=== PATIENT | male | born 1950 | race Caucasian/White ===

== ENCOUNTER → 2016-03-14 | Outpatient (CLI) | payer BC ==
[~2016-03-14] MED LIST: ALBINS/ INH; AMLO-114 PO; ATRINSX INH; BUPRTAB PO; CARV3.12 PO; CTP3 PO; FORMCAP INH; FURO80TA63 PO; GLC/500 PO; LEVAAER2 INH; LEVO88TA PO; LISI-461 PO; MOME50SP5 NAE; OMEG10007 PO; POTA20TA16 PO; SNG10 PO; TRAZ100T29 PO
[2016-03-14 14:25] LABS: BLOOD UREA NITROGEN 34 mg/dl (7-18); BUN/CREATININE RATIO 16.9 (10-20); CALCIUM 8.7 mg/dl (8.5-10.1); CARBON DIOXIDE 26 mmol/L (21-32); CHLORIDE 100 mmol/L (98-107); GLUCOSE 214 mg/dl (70-99); PHOSPHORUS 3.7 mg/dl (2.5-4.9); POTASSIUM 4.1 mmol/L (3.5-5.1); SODIUM 137 mmol/L (136-145)
[2016-03-14 14:42] LABS: URINE APPEARANCE CLEAR (CLEAR); URINE BILIRUBIN NEG (NEG); URINE COLOR YELLOW; URINE EPITHELIAL CELL AUTO 20-30 /lpf (0-5); URINE NITRITE NEG (NEG); UROBILINOGEN NEG (NEG); ZZUR CULT IF INDIC CLEAN CATCH NO
[2016-03-14 14:47] LABS: MANUAL MICROSCOPIC REQUIRED? NO; REVIEW REQ? NO
[2016-03-14 15:16] LABS: URINE PROTIEN/CREAT RATIO 0.1 (0-0.2); URINE TOTAL PROTEIN 10.2 mg/dl (0-11.9)
== END | disposition home or self-care (01) ==
LOC: C.LABSPEC 13:52
PROVIDERS: ATTEND Internal Medicine Nephrology
DX: I10 Essential (primary) hypertension (principal); N28.9 Disorder of kidney and ureter, unspecified; R80.9 Proteinuria, unspecified

== ENCOUNTER → 2016-03-25 | Outpatient (CLI) | payer BC ==
--- NOTE | 2016-03-25 12:46 | DIAGNOSTIC IMAGING REPORT ---
Renal ultrasound RETROPERITONEAL COMPLETE CLINICAL HISTORY: N28.9 Acute on chronic renal insufficiency Patient scheduled for renal insufficiency TECHNIQUE: Renal ultrasound COMPARISON STUDY: None FINDINGS: Maximum linear dimension right kidney 13.3 cm. Maximum linear dimension left kidney 13.5 cm. No evidence renal mass or hydronephrosis. IMPRESSION: Normal study. Mild cortical thinning bilaterally. Electronically signed by: Sherif Johnson M.D. 03/25/2016 12:45 PM Dictated Date/Time: 03/25/2016 12:43 PM
== END | disposition home or self-care (01) ==
LOC: C.ULTR 11:53
PROVIDERS: ATTEND Internal Medicine Nephrology
DX: N28.9 Disorder of kidney and ureter, unspecified (principal)

== ENCOUNTER → 2016-04-10 | Outpatient (CLI) | payer BC ==
[2016-04-11 13:34] LABS: BLOOD UREA NITROGEN 37 mg/dl (7-18); BUN/CREATININE RATIO 16.7 (10-20); CALCIUM 9.3 mg/dl (8.5-10.1); CARBON DIOXIDE 27 mmol/L (21-32); CHLORIDE 99 mmol/L (98-107); GLUCOSE 114 mg/dl (70-99); PHOSPHORUS 5.1 mg/dl (2.5-4.9); SODIUM 137 mmol/L (136-145)
== END | disposition home or self-care (01) ==
LOC: C.LABSPEC 13:19
PROVIDERS: ATTEND Internal Medicine Nephrology
DX: N28.9 Disorder of kidney and ureter, unspecified (principal)

== ENCOUNTER → 2017-09-24 | Outpatient (CLI) | payer BC ==
[~2017-09-24] MED LIST changes: -AMLO-114 PO; +AMLO10TA3 PO; +POTA-639 PO; -POTA20TA16 PO
== END | disposition home or self-care (01) ==
LOC: C.LABSPEC 17:38
PROVIDERS: ATTEND Urology
DX: N40.1 Benign prostatic hyperplasia with lower urinary tract symptoms (principal); N50.811 Right testicular pain

== ENCOUNTER 2020-05-05 19:48 | Inpatient (IN) ==
[2020-05-05] MEDS ORDERED: SODIUM CHLORIDE 0.9% 1000ML 1,000 ML IV SCH (20:15)
--- NOTE | 2020-05-05 20:18 | Emergency Department Note ---
History of Present Illness General Chief complaint: Urinary Symptoms Stated complaint: UTI Time Seen by Provider: 05/05/20 20:00 Source: patient and family (Son who is at the bedside) Mode of arrival: ambulatory Limitations: no limitations History of Present Illness Maximum Pain Intensity: 5 This patient comes in after having urinary discomfort since Friday. He has had dysuria with frequency. He says he cannot make it to the bathroom. No fever or chills until today he had a low-grade temperature. He did receive the majority vaccine yesterday as well the urinary symptoms started before this. He is going about every 15 minutes. He has chronic back issues is nonacute he has no numbness weakness in the buttocks or legs he has normal bowel function. He is recently on baclofen for muscles spasms. He has had no fall or trauma. No chest pain or shortness of breath. Home Medications Medication Instructions Recorded Confirmed Type bupropion HCl 300 mg 24 hr tablet, 300 mg PO DAILY #90 tab 10/01/18 05/05/20 History extended release calcium carbonate 600 mg (1,500 1 tab PO BID tab 10/01/18 05/05/20 History mg)-vitamin D3 200 unit tablet carvedilol 25 mg tablet 25 mg PO BID #180 tab 10/01/18 05/05/20 History cyanocobalamin (vitamin B-12) 5,000 mcg SL DAILY tab 10/01/18 05/05/20 History 5,000 mcg sublingual tablet levothyroxine 150 mcg tablet 150 mcg PO DAILY #30 tab 10/01/18 05/05/20 History metformin 500 mg tablet 500 mg PO BID tab 10/01/18 05/05/20 History mometasone 50 mcg/actuation nasal 2 sprays INTRANASAL BID #3 gm 10/01/18 05/05/20 History spray cholecalciferol (vitamin D3) 100 4,000 units PO DAILY 10/21/18 05/05/20 History mcg (4,000 unit) capsule cholecalciferol (vitamin D3) 75 3,000 units PO DAILY 10/21/18 05/05/20 History mcg (3,000 unit) tablet furosemide 80 mg tablet 80 mg PO DAILY PRN #30 tab 10/21/18 05/05/20 History multivitamin 1 tab PO DAILY 10/21/18 05/05/20 History acetaminophen 500 mg tablet 500 mg PO Q6H PRN 06/17/19 05/05/20 History levalbuterol tartrate 45 2 puffs INH Q6H PRN 08/17/19 05/05/20 History mcg/actuation aerosol inhaler krill oil 500 mg capsule 500 mg PO DAILY cap 09/24/19 05/05/20 History spironolactone 50 mg tablet 50 mg PO DAILY #90 tab 09/24/19 05/05/20 Rx amlodipine 10 mg tablet 10 mg PO DAILY #90 tab 12/23/19 05/05/20 Rx atorvastatin 10 mg tablet 10 mg PO DAILY 01/19/20 05/05/20 History glipizide 10 mg tablet 10 mg PO QPM 01/19/20 05/05/20 History albuterol sulfate 2.5 mg INHALATION Q4H PRN #300 ml 01/31/20 05/05/20 Rx clonidine HCl 0.3 mg tablet 0.3 mg PO BID #180 tab 03/01/20 05/05/20 Rx trazodone 100 mg tablet 100 mg PO HS #90 tab 03/15/20 05/05/20 Rx BiPap Supplies #1 ea 03/31/20 05/05/20 Rx montelukast 10 mg tablet 10 mg PO DAILY #90 tab 04/17/20 05/05/20 Rx furosemide 40 mg tablet 40 mg PO DAILY #90 tab 05/01/20 05/05/20 Rx glipizide 20 mg PO QAM 05/05/20 05/05/20 History Allergies Allergy/AdvReac Type Severity Reaction Status Date / Time heparin Allergy Severe HIT Verified 05/05/20 22:41 Penicillins Allergy Severe HIVES/SOB Verified 05/05/20 22:41 Cephalosporins Allergy Intermediate FROM MED Verified 05/05/20 22:41 RECORDDR LISA telmisartan Allergy Intermediate FROM Verified 05/05/20 22:41 MULUGETA OFC RECORD Past Med/Surg History Medical History Asthma BPH (benign prostatic hyperplasia) Chronic kidney disease (CKD), stage III (moderate) Cor pulmonale Depression Diabetes mellitus type 2 in 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 Gout Hypothyroidism Morbid obesity Obstructive sleep apnea Paroxysmal atrial fibrillation Resistant hypertension Surgical History H/O knee surgery History of herniorrhaphy History of uvulopalatopharyngoplasty Family History Denies family history of Kidney disease Social History Smoking Status: Never smoker Preferred Language: Belgian current occupational status: employed Feels Safe at Home: Yes Review of Systems A total of 10 systems reviewed and were otherwise negative Physical Exam Vital Signs Vital Signs - 24 hr 05/05/20 19:54 05/05/20 20:13 05/05/20 20:43 Temperature 35.1 C L 38.4 C H Temperature Source Temporal Artery Scan Oral Pulse Rate 96 H Pulse Rate from SpO2 Sensor Pulse Rhythm Regular Pulse Strength Normal Respiratory Rate 16 Respiratory Effort / Characteristics Non-Labored Non-Labored Respiratory Depth Normal Respiratory Pattern Regular Blood Pressure 155/75 H Blood Pressure Mean 101 Pulse Oximetry 95 Oxygen Delivery Method Room Air Room Air Sepsis Recent Fever Within 48 Hours No Sepsis New/Unexplained Change in Mental Status N/A Sepsis Action Taken by Nursing No Action Required 05/05/20 22:00 05/05/20 22:02 05/05/20 22:30 Temperature Temperature Source Pulse Rate 91 H 93 H Pulse Rate from SpO2 Sensor 91 H 92 H Pulse Rhythm Pulse Strength Respiratory Rate 29 H 21 Respiratory Effort / Characteristics Labored Respiratory Depth Respiratory Pattern Blood Pressure 166/87 H 137/83 Blood Pressure Mean 113 101 Pulse Oximetry 94 95 Oxygen Delivery Method Sepsis Recent Fever Within 48 Hours Sepsis New/Unexplained Change in Mental Status Sepsis Action Taken by Nursing 05/05/20 23:00 05/05/20 23:24 05/05/20 23:30 Temperature 37.1 C Temperature Source Oral Pulse Rate 89 85 Pulse Rate from SpO2 Sensor 89 85 Pulse Rhythm Pulse Strength Respiratory Rate 20 16 Respiratory Effort / Characteristics Non-Labored Respiratory Depth Respiratory Pattern Blood Pressure 143/80 H 131/68 Blood Pressure Mean 101 89 Pulse Oximetry 95 95 Oxygen Delivery Method Room Air Sepsis Recent Fever Within 48 Hours Sepsis New/Unexplained Change in Mental Status Sepsis Action Taken by Nursing 05/06/20 00:00 Temperature Temperature Source Pulse Rate 80 Pulse Rate from SpO2 Sensor 80 Pulse Rhythm Pulse Strength Respiratory Rate 17 Respiratory Effort / Characteristics Respiratory Depth Respiratory Pattern Blood Pressure 139/82 Blood Pressure Mean 101 Pulse Oximetry 95 Oxygen Delivery Method Room Air Sepsis Recent Fever Within 48 Hours Sepsis New/Unexplained Change in Mental Status Sepsis Action Taken by Nursing General: Well developed well nourished in no acute distress, breathing comfortably on room air. Normal speech HEENT: Normal cephalic atraumatic. Pupils are equal round and reactive to light. Extraocular movements are intact. Oropharynx is pink with moist mucous membranes. No swelling of the mouth lips or tongue. Neck: Supple with a midline trachea. No meningeal signs or stiffness, no JVD or bruits. No Stridor. Chest: Clear to auscultation bilaterally. No wheezes or rhonchi. No increased work of breathing. Heart: Regular rate and rhythm without murmurs or gallops. Abdomen: Soft nontender, nondistended without rebound guarding or rigidity. Extremities: No cyanosis clubbing or edema. No calf tenderness or assymetry Spine/Back. Non tender to palpation. No CVA tenderness Skin: Good turgor without rashes. Neurologic exam: Cranial nerves two through 12 are intact. Motor and sensation are intact and symmetrical throughout. Course Administered Medications Discontinued Medications Acetaminophen (Acetaminophen 325 Mg Tab) 650 mg PO NOW STA Stop: 05/05/20 21:18 Last Admin: 05/05/20 21:42 Dose: 650 mg Documented by: [id number] Sodium Chloride (Nss 1000ml) 1,000 mls @ 999 mls/hr IV .Q1H1M SHANTELLE Stop: 05/05/20 21:15 Last Infusion: 05/05/20 22:08 Dose: 0 mls/hr Documented by: [id number] Admin: 05/05/20 20:57 Dose: 999 mls/hr Documented by: [id number] Levofloxacin/Dextrose (Levaquin/D5w) 750 mg in 150 mls @ 100 mls/hr IV NOW STA Stop: 05/05/20 22:43 Last Infusion: 05/05/20 23:22 Dose: 0 mls/hr Documented by: [id number] Admin: 05/05/20 21:39 Dose: 100 mls/hr Documented by: [id number] Sodium Chloride (Nss 1000ml) 1,000 mls @ 999 mls/hr IV .Q1H1M ONE Stop: 05/05/20 22:15 Last Admin: 05/05/20 22:25 Dose: Not Given Documented by: [id number] Tamsulosin HCl (Tamsulosin Hcl 0.4 Mg Cap) 0.4 mg PO NOW ONE Stop: 05/05/20 23:28 Last Admin: 05/05/20 23:48 Dose: 0.4 mg Documented by: [id number] Critical Care Time Critical Care Time: Yes Total Critical Care Time: 35 Due to the patient's fever elevated white count and concern for sepsis, he needed frequent reevaluation reassessment and IV fluids IV antibiotics c onsultation and multiple testing, I have personally spent greater than 35 minutes of critical care time in the direct management of this patient. This includes bedside care, interpretation of diagnostic studies, and testing, discussion with consultants, patient, and family members, and other required patient management activities. This 35 minutes is in excess of all separately billable procedures. Medical Decision Making Differential Diagnosis UTI, sepsis, pyelonephritis, kidney stone, prostate disease, urinary retention, side effect from Covid vaccine, electrolyte or metabolic abnormality, dehydration, kidney disease Medical Records Attestation: I reviewed the patient's medical records. Home Medications Current Medication List: was personally reviewed by me Laboratory Data Attestation: I reviewed the patient's lab results. Result diagrams: 05/05/20 20:30 05/05/20 22:34 Lab Results 05/05/20 05/05/20 05/05/20 Range/Units 20:30 20:30 20:30 WBC 19.46 H (4.8-10.8) K/uL RBC 4.36 L (4.7-6.1) M/uL Hgb 13.6 L (14.0-18.0) g/dL Hct 38.7 L (42-52) % MCV 88.8 (80-100) fL MCH 31.2 (25-34) pg MCHC 35.1 (32-36) g/dL RDW Std Deviation 43.8 (36.4-46.3) fL RDW Coeff of Christina 13.4 (11.5-14.5) % Plt Count 271 (130-400) K/uL MPV 11.1 H (7.4-10.4) fL Immature Gran % (Auto) 0.7 % Neut % (Auto) 80.8 % Lymph % (Auto) 10.6 % [place] % (Auto) 7.3 % Eos % (Auto) 0.4 % Baso % (Auto) 0.2 % Neut # (Auto) 15.71 H (1.4-6.5) K/uL Lymph # (Auto) 2.07 (1.2-3.4) K/uL [place] # (Auto) 1.43 H (0.11-0.59) K/uL Eos # (Auto) 0.08 (0-0.5) K/uL Baso # (Auto) 0.03 (0-0.2) K/uL Immature Gran # (Auto) 0.14 H (0.00-0.02) K/uL PT Cancelled INR Cancelled APTT Cancelled PTT Ratio Cancelled Sodium (136-145) mmol/L Potassium (3.5-5.1) mmol/L Chloride (98-107) mmol/L Carbon Dioxide (21-32) mmol/L Anion Gap (3-11) BUN (7-18) mg/dl Creatinine (0.6-1.4) mg/dl Est Cr Clr Drug Dosing ml/min Est GFR ( Amer) Est GFR (Non-Af Amer) BUN/Creatinine Ratio (10-20) Glucose (70-99) mg/dl Lactate (0.4-2.0) mmol/L Calcium (8.5-10.1) mg/dl Magnesium (1.8-2.4) mg/dl Total Bilirubin (0.2-1) mg/dl AST (15-37) U/L ALT (12-78) U/L Alkaline Phosphatase (45-117) U/L Total Protein (6.4-8.2) gm/dl Albumin (3.4-5.0) gm/dl Globulin (2.5-4.0) gm/dl Albumin/Globulin Ratio (0.9-2) Procalcitonin 0.24 (0-0.5) ng/ml Urine Color Urine Appearance (Clear) Urine pH (4.5-7.5) Ur Specific [place] (1.000-1.030) Urine Protein (Negative) Urine Glucose (UA) (Negative) Urine Ketones (Negative) Urine Blood (Negative) Urine Nitrite (Negative) Urine Bilirubin (Negative) Urine Urobilinogen (Negative) Ur Leukocyte Esterase (Negative) Urine WBC (Auto) (0-5) /hpf Urine RBC (Auto) (0-4) /hpf U Hyaline Cast (Auto) (0-5) /lpf U Epithel Cells (Auto) (0-5) /lpf Urine Bacteria (Auto) (Negative) Amorphous Sediment (None Prsent) COVID-19 Eval Order SARS-CoV-2 (PCR) (Negative) Influenza Type A (PCR) (Neg) Influenza Type B (PCR) (Neg) RSV (RT-PCR) (Neg) 05/05/20 05/05/20 05/05/20 Range/Units 20:30 20:51 21:39 WBC (4.8-10.8) K/uL RBC (4.7-6.1) M/uL Hgb (14.0-18.0) g/dL Hct (42-52) % MCV (80-100) fL MCH (25-34) pg MCHC (32-36) g/dL RDW Std Deviation (36.4-46.3) fL RDW Coeff of Christina (11.5-14.5) % Plt Count (130-400) K/uL MPV (7.4-10.4) fL Immature Gran % (Auto) % Neut % (Auto) % Lymph % (Auto) % [place] % (Auto) % Eos % (Auto) % Baso % (Auto) % Neut # (Auto) (1.4-6.5) K/uL Lymph # (Auto) (1.2-3.4) K/uL [place] # (Auto) (0.11-0.59) K/uL Eos # (Auto) (0-0.5) K/uL Baso # (Auto) (0-0.2) K/uL Immature Gran # (Auto) (0.00-0.02) K/uL PT INR APTT PTT Ratio Sodium 133 L (136-145) mmol/L Potassium Cancelled (3.5-5.1) mmol/L Chloride 101 (98-107) mmol/L Carbon Dioxide 24 (21-32) mmol/L Anion Gap 8.0 (3-11) BUN 31 H (7-18) mg/dl Creatinine 2.51 H (0.6-1.4) mg/dl Est Cr Clr Drug Dosing 39.9 ml/min Est GFR ( Amer) 29.1 Est GFR (Non-Af Amer) 25.1 BUN/Creatinine Ratio 12.5 (10-20) Glucose 190 H (70-99) mg/dl Lactate 0.9 (0.4-2.0) mmol/L Calcium 10.0 (8.5-10.1) mg/dl Magnesium Cancelled (1.8-2.4) mg/dl Total Bilirubin 0.7 (0.2-1) mg/dl AST Cancelled (15-37) U/L ALT 23 (12-78) U/L Alkaline Phosphatase 50 (45-117) U/L Total Protein 7.9 (6.4-8.2) gm/dl Albumin 3.5 (3.4-5.0) gm/dl Globulin 4.4 H (2.5-4.0) gm/dl Albumin/Globulin Ratio 0.8 L (0.9-2) Procalcitonin (0-0.5) ng/ml Urine Color Urine Appearance (Clear) Urine pH (4.5-7.5) Ur Specific [place] (1.000-1.030) Urine Protein (Negative) Urine Glucose (UA) (Negative) Urine Ketones (Negative) Urine Blood (Negative) Urine Nitrite (Negative) Urine Bilirubin (Negative) Urine Urobilinogen (Negative) Ur Leukocyte Esterase (Negative) Urine WBC (Auto) (0-5) /hpf Urine RBC (Auto) (0-4) /hpf U Hyaline Cast (Auto) (0-5) /lpf U Epithel Cells (Auto) (0-5) /lpf Urine Bacteria (Auto) (Negative) Amorphous Sediment (None Prsent) COVID-19 Eval Order SARS-CoV-2 (PCR) (Negative) Influenza Type A (PCR) (Neg) Influenza Type B (PCR) (Neg) RSV (RT-PCR) (Neg) 05/05/20 05/05/20 05/05/20 Range/Units 21:39 22:00 22:00 WBC (4.8-10.8) K/uL RBC (4.7-6.1) M/uL Hgb (14.0-18.0) g/dL Hct (42-52) % MCV (80-100) fL MCH (25-34) pg MCHC (32-36) g/dL RDW Std Deviation (36.4-46.3) fL RDW Coeff of Christina (11.5-14.5) % Plt Count (130-400) K/uL MPV (7.4-10.4) fL Immature Gran % (Auto) % Neut % (Auto) % Lymph % (Auto) % [place] % (Auto) % Eos % (Auto) % Baso % (Auto) % Neut # (Auto) (1.4-6.5) K/uL Lymph # (Auto) (1.2-3.4) K/uL [place] # (Auto) (0.11-0.59) K/uL Eos # (Auto) (0-0.5) K/uL Baso # (Auto) (0-0.2) K/uL Immature Gran # (Auto) (0.00-0.02) K/uL PT 10.7 INR 1.1 APTT 27.4 PTT Ratio 1.0 Sodium (136-145) mmol/L Potassium (3.5-5.1) mmol/L Chloride (98-107) mmol/L Carbon Dioxide (21-32) mmol/L Anion Gap (3-11) BUN (7-18) mg/dl Creatinine (0.6-1.4) mg/dl Est Cr Clr Drug Dosing ml/min Est GFR ( Amer) Est GFR (Non-Af Amer) BUN/Creatinine Ratio (10-20) Glucose (70-99) mg/dl Lactate (0.4-2.0) mmol/L Calcium (8.5-10.1) mg/dl Magnesium (1.8-2.4) mg/dl Total Bilirubin (0.2-1) mg/dl AST (15-37) U/L ALT (12-78) U/L Alkaline Phosphatase (45-117) U/L Total Protein (6.4-8.2) gm/dl Albumin (3.4-5.0) gm/dl Globulin (2.5-4.0) gm/dl Albumin/Globulin Ratio (0.9-2) Procalcitonin (0-0.5) ng/ml Urine Color Yellow Urine Appearance Cloudy A (Clear) Urine pH 5.0 (4.5-7.5) Ur Specific [place] 1.020 (1.000-1.030) Urine Protein 2+ H (Negative) Urine Glucose (UA) Negative (Negative) Urine Ketones Trace H (Negative) Urine Blood 2+ H (Negative) Urine Nitrite Negative (Negative) Urine Bilirubin Negative (Negative) Urine Urobilinogen Negative (Negative) Ur Leukocyte Esterase 2+ H (Negative) Urine WBC (Auto) >30 H (0-5) /hpf Urine RBC (Auto) 10-30 H (0-4) /hpf U Hyaline Cast (Auto) 0 (0-5) /lpf U Epithel Cells (Auto) 20-30 H (0-5) /lpf Urine Bacteria (Auto) 2+ H (Negative) Amorphous Sediment Present A (None Prsent) COVID-19 Eval Order CovFluRsv at [facility] SARS-CoV-2 (PCR) (Negative) Influenza Type A (PCR) (Neg) Influenza Type B (PCR) (Neg) RSV (RT-PCR) (Neg) 05/05/20 05/05/20 Range/Units 22:00 22:34 WBC (4.8-10.8) K/uL RBC (4.7-6.1) M/uL Hgb (14.0-18.0) g/dL Hct (42-52) % MCV (80-100) fL MCH (25-34) pg MCHC (32-36) g/dL RDW Std Deviation (36.4-46.3) fL RDW Coeff of Christina (11.5-14.5) % Plt Count (130-400) K/uL MPV (7.4-10.4) fL Immature Gran % (Auto) % Neut % (Auto) % Lymph % (Auto) % [place] % (Auto) % Eos % (Auto) % Baso % (Auto) % Neut # (Auto) (1.4-6.5) K/uL Lymph # (Auto) (1.2-3.4) K/uL [place] # (Auto) (0.11-0.59) K/uL Eos # (Auto) (0-0.5) K/uL Baso # (Auto) (0-0.2) K/uL Immature Gran # (Auto) (0.00-0.02) K/uL PT INR APTT PTT Ratio Sodium (136-145) mmol/L Potassium 4.0 (3.5-5.1) mmol/L Chloride (98-107) mmol/L Carbon Dioxide (21-32) mmol/L Anion Gap (3-11) BUN (7-18) mg/dl Creatinine (0.6-1.4) mg/dl Est Cr Clr Drug Dosing ml/min Est GFR ( Amer) Est GFR (Non-Af Amer) BUN/Creatinine Ratio (10-20) Glucose (70-99) mg/dl Lactate (0.4-2.0) mmol/L Calcium (8.5-10.1) mg/dl Magnesium 1.7 L (1.8-2.4) mg/dl Total Bilirubin (0.2-1) mg/dl AST 12 L (15-37) U/L ALT (12-78) U/L Alkaline Phosphatase (45-117) U/L Total Protein (6.4-8.2) gm/dl Albumin (3.4-5.0) gm/dl Globulin (2.5-4.0) gm/dl Albumin/Globulin Ratio (0.9-2) Procalcitonin (0-0.5) ng/ml Urine Color Urine Appearance (Clear) Urine pH (4.5-7.5) Ur Specific [place] (1.000-1.030) Urine Protein (Negative) Urine Glucose (UA) (Negative) Urine Ketones (Negative) Urine Blood (Negative) Urine Nitrite (Negative) Urine Bilirubin (Negative) Urine Urobilinogen (Negative) Ur Leukocyte Esterase (Negative) Urine WBC (Auto) (0-5) /hpf Urine RBC (Auto) (0-4) /hpf U Hyaline Cast (Auto) (0-5) /lpf U Epithel Cells (Auto) (0-5) /lpf Urine Bacteria (Auto) (Negative) Amorphous Sediment (None Prsent) COVID-19 Eval Order SARS-CoV-2 (PCR) NEGATIVE (Negative) Influenza Type A (PCR) Negative (Neg) Influenza Type B (PCR) Negative (Neg) RSV (RT-PCR) Negative (Neg) Imaging Data Radiologist's Impression: ABDOMEN AND PELVIS CT WITHOUT CONTRAST CT DOSE: 1865.06 mGy.cm HISTORY: Acute bilateral flank pain. History of chronic kidney disease. Evaluate for obstructive uropathy TECHNIQUE: Multiaxial CT images of the abdomen and pelvis were performed without contrast. A dose lowering technique was utilized adhering to the principles of ALARA. COMPARISON STUDY: CT abdomen and pelvis 10/15/2017 FINDINGS: Limited exam secondary to patient body habitus with portions of the anatomy outside the [id number]. Trace pericardial effusion. Coronary artery calcifications. Clear lung bases. No pneumatosis or pneumoperitoneum. Hepatic steatosis. The unenhanced spleen and adrenal glands are unremarkable. Punctate calcification of the pancreatic head may reflect sequela of chronic pancreatitis. Nonspecific bilateral perinephric stranding. No renal or ureteral calculi or obstructive uropathy. Urinary bladder wall thickening with partial distention. Mild perivesicular stranding. Mild prostamegaly. Fat filled bilateral inguinal hernias. Calcified plaque the abdominal aorta without aneurysm. No adenopathy. There is no bowel obstruction or bowel wall thickening. Colonic diverticulosis. Normal appendix. No ascites or mesenteric inflammation. Visualized soft tissues are unremarkable. Degenerative changes of the spine, pelvis and hips. Prominent anterior endplate osteophytic spurring at L5-S1. IMPRESSION: 1. No renal or ureteral calculi or obstructive uropathy. 2. No bowel obstruction or bowel wall thickening. Normal appendix. 3. Hepatic steatosis. 4. Prostamegaly with urinary bladder wall thickening suggestive of chronic bladder outlet obstruction. Correlate with urinalysis. ECG Data Indication: + weakness Rate (beats per minute): 96 Rhythm: + normal sinus ECG Intervals/blocks: + First degree AV block and + Normal QT ECG [place]: + Normal ECG ST segments: + Normal ST segments ECG Findings: no PACs and no PVCs Comparison ECG Date: from (06/06/12) Change: the following changes noted (A fib has been replaced by normal sinus rhythm) MDM Narrative This patient comes in as described above. He was placed on a monitor technician in room C1 peers here for treatment evaluation of fever and urinary symptoms. A sepsis work-up was done. He was hydrated with 1 L IV normal saline bolus. I did a bladder scan to look for retention as well as CT to evaluate for ob structive uropathy. His CAT scan does not show any obstructive uropathy or kidney stone he does have prostamegaly with bladder wall thickening consistent with chronic bladder outlet obstruction. On the bladder scan there is no significant urine. Chest x-ray is unremarkable. White count came back significant elevated at 19. his urinalysis does appear to be infected. Covid testing was negative. His kidney function is also increased compared to baseline. He went from 1.99 up to 2.5. Some of this may be hydration is as he is not been drinking well. He does have a UTI with likely sepsis from his urinary tract infection. He was given initially 1 L IV fluid. He said he felt a little short of breath but thought it could be the mask he does have a history of CHF and in light of this and the fact that his lactate was not elevated I did not give him further fluids as I felt the risk benefit was not there. Some of the symptoms could also be a side effect from the Covid vaccine. Dr. Brad garland did see him in the ER and will be admitting him for further treatment and evaluation. He was given IV Levaquin for likely UTI/urosepsis. I chose this as he is penicillin and cephalosporin allergic and tells me has had this before without difficulties. While he was here he did spike a temperature was also given p.o. Tylenol. Continuous cardiac monitoring: Order was placed in the EMR for continuous cardiac monitoring due to the patient's sepsis. He was noted to be in normal sinus rhythm a pulse of 80 upon my evaluation Impression & Plan Sepsis, Urinary tract infection, Weakness, Adverse effect of COVID-19 vaccine Discharge Plan Visit Data Chief Complaint: Urinary Symptoms Stated Complaint: UTI ED Provider: Mike Benz Discharge Problem: Sepsis, Urinary tract infection, Weakness, Adverse effect of COVID-19 vaccine Patient Disposition: Admitted As Inpatient Discharge Instructions Interventions: ED Discharge Assessment Last Done: 05/06/20 00:08 Discharge Problem: Sepsis Qualifiers: Sepsis type: sepsis due to unspecified organism Sepsis acute organ dysfunction status: unspecified Qualified Code(s): A41.9 - Sepsis, unspecified organism Urinary tract infection Qualifiers: Urinary tract infection type: acute cystitis Hematuria presence: without hematuria Qualified Code(s): N30.00 - Acute cystitis without hematuria
--- NOTE | 2020-05-05 20:44 | XRay Report ---
XR chest 1V portable HISTORY: 69 years-old Male SEPSIS acute sepsis COMPARISON: Chest radiograph 09/01/2014 TECHNIQUE: Portable upright AP view of the chest FINDINGS: Cardiac silhouette is enlarged. No pneumothorax, pleural effusion or overt pulmonary edema. Mild subs egmental atelectasis/scarring of the left lung base. Degenerative changes of the shoulders and spine. IMPRESSION: Cardiomegaly without acute process. ACT 112: Negative or not required by law. The above report was generated using voice recognition software. It may contain grammatical, syntax o r spelling errors. Electronically signed by: Xiang Mclaughlin M.D. 05/05/2020 8:43 PM
[2020-05-05 20:50] LABS: Basophils # (auto) 0.03 K/uL (0-0.2); Basophils % (auto) 0.2 %; Eosinophils # (auto) 0.08 K/uL (0-0.5); Eosinophils % (auto) 0.4 %; Hematocrit (blood only) 38.7 % (42-52); Hemoglobin 13.6 g/dL (14.0-18.0); Immature Granulocytes # (auto) 0.14 K/uL (0.00-0.02); Immature Granulocytes % (auto) 0.7 %; Lymphocytes # (auto) 2.07 K/uL (1.2-3.4); Lymphocytes % (auto) 10.6 %; Mean Corpuscular Hemoglobin 31.2 pg (25-34); Mean Corpuscular Hgb Conc 35.1 g/dL (32-36); Mean Corpuscular Volume 88.8 fL (80-100); Mean Platelet Volume 11.1 fL (7.4-10.4); Monocytes # (auto) 1.43 K/uL (0.11-0.59); Monocytes % (auto) 7.3 %; Neutrophils # (auto) 15.71 K/uL (1.4-6.5); Neutrophils % (auto) 80.8 %; Platelet Count 271 K/uL (130-400); RDW Coefficient of Variation 13.4 % (11.5-14.5); RDW Standard Deviation 43.8 fL (36.4-46.3); Red Blood Count 4.36 M/uL (4.7-6.1); White Blood Count 19.46 K/uL (4.8-10.8)
[2020-05-05] MEDS ORDERED: levoFLOXacin/D5W 750 MG/150 ML BAG IV STA (21:14)
[2020-05-05 21:15] LABS: Albumin Globulin Ratio 0.8 (0.9-2); Albumin Level 3.5 gm/dl (3.4-5.0); BUN Creatinine Ratio 12.5 (10-20); Bilirubin,Total 0.7 mg/dl (0.2-1); Creatinine Clr Calc Pharmacy 39.9 ml/min; Est GFR (African American) 29.1; Est GFR (Non-African American) 25.1; Globulin 4.4 gm/dl (2.5-4.0); Total Protein 7.9 gm/dl (6.4-8.2)
[2020-05-05] MEDS ORDERED: SODIUM CHLORIDE 0.9% 1000ML 1,000 ML IV ONE (21:15)
[2020-05-05] MEDS ORDERED: ACETAMINOPHEN 325 MG TAB PO STA (21:17)
--- NOTE | 2020-05-05 22:02 | CT Scan Report ---
ABDOMEN AND PELVIS CT WITHOUT CONTRAST CT DOSE: 1865.06 mGy.cm HISTORY: Acute bilateral flank pain. History of chronic kidney disease. Evaluate for obstructive urop athy TECHNIQUE: Multiaxial CT images of the abdomen and pelvis were performed without contrast. A dose lo wering technique was utilized adhering to the principles of ALARA. COMPARISON STUDY: CT abdomen and pelvis 10/15/2017 FINDINGS: Limited exam secondary to patient body habitus with portions of the anatomy outside the fie ld-of-view. Trace pericardial effusion. Coronary artery calcifications. Clear lung bases. No pneumato sis or pneumoperitoneum. Hepatic steatosis. The unenhanced spleen and adrenal glands are unremarkable. Punctate calcification of the pancreatic head may reflect sequela of chronic pancreatitis. Nonspecific bilateral perinephric stranding. No renal or ureteral calculi or obstructive uropathy. Urinary bladder wall thickening wit h partial distention. Mild perivesicular stranding. Mild prostamegaly. Fat filled bilateral inguinal hernias. Calcified plaque the abdominal aorta without aneurysm. No adenopathy. There is no bowel obstruction or bowel wall thickening. Colonic diverticulosis. Normal appendix. No a scites or mesenteric inflammation. Visualized soft tissues are unremarkable. Degenerative changes of the spine, pelvis and hips. Prominent anterior endplate osteophytic spurring at L5-S1. IMPRESSION: 1. No renal or ureteral calculi or obstructive uropathy. 2. No bowel obstruction or bowel wall thickening. Normal appendix. 3. Hepatic steatosis. 4. Prostamegaly with urinary bladder wall thickening suggestive of chronic bladder outlet obstruction . Correlate with urinalysis. ACT 112: Negative or not required by law. The above report was generated using voice recognition software. It may contain grammatical, syntax o r spelling errors. Electronically signed by: Xiang Mclaughlin M.D. 05/05/2020 10:01 PM
[2020-05-05 22:03] LABS: INR 1.1 (0.9-1.1); Partial Thromboplastin Time 27.4 Seconds (21.0-31.0); Prothrombin Time 10.7 Seconds (9.0-12.0)
[2020-05-05 22:33] LABS: Appearance Urine Cloudy (Clear); Bacteria Urine Automated 2+ (Negative); Bilirubin Urine Negative (Negative); Blood Urine 2+ (Negative); Color Urine Yellow; Epithelial Cell Urine Auto 20-30 /lpf (0-5); Glucose Urine UA Negative (Negative); Ketones Urine Trace (Negative); Leukocyte Esterase Urine 2+ (Negative); Nitrite Urine Negative (Negative); Protein Urine 2+ (Negative); Urobilinogen Urine Negative (Negative); WBC Urine Automated >30 /hpf (0-5)
[2020-05-05 22:54] LABS: Influenza A virus by PCR Negative (Neg); Influenza B virus by PCR Negative (Neg); RSV by PCR Negative (Neg); SARS CoV2 RNA(COVID-19) InHosp NEGATIVE (Negative)
[2020-05-05 22:59] LABS: Magnesium 1.7 mg/dl (1.8-2.4)
[2020-05-05] MEDS ORDERED: TAMSULOSIN HCL 0.4 MG CAP PO ONE (23:27)
[2020-05-05 23:32] LABS: Amorphous Sediment Urine Present (None Prsent); Cast Urine Automated 0 /lpf (0-5)
--- NOTE | 2020-05-05 23:45 | History & Physical Report ---
Date of Service May 05, 2020 Assessment & Plan (1) BPH w urinary obs/LUTS: BPH with urinary tract obstruction/LUTS/complicated urinary tract infection/sepsis- Chronic bladder outlet obstruction suggested on CT Start on tamsulosin 0.4 mg p.o. every evening, with first dose now Levofloxacin 500 mg IV daily. Patient with noted allergies to penicillins and cephalosporins. Follow urine culture and sensitivity. Present on Admission?: Yes (2) Sepsis: See above Present on Admission?: Yes (3) Urinary tract infection: See above Present on Admission?: Yes (4) Paroxysmal atrial fibrillation: Paroxysmal atrial fibrillation/resistant hypertension/chronic diastolic CHF- Continue amlodipine, carvedilol, clonidine. Hold furosemide and spironolactone for now, and resume when appropriate Present on Admission?: Yes (5) Resistant hypertension: See above Present on Admission?: Yes (6) Chronic diastolic CHF (congestive heart failure): See above Present on Admission?: Yes (7) Chronic kidney disease (CKD), stage III (moderate): Creatinine 2.51 upon admission, with range 1.99-2.37. Has had decreased oral intake over the past 24 hours due to present illness Hold furosemide and spironolactone, and resume when appropriate. Present on Admission?: Yes (8) Diabetes mellitus: Hold glipizide and Metformin. Placed on Accu-Cheks before meals and at bedtime with NovoLog coverage per scale Patient's estimated GFR has been 31-39 range over the past year, making it borderline to be on Metformin continuously Check hemoglobin A1c Present on Admission?: Yes (9) Morbid obesity: Noted and discussed Present on Admission?: Yes (10) Hypothyroidism: Continue levothyroxine 150 mcg daily Present on Admission?: Yes (11) Depression: Continue bupropion and trazodone Present on Admission?: Yes (12) Asthma: Hold albuterol HFA as needed due to shortage. Continue Xopenex HFA 2 puffs every 6 hours as needed Present on Admission?: Yes (13) Obstructive sleep apnea: CPAP at bedtime as needed Present on Admission?: Yes History of Present Illness Chief Complaint: The patient presents to the emergency department with urinary frequency and urgency, with incomplete emptying and post void dribbling Primary Care Provider: ANKIT Noonan The patient is a 69-year-old male with a past medical history including adverse effect of COVID-19 vaccine, nocturnal hypoxia, obstructive sleep apnea, asthma, vasovagal syncope, chronic diastolic CHF, paroxysmal atrial fibrillation, resistant hypertension, gout, CKD stage III. He has noted over the past several weeks increasing difficulty with urinary frequency, urgency and dysuria, with incomplete bladder emptying and postvoid dribbling. He was noted in the ED to have a temperature of 101.1. He has had decreased appetite over the past 24 hours. He denies any recent travels or sick exposures. He does recount that over the past few years he has had decreased flow of stream when he urinates. Allergies Allergy/AdvReac Type Severity Reaction Status Date / Time heparin Allergy Severe HIT Verified 05/05/20 22:41 Penicillins Allergy Severe HIVES/SOB Verified 05/05/20 22:41 Cephalosporins Allergy Intermediate FROM MED Verified 05/05/20 22:41 RECORDDR LISA telmisartan Allergy Intermediate FROM Verified 05/05/20 22:41 MULUGETA OFC RECORD Home Medications Medication Instructions Recorded Confirmed Type bupropion HCl 300 mg 24 hr tablet, 300 mg PO DAILY #90 tab 10/01/18 05/05/20 History extended release calcium carbonate 600 mg (1,500 1 tab PO BID tab 10/01/18 05/05/20 History mg)-vitamin D3 200 unit tablet carvedilol 25 mg tablet 25 mg PO BID #180 tab 10/01/18 05/05/20 History cyanocobalamin (vitamin B-12) 5,000 mcg SL DAILY tab 10/01/18 05/05/20 History 5,000 mcg sublingual tablet levothyroxine 150 mcg tablet 150 mcg PO DAILY #30 tab 10/01/18 05/05/20 History metformin 500 mg tablet 500 mg PO BID tab 10/01/18 05/05/20 History mometasone 50 mcg/actuation nasal 2 sprays INTRANASAL BID #3 gm 10/01/18 05/05/20 History spray cholecalciferol (vitamin D3) 100 4,000 units PO DAILY 10/21/18 05/05/20 History mcg (4,000 unit) capsule cholecalciferol (vitamin D3) 75 3,000 units PO DAILY 10/21/18 05/05/20 History mcg (3,000 unit) tablet furosemide 80 mg tablet 80 mg PO DAILY PRN #30 tab 10/21/18 05/05/20 History multivitamin 1 tab PO DAILY 10/21/18 05/05/20 History acetaminophen 500 mg tablet 500 mg PO Q6H PRN 06/17/19 05/05/20 History levalbuterol tartrate 45 2 puffs INH Q6H PRN 08/17/19 05/05/20 History mcg/actuation aerosol inhaler krill oil 500 mg capsule 500 mg PO DAILY cap 09/24/19 05/05/20 History spironolactone 50 mg tablet 50 mg PO DAILY #90 tab 09/24/19 05/05/20 Rx amlodipine 10 mg tablet 10 mg PO DAILY #90 tab 12/23/19 05/05/20 Rx atorvastatin 10 mg tablet 10 mg PO DAILY 01/19/20 05/05/20 History glipizide 10 mg tablet 10 mg PO QPM 01/19/20 05/05/20 History albuterol sulfate 2.5 mg INHALATION Q4H PRN #300 ml 01/31/20 05/05/20 Rx clonidine HCl 0.3 mg tablet 0.3 mg PO BID #180 tab 03/01/20 05/05/20 Rx trazodone 100 mg tablet 100 mg PO HS #90 tab 03/15/20 05/05/20 Rx BiPap Supplies #1 ea 03/31/20 05/05/20 Rx montelukast 10 mg tablet 10 mg PO DAILY #90 tab 04/17/20 05/05/20 Rx furosemide 40 mg tablet 40 mg PO DAILY #90 tab 05/01/20 05/05/20 Rx glipizide 20 mg PO QAM 05/05/20 05/05/20 History Past Med/Surg History Medical History Asthma BPH (benign prostatic hyperplasia) Chronic kidney disease (CKD), stage III (moderate) Cor pulmonale Depression Diabetes mellitus type 2 in 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 Gout Hypothyroidism Morbid obesity Obstructive sleep apnea Paroxysmal atrial fibrillation Resistant hypertension Surgical History H/O knee surgery History of herniorrhaphy History of uvulopalatopharyngoplasty Family History Denies family history of Kidney disease Social History Smoking Status: Never smoker Hx Alcohol Use: No Hx Substance Use: No Preferred Language: Barbadian Communication Ability: Effective College Intern Required: No Beliefs That Will Affect Care: None Current Living Situation: Alone current occupational status: employed Other Information That Helps Us Care for You: No Feels Safe at Home: Yes Safety Concerns: Feels Safe At This Time Assistive Devices: Glasses Review of Systems Review of Systems: The patient denies chest pain, palpitations, shortness of breath, dyspnea on exertion, cough, lower extremity swelling, sore throat, chills, sweats, nausea, vomiting, diarrhea , constipation, abdominal pain, pelvic pain, blood in urine or stool, lightheadedness, dizziness, headache, memory loss, loss of consciousness, rash, abnormal bruising or bleeding, imbalance, focal or generalized weakness, numbness or tingling in arms or legs, generalized arthralgias or myalgias, back or neck pain, or night sweats. The review of systems is otherwise negative other than for that already noted above, and at least 10 systems have been reviewed. Physical Exam Physical Exam: The patient is awake, alert and oriented 3, well developed and well nourished, normocephalic and atraumatic, lying in bed and in no acute distress. HEENT--PERRL, EOMI, mucous membranes and oropharynx mildly dry. Neck--supple. No JVD. No bruits. Thyroid normal, trachea midline, no adenopathy. Heart--normal S1 and S2. No murmurs, rubs or gallops. Lungs--clear bilaterally, no respiratory distress, no accessory muscle use. Abdomen--normal bowel sounds and soft. Nontender. Nondistended. Morbidly obese Extremities--no cyanosis or clubbing. No edema. Dermatologic--normal skin turgor, normal color, no abnormal lymph nodes, no rash. Neurologic--cranial nerves II through XII grossly intact. Rheumatologic--range of motion limited by body habitus Psychiatric--normal affect. Results & Data Results & Data ([facility]) Vital Signs (Past 12 Hours) Vital Signs Temp Pulse Resp BP Pulse Ox 05/05/20 23:30 85 16 131/68 95 05/05/20 23:24 98.8 F 05/05/20 23:00 89 20 143/80 H 95 05/05/20 22:30 93 H 21 137/83 95 05/05/20 22:00 91 H 29 H 166/87 H 94 05/05/20 20:13 101.1 F H 05/05/20 19:54 95.2 F L 96 H 16 155/75 H 95 Laboratory Results Laboratory Results WBC 19.46 K/uL (4.8-10.8) H 05/05/20 20:30 RBC 4.36 M/uL (4.7-6.1) L 05/05/20 20:30 Hgb 13.6 g/dL (14.0-18.0) L 05/05/20 20:30 Hct 38.7 % (42-52) L 05/05/20 20:30 MCV 88.8 fL (80-100) 05/05/20 20:30 MCH 31.2 pg (25-34) 05/05/20 20:30 MCHC 35.1 g/dL (32-36) 05/05/20 20:30 RDW Std Deviation 43.8 fL (36.4-46.3) 05/05/20 20:30 RDW Coeff of Christina 13.4 % (11.5-14.5) 05/05/20 20:30 Plt Count 271 K/uL (130-400) 05/05/20 20:30 MPV 11.1 fL (7.4-10.4) H 05/05/20 20:30 Immature Gran % (Auto) 0.7 % 05/05/20 20:30 Neut % (Auto) 80.8 % 05/05/20 20:30 Lymph % (Auto) 10.6 % 05/05/20 20:30 [place] % (Auto) 7.3 % 05/05/20 20:30 Eos % (Auto) 0.4 % 05/05/20 20:30 Baso % (Auto) 0.2 % 05/05/20 20:30 Neut # (Auto) 15.71 K/uL (1.4-6.5) H 05/05/20 20:30 Lymph # (Auto) 2.07 K/uL (1.2-3.4) 05/05/20 20:30 [place] # (Auto) 1.43 K/uL (0.11-0.59) H 05/05/20 20:30 Eos # (Auto) 0.08 K/uL (0-0.5) 05/05/20 20:30 Baso # (Auto) 0.03 K/uL (0-0.2) 05/05/20 20:30 Immature Gran # (Auto) 0.14 K/uL (0.00-0.02) H 05/05/20 20:30 PT 10.7 Seconds (9.0-12.0) 05/05/20 21:39 INR 1.1 (0.9-1.1) 05/05/20 21:39 APTT 27.4 Seconds (21.0-31.0) 05/05/20 21:39 PTT Ratio 1.0 05/05/20 21:39 Sodium 133 mmol/L (136-145) L 05/05/20 20:30 Potassium 4.0 mmol/L (3.5-5.1) 05/05/20 22:34 Chloride 101 mmol/L (98-107) 05/05/20 20:30 Carbon Dioxide 24 mmol/L (21-32) 05/05/20 20:30 Anion Gap 8.0 (3-11) 05/05/20 20:30 BUN 31 mg/dl (7-18) H 05/05/20 20:30 Creatinine 2.51 mg/dl (0.6-1.4) H 05/05/20 20:30 Est Cr Clr Drug Dosing 39.9 ml/min 05/05/20 20:30 Est GFR ( Amer) 29.1 05/05/20 20:30 Est GFR (Non-Af Amer) 25.1 05/05/20 20:30 BUN/Creatinine Ratio 12.5 (10-20) 05/05/20 20:30 Glucose 190 mg/dl (70-99) H 05/05/20 20:30 POC Glucose 145 mg/dl (70-99) H 05/06/20 01:55 Lactate 0.9 mmol/L (0.4-2.0) 05/05/20 20:51 Calcium 10.0 mg/dl (8.5-10.1) 05/05/20 20:30 Magnesium 1.7 mg/dl (1.8-2.4) L 05/05/20 22:34 Total Bilirubin 0.7 mg/dl (0.2-1) 05/05/20 20:30 AST 12 U/L (15-37) L 05/05/20 22:34 ALT 23 U/L (12-78) 05/05/20 20:30 Alkaline Phosphatase 50 U/L (45-117) 05/05/20 20:30 Total Protein 7.9 gm/dl (6.4-8.2) 05/05/20 20: Albumin 3.5 gm/dl (3.4-5.0) 05/05/20 20: Globulin 4.4 gm/dl (2.5-4.0) H 05/05/20 20:30 Albumin/Globulin Ratio 0.8 (0.9-2) L 05/05/20 20:30 Procalcitonin 0.24 ng/ml (0-0.5) 05/05/20 20:30 Urine Color Yellow 05/05/20 22:00 Urine Appearance Cloudy (Clear) A 05/05/20 22:00 Urine pH 5.0 (4.5-7.5) 05/05/20 22:00 Ur Specific [place] 1.020 (1.000-1.030) 05/05/20 22:00 Urine Protein 2+ (Negative) H 05/05/20 22:00 Urine Glucose (UA) Negative (Negative) 05/05/20 22:00 Urine Ketones Trace (Negative) H 05/05/20 22:00 Urine Blood 2+ (Negative) H 05/05/20 22:00 Urine Nitrite Negative (Negative) 05/05/20 22:00 Urine Bilirubin Negative (Negative) 05/05/20 22:00 Urine Urobilinogen Negative (Negative) 05/05/20 22:00 Ur Leukocyte Esterase 2+ (Negative) H 05/05/20 22:00 Urine WBC (Auto) >30 /hpf (0-5) H 05/05/20 22:00 Urine RBC (Auto) 10-30 /hpf (0-4) H 05/05/20 22:00 U Hyaline Cast (Auto) 0 /lpf (0-5) 03/26/21 22:00 U Epithel Cells (Auto) 20-30 /lpf (0-5) H 05/05/20 22:00 Urine Bacteria (Auto) 2+ (Negative) H 05/05/20 22:00 Amorphous Sediment Present (None Prsent) A 05/05/20 22:00 COVID-19 Eval Order [facility]Rsv at [facility] 05/05/20 22:00 SARS-CoV-2 (PCR) NEGATIVE (Negative) 05/05/20 22:00 Influenza Type A (PCR) Negative (Neg) 05/05/20 22:00 Influenza Type B (PCR) Negative (Neg) 05/05/20 22:00 RSV (RT-PCR) Negative (Neg) 05/05/20 22:00 Diagnostic Findings [facility], [id number] XRay Report Patient: LANA MCKNIGHTdmit Date: 05/05/20#: [id number]: [id number] ID:[id number]: Date: 1950[facility] Zip: [place] [id number]: [id number]: EDSex: MRoom/Bed:Att Phy:Diagnosis: UTIPri Phy: Charu Mauricio CRNPService Date: 05/05/20Fam Phy:Interpreting Phy: Erik MclaughlinAdmit Phy: Ordering Phy: Mike Benz M.D. cc: ~ XR chest 1V portable HISTORY: 69 years-old Male SEPSIS acute sepsis COMPARISON: Chest radiograph 09/01/2014 TECHNIQUE: Portable upright AP view of the chest FINDINGS: Cardiac silhouette is enlarged. No pneumothorax, pleural effusion or overt pulmonary edema. Mild subsegmental atelectasis/scarring of the left lung base. Degenerative changes of the shoulders and spine. IMPRESSION: Cardiomegaly without acute process. ACT 112: Negative or not required by law. The above report was generated using voice recognition software. It may contain grammatical, syntax or spelling errors. Electronically signed by: Xiang Mclaughlin M.D. 05/05/2020 8:43 PM Dictated: 05/05/202041Transcribed: 05/05/202041 [facility], [id number] CT Scan Report Patient: LNAA MCKNIGHT Date: 05/05/20#: [id number]: Ax[facility]Tr[facility] Centert ID:[id number]: Date: [address] [place] [address] Zip: [place] [id number]: [id number]: EDSex: MRoom/Bed:Att Phy:Diagnosis: UTIPri Phy: Charu Mauricio CRNPService Date: 05/05/20Fam Phy:Interpreting Phy: Erik MclaughlinAdmserjio Phy: Ordering Phy: Mike Benz M.D. cc: ~ ABDOMEN AND PELVIS CT WITHOUT CONTRAST CT DOSE: 1865.06 mGy.cm HISTORY: Acute bilateral flank pain. History of chronic kidney disease. Evaluate for obstructive uropathy TECHNIQUE: Multiaxial CT images of the abdomen and pelvis were performed without contrast. A dose lowering technique was utilized adhering to the principles of ALARA. COMPARISON STUDY: CT abdomen and pelvis 10/15/2017 FINDINGS: Limited exam secondary to patient body habitus with portions of the anatomy outside the [id number]. Trace pericardial effusion. Coronary artery calcifications. Clear lung bases. No pneumatosis or pneumoperitoneum. Hepatic steatosis. The unenhanced spleen and adrenal glands are unremarkable. Punctate calcification of the pancreatic head may reflect sequela of chronic pancreatitis. Nonspecific bilateral perinephric stranding. No renal or ureteral calculi or obstructive uropathy. Urinary bladder wall thickening with partial distention. Mild perivesicular stranding. Mild prostamegaly. Fat filled bilateral inguinal hernias. Calcified plaque the abdominal aorta without aneurysm. No adenopathy. There is no bowel obstruction or bowel wall thickening. Colonic diverticulosis. Normal appendix. No ascites or mesenteric inflammation. Visualized soft tissues are unremarkable. Degenerative changes of the spine, pelvis and hips. Prominent anterior endplate osteophytic spurring at L5-S1. IMPRESSION: 1. No renal or ureteral calculi or obstructive uropathy. 2. No bowel obstruction or bowel wall thickening. Normal appendix. 3. Hepatic steatosis. 4. Prostamegaly with urinary bladder wall thickening suggestive of chronic bladder outlet obstruction. Correlate with urinalysis. ACT 112: Negative or not required by law. The above report was generated using voice recognition software. It may contain grammatical, syntax or spelling errors. Electronically signed by: Xiang Mclaughlin M.D. 05/05/2020 10:01 PM Dictated: 05/05/202151Transcribed: 05/05/202151 Code Status & VTE Plan Code Status Full code VTE Prophylaxis Plan VTE Prophylaxis will be ordered: Yes PG Care Time/CCT Total # of Minutes Spent Total Time Spent with Patient: Total time spent is greater than 50% in coordination of care (as documented) at patient's floor/unit and/or counseling patient: Coding Level of Care Code 63089 Initial Inpt Care Lvl 3 Diagnoses BPH w urinary obs/LUTS N40.1; N13.8 Sepsis A41.9 Sepsis acute organ dysfunction status: unspecified Sepsis type: sepsis due to unspecified organism Urinary tract infection N30.00 Hematuria presence: without hematuria Urinary tract infection type: acute cystitis Paroxysmal atrial fibrillation I48.0 Resistant hypertension I10 Chronic diastolic CHF (congestive heart failure) I50.32 Chronic kidney disease (CKD), stage III (moderate) N18.3 Diabetes mellitus E11.9 Morbid obesity E66.01 Hypothyroidism E03.9 Depression F32.9 Asthma J45.909 Obstructive sleep apnea G47.33 (1) Sepsis Sepsis acute organ dysfunction status: unspecified Sepsis type: sepsis due to unspecified organism Qualified Code(s): A41.9 - Sepsis, unspecified organism (2) Urinary tract infection Hematuria presence: without hematuria Urinary tract infection type: acute cystitis Qualified Code(s): N30.00 - Acute cystitis without hematuria
[2020-05-06] MEDS ORDERED: GLUCAGON FOR INJ 1 MG VIAL SQ PRN (00:40)
[2020-05-06] MEDS ORDERED: GLUCOSE 40% GEL 15 GM TUBE PO PRN (00:40)
[2020-05-06] MEDS ORDERED: LEVALBUTEROL TARTRATE 15 GM HFA.AER.AD INH PRN (00:40)
[2020-05-06] MEDS ORDERED: GLUCOSE 10 TABS/TUBE PO PRN (00:40)
[2020-05-06] MEDS ORDERED: DEXTROSE 50% 50 ML SYRINGE IV PRN (00:40)
[2020-05-06] MEDS ORDERED: ALBUTEROL 0.083% NEBU SOLN 3 ML VIAL INH PRN (00:40)
[2020-05-06] MEDS ORDERED: CARBOHYDRATES FOR HYPOGLYCEMIA PO PRN (00:40)
[2020-05-06] MEDS ORDERED: ACETAMINOPHEN 325 MG TAB PO PRN (00:40)
[2020-05-06] MEDS ORDERED: ACETAMINOPHEN HOME PACK 500 MG TABLET PO PRN (00:40)
[2020-05-06] MEDS ORDERED: ONDANSETRON INJ 2 MG/ML 2 ML VIAL IV PRN (00:40)
[2020-05-06] MEDS: INSULIN ASPART 100 UNITS/ML 3 ML PEN SC SCH ×5 (01:58→21:16)
[2020-05-06] MEDS: cloNIDine HCL 0.3 MG TAB PO SCH ×3 (02:22→21:11)
[2020-05-06] MEDS: carvediloL 25 MG TAB PO SCH ×3 (02:22→21:10)
[2020-05-06] MEDS: LEVOTHYROXINE SODIUM 150 MCG TABLET PO SCH (07:27)
[2020-05-06] MEDS ORDERED: metFORMIN HCL 500 MG TAB PO SCH (08:00)
[2020-05-06] MEDS ORDERED: CHOLECALCIFEROL 3000 UNIT PO SCH (09:00)
[2020-05-06] MEDS ORDERED: ATORVASTATIN 10 MG TAB PO SCH ×2 (09:00→21:00)
[2020-05-06 09:19] LABS: Estimated Average Glucose 206 mg/dl; Hemoglobin A1C 8.8 % (4.5-5.6)
[2020-05-06] MEDS: buPROPion XL 300 MG TABCR PO SCH (09:26)
[2020-05-06] MEDS: CALCIUM 600MG + VIT D 400 IU TAB PO SCH ×2 (09:26→21:11)
[2020-05-06] MEDS: MONTELUKAST SODIUM 10 MG TABLET PO SCH (09:27)
[2020-05-06] MEDS: CHOLECALCIFEROL 1,000 UNITS 25 MCG TAB PO SCH (09:27)
[2020-05-06] MEDS: amLODIPine BESYLATE 5 MG TAB PO SCH (09:27)
[2020-05-06] MEDS: OMEGA-3 (PURIFIED FISH OIL) 1 GM CAP PO SCH (09:27)
[2020-05-06] MEDS: MULTIVITAMIN TAB PO SCH (09:27)
[2020-05-06] MEDS: FLUTICASONE PROPIONATE NA SPR 16 GM BTL SCH (09:28)
[2020-05-06] MEDS: CYANOCOBALAMIN (VITAMIN B-12) 2,500 MCG TAB.SUBL SL SCH (09:28)
--- NOTE | 2020-05-06 13:21 | Electrocardiogram Report ---
Test Reason : Blood Pressure : / mmHG Vent. Rate : 096 BPM Atrial Rate : 096 BPM P-R Int : 226 ms QRS Dur : 152 ms QT Int : 366 ms P-R-T Axes : 054 -56 104 degrees QTc Int : 462 ms Sinus rhythm with 1st degree A-V block with frequent Premature ventricular complexes Left axis deviation Non-specific intra-ventricular conduction delay Abnormal ECG When compared with ECG of 06-JUN-2012 07:27, Sinus rhythm has replaced Atrial fibrillation Vent. rate has decreased BY 52 BPM QRS duration has increased Confirmed by Bill Soliman ([id number]) on 05/06/2020 1:21:24 PM Referred By: REFERRED SELF Confirmed By:Bill Soliman
[2020-05-06] MEDS: FENOFIBRATE NANOCRYSTALLIZED 48 MG TABLET PO SCH (14:36)
--- NOTE | 2020-05-06 18:30 | Hospitalist Progress Note ---
Date of Service May 06, 2020 Assessment & Plan (1) BPH w urinary obs/LUTS: BPH with urinary tract obstruction/LUTS/complicated urinary tract infection/sepsis- Chronic bladder outlet obstruction suggested on CT Start on tamsulosin 0.4 mg p.o. every evening, with first dose now Levofloxacin 500 mg IV daily. Patient with noted allergies to penicillins and cephalosporins. Follow urine culture and sensitivity. Culture still pending at this time continuing levofloxacin as noted above. No changes to treatment (2) Sepsis: See above (3) Urinary tract infection: See above (4) Paroxysmal atrial fibrillation: Paroxysmal atrial fibrillation/resistant hypertension/chronic diastolic CHF- Continue amlodipine, carvedilol, clonidine. Hold furosemide and spironolactone for now, and resume when appropriate (5) Resistant hypertension: See above (6) Chronic diastolic CHF (congestive heart failure): See above (7) Chronic kidney disease (CKD), stage III (moderate): Creatinine 2.51 upon admission, with range 1.99-2.37. Has had decreased oral intake over the past 24 hours due to present illness Hold furosemide and spironolactone, and resume when appropriate. Recheck lab work in a.m. (8) Diabetes mellitus: Hold glipizide and Metformin. Placed on Accu-Cheks before meals and at bedtime with NovoLog coverage per scale Patient's estimated GFR has been 31-39 range over the past year, making it borderline to be on Metformin continuously Check hemoglobin A1c A1c of 8.8, continue insulin management (9) Morbid obesity: Noted and discussed (10) Hypothyroidism: Continue levothyroxine 150 mcg daily (11) Depression: Continue bupropion and trazodone (12) Asthma: Hold albuterol HFA as needed due to shortage. Continue Xopenex HFA 2 puffs every 6 hours as needed (13) Obstructive sleep apnea: CPAP at bedtime as needed Admission and Anticipated Discharge Date Admission Date: May 05, 2020 Subjective Patient is already feeling better this morning. Improving urination, less frequency Tired from evaluation overnight No fevers chills nausea vomiting diarrhea No abdominal pain dysuria Review of Systems Review of Systems: All systems reviewed & are unremarkable except as noted in Subjective Physical Exam Physical Exam: Constitutional: WD/WN, vitals as above Psychiatric: AA Ox3, euthymic affect Respiratory: Effort normal, CTA B/L CV: RRR, no murmur, no edema Abdomen: normal bowel sounds, soft, nontender, no hepatosplenomegaly Skin: no rashes, warm and dry Results & Data Results & Data ([facility]) Vital Signs (Past 12 Hours) Vital Signs Temp Pulse Pulse Resp BP Pulse Ox 05/06/20 16:04 36.7 C 67 18 144/74 H 94 05/06/20 09:20 78 144/68 H 05/06/20 07:35 36.9 C 68 18 125/65 98 Laboratory Results Laboratory Results - last 24 hr 05/05/20 05/05/20 05/05/20 20:30 20:30 20:30 WBC 19.46 H RBC 4.36 L Hgb 13.6 L Hct 38.7 L MCV 88.8 MCH 31.2 MCHC 35.1 RDW Std Deviation 43.8 RDW Coeff of Christina 13.4 Plt Count 271 MPV 11.1 H Immature Gran % (Auto) 0.7 Neut % (Auto) 80.8 Lymph % (Auto) 10.6 [place] % (Auto) 7.3 Eos % (Auto) 0.4 Baso % (Auto) 0.2 Neut # (Auto) 15.71 H Lymph # (Auto) 2.07 [place] # (Auto) 1.43 H Eos # (Auto) 0.08 Baso # (Auto) 0.03 Immature Gran # (Auto) 0.14 H PT Cancelled INR Cancelled APTT Cancelled PTT Ratio Cancelled Sodium Potassium Chloride Carbon Dioxide Anion Gap BUN Creatinine Est Cr Clr Drug Dosing Est GFR ( Amer) Est GFR (Non-Af Amer) BUN/Creatinine Ratio Glucose POC Glucose Estimat Average Glucose Hemoglobin A1c Lactate Calcium Magnesium Total Bilirubin AST ALT Alkaline Phosphatase Total Protein Albumin Globulin Albumin/Globulin Ratio Procalcitonin 0.24 Urine Color Urine Appearance Urine pH Ur Specific [place] Urine Protein Urine Glucose (UA) Urine Ketones Urine Blood Urine Nitrite Urine Bilirubin Urine Urobilinogen Ur Leukocyte Esterase Urine WBC (Auto) Urine RBC (Auto) U Hyaline Cast (Auto) U Epithel Cells (Auto) Urine Bacteria (Auto) Amorphous Sediment COVID-19 Eval Order SARS-CoV-2 (PCR) Hepatitis C Ab Screen Influenza Type A (PCR) Influenza Type B (PCR) RSV (RT-PCR) 03/05/05/20 05/05/20 20:30 20:51 21:39 WBC RBC Hgb Hct MCV MCH MCHC RDW Std Deviation RDW Coeff of Christina Plt Count MPV Immature Gran % (Auto) Neut % (Auto) Lymph % (Auto) [place] % (Auto) Eos % (Auto) Baso % (Auto) Neut # (Auto) Lymph # (Auto) [place] # (Auto) Eos # (Auto) Baso # (Auto) Immature Gran # (Auto) PT INR APTT PTT Ratio Sodium 133 L Potassium Cancelled Chloride 101 Carbon Dioxide 24 Anion Gap 8.0 BUN 31 H Creatinine 2.51 H Est Cr Clr Drug Dosing 39.9 Est GFR ( Amer) 29.1 Est GFR (Non-Af Amer) 25.1 BUN/Creatinine Ratio 12.5 Glucose 190 H POC Glucose Estimat Average Glucose Hemoglobin A1c Lactate 0.9 Calcium 10.0 Magnesium Cancelled Total Bilirubin 0.7 AST Cancelled ALT 23 Alkaline Phosphatase 50 Total Protein 7.9 Albumin 3.5 Globulin 4.4 H Albumin/Globulin Ratio 0.8 L Procalcitonin Urine Color Urine Appearance Urine pH Ur Specific [place] Urine Protein Urine Glucose (UA) Urine Ketones Urine Blood Urine Nitrite Urine Bilirubin Urine Urobilinogen Ur Leukocyte Esterase Urine WBC (Auto) Urine RBC (Auto) U Hyaline Cast (Auto) U Epithel Cells (Auto) Urine Bacteria (Auto) Amorphous Sediment COVID-19 Eval Order SARS-CoV-2 (PCR) Hepatitis C Ab Screen Influenza Type A (PCR) Influenza Type B (PCR) RSV (RT-PCR) 05/05/20 05/05/20 05/05/20 21:39 22:00 22:00 WBC RBC Hgb Hct MCV MCH MCHC RDW Std Deviation RDW Coeff of Christina Plt Count MPV Immature Gran % (Auto) Neut % (Auto) Lymph % (Auto) [place] % (Auto) Eos % (Auto) Baso % (Auto) Neut # (Auto) Lymph # (Auto) [place] # (Auto) Eos # (Auto) Baso # (Auto) Immature Gran # (Auto) PT 10.7 INR 1.1 APTT 27.4 PTT Ratio 1.0 Sodium Potassium Chloride Carbon Dioxide Anion Gap BUN Creatinine Est Cr Clr Drug Dosing Est GFR ( Amer) Est GFR (Non-Af Amer) BUN/Creatinine Ratio Glucose POC Glucose Estimat Average Glucose Hemoglobin A1c Lactate Calcium Magnesium Total Bilirubin AST ALT Alkaline Phosphatase Total Protein Albumin Globulin Albumin/Globulin Ratio Procalcitonin Urine Color Yellow Urine Appearance Cloudy A Urine pH 5.0 Ur Specific [place] 1.020 Urine Protein 2+ H Urine Glucose (UA) Negative Urine Ketones Trace H Urine Blood 2+ H Urine Nitrite Negative Urine Bilirubin Negative Urine Urobilinogen Negative Ur Leukocyte Esterase 2+ H Urine WBC (Auto) >30 H Urine RBC (Auto) 10-30 H U Hyaline Cast (Auto) 0 U Epithel Cells (Auto) 20-30 H Urine Bacteria (Auto) 2+ H Amorphous Sediment Present A COVID-19 Eval Order CovFluRsv at [facility] SARS-CoV-2 (PCR) Hepatitis C Ab Screen Influenza Type A (PCR) Influenza Type B (PCR) RSV (RT-PCR) 05/05/20 05/05/20 05/06/20 22:00 22:34 01:55 WBC RBC Hgb Hct MCV MCH MCHC RDW Std Deviation RDW Coeff of Christina Plt Count MPV Immature Gran % (Auto) Neut % (Auto) Lymph % (Auto) [place] % (Auto) Eos % (Auto) Baso % (Auto) Neut # (Auto) Lymph # (Auto) [place] # (Auto) Eos # (Auto) Baso # (Auto) Immature Gran # (Auto) PT INR APTT PTT Ratio Sodium Potassium 4.0 Chloride Carbon Dioxide Anion Gap BUN Creatinine Est Cr Clr Drug Dosing Est GFR ( Amer) Est GFR (Non-Af Amer) BUN/Creatinine Ratio Glucose POC Glucose 145 H Estimat Average Glucose Hemoglobin A1c Lactate Calcium Magnesium 1.7 L Total Bilirubin AST 12 L ALT Alkaline Phosphatase Total Protein Albumin Globulin Albumin/Globulin Ratio Procalcitonin Urine Color Urine Appearance Urine pH Ur Specific [place] Urine Protein Urine Glucose (UA) Urine Ketones Urine Blood Urine Nitrite Urine Bilirubin Urine Urobilinogen Ur Leukocyte Esterase Urine WBC (Auto) Urine RBC (Auto) U Hyaline Cast (Auto) U Epithel Cells (Auto) Urine Bacteria (Auto) Amorphous Sediment COVID-19 Eval Order SARS-CoV-2 (PCR) NEGATIVE Hepatitis C Ab Screen Influenza Type A (PCR) Negative Influenza Type B (PCR) Negative RSV (RT-PCR) Negative 05/06/20 05/06/20 05/06/20 07:22 07:22 08:11 WBC RBC Hgb Hct MCV MCH MCHC RDW Std Deviation RDW Coeff of Christina Plt Count MPV Immature Gran % (Auto) Neut % (Auto) Lymph % (Auto) [place] % (Auto) Eos % (Auto) Baso % (Auto) Neut # (Auto) Lymph # (Auto) [place] # (Auto) Eos # (Auto) Baso # (Auto) Immature Gran # (Auto) PT INR APTT PTT Ratio Sodium Potassium Chloride Carbon Dioxide Anion Gap BUN Creatinine Est Cr Clr Drug Dosing Est GFR ( Amer) Est GFR (Non-Af Amer) BUN/Creatinine Ratio Glucose POC Glucose 198 H Estimat Average Glucose 206 Hemoglobin A1c 8.8 H Lactate Calcium Magnesium Total Bilirubin AST ALT Alkaline Phosphatase Total Protein Albumin Globulin Albumin/Globulin Ratio Procalcitonin Urine Color Urine Appearance Urine pH Ur Specific [place] Urine Protein Urine Glucose (UA) Urine Ketones Urine Blood Urine Nitrite Urine Bilirubin Urine Urobilinogen Ur Leukocyte Esterase Urine WBC (Auto) Urine RBC (Auto) U Hyaline Cast (Auto) U Epithel Cells (Auto) Urine Bacteria (Auto) Amorphous Sediment COVID-19 Eval Order SARS-CoV-2 (PCR) Hepatitis C Ab Screen Neg Influenza Type A (PCR) Influenza Type B (PCR) RSV (RT-PCR) 05/06/20 05/06/20 12:08 17:09 WBC RBC Hgb Hct MCV MCH MCHC RDW Std Deviation RDW Coeff of Christina Plt Count MPV Immature Gran % (Auto) Neut % (Auto) Lymph % (Auto) [place] % (Auto) Eos % (Auto) Baso % (Auto) Neut # (Auto) Lymph # (Auto) [place] # (Auto) Eos # (Auto) Baso # (Auto) Immature Gran # (Auto) PT INR APTT PTT Ratio Sodium Potassium Chloride Carbon Dioxide Anion Gap BUN Creatinine Est Cr Clr Drug Dosing Est GFR ( Amer) Est GFR (Non-Af Amer) BUN/Creatinine Ratio Glucose POC Glucose 173 H 138 H Estimat Average Glucose Hemoglobin A1c Lactate Calcium Magnesium Total Bilirubin AST ALT Alkaline Phosphatase Total Protein Albumin Globulin Albumin/Globulin Ratio Procalcitonin Urine Color Urine Appearance Urine pH Ur Specific [place] Urine Protein Urine Glucose (UA) Urine Ketones Urine Blood Urine Nitrite Urine Bilirubin Urine Urobilinogen Ur Leukocyte Esterase Urine WBC (Auto) Urine RBC (Auto) U Hyaline Cast (Auto) U Epithel Cells (Auto) Urine Bacteria (Auto) Amorphous Sediment COVID-19 Eval Order SARS-CoV-2 (PCR) Hepatitis C Ab Screen Influenza Type A (PCR) Influenza Type B (PCR) RSV (RT-PCR) PG Care Time/CCT Total # of Minutes Spent Total Time Spent with Patient: Total time spent is greater than 50% in coordination of care (as documented) at patient's floor/unit and/or counseling patient: Coding Level of Care Code 59949 Subseq Hosp Care Lvl 2 Diagnoses BPH w urinary obs/LUTS N40.1; N13.8 Sepsis A41.9 Sepsis acute organ dysfunction status: unspecified Sepsis type: sepsis due to unspecified organism Urinary tract infection N30.00 Hematuria presence: without hematuria Urinary tract infection type: acute cystitis Paroxysmal atrial fibrillation I48.0 Resistant hypertension I10 Chronic diastolic CHF (congestive heart failure) I50.32 Chronic kidney disease (CKD), stage III (moderate) N18.3 Diabetes mellitus E11.9 Morbid obesity E66.01 Hypothyroidism E03.9 Depression F32.9 Asthma J45.909 Obstructive sleep apnea G47.33 (1) Sepsis Sepsis acute organ dysfunction status: unspecified Sepsis type: sepsis due to unspecified organism Qualified Code(s): A41.9 - Sepsis, unspecified organism (2) Urinary tract infection Hematuria presence: without hematuria Urinary tract infection type: acute cystitis Qualified Code(s): N30.00 - Acute cystitis without hematuria
[2020-05-06] MEDS ORDERED: traZODone HCL 100 MG TAB PO SCH (21:00)
[2020-05-06] MEDS ORDERED: TAMSULOSIN HCL 0.4 MG CAP PO SCH (21:00)
[2020-05-07 05:51] LABS: Basophils # (auto) 0.04 K/uL (0-0.2); Basophils % (auto) 0.4 %; Eosinophils # (auto) 0.29 K/uL (0-0.5); Eosinophils % (auto) 2.6 %; Hematocrit (blood only) 35.3 % (42-52); Hemoglobin 12.2 g/dL (14.0-18.0); Immature Granulocytes # (auto) 0.06 K/uL (0.00-0.02); Immature Granulocytes % (auto) 0.5 %; Lymphocytes # (auto) 2.12 K/uL (1.2-3.4); Lymphocytes % (auto) 19.3 %; Mean Corpuscular Hemoglobin 30.7 pg (25-34); Mean Corpuscular Hgb Conc 34.6 g/dL (32-36); Mean Corpuscular Volume 88.7 fL (80-100); Mean Platelet Volume 10.8 fL (7.4-10.4); Monocytes # (auto) 0.79 K/uL (0.11-0.59); Monocytes % (auto) 7.2 %; Neutrophils # (auto) 7.66 K/uL (1.4-6.5); Platelet Count 249 K/uL (130-400); RDW Coefficient of Variation 13.1 % (11.5-14.5); RDW Standard Deviation 42.4 fL (36.4-46.3); Red Blood Count 3.98 M/uL (4.7-6.1); White Blood Count 10.96 K/uL (4.8-10.8)
[2020-05-07] MEDS: LEVOTHYROXINE SODIUM 150 MCG TABLET PO SCH (06:23)
[2020-05-07 06:28] LABS: BUN Creatinine Ratio 15.8 (10-20); Calcium 9.5 mg/dl (8.5-10.1); Est GFR (African American) 31.5; Est GFR (Non-African American) 27.2; Potassium 4.4 mmol/L (3.5-5.1)
[2020-05-07 06:31] LABS: Albumin Globulin Ratio 0.7 (0.9-2); Bilirubin,Total 0.5 mg/dl (0.2-1); Globulin 4.4 gm/dl (2.5-4.0); Total Protein 7.4 gm/dl (6.4-8.2)
[2020-05-07] MEDS: cloNIDine HCL 0.3 MG TAB PO SCH (08:54)
[2020-05-07] MEDS: CALCIUM 600MG + VIT D 400 IU TAB PO SCH (08:55)
[2020-05-07] MEDS: FENOFIBRATE NANOCRYSTALLIZED 48 MG TABLET PO SCH (08:56)
[2020-05-07] MEDS: carvediloL 25 MG TAB PO SCH (08:56)
[2020-05-07] MEDS: FLUTICASONE PROPIONATE NA SPR 16 GM BTL SCH (08:57)
[2020-05-07] MEDS: OMEGA-3 (PURIFIED FISH OIL) 1 GM CAP PO SCH (08:57)
[2020-05-07] MEDS: amLODIPine BESYLATE 5 MG TAB PO SCH (08:57)
[2020-05-07] MEDS: MULTIVITAMIN TAB PO SCH (08:57)
[2020-05-07] MEDS: CYANOCOBALAMIN (VITAMIN B-12) 2,500 MCG TAB.SUBL SL SCH (08:58)
[2020-05-07] MEDS: MONTELUKAST SODIUM 10 MG TABLET PO SCH (08:58)
[2020-05-07] MEDS: CHOLECALCIFEROL 1,000 UNITS 25 MCG TAB PO SCH (08:58)
[2020-05-07] MEDS: buPROPion XL 300 MG TABCR PO SCH (08:58)
[2020-05-07] MEDS: INSULIN ASPART 100 UNITS/ML 3 ML PEN SC SCH ×2 (09:03→13:11)
[2020-05-07] MEDS ORDERED: levoFLOXacin 750 MG TAB PO ONE (12:48)
[2020-05-07] MEDS ORDERED: levoFLOXacin/D5W 750 MG/150 ML BAG IV SCH (20:00)
--- NOTE | 2020-05-07 20:16 | Discharge Summary ---
Date of Service May 07, 2020 Admission HPI Per Admitting Provider The patient is a 69-year-old male with a past medical history including adverse effect of COVID-19 vaccine, nocturnal hypoxia, obstructive sleep apnea, asthma, vasovagal syncope, chronic diastolic CHF, paroxysmal atrial fibrillation, resistant hypertension, gout, CKD stage III. He has noted over the past several weeks increasing difficulty with urinary frequency, urgency and dysuria, with incomplete bladder emptying and postvoid dribbling. He was noted in the ED to have a temperature of 101.1. He has had decreased appetite over the past 24 hours. He denies any recent travels or sick exposures. He does recount that over the past few years he has had decreased flow of stream when he urinates. Principal Diagnosis BPH, urinary retention, urinary tract infection with sepsis present on admission Discharge Exam In general he is awake and alert pleasant no distress. HEENT normocephalic atraumatic mucous membranes moist. Breathing unlabored no accessory muscle use good effort. Skin shows no rashes no pallor or icterus. Neuro shows no focal deficits. Morales is out. He notes while he is voiding frequently he is voiding well Discharge Data Allergies Allergy/AdvReac Type Severity Reaction Status Date / Time heparin Allergy Severe HIT Verified 05/05/20 22:41 Penicillins Allergy Severe HIVES/SOB Verified 05/05/20 22:41 Cephalosporins Allergy Intermediate FROM MED Verified 05/05/20 22:41 RECORDDR LISA telmisartan Allergy Intermediate FROM Verified 05/05/20 22:41 MULUGETA OFC RECORD Consultations 05/05/20 22:20 ED Decision to Admit Stat Ordered Studies 05/05/20 20:12 CT abd pelvis wo con Stat Hospital Course (1) BPH w urinary obs/LUTS: BPH with urinary tract obstruction/LUTS/complicated urinary tract infection/sepsis- Chronic bladder outlet obstruction suggested on CT Stable for home, discussed empiric treatment with Levaquin, discussed risks benefits and side effects. -Given appearance of fairly significant BPH/urinary retentionsending home on Flomax and Proscar, as well as recommending urology follow-up (2) Sepsis: See above (3) Urinary tract infection: See above (4) Paroxysmal atrial fibrillation: Rate controlled, does not appear to be anticoagulated chronically, ongoing PCP follow-up in this regard (5) Resistant hypertension: BP reasonable, home on home meds (6) Chronic diastolic CHF (congestive heart failure): Appears compensated (7) Chronic kidney disease (CKD), stage III (moderate): (8) Diabetes mellitus: A1c 8.8, home meds, outpatient follow-up (9) Morbid obesity: Noted and discussed (10) Hypothyroidism: Continue levothyroxine 150 mcg daily (11) Depression: Continue bupropion and trazodone (12) Asthma: No complaints in this regard (13) Obstructive sleep apnea: CPAP at bedtime as needed Total Time Total Time Spent Total Time Spent (In Minutes): Greater than 30 Discharge Plan Discharge Items Patient Disposition: Home - Self-Care Reason For Visit: UTI, BPH WITH LUTS Discharge Diagnosis: UTI, BPH (see below) Activity: Resume your previous activity Non-emergency contact: Primary Care Provider and Urologist Call non-emergency contact if: you have any medication questions and your symptoms worsen Follow-up/Referrals: Charu Mauricio CRNP [Primary Care Provider] - Diet: Regular Addtl Attending Provider Instructions: UTI - while your urinary symptoms appear to be a combination of infection and prostate enlargement, there definitely appeared to be symptoms of infection as far as why ended up getting admitted. -Your urine culture was too contaminated with skin bacteria to give us meaningful results, however the antibiotic you have been on translates perfectly to oral, and since you have been getting better on it, we will finish out a course of treatment. -This will be very easy, for you it is a medicine that lasts in your system for about 48 hours after each dose, so you will of had a dose in the ER, a dose today, and then you will take a dose on May 09, and May 11 to complete a course of treatment -As we discussed, while rare, antibiotics like Levaquin can create connective tissue problems leading to tendinitis or even tendon ruptureso take it easy over the next month or so (refrain from heavy lifting, overhead lifting, repet itive lifting, or any type of very long/endurance type of activity) BPH -An enlarged prostate will start to get in the way of being able to urinate completely. Often this will lead to men feeling like they have to pee all the time, because when they pee, the bladder is not able to fully empty. Because of this, it does not take nearly as long until the bladder feels full again, leading to the urge to pee again. -While at this point it seems reasonably likely you might need a urologists intervention, we will start with medication management, because if this does alleviate your symptoms enough, then we could probably hold off on any intervention or at least delay it -Flomax (tamsulosin)this medicine relaxes the muscle of the prostate, and so while the prostate is just as big, it squeezes down on your urethra less, leading to less back pressure on your bladder. For now we will have you on it once a day, it can be increased to twice a day if it seems like it is helping but "not enough"side effects are fairly rare, but the most common side effect would be feeling a little lightheaded or woozy when you stand up -Finasteridethese medicines block the hormones that make prostate to get big to begin with, and therefore over time can start to shrink the prostate. Medicines like finasteride are "a long game" given that they take months to truly take effect. However, they are fairly benign medicines as far as side effects, and so it is worth getting that started at the same time. -We would definitely recommend following up with [facility] urology (you had noted seeing Dr. Jain in the past) so that they can keep an eye on how you are progressing with the medicines, and intervene if needed Pending Studies at Discharge: No Stand-Alone Forms: My [facility], Smoking Cessation Medications and DC Order Prescriptions: New tamsulosin 0.4 mg Capsule 0.4 mg PO HS Qty: 30 RF: 0 finasteride 5 mg tablet 5 mg PO DAILY Qty: 30 RF: 0 levofloxacin 750 mg tablet 750 mg PO UD 2 Days Qty: 2 RF: 0 Continued amlodipine 10 mg tablet 10 mg PO DAILY Qty: 90 RF: 3 albuterol sulfate 2.5 mg /3 mL (0.083 %) solution for nebulization 2.5 mg inhalation Q4H PRN (Reason: bronchospasm) Qty: 300 RF: 5 clonidine HCl 0.3 mg tablet 0.3 mg PO BID Qty: 180 RF: 3 trazodone 100 mg tablet 100 mg PO HS Qty: 90 RF: 1 (DME) BiPap Supplies Misc See Rx Instructions .MEDSUPPLY Qty: 1 RF: 0 montelukast 10 mg tablet 10 mg PO DAILY Qty: 90 RF: 1 furosemide 40 mg tablet 40 mg PO DAILY Qty: 90 RF: 3 mometasone 50 mcg/actuation spray,non-aerosol 2 sprays intranasal BID Qty: 3 RF: 0 bupropion HCl 300 mg tablet extended release 24 hr 300 mg PO DAILY Qty: 90 RF: 0 calcium carbonate-vitamin D3 600 mg(1,500mg) -200 unit tablet 1 tab PO BID RF: 0 carvedilol 25 mg tablet 25 mg PO BID Qty: 180 RF: 0 cyanocobalamin (vitamin B-12) 5,000 mcg tablet, sublingual 5,000 mcg SL DAILY RF: 0 levothyroxine 150 mcg tablet 150 mcg PO DAILY Qty: 30 RF: 0 metformin 500 mg tablet 500 mg PO BID RF: 0 furosemide 80 mg tablet 80 mg PO DAILY PRN (Reason: Edema) Qty: 30 RF: 0 levalbuterol tartrate [Xopenex HFA] 45 mcg/actuation HFA aerosol inhaler 2 puffs INH Q6H PRN (Reason: shortness of breath or wheezing) RF: 0 krill oil 500 mg capsule 500 mg PO DAILY RF: 0 glipizide 10 mg tablet 10 mg PO QPM RF: 0 atorvastatin 10 mg tablet 10 mg PO PM RF: 0 spironolactone 50 mg tablet 50 mg PO DAILY Qty: 90 RF: 3 cholecalciferol (vitamin D3) 3,000 unit tablet 3,000 units PO DAILY RF: 0 cholecalciferol (vitamin D3) 4,000 unit capsule 4,000 units PO DAILY RF: 0 multivitamin [Daily Multi-Vitamin] tablet 1 tab PO DAILY RF: 0 acetaminophen [Tylenol Extra Strength] 500 mg tablet 500 mg PO Q6H PRN (Reason: Pain) RF: 0 glipizide 10 mg tablet 20 mg PO QAM RF: 0 fenofibrate nanocrystallized 48 mg tablet 96 mg PO DAILY RF: 0 Discharge Orders: Discharge Order (Routine); Ordered 05/07/20 Ordered By: Josue Benito/Other Patient Handouts: Managing Type 2 Diabetes Admission Data Admit Date/Time: 05/05/20 23:44 Attending Provider: Josue Marshall Admit Provider: Lennox Cavanaugh Primary Care Provider: Charu Mauricio Other Providers: Lennox Cavanaugh ; Mike Preston Other Interventions: Discharge Summary Assessment (RN) Last Done: 05/07/20 13:20 Coding Level of Care Code D/C Day Management >30 mins Diagnoses BPH w urinary obs/LUTS N40.1; N13.8 Sepsis A41.9 Sepsis acute organ dysfunction status: unspecified Sepsis type: sepsis due to unspecified organism Urinary tract infection N30.00 Hematuria presence: without hematuria Urinary tract infection type: acute cystitis Paroxysmal atrial fibrillation I48.0 Resistant hypertension I10 Chronic diastolic CHF (congestive heart failure) I50.32 Chronic kidney disease (CKD), stage III (moderate) N18.3 Diabetes mellitus E11.9 Morbid obesity E66.01 Hypothyroidism E03.9 Depression F32.9 Asthma J45.909 Obstructive sleep apnea G47.33
== END 2020-05-07 15:20 | disposition home or self-care (01) | DRG 872 ==
LOC: ED 19:48 → 3W 23:44 → SUATTDRO 23:44 → 3W 05-06 00:08

== ENCOUNTER 2024-03-15 16:32 | Inpatient (IN) ==
[2024-03-15] MEDS ORDERED: 0.2 MICRON FILTER SET 1 EACH IV STA (16:36)
[2024-03-15] MEDS ORDERED: AMIODARONE / D5W 150 MG/100 ML BAG IV STA (16:36)
[2024-03-15] MEDS: ETOMIDATE 2 MG/ML 20 ML VIAL IV ONE ×2 (16:40→16:52)
[2024-03-15] MEDS: AMIODARONE / D5W 360 MG/200 ML BAG IV ONE (16:41)
[2024-03-15] MEDS ORDERED: ETOMIDATE 2 MG/ML 20 ML VIAL IV ONE (16:45)
--- NOTE | 2024-03-15 16:47 | Emergency Department Note ---
Impression & Plan Ventricular tachycardia, Acute hyperkalemia, FIDEL (acute kidney injury) ED Provider Note NAME: LANA MCKNIGHT AGE: 73 SEX: M : 1950 ARRIVES VIA: Ambulance INFORMANT: Patient, EMS ED PROVIDER(S): Bill Gunter DO CHIEF COMPLAINT: Chest pain HPI: The patient is a 73-year-old male who presented to the emergency department for an evaluation of chest pain. The patient was bending forward to tie shoes when he noticed an acute onset of chest pain and difficulty breathing. The patient called 911. He arrived via ambulance. The patient was found to be in wide-complex tachycardia prior to arrival. He did receive a bolus of amiodarone. The patient's blood pressure was low and the patient continued to have episodes of altered mental status. The patient was brought directly to resuscitation bay. The patient states he continues to have mild chest pain at this time. He denies having any lower extremity swelling. He has a history of congestive heart failure as well as a bundle branch block. He also has paroxysmal atrial fibrillation. ROS: See above HPI for pertinent positives & negatives. A total of 10 systems reviewed and were otherwise negative. PAST MEDICAL HISTORY: See Below PAST SURGICAL HISTORY: See Below FAMILY HISTORY: See Below SOCIAL HISTORY: See Below HOME MEDICATIONS: See Below ALLERGIES: See Below VITALS: See Below PHYSICAL EXAMINATION: GENERAL: The patient is awake and alert. The patient is anxious appearing. EYES: The conjunctivae are clear. The pupils are round and reactive. EARS, NOSE, MOUTH AND THROAT: The nose is without any evidence of any deformity. NECK: The neck is nontender and supple. RESPIRATORY: Normal respiratory effort is noted there is no evidence of wheezing rhonchi or rales CARDIOVASCULAR: Regular rate and rhythm noted there no murmurs rubs or gallops normal S1 normal S2. GASTROINTESTINAL: The abdomen is soft. Abdomen is nontender. MUSCULOSKELETAL/EXTREMITIES: There is no evidence of gross deformity full range of motion is noted in the hips and shoulders. SKIN: Trace pedal edema was noted bilaterally. Skin was warm and dry. NEUROLOGIC: Patient is slow to answer questions. The patient does answer questions appropriately when prompted. Strength was symmetric. MEDICAL DECISION MAKING: The patient is a 73 male who presented to the emergency department for chest pain. The patient was noted to have wide-complex tachycardia prior to arrival. He was treated with a dose of IV amiodarone prior to arrival. His vital signs revealed hypotension and his mental status was waxing and waning. For this reason he was felt to be a better candidate for cardioversion. The patient was cardioverted using etomidate. He did tolerate this well even though it was done in an emergent fashion. He was able to be cardioverted to sinus rhythm. He appears to have a left bundle branch block pattern which appears old. I discussed the patient's laboratory and radiographic studies with him. He was also treated for hyperkalemia in the usual fashion. He was started on IV heparin. I discussed his condition with the on-call [facility] hatchery man as well as the on-call [facility] hospitalist. They have agreed to evaluate the patient in the emergency department. Triage Nursing notes reviewed. Prior medical records reviewed Vital Signs: reviewed and remarkable for initial hypotension Differential diagnosis: Cardiac ischemia, aortic dissection, pulmonary embolism, pneumothorax, pneumonia, pericarditis, myocarditis, esophageal rupture, GERD, cholecystitis, pancreatitis, musculoskeletal, as well as other pathologies. ER treatment provided: See below Diagnostics interpreted by me: ECG: EKG was obtained in the emergency department. My interpretation is wide- complex tachycardia at [address] elevations were noted. This was compared to a tracing from May 05, 2020. There was a bundle branch block pattern on the previous EKG with a QRS duration of 152 ms. A second EKG was obtained after cardioversion. My interpretation is sinus rhythm at 87 bpm. There was a first-degree AV block noted. Left bundle branch block pattern was noted. This was compared to a tracing from May 05, 2020. There is a similar appearance compared to the previous tracing. Prehospital EKG was reviewed. My interpretation is wide-complex tachycardia at 160 bpm. A 30 EKG was obtained in the emergency department after the patient developed chest pain. My interpretation is sinus rhythm at 79 bpm. First-degree AV block was noted with left bundle branch block. There was a PVC noted with some ST depressions now in the lateral leads. Cardiac Monitoring: An order was placed for continuous cardiac monitoring. The monitor shows a rate of 73 bpm with sinus rhythm. Laboratory studies: As stated above and show below. Imaging studies: See below. Radiographic imaging was reviewed by myself Consultation(s): I discussed this case Dr. Pruitt who is on-call for the [facility] cardiology group. I discussed this case with Dr. Edwards. ED COURSE: Procedures: Indication: Unstable wide-complex tachycardia Written consent was obtained after the risks and benefits were explained, including but not limited to pain, thermal burn, allergic reaction, aspiration, airway obstruction, laryngospasm, infection, hypotension, and cardiorespiratory arrest. At this time, the risks of the procedure are less than the risks of NOT performing the procedure. A time out was taken and the correct patient and procedure identified. The patient was on 100% via NRB and end tidal CO2 monitoring prior to the procedure. Suction, airway equipment, medications, respiratory equipment, ACLS cart, and appropriate personnel were prepared prior to the initiation of the procedure. Sedation was achieved utilizing etomidate. The biphasic defibrillator was set to 200 joules of energy and synched. After confirmation of sedation and "all clear" safety check the synchronized shock was delivered. This resulted in successful conversion of the dysrhythmia back into sinus rhythm. See nursing notes for dosages and times. There were no complications and the patient recovered uneventfully from the procedure. Critical Care: I have personally spent greater than 45 minutes of critical care time in the direct management of this patient. This includes bedside care, interpretation of diagnostic studies, and testing, discussion with consultants, patient, and family members, and other required patient management activities. This 45 minutes is in excess of all separately billable procedures. Past Med/Surg History Problem List (Updated 03/15/24 @ 17:54 by Bill Gunter DO) FIDEL (acute kidney injury) (Acute) Acute hyperkalemia (Acute) Ventricular tachycardia (Acute) Left bundle branch block Environmental allergies Hypercholesterolemia HTN (hypertension) 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 diabetes mellitus Morbid obesity Hypothyroidism Depression Diabetes mellitus BPH w urinary obs/LUTS Nocturnal hypoxia Obstructive sleep apnea Asthma Chronic diastolic CHF (congestive heart failure) Paroxysmal atrial fibrillation Gout (Acute) Chronic kidney disease (CKD), stage III (moderate) Medical History Dyspnea Adverse effect of COVID-19 vaccine Syncope, vasovagal Resistant hypertension Cor pulmonale Surgical History S/P left knee arthroscopy S/P right knee arthroscopy History of herniorrhaphy umbilical History of uvulopalatopharyngoplasty Family History Sister Breast cancer Uterine cancer Father Myocardial infarction Skin cancer (melanoma) Heart disease Lung cancer Mother Diabetes Denies family history of Prostate cancer Kidney disease Social History Smoking Status: Never smoker Second Hand Exposure: No; Do You Dip or Chew Tobacco: No; Hx Alcohol Use: No Hx Substance Use: No Preferred Language: Bruneian Communication Ability: Effective Visual Impairment: No Limitations Hearing Ability: Normal Doughnut Fryer Required: No Beliefs That Will Affect Care: None marital status: Current Living Situation: Alone current occupational status: retired How many Children do You have: 3 Feels Safe at Home: Yes Childhood Exposure to Second-Hand Smoke: Yes Diet: regular Diet Comment: regular caffeine: Yes during the past year weight has: remained stable Dental Care, Regularly: Yes Physical Activity Frequency: Other Physical Activity Frequency Comment: WALKING Seatbelt Use: always Sunscreen Use: Yes Assistive Devices: None Allergies Allergies Allergy/AdvReac Type Severity Reaction Status Date / Time heparin Allergy Severe HIT Verified 02/16/24 11:56 Penicillins Allergy Severe HIVES/SOB Verified 02/16/24 11:56 Cephalosporins Allergy Intermediate FROM MED Verified 02/16/24 11:56 RECORDDR LISA telmisartan Allergy Intermediate FROM DR Verified 02/16/24 11:56 MULUGETA OFC RECORD Home Meds Home Medications Medication Instructions Recorded Confirmed cyanocobalamin (vitamin B-12) 5,000 mcg sublingual DAILY 10/01/18 03/15/24 5,000 mcg sublingual tablet furosemide 80 mg tablet 80 mg PO UD PRN Edema #30 tabs 10/21/18 03/15/24 acetaminophen 500 mg tablet 500 mg PO Q6H PRN Pain 06/17/19 03/15/24 (Tylenol Extra Strength) krill oil 500 mg capsule 500 mg PO DAILY 09/24/19 03/15/24 albuterol sulfate 90 mcg/actuation 2 puff inhalation UD PRN shortness 03/15/24 03/15/24 aerosol inhaler (Ventolin HFA) of breath or wheezing dulaglutide 4.5 mg/0.5 mL 4.5 mg subcut UD 03/15/24 03/15/24 subcutaneous pen injector finasteride 5 mg tablet 5 mg PO UD 03/15/24 03/15/24 glipizide 10 mg tablet 10 mg PO UD 03/15/24 03/15/24 metformin 500 mg tablet 500 mg PO 03/15/24 03/15/24 montelukast 10 mg tablet 10 mg PO UD 03/15/24 03/15/24 Previous Rx's Medication Instructions Recorded multivitamin (Daily Multi-Vitamin 1 tab PO DAILY #90 tabs 11/28/20 tablet) CPAP Machine #1 ea 03/20/22 furosemide 40 mg tablet 40 mg PO DAILY #90 tabs 06/24/23 atorvastatin 20 mg tablet 20 mg PO DAILY #90 tabs 09/17/23 amlodipine 10 mg tablet 10 mg PO DAILY #90 tabs 10/17/23 carvedilol 25 mg tablet 25 mg PO BID #180 tabs 11/03/23 clonidine HCl 0.1 mg tablet 0.1 mg PO BID #180 tabs 11/03/23 fenofibrate nanocrystallized 48 mg 96 mg (2 x 48 mg) PO DAILY #180 11/03/23 tablet tabs tamsulosin 0.4 mg capsule 0.4 mg PO HS #90 caps 11/18/23 trazodone 100 mg tablet 100 mg PO HS #90 tabs 11/18/23 levothyroxine 150 mcg tablet 150 mcg PO DAILY #90 tabs 11/25/23 spironolactone 50 mg tablet 50 mg PO DAILY #90 tabs 11/25/23 bupropion HCl 300 mg 24 hr tablet, 300 mg PO DAILY #90 tabs 02/20/24 extended release Results & Data (ED) Vital Signs Vital Signs - 24 hr 03/15/24 16:34 03/15/24 16:35 03/15/24 16:42 Temperature 36.4 C L Temperature Source Axillary Pulse Rate 165 H Pulse Rate [Apical] 165 H Pulse Rate from SpO2 Sensor Pulse Rhythm Regular Pulse Rhythm [Apical] Regular Pulse Strength Normal Pulse Strength [Apical] Normal Respiratory Rate 22 18 Respiratory Effort / Characteristics Non-Labored Spontaneous Respiratory Depth Normal Normal Respiratory Pattern Regular Blood Pressure 128/82 128/82 Blood Pressure [Left Arm] 128/54 L Blood Pressure Mean 97 103 Blood Pressure Mean [Left Arm] 78 Pulse Oximetry 100 100 Oxygen Delivery Method Non-rebreather Non-rebreather Oxygen Flow Rate 15 15 Sepsis Recent Fever Within 48 Hours No Sepsis New/Unexplained Change in Mental Status No Sepsis Action Taken by Nursing Physician Notified 03/15/24 16:45 03/15/24 16:50 03/15/24 16:55 Temperature Temperature Source Pulse Rate Pulse Rate [Apical] Pulse Rate from SpO2 Sensor Pulse Rhythm Pulse Rhythm [Apical] Pulse Strength Pulse Strength [Apical] Respiratory Rate Respiratory Effort / Characteristics Respiratory Depth Respiratory Pattern Blood Pressure 125/84 117/80 107/83 Blood Pressure [Left Arm] Blood Pressure Mean 93 86 91 Blood Pressure Mean [Left Arm] Pulse Oximetry 100 100 100 Oxygen Delivery Method Non-rebreather Non-rebreather Non-rebreather Oxygen Flow Rate 15 15 15 Sepsis Recent Fever Within 48 Hours Sepsis New/Unexplained Change in Mental Status Sepsis Action Taken by Nursing 03/15/24 16:57 03/15/24 16:57 03/15/24 17:00 Temperature Temperature Source Pulse Rate 88 80 Pulse Rate [Apical] Pulse Rate from SpO2 Sensor 80 Pulse Rhythm Pulse Rhythm [Apical] Pulse Strength Pulse Strength [Apical] Respiratory Rate 19 Respiratory Effort / Characteristics Respiratory Depth Respiratory Pattern Blood Pressure 117/77 Blood Pressure [Left Arm] Blood Pressure Mean 82 Blood Pressure Mean [Left Arm] Pulse Oximetry 100 Oxygen Delivery Method Non-rebreather Oxygen Flow Rate 15 Sepsis Recent Fever Within 48 Hours Sepsis New/Unexplained Change in Mental Status Sepsis Action Taken by Nursing 03/15/24 17:00 03/15/24 17:03 03/15/24 17:05 Temperature Temperature Source Pulse Rate 78 Pulse Rate [Apical] Pulse Rate from SpO2 Sensor 80 Pulse Rhythm Pulse Rhythm [Apical] Pulse Strength Pulse Strength [Apical] Respiratory Rate 20 Respiratory Effort / Characteristics Respiratory Depth Respiratory Pattern Blood Pressure 117/77 121/78 Blood Pressure [Left Arm] Blood Pressure Mean 82 98 Blood Pressure Mean [Left Arm] Pulse Oximetry 100 Oxygen Delivery Method Non-rebreather Oxygen Flow Rate 15 Sepsis Recent Fever Within 48 Hours Sepsis New/Unexplained Change in Mental Status Sepsis Action Taken by Nursing 03/15/24 17:05 03/15/24 17:05 03/15/24 17:09 Temperature Temperature Source Pulse Rate 80 Pulse Rate [Apical] Pulse Rate from SpO2 Sensor 80 Pulse Rhythm Pulse Rhythm [Apical] Pulse Strength Pulse Strength [Apical] Respiratory Rate 23 Respiratory Effort / Characteristics Respiratory Depth Respiratory Pattern Blood Pressure 121/78 121/78 Blood Pressure [Left Arm] Blood Pressure Mean 98 98 Blood Pressure Mean [Left Arm] Pulse Oximetry 100 100 Oxygen Delivery Method Non-rebreather Non-rebreather Oxygen Flow Rate 15 15 Sepsis Recent Fever Within 48 Hours Sepsis New/Unexplained Change in Mental Status Sepsis Action Taken by Nursing 03/15/24 17:10 03/15/24 17:33 03/15/24 17:56 Temperature Temperature Source Pulse Rate Pulse Rate [Apical] 80 73 Pulse Rate from SpO2 Sensor Pulse Rhythm Pulse Rhythm [Apical] Pulse Strength Pulse Strength [Apical] Normal Normal Respiratory Rate 18 19 Respiratory Effort / Characteristics Non-Labored Non-Labored Spontaneous Respiratory Depth Normal Normal Respiratory Pattern Regular Regular Blood Pressure 118/84 Blood Pressure [Left Arm] 127/76 132/76 Blood Pressure Mean 90 Blood Pressure Mean [Left Arm] 93 94 Pulse Oximetry 100 98 Oxygen Delivery Method Nasal Cannula Nasal Cannula Oxygen Flow Rate 2 4 Sepsis Recent Fever Within 48 Hours Sepsis New/Unexplained Change in Mental Status Sepsis Action Taken by Prison Medications Current Medication List: was personally reviewed by me Laboratory Data Attestation: I reviewed the patient's lab results. 03/15/24 16:39 03/15/24 16:39 Lab Results 03/15/24 03/15/24 Range/Units 16:39 16:48 WBC 19.69 H (4.8-10.8) K/ul RBC 4.38 L (4.70-6.10) M/uL Hgb 13.3 L (14.0-18.0) g/dl POC Hgb 13.9 L (14.0-18.0) g/dl Hct 39.2 L (42.0-52.0) % POC Hct 41 L (42-52) % MCV 89.5 (80.0-100.0) fL MCH 30.4 (25.0-34.0) pg MCHC 33.9 (32.0-36.0) g/dL RDW Std Deviation 43.7 (36.4-46.3) fL RDW Coeff of Christina 13.3 (11.5-14.5) % Plt Count 245 (130-400) K/uL MPV 11.8 (9.4-12.4) fL Immature Gran % (Auto) 1.1 % Neut % (Auto) 79.2 % Lymph % (Auto) 13.7 % Hayes % (Auto) 3.8 % Eos % (Auto) 1.7 % Baso % (Auto) 0.5 % Neut # (Auto) 15.60 H (1.40-6.50) K/uL Lymph # (Auto) 2.70 (1.20-3.40) K/uL Hayes # (Auto) 0.74 H (0.11-0.59) K/uL Eos # (Auto) 0.34 (0.00-0.50) K/uL Baso # (Auto) 0.10 (0.00-0.20) K/uL Immature Gran # (Auto) 0.21 H (0.01-0.20) K/uL PT 11.0 (9.0-12.0) Seconds INR 1.0 (0.9-1.1) APTT 25 (21-31) Seconds PTT Ratio 0.9 POC Sodium 133 L (135-144) mmol/L Sodium 132 L (136-145) mmol/L POC Potassium 5.9 H (3.3-5.0) mmol/L Potassium 5.9 H (3.5-5.1) mmol/L POC Chloride 103 (101-112) mmol/L Chloride 100 (98-107) mmol/L Carbon Dioxide 19 L (21-32) mmol/L POC Total CO2 20 L (24-31) mmol/L Anion Gap 13 H (3-11) POC Anion Gap 17.0 (16-25) mmol/L POC BUN 53 H (7-18) mg/dl BUN 48 H (6-23) mg/dl Creatinine 2.55 H (0.6-1.4) mg/dl POC Creatinine 2.8 H (0.6-1.3) mg/dl Est Cr Clr Drug Dosing 38.3 ml/min eGFR 25.84 BUN/Creatinine Ratio 18.8 (10-20) Glucose 297 H (70-99(Fasting)) mg/dl POC Glucose (other) 307 H (70-99) mg/dl Calcium 9.1 (8.6-10.3) mg/dl POC Ioniz Calcium Shawna 1.07 L (1.12-1.32) mmol/l Magnesium 2.0 (1.7-2.4) mg/dl Total Bilirubin 0.4 (0.2-1.0) mg/dl AST 28 (13-39) U/L ALT 20 (7-52) U/L Alkaline Phosphatase 37 (34-104) U/L Troponin I High Sens 67.1 H* (0-20) pg/ml Total Protein 7.0 (6.0-8.3) gm/dl Albumin 3.9 (3.4-5.0) gm/dl Globulin 3.1 (2.5-4.0) gm/dl Albumin/Globulin Ratio 1.3 (0.9-2) TSH 2.116 (0.300-4.500) uIu/ml Administered Medications Amiodarone HCl/Dextrose (Nexterone / D5w) 360 mg in 200 mls @ 33.333 mls/hr IV ONE ONE Stop: 03/15/24 22:45 Last Admin: 03/15/24 16:41 Dose: 1 mg/min, 33.3 mls/hr Documented By: PAVEL Co-signed By: KELLEY Discontinued Medications Amiodarone HCl/Dextrose (Amiodarone 360mg / 200ml D5w) Confirm Administered Dose 360 mg IV .STK-MED ONE Stop: 03/15/24 16:37 Last Admin: 03/15/24 17:02 Dose: Not Given Documented By: PAVEL Amiodarone HCl (Amiodarone Iv Bolus & Drip) 1 each IV NOW STA; Protocol Stop: 03/15/24 16:37 Last Admin: 03/15/24 17:11 Dose: Not Given Documented By: PAVEL Aspirin (Aspirin Chew 324 Mg) 324 mg PO NOW STA Stop: 03/15/24 17:00 Last Admin: 03/15/24 17:06 Dose: 324 mg Documented By: PAVEL Etomidate (Etomidate 2 Mg/Ml 20 Ml Vial) Confirm Administered Dose 40 mg IV .STK-MED ONE Stop: 03/15/24 16:35 Last Admin: 03/15/24 16:52 Dose: Not Given Documented By: PAVEL Etomidate (Etomidate 2 Mg/Ml 20 Ml Vial) 10 mg IV NOW ONE Stop: 03/15/24 16:39 Last Admin: 03/15/24 16:40 Dose: 10 mg Documented By: PAVEL Sodium Chloride (Nss) 500 mls @ 999 mls/hr IV .Q31M ONE Stop: 03/15/24 17:29 Last Infusion: 03/15/24 17:36 Dose: Infused Documented By: Admin: 03/15/24 17:03 Dose: 999 mls/hr Documented By: PAVEL Miscellaneous (Stat Iv Infusion Titration Per Protocol) 1 each N/A NOW STA Stop: 03/15/24 16:37 Last Admin: 03/15/24 17:02 Dose: Not Given Documented By: PAVEL Morphine Sulfate (Morphine Sulfate 4 Mg/Ml 1 Ml Carp\\Vial) 4 mg IV NOW STA Stop: 03/15/24 17:00 Last Admin: 03/15/24 17:08 Dose: 4 mg Documented By: PAVEL Ondansetron HCl (Ondansetron Inj 2 Mg/Ml 2 Ml Vial) 4 mg IV NOW STA Stop: 03/15/24 17:00 Last Admin: 03/15/24 17:05 Dose: 4 mg Documented By: PAVEL Imaging Data Attestation: I personally reviewed and interpreted this imaging study as follows: My Impression: 1 view chest x-ray was obtained. My Interpretation is cardiomegaly, final report below. Radiologist's Impression: Chest X-Ray 03/15/24 16:36 EXAM: XR chest 1V portable CLINICAL HISTORY: Dysrhythmia TECHNIQUE: X-ray image of the chest is obtained in AP portable projection. COMPARISON: With the prior study dated 05/05/2020. FINDINGS: Pulmonary Parenchyma: Lungs are clear bilaterally. There is no evidence of consolidation, collapse, or focal opacities. No pulmonary nodules are identified. No evidence of pleural effusion or pleural thickening. Heart and Mediastinum: Unchanged cardiac enlargement. Redemonstration of bilateral hilar vascular congestion and possible lymph node enlargement. No mediastinal widening or masses. No hilar or mediastinal lymphadenopathy. Bony Thorax: The bony thorax appears intact without fractures or deformities. Soft Tissues: Soft tissues overlying the chest wall are unremarkable. IMPRESSION: 1. Unchanged cardiomegaly. 2. Redemonstration of bilateral hilar vascular congestion and possible lymph node enlargement. 3. No gross interval change since the prior study. Electronically signed by Kishore Carpio 03-15-2024 5:13 PM Discharge Plan Visit Data Chief Complaint: Cardiac Assessment ED Provider: Bill Gunter Discharge Problem: Ventricular tachycardia, Acute hyperkalemia, FIDEL (acute kidney injury) Patient Disposition: Being Evaluated by Hospitalist Forms Stand Alone Forms: My [facility] Prescriptions Prescriptions: No Action multivitamin [Daily Multi-Vitamin] Tablet 1 tab PO DAILY Qty: 90 6RF Rx Instructions: OTC unable to verify furosemide 40 mg tablet 40 mg PO DAILY Qty: 90 3RF atorvastatin 20 mg tablet 20 mg PO DAILY Qty: 90 2RF amlodipine 10 mg tablet 10 mg PO DAILY Qty: 90 3RF carvedilol 25 mg tablet 25 mg PO BID Qty: 180 1RF fenofibrate nanocrystallized 48 mg tablet 96 mg PO DAILY Qty: 180 1RF trazodone 100 mg tablet 100 mg PO HS Qty: 90 1RF tamsulosin 0.4 mg capsule 0.4 mg PO HS Qty: 90 1RF levothyroxine 150 mcg tablet 150 mcg PO DAILY Qty: 90 1RF spironolactone 50 mg tablet 50 mg PO DAILY Qty: 90 3RF bupropion HCl 300 mg tablet extended release 24 hr 300 mg PO DAILY Qty: 90 1RF cyanocobalamin (vitamin B-12) 5,000 mcg tablet, sublingual 5,000 mcg SL DAILY furosemide 80 mg tablet 80 mg PO UD PRN (Reason: Edema) Qty: 30 Rx Instructions: 80 mg po daily prn. Unable to verify, no fill history available krill oil 500 mg capsule 500 mg PO DAILY Rx Instructions: OTC unable to verify (DME) CPAP Machine Misc .Route Qty: 1 0RF Rx Instructions: Change to CPAP at 9 cm of water, [place] [facility] patient acetaminophen [Tylenol Extra Strength] 500 mg tablet 500 mg PO Q6H PRN (Reason: Pain) Rx Instructions: OTC unable to verify clonidine HCl 0.1 mg tablet 0.1 mg PO BID Qty: 180 3RF metformin 500 mg tablet 500 mg PO UD Rx Instructions: 500 mg po bid. last filled 11/25/23 90 day supply glipizide 10 mg tablet 10 mg PO UD Rx Instructions: take 20mg ( 2 tabs) in the AM and 10mg (1 tab) in the PM. Last filled 11/25/23 90 day supply montelukast 10 mg tablet 10 mg PO UD Rx Instructions: 10 mg po daily. Last filled 01/01/24 90 day supply albuterol sulfate [Ventolin HFA] 90 mcg/actuation HFA aerosol inhaler 2 puff inhalation UD PRN (Reason: shortness of breath or wheezing) Rx Instructions: 2 puff q6h prn. No fill history available finasteride 5 mg tablet 5 mg PO UD Rx Instructions: 5 mg po daily. last filled 01/01/24 90 day dulaglutide 4.5 mg/0.5 mL pen injector 4.5 mg subcut UD Rx Instructions: 4.5 mg wk. No fill history available Referrals Referrals: Amber Kemp DO [Primary Care Provider] -
[2024-03-15 17:01] LABS: iSTAT Creatinine 2.8 mg/dl (0.6-1.3); iSTAT Hemoglobin 13.9 g/dl (14.0-18.0); iSTAT Ionized Calcium 1.07 mmol/l (1.12-1.32); iSTAT Potassium 5.9 mmol/L (3.3-5.0)
[2024-03-15] MEDS: STAT IV Infusion **Titration per Protocol STA (17:02)
[2024-03-15] MEDS: AMIODARONE 360MG / 200ML D5W IV ONE (17:02)
[2024-03-15] MEDS: SODIUM CHLORIDE 0.9% 500 ML IV ONE (17:03)
[2024-03-15] MEDS: ONDANSETRON INJ 2 MG/ML 2 ML VIAL IV STA (17:05)
[2024-03-15] MEDS: ASPIRIN CHEW 324 MG PO STA (17:06)
[2024-03-15] MEDS: MoRPHine SULFATE 4 MG/ML 1 ML CARP\\VIAL IV STA (17:08)
[2024-03-15] MEDS: AMIODARONE IV BOLUS & DRIP IV STA (17:11)
--- NOTE | 2024-03-15 17:14 | XRay Report ---
EXAM: XR chest 1V portable CLINICAL HISTORY: Dysrhythmia TECHNIQUE: X-ray image of the chest is obtained in AP portable projection. COMPARISON: With the prior study dated 05/05/2020. FINDINGS: Pulmonary Parenchyma: Lungs are clear bilaterally. There is no evidence of consolidation, collapse, or focal opacities. No pulmonary nodules are identified. No evidence of pleural effusion or pleural thickening. Heart and Mediastinum: Unchanged cardiac enlargement. Redemonstration of bilateral hilar vascular congestion and possible lymph node enlargement. No mediastinal widening or masses. No hilar or mediastinal lymphadenopathy. Bony Thorax: The bony thorax appears intact without fractures or deformities. Soft Tissues: Soft tissues overlying the chest wall are unremarkable. IMPRESSION: 1. Unchanged cardiomegaly. 2. Redemonstration of bilateral hilar vascular congestion and possible lymph node enlargement. 3. No gross interval change since the prior study. Electronically signed by Kishore Carpio 03-15-2024 5:13 PM
[2024-03-15 17:19] LABS: Basophils % (auto) 0.5 %; Eosinophils # (auto) 0.34 K/uL (0.00-0.50); Eosinophils % (auto) 1.7 %; Hematocrit (blood only) 39.2 % (42.0-52.0); Hemoglobin 13.3 g/dl (14.0-18.0); Immature Granulocytes # (auto) 0.21 K/uL (0.01-0.20); Immature Granulocytes % (auto) 1.1 %; Lymphocytes % (auto) 13.7 %; Mean Corpuscular Hemoglobin 30.4 pg (25.0-34.0); Mean Corpuscular Hgb Conc 33.9 g/dL (32.0-36.0); Mean Corpuscular Volume 89.5 fL (80.0-100.0); Mean Platelet Volume 11.8 fL (9.4-12.4); Monocytes # (auto) 0.74 K/uL (0.11-0.59); Monocytes % (auto) 3.8 %; Neutrophils % (auto) 79.2 %; Platelet Count 245 K/uL (130-400); RDW Coefficient of Variation 13.3 % (11.5-14.5); RDW Standard Deviation 43.7 fL (36.4-46.3); Red Blood Count 4.38 M/uL (4.70-6.10); White Blood Count 19.69 K/ul (4.8-10.8)
[2024-03-15 17:35] LABS: Partial Thromboplastin Ratio 0.9; Partial Thromboplastin Time 25 Seconds (21-31)
[2024-03-15 17:41] LABS: Albumin Level 3.9 gm/dl (3.4-5.0); Bilirubin,Total 0.4 mg/dl (0.2-1.0); Calcium 9.1 mg/dl (8.6-10.3); Potassium 5.9 mmol/L (3.5-5.1)
[2024-03-15 17:47] LABS: Albumin Globulin Ratio 1.3 (0.9-2); BUN Creatinine Ratio 18.8 (10-20); Creatinine Clr Calc Pharmacy 38.3 ml/min; Globulin 3.1 gm/dl (2.5-4.0)
[2024-03-15 17:58] LABS: Troponin I High Sensitivity 67.1 pg/ml (0-20)
[2024-03-15 17:59] LABS: Thyroid Stimulating Hormone 2.116 uIu/ml (0.300-4.500)
[2024-03-15] MEDS: CALCIUM CHLORIDE 10% 1,000 MG in DEXTROSE 5% 50 ML IV STA (18:09)
[2024-03-15] MEDS: DEXTROSE 50% 50 ML SYRINGE IV ONE (18:17)
[2024-03-15] MEDS: NovoLIN-R INSULIN PER UNIT CHARGE IV STA (18:21)
[2024-03-15] MEDS: Heparin IV Adult Wt-Based Low-Dose w/ INITIAL Bolus Protocol IV STA (18:37)
[2024-03-15] MEDS: HEPARIN 25000 UNIT/500 ML D5W 25,000 UNITS/500 ML BAG IV SCH (18:37)
[2024-03-15] MEDS: HEPARIN SOD (PORCINE) 1000 UNIT/ML IV ONE (18:38)
[2024-03-15] MEDS ORDERED: GLUCOSE 40% GEL 15 GM TUBE PO PRN (18:56)
[2024-03-15] MEDS ORDERED: CARBOHYDRATES FOR HYPOGLYCEMIA PO PRN (18:56)
[2024-03-15] MEDS ORDERED: GLUCAGON FOR INJ 1 MG VIAL SQ PRN (18:56)
[2024-03-15] MEDS ORDERED: DEXTROSE 50% 50 ML SYRINGE IV PRN (18:56)
[2024-03-15] MEDS ORDERED: GLUCOSE 10 TAB/TUBE PO PRN (18:56)
--- NOTE | 2024-03-15 19:20 | History & Physical Report ---
Date of Service March 15, 2024 Assessment & Plan (1) Ventricular tachycardia: Plan: Assessment: 1. Sustained wide-complex tachycardia. Ventricular tachycardia versus A-fib with aberrancy. Status post IV amiodarone bolus now IV amiodarone with subsequent cardioversion/defibrillation in the ER. Now in a regular narrow complex rhythm. Continue amiodarone drip. Cardiology's been consulted. Heparin has been started initially but again there does appear to be a possibility of HIT. Therefore heparin is been stopped as potential risk outweigh potential benefits. Discussed personally with the ER provider as well as Dr. Pruitt on-call for cardiology. ICU admission. 2. Hyperkalemia. This has been treated with calcium insulin D50. This will be repeated in couple hours. Hold spironolactone. 3. Hypertension. Continue home meds. Hold spironolactone given hyperkalemia. 4. CKD stage III with mild acute kidney injury monitor carefully. 5. Obstructive sleep apnea CPAP dependent. Auto CPAP will be ordered by the motion picture cameraman. We spoke personally. 6. Diabetes mellitus type 2. Basal bolus insulin regimen has been ordered. Hemoglobin A1c in the a.m. 7. BPH. 8. Hypothyroidism. TSH in AM. 9. Depression/anxiety. 10. Obesity. 11. Rule out ischemic etiology of the wide-complex tachycardia. Again cardiology consulted. Serial troponins. Echocardiogram. Plan: As discussed above. Please refer to orders for further planning. History of Present Illness Chief Complaint: Chest pressure palpitations lightheadedness. Primary Care Provider: Amber Kemp DO This is 73-year-old male who was at home shaving his head he went to sit down on his bed and he bent over to pick something off the floor he got a sudden onset of lightheadedness and palpitations and chest pressure. Some mild shortness of breath associated with this. His symptoms waxed and waned he called his family they called 911 he presented to the ER for further evaluation and treatment. When paramedics arrived the patient was in a wide-complex tachycardia he received a bolus of IV amiodarone. He is brought to the ER in a sustained wide- complex tachycardia at which time he was sedated and defibrillated/cardioverted. Initial troponin was unremarkable. Emergent EKG was unremarkable. Consultation was obtained with interventional cardiology on-call Dr. Pruitt- the patient was maintained on amiodarone IV protocol. 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 I discussed with patient and family at the bedside including his son and his daughter and their perspective spouses the patient had pulmonary hemorrhage which was life-threatening and was told never to take heparin again while in [place] according to the family. Therefore given the possibility of HIT to heparin's been discontinued. He has already received his bolus and the drip was already initiated but it was locked immediately at the bedside. We did speak personally with cardiology on-call on this issue. In addition we spoke with critical care on-call MART[facility]NEZ, [email or web address]. They will see the patient on consultation as well. Do serial troponins and echocardiogram. Monitor the patient in the ICU and continue amiodarone. Allergies Allergy/AdvReac Type Severity Reaction Status Date / Time heparin Allergy Severe HIT Verified 02/16/24 11:56 Penicillins Allergy Severe HIVES/SOB Verified 02/16/24 11:56 Cephalosporins Allergy Intermediate FROM MED Verified 02/16/24 11:56 MARA GONZALEZ telmisartan Allergy Intermediate FROM Verified 02/16/24 11:56 MULUGETA OFC RECORD Home Medications Medication Instructions Recorded Confirmed Type cyanocobalamin (vitamin B-12) 5,000 mcg sublingual DAILY 10/01/18 03/15/24 History 5,000 mcg sublingual tablet furosemide 80 mg tablet 80 mg PO UD PRN Edema #30 tabs 10/21/18 03/15/24 History acetaminophen 500 mg tablet 500 mg PO Q6H PRN Pain 06/17/19 03/15/24 History (Tylenol Extra Strength) krill oil 500 mg capsule 500 mg PO DAILY 09/24/19 03/15/24 History multivitamin (Daily Multi-Vitamin 1 tab PO DAILY #90 tabs 11/28/20 03/15/24 Rx tablet) CPAP Machine #1 ea 03/20/22 02/16/24 Rx furosemide 40 mg tablet 40 mg PO DAILY #90 tabs 06/24/23 03/15/24 Rx atorvastatin 20 mg tablet 20 mg PO DAILY #90 tabs 09/17/23 03/15/24 Rx amlodipine 10 mg tablet 10 mg PO DAILY #90 tabs 10/17/23 03/15/24 Rx carvedilol 25 mg tablet 25 mg PO BID #180 tabs 11/03/23 03/15/24 Rx clonidine HCl 0.1 mg tablet 0.1 mg PO BID #180 tabs 11/03/23 03/15/24 Rx fenofibrate nanocrystallized 48 mg 96 mg (2 x 48 mg) PO DAILY #180 11/03/23 03/15/24 Rx tablet tabs tamsulosin 0.4 mg capsule 0.4 mg PO HS #90 caps 11/18/23 03/15/24 Rx trazodone 100 mg tablet 100 mg PO HS #90 tabs 11/18/23 03/15/24 Rx levothyroxine 150 mcg tablet 150 mcg PO DAILY #90 tabs 11/25/23 03/15/24 Rx spironolactone 50 mg tablet 50 mg PO DAILY #90 tabs 11/25/23 03/15/24 Rx bupropion HCl 300 mg 24 hr tablet, 300 mg PO DAILY #90 tabs 02/20/24 03/15/24 Rx extended release albuterol sulfate 90 mcg/actuation 2 puff inhalation UD PRN shortness 03/15/24 03/15/24 History aerosol inhaler (Ventolin HFA) of breath or wheezing dulaglutide 4.5 mg/0.5 mL 4.5 mg subcut UD 03/15/24 03/15/24 History subcutaneous pen injector finasteride 5 mg tablet 5 mg PO UD 03/15/24 03/15/24 History glipizide 10 mg tablet 10 mg PO UD 03/15/24 03/15/24 History metformin 500 mg tablet 500 mg PO UD 03/15/24 03/15/24 History montelukast 10 mg tablet 10 mg PO UD 03/15/24 03/15/24 History Past Med/Surg History Problem List (Updated 03/15/24 @ 17:54 by Bill Gunter DO) FIDEL (acute kidney injury) (Acute) Acute hyperkalemia (Acute) Ventricular tachycardia (Acute) Left bundle branch block Environmental allergies Hypercholesterolemia HTN (hypertension) 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 diabetes mellitus Morbid obesity Hypothyroidism Depression Diabetes mellitus BPH w urinary obs/LUTS Nocturnal hypoxia Obstructive sleep apnea Asthma Chronic diastolic CHF (congestive heart failure) Paroxysmal atrial fibrillation Gout (Acute) Chronic kidney disease (CKD), stage III (moderate) Medical History Dyspnea Adverse effect of COVID-19 vaccine Syncope, vasovagal Resistant hypertension Cor pulmonale Surgical History S/P left knee arthroscopy S/P right knee arthroscopy History of herniorrhaphy umbilical History of uvulopalatopharyngoplasty Family History Sister Breast cancer Uterine cancer Father Myocardial infarction Skin cancer (melanoma) Heart disease Lung cancer Mother Diabetes Denies family history of Prostate cancer Kidney disease Social History Smoking Status: Never smoker Second Hand Exposure: No; Do You Dip or Chew Tobacco: No; Hx Alcohol Use: No Hx Substance Use: No Preferred Language: Iraqi Communication Ability: Effective Visual Impairment: No Limitations Hearing Ability: Normal Soot Blower Required: No Beliefs That Will Affect Care: None marital status: Current Living Situation: Alone current occupational status: retired How many Children do You have: 3 Feels Safe at Home: Yes Childhood Exposure to Second-Hand Smoke: Yes Diet: regular Diet Comment: regular caffeine: Yes during the past year weight has: remained stable Dental Care, Regularly: Yes Physical Activity Frequency: Other Physical Activity Frequency Comment: WALKING Seatbelt Use: always Sunscreen Use: Yes Assistive Devices: None Review of Systems Review of Systems: A 10 point review of system was obtained and unless otherwise stated here or in history of present illness are negative and noncontributory to chief complaint. Physical Exam Physical Exam: In General: In general pleasant 73-year-old male is alert oriented x 3 at the time my exam accompanied by his son his daughter and their spouses. He denies any symptoms at this time he is asymptomatic. HEENT: Normocephalic atraumatic pupils are equal round and reactive to light bilaterally. No scleral icterus no conjunctival injection external auditory canals are patent septum is in the midline nose is without discharge oral mucosa is pink and moist without lesion. NECK: Supple no rigidity no lymphadenopathy no thyromegaly no carotid bruits no JVD no masses. HEART: Fairly regular on auscultation. Rate currently controlled. I do not appreciate any ectopy or rub. No murmur. LUNGS: Clear to auscultation bilaterally and anteriorly with no evidence of adventitious sounds/wheezes rales or rhonchi. ABDOMEN: Obese, soft nontender, no rebound, no peritoneal signs, positive bowel sounds-remaining abdominal exam somewhat equivocal due to body habitus. EXTREMITIES: Intact, no peripheral cyanosis, clubbing or edema. Strength is 5 out of 5 in extremities x4. NEUROLOGICAL: Cranial nerves II through XII are grossly intact with no focal deficit elicited upon examination. No tremor. Results & Data Results & Data Vital Signs (Past 12 Hours) Vital Signs Temp Pulse Pulse Resp BP BP Pulse Ox 03/15/24 18:32 83 18 133/77 96 03/15/24 17:56 73 19 132/76 98 03/15/24 17:33 80 18 127/76 100 03/15/24 17:10 118/84 03/15/24 17:09 80 23 100 03/15/24 17:05 121/78 03/15/24 17:05 121/78 100 03/15/24 17:05 121/78 03/15/24 17:03 78 20 100 03/15/24 17:00 117/77 03/15/24 17:00 117/77 03/15/24 16:57 80 19 100 03/15/24 16:57 88 03/15/24 16:55 107/83 100 03/15/24 16:50 117/80 100 03/15/24 16:45 125/84 100 03/15/24 16:42 128/82 03/15/24 16:35 36.4 C L 165 H 18 128/54 L 100 03/15/24 16:34 165 H 22 128/82 100 O2 Del Method O2 Flow Rate 03/15/24 18:32 Nasal Cannula 4 03/15/24 17:56 Nasal Cannula 4 03/15/24 17:33 Nasal Cannula 2 03/15/24 17:10 03/15/24 17:09 Non-rebreather 15 03/15/24 17:05 03/15/24 17:05 Non-rebreather 15 03/15/24 17:05 03/15/24 17:03 Non-rebreather 15 03/15/24 17:00 03/15/24 17:00 03/15/24 16:57 Non-rebreather 15 03/15/24 16:57 03/15/24 16:55 Non-rebreather 15 03/15/24 16:50 Non-rebreather 15 03/15/24 16:45 Non-rebreather 15 03/15/24 16:42 03/15/24 16:35 Non-rebreather 15 03/15/24 16:34 Non-rebreather 15 Code Status & VTE Plan Code Status Full code.. Appears discussed with patient at the bedside VTE Prophylaxis Plan VTE Prophylaxis will be ordered: Yes PG Care Time/CCT Total # of Minutes Spent Total Time Spent with Patient: Total time spent is greater than 50% in coordination of care (as documented) at patient's floor/unit and/or counseling patient: Coding Level of Care Code 58228 INT INP/OBS CARE 3/75MIN Diagnoses Ventricular tachycardia I47.20
--- NOTE | 2024-03-15 19:44 | Critical Care Consultation ---
Date of Consultation March 15, 2024 Assessment & Plan (1) Elevated troponin: (2) Dysrhythmia: (3) FIDEL (acute kidney injury): (4) Acute hyperkalemia: (5) 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 diabetes mellitus: (6) Morbid obesity: (7) BPH w urinary obs/LUTS: Plan Reason Critically Ill: 73 YOM presents to ER with chest pain, wide complex tachycardia symptomatic requiring emergent cardioversion with 200J x1. ICU for hemodynamic and rhythm monitoring. Neuro - No acute needs CAM ICU: NEGATIVE Cardiac - Dysrhythmia requiring emergent cardioversion, Elevated HsCTNI, HX PAF, HFpEF, HTN HLD - DDX- PAF with aberrancy vs. ischemia vs. metabolic/electrolyte or combination of the above- Dysrhythmia wide complex in nature - DDX afib with aberrancy vs. ventricular - Cardioversion x1 with return to NSR- - Amiodarone load and infusion initiated - continue - transition to oral amiodarone once 1 GM has been infused- re-bolus if needed - Magnesium at 2.0 - K elevated to 5.9- now 4.3 - Will obtain VBG eval for acidemia/hypercarbia- 7.32/50/26 - Hypoxia responded well to oxygen - ECHO in am - Elevated HsCTNI- Rapidly elevating over the past 4 hours - [phone]. Patient remains Chest pain free - Cardiology updated by primary service- and interventional aware- will start argatroban and plan for cardiac cath in am - patient informed and son informed per patient request. - return of chest pain will initiate nitro and call interventional, same for any rhythm changes - ECG on arrival to ICU- at this time without clear STEMI but with chronic LBBB- - ASA daily 81mg initiated - Cardiology consultation appreciated at this time no urgent/emergent plan for cath. - HFmrEF- BNP now diurese with hyperkalemia as hemodynamics permit- mild pulmonary congestion on CXR - ECHO 11/03- -LVEF 40-45% noting septal motion consistent with LBBB; normal RV and normal TAPSE and RA/PA pressures, mitral regurge - At this time does not appear to be acute heart failure exacerbation- diurese for hyperkalemia and mild pulmonary edema Respiratory - Hypoxic respiratory failure, LINDA - Oxygen demand in setting of dysrhythmia and tachycardia - appears to be decreasing following management of rhythm - wean oxygen for SPo2 >94% - Diurese pending hemodynamics - CPAP overnight GI - NO acute needs - NPO after midnight until decision made on possible cardiac intervention RENAL/LYTES - FIDEL on CKDIII, Hyperkalemia, - FIDEL on CKD- likely secondary to hypotension related to dysrhythmia at this time- trend and follow - avoid further nephrotoxic medications at this time- if needed minimize exposure time - Hyperkalemia- treated with insulin, D50, CACL in the ER- recheck now - if remains elevated will kaliureses with Lasix and follow - BPH with LUTS - hold on stevenson catheter at this time - bladder scans as needed ENDO - DMII - Basal bolus insulin- Goal <180mg/DL - TSH 2.116- continue Synthroid HEME - ? History of HIT - no documented history of this here- however was in [place] [facility] [place] few years ago - medication admin history - has heparin in 2013 and Lovenox in 2014- will attempt to retrieve other records and review chart for further info. - Will start Argatroban ID - No acute concern for infection at this time - Elevated Leukocytosis probably reactionary to events of today - no respiratory symptoms or opacity on CXR - No urinary symptoms - Trend Fever curve and clinical picture at this time LINES/IV ACCESS - PIV Continue use of these lines DVT PROPHYLAXIS - SCDS, Argatroban DISPO: ICU until rhythm, hemodynamics, and respiratory status proven stable. I have personally spent 45 minutes of time in the direct management of this patient. This is a life/limb threatening event. This includes time spent evaluating patient, direct bedside care, chart review, placing orders, interpretation of diagnostic studies, discussion with consultants, patient, and family members, as well as other required patient management activities. This time is exclusive of all separately billable procedures, and separate from and in addition to any other critical care service time. Thank you for allowing us to participate in the care of this patient. Please refer to my attending physician's documentation for any further recommendations. History of Present Illness Reason for Consultation: Wide complex dysrythmia requiring emergent cardioversion in ER Requesting Physician: Demarcus Edwards MD Attending Physician: Demarcus Edwards MD History of Present Illness 73 YOM with medical history of: HFpEF, LINDA/OHS, Morbid Obesity, HTN, PAF, HLD, DMII, Hypothyroidism, CKDIII, BPH with LUTS. Patient reports that he was bending over this afternoon to grape picker his sock that he dropped on the floor, and upon sitting up reports that he had 8/10 chest pain in the center of his chest that was squeezing in nature, had onset of diaphoresis and dyspnea. This lasted about 30 minutes and felt like it was getting better, but then came back after a few minutes so he called 911. He was reported to be in a wide complex rhythm on EMS arrival and was tachycardic and hypotensive as well as waxing and waning of his mental state. He received a loading dose of amiodarone. On arrival to the [facility] resuscitation bay, he was still noted to be in wide complex tachycardic rhythm, remained diaphoretic with chest pain and requiring oxygen. He was sedated with etomidate and cardioverted x1with 200 joules. He converted back to NSR with LBB, which reportedly is not new and in place since 2020. Patient was also noted to have hyperkalemia to 5.9, HCO3 of 19 and FIDEL on CKDIII. He is currently chest pain free on my evaluation of the patient in the ER. He is awake and requiring no vasopressor medications at this time. Admitting Medicing team discussed case with cardiology agriculture extension specialist Dr. 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 Patient also reports a history of possible hem orrhage, however the more he describes it may have been cardiogenic shock and LV failure with back up into lungs. Either way heparin infusion is on hold. Patient will be brought to the ICU for monitoring of rythm, hemodynamics, respiratory support, and managment of hyperkalemia. CODE: FULL Allergies Allergy/AdvReac Type Severity Reaction Status Date / Time heparin Allergy Severe HIT Verified 02/16/24 11:56 Penicillins Allergy Severe HIVES/SOB Verified 02/16/24 11:56 Cephalosporins Allergy Intermediate FROM MED Verified 02/16/24 11:56 MARA GONZALEZ telmisartan Allergy Intermediate FROM Verified 02/16/24 11:56 MULUGETA OFC RECORD Home Medications Medication Instructions Recorded Confirmed Type cyanocobalamin (vitamin B-12) 5,000 mcg sublingual DAILY 10/01/18 03/15/24 History 5,000 mcg sublingual tablet furosemide 80 mg tablet 80 mg PO UD PRN Edema #30 tabs 10/21/18 03/15/24 History acetaminophen 500 mg tablet 500 mg PO Q6H PRN Pain 06/17/19 03/15/24 History (Tylenol Extra Strength) krill oil 500 mg capsule 500 mg PO DAILY 09/24/19 03/15/24 History multivitamin (Daily Multi-Vitamin 1 tab PO DAILY #90 tabs 11/28/20 03/15/24 Rx tablet) CPAP Machine #1 ea 03/20/22 02/16/24 Rx furosemide 40 mg tablet 40 mg PO DAILY #90 tabs 06/24/23 03/15/24 Rx atorvastatin 20 mg tablet 20 mg PO DAILY #90 tabs 09/17/23 03/15/24 Rx amlodipine 10 mg tablet 10 mg PO DAILY #90 tabs 10/17/23 03/15/24 Rx carvedilol 25 mg tablet 25 mg PO BID #180 tabs 11/03/23 03/15/24 Rx clonidine HCl 0.1 mg tablet 0.1 mg PO BID #180 tabs 11/03/23 03/15/24 Rx fenofibrate nanocrystallized 48 mg 96 mg (2 x 48 mg) PO DAILY #180 11/03/23 03/15/24 Rx tablet tabs tamsulosin 0.4 mg capsule 0.4 mg PO HS #90 caps 11/18/23 03/15/24 Rx trazodone 100 mg tablet 100 mg PO HS #90 tabs 11/18/23 03/15/24 Rx levothyroxine 150 mcg tablet 150 mcg PO DAILY #90 tabs 11/25/23 03/15/24 Rx spironolactone 50 mg tablet 50 mg PO DAILY #90 tabs 11/25/23 03/15/24 Rx bupropion HCl 300 mg 24 hr tablet, 300 mg PO DAILY #90 tabs 02/20/24 03/15/24 Rx extended release albuterol sulfate 90 mcg/actuation 2 puff inhalation UD PRN shortness 03/15/24 03/15/24 History aerosol inhaler (Ventolin HFA) of breath or wheezing dulaglutide 4.5 mg/0.5 mL 4.5 mg subcut UD 03/15/24 03/15/24 History subcutaneous pen injector finasteride 5 mg tablet 5 mg PO UD 03/15/24 03/15/24 History glipizide 10 mg tablet 10 mg PO UD 03/15/24 03/15/24 History metformin 500 mg tablet 500 mg PO UD 03/15/24 03/15/24 History montelukast 10 mg tablet 10 mg PO UD 03/15/24 03/15/24 History Patient History Medical History (Updated 03/15/24 @ 19:47 by ANKIT Alcantar) Left bundle branch block HTN (hypertension) Diabetes mellitus Chronic diastolic CHF (congestive heart failure) Hypothyroidism Obstructive sleep apnea Paroxysmal atrial fibrillation Dyspnea Adverse effect of COVID-19 vaccine Syncope, vasovagal Resistant hypertension Cor pulmonale Surgical History S/P left knee arthroscopy S/P right knee arthroscopy History of herniorrhaphy umbilical History of uvulopalatopharyngoplasty Family History Sister Breast cancer Uterine cancer Father Myocardial infarction Skin cancer (melanoma) Heart disease Lung cancer Mother Diabetes Denies family history of Prostate cancer Kidney disease Social History Smoking Status: Never smoker Second Hand Exposure: No; Do You Dip or Chew Tobacco: No; Hx Alcohol Use: No Hx Substance Use: No Preferred Language: Bulgarian Communication Ability: Effective Visual Impairment: No Limitations Hearing Ability: Normal Site Director Required: No Beliefs That Will Affect Care: None marital status: Current Living Situation: Alone current occupational status: retired How many Children do You have: 3 Feels Safe at Home: Yes Childhood Exposure to Second-Hand Smoke: Yes Diet: regular Diet Comment: regular caffeine: Yes during the past year weight has: remained stable Dental Care, Regularly: Yes Physical Activity Frequency: Other Physical Activity Frequency Comment: WALKING Seatbelt Use: always Sunscreen Use: Yes Assistive Devices: None Review of Systems Review of Systems: REVIEW OF SYSTEMS: Constitutional: No fever, sweats or chills Eyes: No diplopia, no worsening or blurred vision ENT: normal hearing, no trouble swallowing Respiratory: (+) dyspnea at rest or on exertion chronic, No cough, sputum, Cardiovascular: (+) chest pain resolved, tightness or palpitations resolved Abdomen: No pain, nausea, vomiting, diarrhea or constipation Musculoskeletal: No joint pain, calf pain, swelling Neurologic: No weakness, numbness/tingling, or balance problems Psychiatric: (+) hx of depression Skin: No rash or itch Physical Exam Physical Exam: PHYSICAL EXAM: General: awake, alert, no apparent distress Head: Normocephalic, atraumatic ENT: PERRLA, EOMI, no pharyngeal exudate, mucous membranes moist Neuro: AAO x 3, speech clear and appropriate, strength intact bilaterally 5/5, sensation intact and equal all extremities and dermatomes, no pronator drift Chest: equal rise and fall of the chest, no accessory muscle use, no heaves or thrills, Clear to auscultation, on room air, Cardiac: Regular rate and rhythm, telemetry reviewed- NSR with 1st degree LBB, skin warm dry, cap refill <3 seconds, peripheral pulses +2 no JVD, no murmur, trace edema feet and ankles, +1 GI: NABS x 4 quadrants, soft, nontender to palpation, no rebound, guarding or tenderness : Spontaneously voiding, no pain, no CVA tenderness, Extremities: Normal inspection, no peripheral edema or erythema, calfs nontender to palpation Psych: Normal mood and affect Skin: no rash or erythema Results & Data Results & Data Vital Signs (Past 12 Hours) Vital Signs Temp Pulse Pulse Resp BP BP Pulse Ox 03/15/24 18:32 83 18 133/77 96 03/15/24 17:56 73 19 132/76 98 03/15/24 17:33 80 18 127/76 100 03/15/24 17:10 118/84 03/15/24 17:09 80 23 100 03/15/24 17:05 121/78 03/15/24 17:05 121/78 100 03/15/24 17:05 121/78 03/15/24 17:03 78 20 100 03/15/24 17:00 117/77 03/15/24 17:00 117/77 03/15/24 16:57 80 19 100 03/15/24 16:57 88 03/15/24 16:55 107/83 100 03/15/24 16:50 117/80 100 03/15/24 16:45 125/84 100 03/15/24 16:42 128/82 03/15/24 16:35 36.4 C L 165 H 18 128/54 L 100 03/15/24 16:34 165 H 22 128/82 100 O2 Del Method O2 Flow Rate 03/15/24 18:32 Nasal Cannula 4 03/15/24 17:56 Nasal Cannula 4 03/15/24 17:33 Nasal Cannula 2 03/15/24 17:10 03/15/24 17:09 Non-rebreather 15 03/15/24 17:05 03/15/24 17:05 Non-rebreather 15 03/15/24 17:05 03/15/24 17:03 Non-rebreather 15 03/15/24 17:00 03/15/24 17:00 03/15/24 16:57 Non-rebreather 15 03/15/24 16:57 03/15/24 16:55 Non-rebreather 15 03/15/24 16:50 Non-rebreather 15 03/15/24 16:45 Non-rebreather 15 03/15/24 16:42 03/15/24 16:35 Non-rebreather 15 03/15/24 16:34 Non-rebreather 15 Laboratory Results Abnormal lab results 03/15/24 03/15/24 03/15/24 Range/Units 16:39 16:48 18:30 WBC 19.69 H (4.8-10.8) K/ul RBC 4.38 L (4.70-6.10) M/uL Hgb 13.3 L (14.0-18.0) g/dl POC Hgb 13.9 L (14.0-18.0) g/dl Hct 39.2 L (42.0-52.0) % POC Hct 41 L (42-52) % Neut # (Auto) 15.60 H (1.40-6.50) K/uL [place] # (Auto) 0.74 H (0.11-0.59) K/uL Immature Gran # (Auto) 0.21 H (0.01-0.20) K/uL POC Sodium 133 L (135-144) mmol/L Sodium 132 L (136-145) mmol/L POC Potassium 5.9 H (3.3-5.0) mmol/L Potassium 5.9 H (3.5-5.1) mmol/L Carbon Dioxide 19 L (21-32) mmol/L POC Total CO2 20 L (24-31) mmol/L Anion Gap 13 H (3-11) POC BUN 53 H (7-18) mg/dl BUN 48 H (6-23) mg/dl Creatinine 2.55 H (0.6-1.4) mg/dl POC Creatinine 2.8 H (0.6-1.3) mg/dl Glucose 297 H (70-99(Fasting)) mg/dl POC Glucose (70-99) mg/dl POC Glucose (other) 307 H (70-99) mg/dl POC Ioniz Calcium Shawna 1.07 L (1.12-1.32) mmol/l Troponin I High Sens 67.1 H* 4118.8 H* D (0-20) pg/ml 03/15/24 Range/Units 19:33 WBC (4.8-10.8) K/ul RBC (4.70-6.10) M/uL Hgb (14.0-18.0) g/dl POC Hgb (14.0-18.0) g/dl Hct (42.0-52.0) % POC Hct (42-52) % Neut # (Auto) (1.40-6.50) K/uL [place] # (Auto) (0.11-0.59) K/uL Immature Gran # (Auto) (0.01-0.20) K/uL POC Sodium (135-144) mmol/L Sodium (136-145) mmol/L POC Potassium (3.3-5.0) mmol/L Potassium (3.5-5.1) mmol/L Carbon Dioxide (21-32) mmol/L POC Total CO2 (24-31) mmol/L Anion Gap (3-11) POC BUN (7-18) mg/dl BUN (6-23) mg/dl Creatinine (0.6-1.4) mg/dl POC Creatinine (0.6-1.3) mg/dl Glucose (70-99(Fasting)) mg/dl POC Glucose 169 H (70-99) mg/dl POC Glucose (other) (70-99) mg/dl POC Ioniz Calcium Shawna (1.12-1.32) mmol/l Troponin I High Sens (0-20) pg/ml Diagnostic Findings Chest X-Ray 03/15/24 16:36 EXAM: XR chest 1V portable CLINICAL HISTORY: Dysrhythmia TECHNIQUE: X-ray image of the chest is obtained in AP portable projection. COMPARISON: With the prior study dated 05/05/2020. FINDINGS: Pulmonary Parenchyma: Lungs are clear bilaterally. There is no evidence of consolidation, collapse, or focal opacities. No pulmonary nodules are identified. No evidence of pleural effusion or pleural thickening. Heart and Mediastinum: Unchanged cardiac enlargement. Redemonstration of bilateral hilar vascular congestion and possible lymph node enlargement. No mediastinal widening or masses. No hilar or mediastinal lymphadenopathy. Bony Thorax: The bony thorax appears intact without fractures or deformities. Soft Tissues: Soft tissues overlying the chest wall are unremarkable. IMPRESSION: 1. Unchanged cardiomegaly. 2. Redemonstration of bilateral hilar vascular congestion and possible lymph node enlargement. 3. No gross interval change since the prior study. Electronically signed by Kishore Carpio 03-15-2024 5:13 PM Medications Administered Home Medications cyanocobalamin (vitamin B-12) 5,000 mcg sublingual tablet 5,000 mcg sublingual DAILY 10/01/18 [History Confirmed 03/15/24] furosemide 80 mg tablet 80 mg PO UD PRN Edema #30 tabs 10/21/18 [History Confirmed 03/15/24] acetaminophen 500 mg tablet (Tylenol Extra Strength) 500 mg PO Q6H PRN Pain 06/17/19 [History Confirmed 03/15/24] krill oil 500 mg capsule 500 mg PO DAILY 09/24/19 [History Confirmed 03/15/24] multivitamin (Daily Multi-Vitamin tablet) 1 tab PO DAILY #90 tabs 11/28/20 [Rx Confirmed 03/15/24] CPAP Machine #1 ea 03/20/22 [Rx Confirmed 02/16/24] furosemide 40 mg tablet 40 mg PO DAILY #90 tabs 06/24/23 [Rx Confirmed 03/15/24] atorvastatin 20 mg tablet 20 mg PO DAILY #90 tabs 09/17/23 [Rx Confirmed 03/15/24] amlodipine 10 mg tablet 10 mg PO DAILY #90 tabs 10/17/23 [Rx Confirmed 03/15/24] carvedilol 25 mg tablet 25 mg PO BID #180 tabs 11/03/23 [Rx Confirmed 03/15/24] clonidine HCl 0.1 mg tablet 0.1 mg PO BID #180 tabs 11/03/23 [Rx Confirmed 03/15/24] fenofibrate nanocrystallized 48 mg tablet 96 mg (2 x 48 mg) PO DAILY #180 tabs 11/03/23 [Rx Confirmed 03/15/24] tamsulosin 0.4 mg capsule 0.4 mg PO HS #90 caps 11/18/23 [Rx Confirmed 03/15/24] trazodone 100 mg tablet 100 mg PO HS #90 tabs 11/18/23 [Rx Confirmed 03/15/24] levothyroxine 150 mcg tablet 150 mcg PO DAILY #90 tabs 11/25/23 [Rx Confirmed 03/15/24] spironolactone 50 mg tablet 50 mg PO DAILY #90 tabs 11/25/23 [Rx Confirmed 03/15/24] bupropion HCl 300 mg 24 hr tablet, extended release 300 mg PO DAILY #90 tabs 02/20/24 [Rx Confirmed 03/15/24] albuterol sulfate 90 mcg/actuation aerosol inhaler (Ventolin HFA) 2 puff inhalation UD PRN shortness of breath or wheezing 03/15/24 [History Confirmed 03/15/24] dulaglutide 4.5 mg/0.5 mL subcutaneous pen injector 4.5 mg subcut UD 03/15/24 [History Confirmed 03/15/24] finasteride 5 mg tablet 5 mg PO UD 03/15/24 [History Confirmed 03/15/24] glipizide 10 mg tablet 10 mg PO UD 03/15/24 [History Confirmed 03/15/24] metformin 500 mg tablet 500 mg PO UD 03/15/24 [History Confirmed 03/15/24] montelukast 10 mg tablet 10 mg PO UD 03/15/24 [History Confirmed 03/15/24] Active Medications Acetaminophen (Acetaminophen 325 Mg Tab) 650 mg PO Q4H PRN PRN Reason: Pain or Fever Stop: 04/14/24 18:55 Dextrose (Dextrose 50% 50 Ml Syringe) 25 - 50 ml IV UD PRN; Protocol PRN Reason: Hypoglycemia Protocol Stop: 04/14/24 18:55 Glucagon (Glucagon For Inj 1 Mg Vial) 1 mg SQ UD PRN; Protocol PRN Reason: Hypoglycemia Protocol Stop: 04/14/24 18:55 Glucose (Glucose 40% Gel 15 Gm Tube) 15 - 30 gm PO UD PRN; Protocol PRN Reason: Hypoglycemia Protocol Stop: 04/14/24 18:55 Glucose (Glucose 10 Tab/Tube) 4 - 8 tab PO UD PRN; Protocol PRN Reason: Hypoglycemia Protocol Stop: 04/14/24 18:55 Amiodarone HCl/Dextrose (Nexterone / D5w) 360 mg in 200 mls @ 33.333 mls/hr IV ONE ONE Stop: 03/15/24 22:45 Last Admin: 03/15/24 16:41 Dose: 1 mg/min, 33.3 mls/hr Amiodarone HCl/Dextrose (Nexterone / D5w) 360 mg in 200 mls @ 16.667 mls/hr IV .Q12H SHANTELLE Stop: 04/14/24 22:44 Heparin Sodium/Dextrose (Heparin 68164 Unit/500 Ml) 25,000 units in 500 mls @ 20 mls/hr IV .Q24H SHANTELLE; Protocol Stop: 04/14/24 18:14 Last Titration: 03/15/24 18:54 Dose: 0 units/hr, 0 mls/hr Insulin Aspart (Insulin Aspart Per Unit Charge) 0 units SC ACHS SHANTELLE Stop: 04/14/24 20:59 Insulin Glargine (Lantus Per Unit Charge) 12 units SQ BID SHANTELLE Stop: 04/14/24 20:59 Miscellaneous (Carbohydrates For Hypoglycemia ) 15 - 30 gm PO UD PRN PRN Reason: Hypoglycemia Protocol Stop: 04/14/24 18:55 Amiodarone HCl/Dextrose (Nexterone / D5w) 360 mg in 200 mls @ 33.333 mls/hr IV ONE ONE Stop: 03/15/24 22:45 Last Admin: 03/15/24 16:41 Dose: 1 mg/min, 33.3 mls/hr Documented By: PAVEL Co-signed By: KELLEY Heparin Sodium/Dextrose (Heparin 58409 Unit/500 Ml) 25,000 units in 500 mls @ 20 mls/hr IV .Q24H SHANTELLE; Protocol Stop: 04/14/24 18:14 Last Titration: 03/15/24 18:54 Dose: 0 units/hr, 0 mls/hr Documented By: PAVEL Co-signed By: PATI Titration: 03/15/24 18:47 Dose: 0 units/hr, 0 mls/hr Documented By: PAVEL Co-signed By: PATI Admin: 03/15/24 18:37 Dose: 1,000 units/hr, 20 mls/hr Documented By: PAVEL Co-signed By: CARMENCITA Discontinued Medications Amiodarone HCl/Dextrose (Amiodarone 360mg / 200ml D5w) Confirm Administered Dose 360 mg IV .STK-MED ONE Stop: 03/15/24 16:37 Last Admin: 03/15/24 17:02 Dose: Not Given Documented By: PAVEL Amiodarone HCl (Amiodarone Iv Bolus & Drip) 1 each IV NOW STA; Protocol Stop: 03/15/24 16:37 Last Admin: 03/15/24 17:11 Dose: Not Given Documented By: PAVEL Aspirin (Aspirin Chew 324 Mg) 324 mg PO NOW STA Stop: 03/15/24 17:00 Last Admin: 03/15/24 17:06 Dose: 324 mg Documented By: PAVEL Dextrose (Dextrose 50% 50 Ml Syringe) 50 ml IV NOW ONE Stop: 03/15/24 17:54 Last Admin: 03/15/24 18:17 Dose: 35 ml Documented By: PAVEL Etomidate (Etomidate 2 Mg/Ml 20 Ml Vial) Confirm Administered Dose 40 mg IV .STK-MED ONE Stop: 03/15/24 16:35 Last Admin: 03/15/24 16:52 Dose: Not Given Documented By: PAVEL Etomidate (Etomidate 2 Mg/Ml 20 Ml Vial) 10 mg IV NOW ONE Stop: 03/15/24 16:39 Last Admin: 03/15/24 16:40 Dose: 10 mg Documented By: PAVEL Heparin Sodium (Porcine) (Heparin Sod (Porcine) 1000 Unit/Ml) 1 units IV NOW ONE Stop: 03/15/24 18:11 Last Admin: 03/15/24 18:38 Dose: 4,000 units Documented By: PAVEL Co-signed By: CARMENCITA Heparin Sodium/Dextrose (Heparin Iv Adult Wt-Based Low-Dose W/ Initial Bolus Protocol) 1 each IV NOW STA; Protocol Stop: 03/15/24 17:55 Last Admin: 03/15/24 18:37 Dose: Not Given Documented By: PAVEL Sodium Chloride (Nss) 500 mls @ 999 mls/hr IV .Q31M ONE Stop: 03/15/24 17:29 Last Infusion: 03/15/24 17:36 Dose: Infused Documented By: Admin: 03/15/24 17:03 Dose: 999 mls/hr Documented By: PAVEL Calcium Chloride 1,000 mg/ (Dextrose) 60 mls @ 240 mls/hr IV NOW STA Stop: 03/15/24 18:07 Last Infusion: 03/15/24 18:20 Dose: Infused Documented By: Admin: 03/15/24 18:09 Dose: 240 mls/hr Documented By: PAVEL Insulin Human Regular (Novolin-R Insulin Per Unit Charge) 10 units IV NOW STA Stop: 03/15/24 17:54 Last Admin: 03/15/24 18:21 Dose: 10 units Documented By: PAVEL Co-signed By: BREE Miscellaneous (Stat Iv Infusion Titration Per Protocol) 1 each N/A NOW STA Stop: 03/15/24 16:37 Last Admin: 03/15/24 17:02 Dose: Not Given Documented By: PAVEL Morphine Sulfate (Morphine Sulfate 4 Mg/Ml 1 Ml Carp\Vial) 4 mg IV NOW STA Stop: 03/15/24 17:00 Last Admin: 03/15/24 17:08 Dose: 4 mg Documented By: PAVEL Ondansetron HCl (Ondansetron Inj 2 Mg/Ml 2 Ml Vial) 4 mg IV NOW STA Stop: 03/15/24 17:00 Last Admin: 03/15/24 17:05 Dose: 4 mg Documented By: PAVEL ECG Additional Comments: Suspect arm lead reversal, interpretation assumes no reversal Wide QRS tachycardia Non-specific intra-ventricular conduction block Lateral infarct, age undetermined Abnormal ECG When compared with ECG [id number] 20:49, Wide QRS tachycardiahas replacedSinus rhythm Vent. ratehas increasedby 71bpm Sinus rhythmwith 1st degree A-V blockwith occasionalPremature ventricular complexes Left axis deviation Left bundle branch block Abnormal ECG When compared with ECG [id number] 16:44,(unconfirmed) Sinus rhythmhas replacedWide QRS rhythm Coding Level of Care Code 99295 CRITICAL CARE 1ST 30-74M Diagnoses Elevated troponin R79.89 Dysrhythmia I49.9 FIDEL (acute kidney injury) N17.9 Acute hyperkalemia E87.5 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 diabetes mellitus E11.42 Morbid obesity E66.01 BPH w urinary obs/LUTS N40.1; N13.8
[2024-03-15 20:20] LABS: BUN Creatinine Ratio 18.4 (10-20); Calcium 9.2 mg/dl (8.6-10.3); Potassium 4.3 mmol/L (3.5-5.1)
[2024-03-15] MEDS ORDERED: ASPIRIN 81 MG CHEW PO ONE (20:29)
[2024-03-15 20:31] LABS: Base Excess VBG -0.9 mEq/L; HCO3 VBG 26 mmol/L; Oxygen Saturation VBG 65.1 %; PCO2 VBG 50 mmHg (38-50); PO2 VBG 39 mmHg; pH VBG 7.32 (7.36-7.41)
[2024-03-15] MEDS ORDERED: ARGATROBAN CONSULT ACTIVE PRN (21:07)
[2024-03-15] MEDS ORDERED: STAT IV Infusion **Titration per Protocol STA (21:07)
--- NOTE | 2024-03-15 21:19 | Pharmacy Report ---
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 - Subjective * Patient is a 73 year old M who was admitted on 03/15/24 for V-TACH. * Pharmacy was consulted on 03/15/24 to assist with Argatroban dosing in the setting of history of HIT. * Pertinent PMHx: * Increased bleed risk factors: diabetes, HTN, renal disease * Increased thrombotic risk factors: HTN, CHF, diabetes * Mechanical prophylaxis ordered: yes - scd knee - Objective Height: 6 ft Weight: 146 kg Body Mass Index: 43.6 Laboratory Results (Most Recent): WBC 19.69 K/ul (4.8-10.8) H 03/15/24 16:39 RBC 4.38 M/uL (4.70-6.10) L 03/15/24 16:39 Hgb 13.3 g/dl (14.0-18.0) L 03/15/24 16:39 POC Hgb 13.9 g/dl (14.0-18.0) L 03/15/24 16:48 Hct 39.2 % (42.0-52.0) L 03/15/24 16:39 POC Hct 41 % (42-52) L 03/15/24 16:48 MCV 89.5 fL (80.0-100.0) 03/15/24 16:39 MCH 30.4 pg (25.0-34.0) 03/15/24 16:39 MCHC 33.9 g/dL (32.0-36.0) 03/15/24 16:39 RDW Std Deviation 43.7 fL (36.4-46.3) 03/15/24 16:39 RDW Coeff of Christina 13.3 % (11.5-14.5) 03/15/24 16:39 Plt Count 245 K/uL (130-400) 03/15/24 16:39 MPV 11.8 fL (9.4-12.4) 03/15/24 16:39 Immature Gran % (Auto) 1.1 % 03/15/24 16:39 Neut % (Auto) 79.2 % 03/15/24 16:39 Lymph % (Auto) 13.7 % 03/15/24 16:39 Taliaferro % (Auto) 3.8 % 03/15/24 16:39 Eos % (Auto) 1.7 % 03/15/24 16:39 Baso % (Auto) 0.5 % 03/15/24 16:39 Neut # (Auto) 15.60 K/uL (1.40-6.50) H 03/15/24 16:39 Lymph # (Auto) 2.70 K/uL (1.20-3.40) 03/15/24 16:39 Taliaferro # (Auto) 0.74 K/uL (0.11-0.59) H 03/15/24 16:39 Eos # (Auto) 0.34 K/uL (0.00-0.50) 03/15/24 16:39 Baso # (Auto) 0.10 K/uL (0.00-0.20) 03/15/24 16:39 Immature Gran # (Auto) 0.21 K/uL (0.01-0.20) H 03/15/24 16:39 PT 11.0 Seconds (9.0-12.0) 03/15/24 16:39 INR 1.0 (0.9-1.1) 03/15/24 16:39 APTT 25 Seconds (21-31) 03/15/24 16:39 PTT Ratio 0.9 03/15/24 16:39 VBG pH 7.32 (7.36-7.41) L 03/15/24 20:17 VBG pCO2 50 mmHg (38-50) 03/15/24 20:17 VBG pO2 39 mmHg 03/15/24 20:17 VBG HCO3 26 mmol/L 03/15/24 20:17 VBG O2 Saturation 65.1 % 03/15/24 20:17 VBG Base Excess -0.9 mEq/L 03/15/24 20:17 POC Sodium 133 mmol/L (135-144) L 03/15/24 16:48 Sodium 135 mmol/L (136-145) L 03/15/24 19:45 POC Potassium 5.9 mmol/L (3.3-5.0) H 03/15/24 16:48 Potassium 4.3 mmol/L (3.5-5.1) D 03/15/24 19:45 POC Chloride 103 mmol/L (101-112) 03/15/24 16:48 Chloride 104 mmol/L (98-107) 03/15/24 19:45 Carbon Dioxide 26 mmol/L (21-32) 03/15/24 19:45 POC Total CO2 20 mmol/L (24-31) L 03/15/24 16:48 Anion Gap 5 (3-11) 03/15/24 19:45 POC Anion Gap 17.0 mmol/L (16-25) 03/15/24 16:48 POC BUN 53 mg/dl (7-18) H 03/15/24 16:48 BUN 45 mg/dl (6-23) H 03/15/24 19:45 Creatinine 2.44 mg/dl (0.6-1.4) H 03/15/24 19:45 POC Creatinine 2.8 mg/dl (0.6-1.3) H 03/15/24 16:48 Est Cr Clr Drug Dosing 40.0 ml/min 03/15/24 19:45 eGFR 27.25 03/15/24 19:45 BUN/Creatinine Ratio 18.4 (10-20) 03/15/24 19:45 Glucose 139 mg/dl (70-99(Fasting)) H 03/15/24 19:45 POC Glucose 117 mg/dl (70-99) H 03/15/24 20:38 POC Glucose (other) 307 mg/dl (70-99) H 03/15/24 16:48 Calcium 9.2 mg/dl (8.6-10.3) 03/15/24 19:45 POC Ioniz Calcium Shawna 1.07 mmol/l (1.12-1.32) L 03/15/24 16:48 Magnesium 2.0 mg/dl (1.7-2.4) 03/15/24 16:39 Total Bilirubin 0.4 mg/dl (0.2-1.0) 03/15/24 16:39 AST 28 U/L (13-39) 03/15/24 16:39 ALT 20 U/L (7-52) 03/15/24 16:39 Alkaline Phosphatase 37 U/L (34-104) 03/15/24 16:39 Troponin I High Sens 71172.1 pg/ml (0-20) H* D 03/15/24 19:45 B-Natriuretic Peptide 234 pg/ml (0-100) H 03/15/24 19:45 Total Protein 7.0 gm/dl (6.0-8.3) 03/15/24 16:39 Albumin 3.9 gm/dl (3.4-5.0) 03/15/24 16:39 Globulin 3.1 gm/dl (2.5-4.0) 03/15/24 16:39 Albumin/Globulin Ratio 1.3 (0.9-2) 03/15/24 16:39 TSH 2.116 uIu/ml (0.300-4.500) 03/15/24 16:39 - Assessment * Of note, patient received a 4000 unit IV bolus of heparin followed by a continuous heparin infusion at 1000 units/mL for ~10 mins in the ED * Per [facility] Argatroban/Fondaparinux Usage Guidelines (Policy II.E.13.01(i)), all heparin & low molecular weight heparin products must be discontinued prior to starting Argatroban. * Patient on day #1 of therapeutic IV Argatroban * Goal aPTT ratio (determined by provider): 2-3 * Most recent aPTT Ratio: 0.9 at 1639 on 03/15/24 * Per policy above, pharmacy will order the following baseline labs: aPTT, INR, CBC, LFTs, SCr. * Per policy above, pharmacy will order the following ongoing labs: aPTT as needed for dose adjustments, CBC daily, INR daily (every 12 hours if patient on warfarin), LFTs (at least every 2 days), SCr (at least every 2 days). - Plan * IV Argatroban: * Start at 0.5 mcg/kg/min (for renal dysfxn) * Next aPTT ratio ordered for ~0200 on 03/16/24 Thank you for this consult! We will continue to monitor this patient and make adjustments as needed. - Objective Allergies: Allergy/AdvReac Type Severity Reaction Status Date / Time heparin Allergy Severe HIT Verified 02/16/24 11:56 Penicillins Allergy Severe HIVES/SOB Verified 02/16/24 11:56 Cephalosporins Allergy Intermediate FROM MED Verified 02/16/24 11:56 RECORDDR LISA telmisartan Allergy Intermediate FROM Verified 02/16/24 11:56 MULUGETA OFC RECORD
[2024-03-15] MEDS: FUROSEMIDE INJ 20 MG/2 ML VIAL IV ONE (21:23)
[2024-03-15] MEDS: FINASTERIDE 5 MG TAB PO SCH (21:24)
[2024-03-15] MEDS: cloNIDine HCL 0.1 MG TAB PO SCH (21:25)
[2024-03-15] MEDS: INSULIN ASPART PER UNIT CHARGE SC SCH (21:25)
[2024-03-15] MEDS: carvediloL 25 MG TAB PO SCH (21:25)
[2024-03-15] MEDS: LANTUS PER UNIT CHARGE SQ SCH (21:25)
[2024-03-15] MEDS: MONTELUKAST SODIUM 10 MG TABLET PO SCH (21:25)
[2024-03-15] MEDS: AMIODARONE / D5W 360 MG/200 ML BAG IV SCH (21:27)
[2024-03-15] MEDS: traZODone HCL 100 MG TAB PO SCH (21:27)
[2024-03-16 02:43] LABS: Partial Thromboplastin Ratio 1.2; Partial Thromboplastin Time 31 Seconds (21-31)
[2024-03-16] MEDS: PHARMACY ARGATROBAN RATE CHANGE ONE ×3 (03:15→16:22)
[2024-03-16 05:26] LABS: Basophils # (auto) 0.05 K/uL (0.00-0.20); Basophils % (auto) 0.5 %; Eosinophils # (auto) 0.12 K/uL (0.00-0.50); Eosinophils % (auto) 1.1 %; Hematocrit (blood only) 37.9 % (42.0-52.0); Hemoglobin 12.7 g/dl (14.0-18.0); Immature Granulocytes # (auto) 0.05 K/uL (0.01-0.20); Immature Granulocytes % (auto) 0.5 %; Lymphocytes % (auto) 22.5 %; Mean Corpuscular Hemoglobin 29.7 pg (25.0-34.0); Mean Corpuscular Hgb Conc 33.5 g/dL (32.0-36.0); Mean Corpuscular Volume 88.6 fL (80.0-100.0); Monocytes % (auto) 7.5 %; Neutrophils # (auto) 7.26 K/uL (1.40-6.50); Neutrophils % (auto) 67.9 %; Platelet Count 222 K/uL (130-400); RDW Coefficient of Variation 13.5 % (11.5-14.5); RDW Standard Deviation 43.7 fL (36.4-46.3); Red Blood Count 4.28 M/uL (4.70-6.10); White Blood Count 10.68 K/ul (4.8-10.8)
[2024-03-16 05:42] LABS: Albumin Globulin Ratio 1.3 (0.9-2); Albumin Level 3.8 gm/dl (3.4-5.0); BUN Creatinine Ratio 18.2 (10-20); Bilirubin,Total 0.3 mg/dl (0.2-1.0); Calcium 8.8 mg/dl (8.6-10.3); Chol HDL Ratio 3.1 (0-5); Creatinine Clr Calc Pharmacy 40.6 ml/min; Magnesium 1.9 mg/dl (1.7-2.4); Potassium 4.5 mmol/L (3.5-5.1); Total Protein 6.8 gm/dl (6.0-8.3)
[2024-03-16] MEDS: LEVOTHYROXINE SODIUM 150 MCG TABLET PO SCH (06:37)
[2024-03-16] MEDS: MAGNESIUM SULFATE / D5W 1 GM/100 ML BAG IV SCH (06:37)
[2024-03-16 07:55] LABS: Partial Thromboplastin Ratio 1.4; Partial Thromboplastin Time 38 Seconds (21-31)
[2024-03-16] MEDS: FENOFIBRATE NANOCRYSTALLIZED 48 MG TABLET PO SCH (08:09)
[2024-03-16] MEDS: CYANOCOBALAMIN (B-12) 2,500 MCG TABLET SL SCH (08:09)
[2024-03-16] MEDS: ASPIRIN 81 MG ECTAB PO SCH (08:09)
[2024-03-16] MEDS: amLODIPine BESYLATE 5 MG TAB PO SCH (08:10)
[2024-03-16] MEDS: ATORVASTATIN 20 MG TAB PO SCH (08:10)
[2024-03-16] MEDS: buPROPion XL 300 MG TABCR PO SCH (08:10)
--- NOTE | 2024-03-16 09:05 | Electrocardiogram Report ---
Test Reason : Blood Pressure : */* mmHG Vent. Rate : 80 BPM Atrial Rate : 80 BPM P-R Int : 280 ms QRS Dur : 138 ms QT Int : 394 ms P-R-T Axes : 40 -50 97 degrees QTcB Int : 454 ms Sinus rhythm with 1st degree A-V block with with occasional Premature ventricular complexes Left axis deviation Non-specific intra-ventricular conduction block with repolarization abnormality Abnormal ECG When compared with ECG of 15-Mar-2024 16:58, No significant change Confirmed by Ruben Roque ([id number]) on 03/16/2024 9:05:13 AM Referred By: REFERRED SELF Confirmed By: Ruben Roque
--- NOTE | 2024-03-16 09:07 | Electrocardiogram Report ---
Test Reason : Blood Pressure : */* mmHG Vent. Rate : 87 BPM Atrial Rate : * BPM P-R Int : * ms QRS Dur : 144 ms QT Int : 380 ms P-R-T Axes : * -58 112 degrees QTcB Int : 457 ms Probable Sinus rhythm with 1st degree A-V block Left axis deviation Non-specific intra-ventricular conduction delay Abnormal ECG When compared with ECG of 05-May-2020 20:49, Premature ventricular complexes no longer present MA interval has increased Confirmed by Ruben Roque ([id number]) on 03/16/2024 9:06:56 AM Referred By: REFERRED SELF Confirmed By: Ruben Roque
--- NOTE | 2024-03-16 09:07 | Electrocardiogram Report ---
Test Reason : Blood Pressure : */* mmHG Vent. Rate : 79 BPM Atrial Rate : 79 BPM P-R Int : 294 ms QRS Dur : 136 ms QT Int : 402 ms P-R-T Axes : 45 -58 103 degrees QTcB Int : 460 ms Sinus rhythm with 1st degree A-V block with occasional Premature ventricular complexes Left axis deviation Non-specific intra-ventricular conduction delay Abnormal ECG When compared with ECG of 15-Mar-2024 16:44, No significant change Confirmed by Ruben Roque ([id number]) on 03/16/2024 9:07:16 AM Referred By: REFERRED SELF Confirmed By: Ruben Roque
--- NOTE | 2024-03-16 09:08 | Electrocardiogram Report ---
Test Reason : Blood Pressure : */* mmHG Vent. Rate : 63 BPM Atrial Rate : 63 BPM P-R Int : 284 ms QRS Dur : 150 ms QT Int : 448 ms P-R-T Axes : 38 -53 109 degrees QTcB Int : 458 ms Sinus rhythm with 1st degree A-V block Left axis deviation Non-specific intra-ventricular conduction block Abnormal ECG When compared with ECG of 15-Mar-2024 20:32, Premature ventricular complexes no longer present Confirmed by Ruben Roque ([id number]) on 03/16/2024 9:07:37 AM Referred By: REFERRED SELF Confirmed By: Ruben Roque
--- NOTE | 2024-03-16 09:14 | Pre Anesthesia Assessment ---
Date of Service March 16, 2024 Pre Sedation Assessment Vital Signs Temp Pulse Pulse Resp BP BP Pulse Ox 03/16/24 08:52 37.2 C 69 20 119/71 96 03/16/24 08:03 65 18 92 03/16/24 08:00 03/16/24 08:00 127/69 03/16/24 08:00 03/16/24 08:00 36.6 C 03/16/24 08:00 67 03/16/24 07:36 66 18 93 03/16/24 07:03 65 12 94 03/16/24 07:00 123/65 03/16/24 06:54 67 17 95 03/16/24 06:03 64 14 92 03/16/24 06:00 130/66 03/16/24 05:54 64 11 L 94 03/16/24 05:09 73 23 03/16/24 05:00 111/70 03/16/24 05:00 111/70 03/16/24 04:51 63 15 96 03/16/24 04:00 108/58 L 03/16/24 04:00 60 13 92 03/16/24 04:00 03/16/24 04:00 36.9 C 03/16/24 03:00 63 14 96 03/16/24 03:00 106/64 03/16/24 03:00 106/64 03/16/24 02:15 63 13 94 03/16/24 01:45 62 13 95 03/16/24 01:03 63 14 96 03/16/24 01:00 110/62 03/16/24 01:00 110/62 03/16/24 01:00 110/62 03/16/24 00:57 61 13 94 03/16/24 00:06 62 13 94 03/16/24 00:00 102/63 03/16/24 00:00 36.9 C 03/16/24 00:00 03/16/24 00:00 70 03/15/24 23:54 64 13 95 03/15/24 23:15 63 10 L 95 03/15/24 23:00 92/63 L 03/15/24 23:00 66 12 95 03/15/24 22:54 67 15 92 03/15/24 22:00 73 16 92 03/15/24 21:03 82 23 92 03/15/24 21:00 124/66 03/15/24 21:00 124/66 03/15/24 21:00 124/66 03/15/24 20:57 81 21 92 03/15/24 20:49 03/15/24 20:48 80 20 92 03/15/24 20:44 76 03/15/24 20:32 130/73 03/15/24 20:32 130/73 03/15/24 20:20 36.8 C 78 23 130/73 92 03/15/24 20:10 73 24 121/76 96 03/15/24 19:45 78 18 96 03/15/24 19:31 95 03/15/24 19:30 79 22 132/71 95 03/15/24 19:21 79 25 H 134/71 94 03/15/24 19:15 80 23 132/84 94 03/15/24 18:32 83 18 133/77 96 03/15/24 17:56 73 19 132/76 98 03/15/24 17:33 80 18 127/76 100 03/15/24 17:10 118/84 03/15/24 17:09 80 23 100 03/15/24 17:05 121/78 03/15/24 17:05 121/78 100 03/15/24 17:05 121/78 03/15/24 17:03 78 20 100 03/15/24 17:00 117/77 03/15/24 17:00 117/77 03/15/24 16:57 80 19 100 03/15/24 16:57 88 03/15/24 16:55 107/83 100 03/15/24 16:50 117/80 100 03/15/24 16:45 125/84 100 03/15/24 16:42 128/82 03/15/24 16:35 36.4 C L 165 H 18 128/54 L 100 03/15/24 16:34 165 H 22 128/82 100 Pulse Ox O2 Del Method O2 Del Method O2 Flow Rate O2 Flow Rate FiO2 03/16/24 08:52 Nasal Cannula 2 03/16/24 08:03 03/16/24 08:00 Nasal Cannula 1 03/16/24 08:00 03/16/24 08:00 93 Nasal Cannula 1 03/16/24 08:00 03/16/24 08:00 03/16/24 07:36 Nasal Cannula 1 03/16/24 07:03 03/16/24 07:00 03/16/24 06:54 03/16/24 06:03 03/16/24 06:00 03/16/24 05:54 03/16/24 05:09 03/16/24 05:00 03/16/24 05:00 03/16/24 04:51 03/16/24 04:00 03/16/24 04:00 03/16/24 04:00 97 Nasal Cannula 2 03/16/24 04:00 03/16/24 03:00 03/16/24 03:00 03/16/24 03:00 03/16/24 02:15 03/16/24 01:45 30 03/16/24 01:03 03/16/24 01:00 03/16/24 01:00 03/16/24 01:00 03/16/24 00:57 03/16/24 00:06 03/16/24 00:00 03/16/24 00:00 03/16/24 00:00 95 Nasal Cannula 2 03/16/24 00:00 03/15/24 23:54 03/15/24 23:15 03/15/24 23:00 03/15/24 23:00 30 03/15/24 22:54 03/15/24 22:00 03/15/24 21:03 03/15/24 21:00 03/15/24 21:00 03/15/24 21:00 03/15/24 20:57 03/15/24 20:49 Nasal Cannula 2 03/15/24 20:48 03/15/24 20:44 03/15/24 20:32 03/15/24 20:32 03/15/24 20:20 Nasal Cannula 03/15/24 20:10 Nasal Cannula 3 03/15/24 19:45 03/15/24 19:31 Room Air 03/15/24 19:30 Nasal Cannula 3 03/15/24 19:21 Nasal Cannula 3 03/15/24 19:15 Nasal Cannula 4 03/15/24 18:32 Nasal Cannula 4 03/15/24 17:56 Nasal Cannula 4 03/15/24 17:33 Nasal Cannula 2 03/15/24 17:10 03/15/24 17:09 Non-rebreather 15 03/15/24 17:05 03/15/24 17:05 Non-rebreather 15 03/15/24 17:05 03/15/24 17:03 Non-rebreather 15 03/15/24 17:00 03/15/24 17:00 03/15/24 16:57 Non-rebreather 15 03/15/24 16:57 03/15/24 16:55 Non-rebreather 15 03/15/24 16:50 Non-rebreather 15 03/15/24 16:45 Non-rebreather 15 03/15/24 16:42 03/15/24 16:35 Non-rebreather 15 03/15/24 16:34 Non-rebreather 15 Cardiovascular RRR, no murmur, no edema Respiratory normal respiratory effort, lungs clear to auscultation Pre-Sedation Airway Assessment Smoking Status: Never smoker Hx Sleep Apnea: Yes Short, Thick Neck: No Thyromental Distance: > or= 3.5 Finger Breadths Oral Cavity: + WNL Mallampati Class: IV ASA: ASA4 NPO Status Date of Last Intake of Fluids: 03/15/24 Time of Last Intake of Fluids: 12:00 Date of Last Intake of Solid Food: 03/15/24 Time of Last Intake of Solid Foods: 12:00 Notes The planned sedation has been discussed with the patient. Informed Consent was obtained. I have identified the patient, determined the appropriateness of sedation and have assessed the patient immediately prior to the procedure. All medicine(s) and interventions are by my order.
[2024-03-16] MEDS: niCARdipine 2,000 MCG/20 ML SYR ONE (09:33)
[2024-03-16] MEDS: NITROGLYCERIN/D5W 100MCG/ML 20ML SYR ONE (09:34)
[2024-03-16] MEDS: IODIXANOL (VISIPAQUE) 320 MG/ML 100ML IV ONE (10:40)
[2024-03-16] MEDS: BIVALIRUDIN 250 MG VIAL (CATH LAB ONLY) IV ONE (10:40)
[2024-03-16] MEDS: fentaNYL citrate PF 100 MCG/2 ML VIAL ONE (10:43)
[2024-03-16] MEDS: MIDAZOLAM HCL 1 MG/ML 2ML VIAL ONE (10:43)
[2024-03-16] MEDS: OPTIRAY 350 ONE (10:43)
--- NOTE | 2024-03-16 10:43 | XCELERA ---
[id number] \\ISCV-BE\[id number]_PDF_Reports\[id number]
--- NOTE | 2024-03-16 10:51 | Post Anesthesia Assessment ---
Date of Service March 16, 2024 Post Sedation Assessment Vital Signs Temp Pulse Pulse Resp BP BP Pulse Ox 03/16/24 08:52 37.2 C 69 20 119/71 96 03/16/24 08:03 65 18 92 03/16/24 08:00 03/16/24 08:00 127/69 03/16/24 08:00 03/16/24 08:00 36.6 C 03/16/24 08:00 67 03/16/24 07:36 66 18 93 03/16/24 07:03 65 12 94 03/16/24 07:00 123/65 03/16/24 06:54 67 17 95 03/16/24 06:03 64 14 92 03/16/24 06:00 130/66 03/16/24 05:54 64 11 L 94 03/16/24 05:09 73 23 03/16/24 05:00 111/70 03/16/24 05:00 111/70 03/16/24 04:51 63 15 96 03/16/24 04:00 108/58 L 03/16/24 04:00 60 13 92 03/16/24 04:00 03/16/24 04:00 36.9 C 03/16/24 03:00 63 14 96 03/16/24 03:00 106/64 03/16/24 03:00 106/64 03/16/24 02:15 63 13 94 03/16/24 01:45 62 13 95 03/16/24 01:03 63 14 96 03/16/24 01:00 110/62 03/16/24 01:00 110/62 03/16/24 01:00 110/62 03/16/24 00:57 61 13 94 03/16/24 00:06 62 13 94 03/16/24 00:00 102/63 03/16/24 00:00 36.9 C 03/16/24 00:00 03/16/24 00:00 70 03/15/24 23:54 64 13 95 03/15/24 23:15 63 10 L 95 03/15/24 23:00 92/63 L 03/15/24 23:00 66 12 95 03/15/24 22:54 67 15 92 03/15/24 22:00 73 16 92 03/15/24 21:03 82 23 92 03/15/24 21:00 124/66 03/15/24 21:00 124/66 03/15/24 21:00 124/66 03/15/24 20:57 81 21 92 03/15/24 20:49 03/15/24 20:48 80 20 92 03/15/24 20:44 76 03/15/24 20:32 130/73 03/15/24 20:32 130/73 03/15/24 20:20 36.8 C 78 23 130/73 92 03/15/24 20:10 73 24 121/76 96 03/15/24 19:45 78 18 96 03/15/24 19:31 95 03/15/24 19:30 79 22 132/71 95 03/15/24 19:21 79 25 H 134/71 94 03/15/24 19:15 80 23 132/84 94 03/15/24 18:32 83 18 133/77 96 03/15/24 17:56 73 19 132/76 98 03/15/24 17:33 80 18 127/76 100 03/15/24 17:10 118/84 03/15/24 17:09 80 23 100 03/15/24 17:05 121/78 03/15/24 17:05 121/78 100 03/15/24 17:05 121/78 03/15/24 17:03 78 20 100 03/15/24 17:00 117/77 03/15/24 17:00 117/77 03/15/24 16:57 80 19 100 03/15/24 16:57 88 03/15/24 16:55 107/83 100 03/15/24 16:50 117/80 100 03/15/24 16:45 125/84 100 03/15/24 16:42 128/82 03/15/24 16:35 36.4 C L 165 H 18 128/54 L 100 03/15/24 16:34 165 H 22 128/82 100 Pulse Ox O2 Del Method O2 Del Method O2 Flow Rate O2 Flow Rate FiO2 03/16/24 08:52 Nasal Cannula 2 03/16/24 08:03 03/16/24 08:00 Nasal Cannula 1 03/16/24 08:00 03/16/24 08:00 93 Nasal Cannula 1 03/16/24 08:00 03/16/24 08:00 03/16/24 07:36 Nasal Cannula 1 03/16/24 07:03 03/16/24 07:00 03/16/24 06:54 03/16/24 06:03 03/16/24 06:00 03/16/24 05:54 03/16/24 05:09 03/16/24 05:00 03/16/24 05:00 03/16/24 04:51 03/16/24 04:00 03/16/24 04:00 03/16/24 04:00 97 Nasal Cannula 2 03/16/24 04:00 03/16/24 03:00 03/16/24 03:00 03/16/24 03:00 03/16/24 02:15 03/16/24 01:45 30 03/16/24 01:03 03/16/24 01:00 03/16/24 01:00 03/16/24 01:00 03/16/24 00:57 03/16/24 00:06 03/16/24 00:00 03/16/24 00:00 03/16/24 00:00 95 Nasal Cannula 2 03/16/24 00:00 03/15/24 23:54 03/15/24 23:15 03/15/24 23:00 03/15/24 23:00 30 03/15/24 22:54 03/15/24 22:00 03/15/24 21:03 03/15/24 21:00 03/15/24 21:00 03/15/24 21:00 03/15/24 20:57 03/15/24 20:49 Nasal Cannula 2 03/15/24 20:48 03/15/24 20:44 03/15/24 20:32 03/15/24 20:32 03/15/24 20:20 Nasal Cannula 03/15/24 20:10 Nasal Cannula 3 03/15/24 19:45 03/15/24 19:31 Room Air 03/15/24 19:30 Nasal Cannula 3 03/15/24 19:21 Nasal Cannula 3 03/15/24 19:15 Nasal Cannula 4 03/15/24 18:32 Nasal Cannula 4 03/15/24 17:56 Nasal Cannula 4 03/15/24 17:33 Nasal Cannula 2 03/15/24 17:10 03/15/24 17:09 Non-rebreather 15 03/15/24 17:05 03/15/24 17:05 Non-rebreather 15 03/15/24 17:05 03/15/24 17:03 Non-rebreather 15 03/15/24 17:00 03/15/24 17:00 03/15/24 16:57 Non-rebreather 15 03/15/24 16:57 03/15/24 16:55 Non-rebreather 15 03/15/24 16:50 Non-rebreather 15 03/15/24 16:45 Non-rebreather 15 03/15/24 16:42 03/15/24 16:35 Non-rebreather 15 03/15/24 16:34 Non-rebreather 15 Recovery Score Activity: Moves 4 extremities Respiration: Deep Breath/Cough Circulation: +/-20% PreAnes Value Consciousness: Fully Awake Oxygen Saturation: > 92% On Room Air Discharge Sedation Level of Care: Fast Track Phase II Post Sedation Plan On clinical assessment, the patient appears to have tolerated the sedation without complications. Patient is recovering as anticipated. Patient will continue to be monitored by nursing and may be discharged when sedation discharge criteria are met per below protocol. Upon Completions of procedure up to 15 minutes continue every 5 minute vital signs and the P.A.R. score; then discharge to a Phase I or Fast Track to Phase II per the following guidelines: * Discharge Patient to appropriate Phase II area if PAR is 8 or greater or return to pre- procedure baseline. The post - procedure orders will be as directed. * If PAR score is less than 8 or not return to pre-procedure baseline then patient will follow Phase I monitoring till PAR is reached for Phase II. The Phase I may be done in procedure room or may call to secure a Phase I area. * If naloxone or flumazenil are used for reversal, hold in Phase I for continued monitoring from when last reversal dose was given for a minimum of 60 minutes or longer pending the nurse and/or physician discretion of patient condition before discharge to Phase II. Please call the Sedation Physician to re-evaluate and complete post-note for discharge to Phase II area. Do NOT discharge from procedure sedation or Phase 1 until post- sedation evaluation note is complete by procedure /sedation MD Sedation Discharge Instructions to be given to the patient at discharge to home. [facility] Procedure Codes (Charges) Indication for Procedure Indication for procedure: NSTEMI Sedation/Anesthesia Procedure 1: Sedation/Anesthesia: 91590 Mod Sedation by the same physician;Init15 Min Child Age 5 & Up (initial 15 min, start 0945) Total Sedation Time (minutes): 51 Procedure 2: Sedation/Anesthesia: 68148 Mod Sedation by the same physician; Ea [id number] Minutes (additional 36 min, end 1036) Total Sedation Time (minutes): 51
[2024-03-16 15:59] LABS: Partial Thromboplastin Ratio 1.6; Partial Thromboplastin Time 42 Seconds (21-31)
--- NOTE | 2024-03-16 18:12 | Critical Care Progress Note ---
Date of Service March 16, 2024 Assessment & Plan (1) Elevated troponin: (2) Dysrhythmia: (3) FIDEL (acute kidney injury): (4) Acute hyperkalemia: (5) 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 diabetes mellitus: (6) Morbid obesity: (7) BPH w urinary obs/LUTS: (8) Coronary artery disease: Plan Reason Critically Ill: 73 YOM presents to ER with chest pain, wide complex tachycardia symptomatic requiring emergent cardioversion with 200J x1. ICU for hemodynamic and rhythm monitoring. Neuro - No acute needs CAM ICU: NEGATIVE Cardiac - Dysrhythmia requiring emergent cardioversion, Elevated HsCTNI, HX PAF, HFpEF, HTN HLD - DDX-cardiac cath noted with occluded distal LAD. Spoke with cardiology recommended discontinuing argatroban as the dosing is currently subtherapeutic. Patient will go for repeat cardiac catheterization tomorrow. Further cardiac m edications to cardiology service. Currently on amiodarone infusion. Respiratory - Hypoxic respiratory failure, LINDA -Continue supplemental oxygen as needed. CPAP at night. GI - NO acute needs - NPO after midnight. No other issues. RENAL/LYTES - FIDEL on CKDIII, Hyperkalemia, -Creatinine slowly improving. Push oral fluids - BPH with LUTS - hold on stevenson catheter at this time - bladder scans as needed ENDO - DMII - Basal bolus insulin- Goal <180mg/DL - TSH 2.116- continue Synthroid HEME - ? 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 Will start Arixtra for DVT prophylaxis. ID - No acute concern for infection at this time - Elevated Leukocytosis probably reactionary to events of today - no respiratory symptoms or opacity on CXR - No urinary symptoms - Trend Fever curve and clinical picture at this time LINES/IV ACCESS - PIV Continue use of these lines DVT PROPHYLAXIS - SCDS, Arixtra DISPO: Dispo per cardiology. Admission and Anticipated Discharge Date Admission Date: March 15, 2024 Subjective Patient denies any significant chest pain, shortness of breath or nausea. Requiring low-flow oxygen. Review of Systems Review of Systems: All systems reviewed & are unremarkable except as noted in HPI & below Physical Exam Physical Exam: PHYSICAL EXAM: General: awake, alert, no apparent distress Head: Normocephalic, atraumatic ENT: PERRLA, EOMI, no pharyngeal exudate, mucous membranes moist Neuro: AAO x 3, speech clear and appropriate, strength intact bilaterally 5/5, sensation intact and equal all extremities and dermatomes, no pronator drift Chest: equal rise and fall of the chest, no accessory muscle use, no heaves or thrills, Clear to auscultation, on room air, Cardiac: Regular rate and rhythm, telemetry reviewed- NSR with 1st degree LBB, skin warm dry, cap refill <3 seconds, peripheral pulses +2 no JVD, no murmur, trace edema feet and ankles, +1 GI: NABS x 4 quadrants, soft, nontender to palpation, no rebound, guarding or tenderness : Spontaneously voiding, no pain, no CVA tenderness, Extremities: Normal inspection, no peripheral edema or erythema, calfs nontender to palpation Psych: Normal mood and affect Skin: no rash or erythema Results & Data Results & Data Vital Signs (Past 12 Hours) Vital Signs Temp Pulse Pulse Resp BP BP Pulse Ox 03/16/24 17:29 111/66 03/16/24 17:18 71 25 H 96 03/16/24 17:15 70 16 95 03/16/24 16:00 36.6 C 03/16/24 16:00 68 16 93 03/16/24 16:00 114/69 03/16/24 15:15 109/62 03/16/24 15:09 67 24 90 03/16/24 15:03 68 18 90 03/16/24 15:00 116/69 03/16/24 14:59 68 03/16/24 14:57 69 24 90 03/16/24 14:45 108/64 03/16/24 14:33 66 26 H 90 03/16/24 14:30 66 22 89 L 03/16/24 14:30 112/67 03/16/24 14:18 67 16 90 03/16/24 14:15 118/67 03/16/24 14:06 37 C 03/16/24 14:03 67 17 91 03/16/24 14:00 111/62 03/16/24 14:00 65 13 90 03/16/24 13:45 112/82 03/16/24 13:42 69 16 91 03/16/24 13:30 105/64 03/16/24 13:15 117/68 03/16/24 13:12 68 18 91 03/16/24 13:00 66 19 90 03/16/24 12:48 67 19 93 03/16/24 12:45 113/66 03/16/24 12:36 63 19 94 03/16/24 12:30 116/72 03/16/24 12:27 63 18 93 03/16/24 12:18 62 20 93 03/16/24 12:15 112/65 03/16/24 12:09 69 22 03/16/24 12:06 37 C 03/16/24 12:00 96/77 L 03/16/24 12:00 03/16/24 11:57 63 20 95 03/16/24 11:30 62 18 107/68 97 03/16/24 11:15 59 L 18 115/76 97 03/16/24 11:00 63 18 115/76 97 03/16/24 08:52 37.2 C 69 20 119/71 96 03/16/24 08:03 65 18 92 03/16/24 08:00 03/16/24 08:00 127/69 03/16/24 08:00 03/16/24 08:00 36.6 C 03/16/24 08:00 67 03/16/24 07:36 66 18 93 03/16/24 07:03 65 12 94 03/16/24 07:00 123/65 03/16/24 06:54 67 17 95 Pulse Ox O2 Del Method O2 Del Method O2 Flow Rate O2 Flow Rate 03/16/24 17:29 03/16/24 17:18 Nasal Cannula 2 03/16/24 17:15 03/16/24 16:00 03/16/24 16:00 03/16/24 16:00 03/16/24 15:15 03/16/24 15:09 03/16/24 15:03 03/16/24 15:00 03/16/24 14:59 03/16/24 14:57 Nasal Cannula 1 03/16/24 14:45 03/16/24 14:33 03/16/24 14:30 03/16/24 14:30 03/16/24 14:18 03/16/24 14:15 03/16/24 14:06 03/16/24 14:03 Nasal Cannula 1 03/16/24 14:00 03/16/24 14:00 03/16/24 13:45 03/16/24 13:42 03/16/24 13:30 03/16/24 13:15 03/16/24 13:12 03/16/24 13:00 03/16/24 12:48 03/16/24 12:45 03/16/24 12:36 Nasal Cannula 1 03/16/24 12:30 03/16/24 12:27 03/16/24 12:18 03/16/24 12:15 03/16/24 12:09 03/16/24 12:06 03/16/24 12:00 03/16/24 12:00 93 Nasal Cannula 1 03/16/24 11:57 Nasal Cannula 1 03/16/24 11:30 Nasal Cannula 2 03/16/24 11:15 Nasal Cannula 2 03/16/24 11:00 Nasal Cannula 2 03/16/24 08:52 Nasal Cannula 2 03/16/24 08:03 03/16/24 08:00 Nasal Cannula 1 03/16/24 08:00 03/16/24 08:00 93 Nasal Cannula 1 03/16/24 08:00 03/16/24 08:00 03/16/24 07:36 Nasal Cannula 1 03/16/24 07:03 03/16/24 07:00 03/16/24 06:54 Coding Level of Care Code 88263 SUB INP/OBS CARE 2/35MIN Diagnoses Elevated troponin R79.89 Dysrhythmia I49.9 FIDEL (acute kidney injury) N17.9 Acute hyperkalemia E87.5 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 diabetes mellitus E11.42 Morbid obesity E66.01 BPH w urinary obs/LUTS N40.1; N13.8 Coronary artery disease I25.10
--- NOTE | 2024-03-16 19:19 | Cardiac Catheterization ---
[facility] Data: [facility] Cardiac Status Clinical evaluation leading to the procedure CAD Presenation: Non STEMI Anginal Classification: No Symptoms (Associated with arrhythmia only) Heart Failure: NYHA Class: CCS III Cardiogenic Shock within 24 Hours: No Cardiac Arrest within 24 Hours: No (VT without arrest requiring defibrillation) Imaging Studies Past 6 Months: No Stress Studies Past 6 Months: No Coronary Anatomy Dominant: Co-Dominant Left Main (% Stenosis): Normal LAD (% Stenosis): Mid (Mild diffuse) and Distal (100%, calcified. Fills via left to left collateralization) D1 (% Stenosis): Normal D2 (% Stenosis): Normal D3 (% Stenosis): Normal Circumflex (% Stenosis): Normal OM1 (% Stenosis): Normal OM2 (% Stenosis): Normal L PL1 (% Stenosis): Normal L PDA (% Stenosis): Normal RCA (% Stenosis): Normal R PDA (% Stenosis): Normal Diagnostic Physicians Name: Dwayne Dugan MD, PhD Closure Device Percutaneous Entry Location: Radial Closure Device: Radial Band Recommendations: Medical Therapy and/or Counseling Cardiac Cath Procedure Full Procedure Date March 16, 2024 Pre-Procedure Diagnosis Pre-Procedure Diagnosis: Non STEMI and Arrhythmia AUC Score AUC Score: 08 Post-Procedure Diagnosis Post-Procedure Diagnosis: Severe CAD Procedure(s) Performed Procedure(s) Performed: Coronary Angiography and Ultrasound Guided Vascular Access Instrumentation Fitter Dwayne Dugan MD, PhD Estimated Blood Loss Estimated Blood Loss: 10 cc Medication(s) Medication(s): Fentanyl, Lidocaine 1%, Nicardipine, Nitroglycerin and Versed Medication(s): Argatroban Summary of Findings Brief description: Patient was brought to the cardiac catheterization suite where he was shaved and prepped in a sterile fashion. Sedated using IV Versed and fentanyl. Soft tissues of the right wrist were anesthetized using 2 mL of 1% Xylocaine. Using the ultrasound for guidance, the right radial artery was accessed and a 6 [place] radial artery glide sheath was placed. All catheters were advanced and exchanged over a 0.035 J-tip wire. Patient was provided anticoagulation in the ICU using argatroban given his history of heparin-induced thrombocytopenia. This was continued in the [facility]. Patient was also provided with antispasmodics including nicardipine and nitroglycerin via the radial artery sheath. Left coronary angiography in orthogonal views of the 5 [place] 4 diagnostic catheter. Right coronary angiography in orthogonal views with a 5 [place] 4 diagnostic catheter. Diagnostic catheters were removed. Decision was made to attempt to cross the distal LAD occlusion. A 6 [place] EBU 3.5 guide catheter was used to engage the left main. Patient's argatroban dosing was altered. He received a bolus administration of 150 mcg/kg given over 5 minutes. The ACT was then checked and found to be 475 seconds. Therefore the drip was held temporarily as we attempted to perform PCI. A BMW reversal guidewire was advanced to the level of the lesion. Multiple attempts to cross the lesion were unsuccessful. The wire buckled but could not advance beyond the lesion. Therefore the wire was removed and a run-through guidewire was advanced. At this also buckled but could not advance beyond the lesion despite many attempts. Given the risk of complication and the fact that we are making no headway in addition to the patient's poor renal function at baseline decision was made to abandon further attempts today to cross the lesion. He had not been having any chest pain only the ventricular tachycardia which brought him to the hospital and required defibrillatory shocks. Therefore, further attempts were discontinued to avoid additional complications. The guidewire was removed followed by the guide catheter. Radial artery sheath was removed. Hemostasis was obtained using the TR band. Patient was hemodynamically stable and asymptomatic. He was returned to the recovery area. This ended the case. Coronary angiography findings: UBH-apwqe-utdhxnn vessel bifurcating into LAD and circumflex. No disease. WXU-zcxnt-lxcffbc and transapical. Proximal vessel without disease. Gives a large first diagonal which has no disease followed almost immediately by a large second diagonal which also has no disease. There is then a large branching third diagonal. The mid LAD has diffuse mild luminal irregularities. Just after the ostium of the third diagonal the distal LAD has a calcified 100% occlusion. There is a late filling of the distal and apical LAD via left to left collateralization. LCx-this is large caliber and codominant. From the AV groove vessel arises the OM1 which is branching distally and has mild luminal irregularities. There is also a large OM 2 which is multi branching and has mild luminal irregularities. The circumflex then gives a large branching posterolateral which has no disease and a small to medium caliber PDA which has no significant disease. NIV-yspfu-yhjkjwt and codominant vessel. There are scattered mild luminal irregularities in the vessel provides a medium caliber PDA. Summary: 1. Patient has occluded distal LAD. May be chronic given the collateralization as well as difficulty crossing the lesion. Also consistent with prior findings on echocardiogram. Cannot entirely exclude severe stenosis which acutely closed yesterday. His elevated troponin might be explained by that scenario or could be secondary to the tachycardia and requirement for defibrillation. The remainder of his coronaries are relatively disease free. 2. Recommend to be placed on guideline directed medical therapy for secondary prevention of coronary disease. That would include low-dose aspirin, high intensity statin therapy, beta-luanne, and ROBBY inhibitor/ARB. He is already on statin although the dose could be increased. He is also on carvedilol which should continue. I would certainly consider angiotensin receptor luanne given his diabetes. 3. If the patient develops anginal chest pain or hemodynamic compromise we could reattempt to cross the lesion. Preferably, that would be after 2 days to allow recovery of his kidneys after his contrast dose. We may also choose to do that from the groin to improve the likelihood of adequate backup to cross the difficult lesion. Hemodynamics Rest Ao:: 94/60 mmHg Final Ao: 96/60 mmHg LV: Not performed Recommendations Recommendations: Medical Therapy and/or Counseling Radiation Exposure (mGy) 2483 mGy, fluoroscopy time 13.4 minutes Contrast (mls) 104 mL Anesthesia 1 mg Versed, 25 mcg fentanyl IV. Start time 45, end time 1036 Procedural Complication(s) None Disposition [facility] [facility] Holding/Recovery I attest to the content of the Intraoperative Record and any orders documented therein. Any exceptions are noted below. [facility] [place] Procedure Codes Cardiac Catheterization Procedure 1: Cardiovascular Cath Procedures: 51773 Coronaries Therapeutic Services & Ancillary Procedure 1: Cardiovascular Tx and Anc Procedures: 15674 Ultrasonic Guidance Vascular Access Moderate Sedation Procedure 1: Sedation/Anesthesia: 36876 Mod Sedation by the same physician;Init15 Min Child Age 5 & Up (Initial 15 minutes, start time 45) Procedure 2: Sedation/Anesthesia: 51987 Mod Sedation by the same physician; Ea Additi onal15 Minutes (Additional 36 minutes, end time 1036) PG Care Time/CCT Total # of Minutes Spent Total Time Spent with Patient: Total time spent is greater than 50% in coordination of care (as documented) at patient's floor/unit and/or counseling patient:
--- NOTE | 2024-03-16 20:34 | Hospitalist Progress Note ---
Date of Service March 16, 2024 Assessment & Plan (1) Ventricular tachycardia: Plan: Assessment: 1. Sustained wide-complex tachycardia. Ventricular tachycardia versus A-fib with aberrancy. Status post IV amiodarone bolus now IV amiodarone with subsequent cardioversion/defibrillation in the ER. Now in a regular narrow complex rhythm. Continue amiodarone drip. Cardiology's been consulted. Heparin has been started initially but again there does appear to be a possibility of HIT. Therefore heparin is been stopped as potential risk outweigh potential benefits. Discussed personally with the ER provider as well as Dr. Pruitt on-call for cardiology. ICU admission. 2. Hyperkalemia. This has been treated with calcium insulin D50. This will be repeated in couple hours. Hold spironolactone. 3. Hypertension. Continue home meds. Hold spironolactone given hyperkalemia. 4. CKD stage III with mild acute kidney injury monitor carefully. 5. Obstructive sleep apnea CPAP dependent. Auto CPAP will be ordered by the hydrotel operator. We spoke personally. 6. Diabetes mellitus type 2. Basal bolus insulin regimen has been ordered. Hemoglobin A1c in the a.m. 7. BPH. 8. Hypothyroidism. TSH in AM. 9. Depression/anxiety. 10. Obesity. 11. Rule out ischemic etiology of the wide-complex tachycardia. Again cardiology consulted. Serial troponins. Echocardiogram. Plan: As discussed above. Please refer to orders for further planning. Admission and Anticipated Discharge Date Admission Date: March 15, 2024 Subjective "I feel ok. No complaints today." Review of Systems Constitutional: Negative for antecedent/coincident fevers, chills, diaphoresis, cough, wheeze, sore throat, hemoptysis, chest pains, palpitations, pleurisy, nausea, vomiting, diarrhea, abdominal pain, pelvic pain, hematemesis, hematochezia, melena, hematuria, dysuria, frequency, urgency, headaches, dizziness, lightheadedness, visual changes, hearing changes, weakness, falls, syncope, trauma, travel history, sick contacts, or food/drug ingestions novel or new. All other review of systems are reported as negative by the patient on 03/16/2024. Physical Exam Constitutional: General: comfortable, coherent, cooperative. Wide awake and alert. Not confused, lethargic, or obtunded. Patient speaks in complete, fluent, and articulate sentences without pause, interruption, cough, or wheeze. HEENT: NC/AT. EOMI, PERRL. No nystagmus, gaze paresis, anisocoria, miosis, mydriasis, hyphema, chemosis, scleral icterus, conjunctivitis, or pterygium. No otorrhea, no rhinorrhea. No pharyngeal discharge or erythema. Neck: Supple, no stridor, bruit, goiter, or hepatojugular reflux. Jugular venous pressure is estimated to be 8 cm above the sternal angle of [place], which is typically 5 cm above the level of the right atrium. Hence, there is no jugular venous distention noted on discharge exam 03/16/2024. Lymphatics: No pre-post auricular, anterior/posterior cervical, supraclavicular/infraclavicular, axillary, epitrochlear, or inguinal adenopathy. Chest: Symmetric rise and fall with respirations. Non-tender to palpation. Heart: RRR, S1 and S2 noted. No S3 or S4 summation gallop noted. No tripartite friction rub. Grade II/ early systolic murmur @ LLSB without radiation to the carotids, axilla, or back, and which remains invariant in regards to the respiratory cycle. Lungs: Clear to auscultation and percussion. No audible expiratory wheeze, egophony, pectoriloquy, increase in tactile fremitus, or flatness/dullness to percussion at the bases. Abdomen: Soft, non-tender, non-distended. No rebound, guarding, French's sign, or organomegaly. Bowel sounds auscultated in all 4 quadrants. Extremities: No clubbing, cyanosis, or edema. 2+ pedal pulses bilaterally. Skin: No decubitus ulcer, exanthem, or enanthem. Neurology: Alert and oriented in regards to person, place, time, and situation. DTR+ and symmetric. 5/5 motor strength in all 4 extremities, both proximally and distally. No myoclonus, tremors, or tics. Urology: No stevenson catheter. No urethral discharge. Psychiatry: Appropriate affect. Smiles occasionally. No homicidal/suicidal ideation. Results & Data Results & Data Vital Signs (Past 12 Hours) Vital Signs Temp Pulse Pulse Resp BP BP Pulse Ox 03/16/24 17:29 111/66 03/16/24 17:18 71 25 H 96 03/16/24 17:15 70 16 95 03/16/24 16:00 36.6 C 03/16/24 16:00 68 16 93 03/16/24 16:00 114/69 03/16/24 15:15 109/62 03/16/24 15:09 67 24 90 03/16/24 15:03 68 18 90 03/16/24 15:00 116/69 03/16/24 14:59 68 03/16/24 14:57 69 24 90 03/16/24 14:45 108/64 03/16/24 14:33 66 26 H 90 03/16/24 14:30 66 22 89 L 03/16/24 14:30 112/67 03/16/24 14:18 67 16 90 03/16/24 14:15 118/67 03/16/24 14:06 37 C 03/16/24 14:03 67 17 91 03/16/24 14:00 111/62 03/16/24 14:00 65 13 90 03/16/24 13:45 112/82 03/16/24 13:42 69 16 91 03/16/24 13:30 105/64 03/16/24 13:15 117/68 03/16/24 13:12 68 18 91 03/16/24 13:00 66 19 90 03/16/24 12:48 67 19 93 03/16/24 12:45 113/66 03/16/24 12:36 63 19 94 03/16/24 12:30 116/72 03/16/24 12:27 63 18 93 03/16/24 12:18 62 20 93 03/16/24 12:15 112/65 03/16/24 12:09 69 22 03/16/24 12:06 37 C 03/16/24 12:00 96/77 L 03/16/24 12:00 03/16/24 11:57 63 20 95 03/16/24 11:30 62 18 107/68 97 03/16/24 11:15 59 L 18 115/76 97 03/16/24 11:00 63 18 115/76 97 03/16/24 08:52 37.2 C 69 20 119/71 96 Pulse Ox O2 Del Method O2 Del Method O2 Flow Rate O2 Flow Rate 03/16/24 17:29 03/16/24 17:18 Nasal Cannula 2 03/16/24 17:15 03/16/24 16:00 03/16/24 16:00 03/16/24 16:00 03/16/24 15:15 03/16/24 15:09 03/16/24 15:03 03/16/24 15:00 03/16/24 14:59 03/16/24 14:57 Nasal Cannula 1 03/16/24 14:45 03/16/24 14:33 03/16/24 14:30 03/16/24 14:30 03/16/24 14:18 03/16/24 14:15 03/16/24 14:06 03/16/24 14:03 Nasal Cannula 1 03/16/24 14:00 03/16/24 14:00 03/16/24 13:45 03/16/24 13:42 03/16/24 13:30 03/16/24 13:15 03/16/24 13:12 03/16/24 13:00 03/16/24 12:48 03/16/24 12:45 03/16/24 12:36 Nasal Cannula 1 03/16/24 12:30 03/16/24 12:27 03/16/24 12:18 03/16/24 12:15 03/16/24 12:09 03/16/24 12:06 03/16/24 12:00 03/16/24 12:00 93 Nasal Cannula 1 03/16/24 11:57 Nasal Cannula 1 03/16/24 11:30 Nasal Cannula 2 03/16/24 11:15 Nasal Cannula 2 03/16/24 11:00 Nasal Cannula 2 03/16/24 08:52 Nasal Cannula 2 PG Care Time/CCT Total # of Minutes Spent Total Time Spent with Patient: Total time spent is greater than 50% in coordination of care (as documented) at patient's floor/unit and/or counseling patient: Coding Level of Care Code 46546 SUB INP/OBS CARE 2/35MIN Diagnoses Ventricular tachycardia I47.20
[2024-03-17 04:45] LABS: Basophils # (auto) 0.04 K/uL (0.00-0.20); Basophils % (auto) 0.4 %; Eosinophils # (auto) 0.21 K/uL (0.00-0.50); Eosinophils % (auto) 1.9 %; Hematocrit (blood only) 37.1 % (42.0-52.0); Hemoglobin 12.4 g/dl (14.0-18.0); Immature Granulocytes # (auto) 0.04 K/uL (0.01-0.20); Immature Granulocytes % (auto) 0.4 %; Lymphocytes # (auto) 1.96 K/uL (1.20-3.40); Lymphocytes % (auto) 17.3 %; Mean Corpuscular Hemoglobin 29.7 pg (25.0-34.0); Mean Corpuscular Hgb Conc 33.4 g/dL (32.0-36.0); Mean Platelet Volume 11.1 fL (9.4-12.4); Monocytes # (auto) 0.79 K/uL (0.11-0.59); Neutrophils # (auto) 8.31 K/uL (1.40-6.50); Platelet Count 213 K/uL (130-400); RDW Coefficient of Variation 13.4 % (11.5-14.5); RDW Standard Deviation 43.9 fL (36.4-46.3); Red Blood Count 4.17 M/uL (4.70-6.10); White Blood Count 11.35 K/ul (4.8-10.8)
[2024-03-17 05:01] LABS: BUN Creatinine Ratio 17.2 (10-20); Calcium 8.5 mg/dl (8.6-10.3); Creatinine Clr Calc Pharmacy 43.6 ml/min; Magnesium 1.9 mg/dl (1.7-2.4); Potassium 4.5 mmol/L (3.5-5.1)
--- NOTE | 2024-03-17 13:00 | Critical Care Progress Note ---
Date of Service March 17, 2024 Assessment & Plan (1) Elevated troponin: (2) Dysrhythmia: (3) FIDEL (acute kidney injury): (4) Acute hyperkalemia: (5) 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 diabetes mellitus: (6) Morbid obesity: (7) BPH w urinary obs/LUTS: (8) Coronary artery disease: Plan Reason Critically Ill: 73 YOM presents to ER with chest pain, wide complex tachycardia symptomatic requiring emergent cardioversion with 200J x1. ICU for hemodynamic and rhythm monitoring. Neuro - No acute needs CAM ICU: NEGATIVE Cardiac - Dysrhythmia requiring emergent cardioversion, Elevated HsCTNI, HX PAF, HFpEF, HTN HLD - DDX-cardiac cath noted with occluded distal LAD. Spoke with cardiology recommended discontinuing argatroban as the dosing is currently subtherapeutic. Patient will go for repeat cardiac catheterization tomorrow. Further cardiac m edications to cardiology service. Currently on amiodarone infusion. Respiratory - Hypoxic respiratory failure, LINDA -Continue supplemental oxygen as needed. CPAP at night. GI - NO acute needs - NPO after midnight. No other issues. RENAL/LYTES - FIDEL on CKDIII, Hyperkalemia, -Creatinine slowly improving. Push oral fluids - BPH with LUTS - hold on stevenson catheter at this time - bladder scans as needed ENDO - DMII - Basal bolus insulin- Goal <180mg/DL - TSH 2.116- continue Synthroid HEME - ? 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 Will start Arixtra for DVT prophylaxis. ID - No acute concern for infection at this time - Elevated Leukocytosis probably reactionary to events of today - no respiratory symptoms or opacity on CXR - No urinary symptoms - Trend Fever curve and clinical picture at this time LINES/IV ACCESS - PIV Continue use of these lines DVT PROPHYLAXIS - SCDS, Arixtra DISPO: Dispo per cardiology. Admission and Anticipated Discharge Date Admission Date: March 15, 2024 Subjective No significant changes. Urine output adequate. Hemodynamically stable. Review of Systems Review of Systems: All systems reviewed & are unremarkable except as noted in HPI & below Physical Exam Physical Exam: PHYSICAL EXAM: General: awake, alert, no apparent distress Head: Normocephalic, atraumatic ENT: PERRLA, EOMI, no pharyngeal exudate, mucous membranes moist Neuro: AAO x 3, speech clear and appropriate, strength intact bilaterally 5/5, sensation intact and equal all extremities and dermatomes, no pronator drift Chest: equal rise and fall of the chest, no accessory muscle use, no heaves or thrills, Clear to auscultation, on room air, Cardiac: Regular rate and rhythm, telemetry reviewed- NSR with 1st degree LBB, skin warm dry, cap refill <3 seconds, peripheral pulses +2 no JVD, no murmur, trace edema feet and ankles, +1 GI: NABS x 4 quadrants, soft, nontender to palpation, no rebound, guarding or tenderness : Spontaneously voiding, no pain, no CVA tenderness, Extremities: Normal inspection, no peripheral edema or erythema, calfs nontender to palpation Psych: Normal mood and affect Skin: no rash or erythema Results & Data Results & Data Vital Signs (Past 12 Hours) Vital Signs Temp Pulse Resp BP Pulse Ox Pulse Ox O2 Del Method 03/17/24 10:12 69 13 93 03/17/24 10:01 125/75 03/17/24 09:54 73 25 H 94 03/17/24 09:00 132/67 03/17/24 09:00 73 21 95 03/17/24 08:03 73 18 95 03/17/24 08:00 125/72 03/17/24 08:00 03/17/24 08:00 Nasal Cannula 03/17/24 07:48 76 18 94 03/17/24 07:42 78 20 94 03/17/24 04:00 69 13 95 03/17/24 04:00 131/76 03/17/24 04:00 131/76 03/17/24 04:00 131/76 03/17/24 04:00 96 03/17/24 03:43 36.7 C 03/17/24 03:03 66 15 95 03/17/24 03:00 126/80 03/17/24 03:00 126/80 03/17/24 02:54 66 16 95 03/17/24 02:03 67 15 96 03/17/24 02:00 136/82 03/17/24 02:00 136/82 03/17/24 02:00 136/82 03/17/24 01:48 70 16 96 03/17/24 01:21 69 16 97 O2 Del Method O2 Flow Rate O2 Flow Rate 03/17/24 10:12 03/17/24 10:01 03/17/24 09:54 03/17/24 09:00 03/17/24 09:00 03/17/24 08:03 03/17/24 08:00 03/17/24 08:00 Nasal Cannula 2 03/17/24 08:00 2 03/17/24 07:48 03/17/24 07:42 03/17/24 04:00 03/17/24 04:00 03/17/24 04:00 03/17/24 04:00 03/17/24 04:00 Nasal Cannula 2 03/17/24 03:43 03/17/24 03:03 03/17/24 03:00 03/17/24 03:00 03/17/24 02:54 03/17/24 02:03 03/17/24 02:00 03/17/24 02:00 03/17/24 02:00 03/17/24 01:48 03/17/24 01:21 Coding Level of Care Code 28884 SUB INP/OBS CARE 2/35MIN Diagnoses Elevated troponin R79.89 Dysrhythmia I49.9 FIDEL (acute kidney injury) N17.9 Acute hyperkalemia E87.5 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 diabetes mellitus E11.42 Morbid obesity E66.01 BPH w urinary obs/LUTS N40.1; N13.8 Coronary artery disease I25.10
[2024-03-17] MEDS: FONDAPARINUX 2.5 MG/0.5 ML SYR SQ SCH (15:39)
--- NOTE | 2024-03-17 15:52 | Cardiology Consultation ---
Date of Consultation March 17, 2024 Assessment & Plan (1) Coronary artery disease: Patient has 100% calcified occluded lesion at the earliest distal LAD. Attempts to cross the lesion were unsuccessful. The distal vessel fills via left to left collaterals suggesting this is more chronic. Reviewing his prior echoes, he had wall motion abnormalities (apical akinesis and abnormal septal wall motion) in both of the previous studies. Reporting was slightly different but I personally reviewed them and the image quality is also poor on both studies but it does appear that each has apical akinesis and septal wall motion abnormalities of similar severity between the 2 studies. This would also support chronic occlusion of the distal LAD. I also note that his peak troponin occurred at 1945 on March 15. If this were acute I would have suspected that the lesion would be more easily crossed, that he would have had ongoing chest pain, and that the peak would have occurred later in time. Furthermore, I would have expected some benefit from the IV argatroban (although I believe the protocol used was not an ACS protocol). At this time, patient remains without any symptoms and he has no ongoing arrhythmia. If this was an acute coronary syndrome then the damage has already been done. No anticipated benefit at this point from opening the artery based on the OAT trial. Primary treatment will be optimize medical therapy with guideline directed secondary prevention agents such as low-dose aspirin, high intensity statin therapy, beta-luanne, and ROBBY inhibitor/ARB. Since he does have collaterals to the distal vessel it may be beneficial for him to undergo viability study as an outpatient. We no longer have that capability in this facility but we could refer for cardiac MRI. There may be some difficulty with the use of gadolinium given his chronic renal insufficiency. If this would not be performed because of that issue we could send him to a tertiary center for alternative viability studies. If he has significant viability then revascularization may actually be beneficial. That could be surgically with a PERALES to LAD bypass graft or percutaneously at an institution capable of [employer]IOLOG[facility] [employer]INE[facility] PCI. Patient's blood pressure and heart rates have been at target on his current regimen. He should continue aspirin 81 mg daily, a atorvastatin 20 mg daily, carvedilol 25 mg p.o. twice daily. Ideally he would be able to tolerate the ROBBY inhibitor or angiotensin receptor luanne but he did have reported allergy to telmisartan in the past and his GFR may or may not allow the use of 1 of these agents. Unfortunately I do not know what his allergy was to the telmisartan. (2) Wide-complex tachycardia: Unclear if this represents VT or A-fib with aberrancy. Prior history of PAF and wide-complex QRS. Also with frequent PVCs in the past. If his apical akinesis represents an area of prior myocardial infarction then he would certainly be at risk for NSVT. Also at risk for NSVT if this had clearly been ACS. However, it seems unlikely that he would have tolerated transport from [place] to our emergency department (30 to [address]) if he were in [place]. he does have a history of "vasovagal syncope" which may actually represent arrhythmia causing his syncope. He describes profuse diaphoresis in both cases. His prior EF and current EF are similar and in of of themselves did not meet criteria for ICD implantation. However, quality of his echoes are very limited. A more accurate evaluation of his EF could be obtained with cardiac MRI that I mentioned previously. Also, it may be useful for the patient to undergo EP study to evaluate for inducible VT and tried to determine if his wide-complex tachycardia is indeed VT or A-fib with aberrancy. I do not have available the monitor strips demonstrating his tachycardia on this recent admission. May be useful to request EP consultation. At this point, he has been on almost 48 hours of IV amiodarone and this should be changed to oral amiodarone. Also, on presentation his potassium was 5.9 but fortunately is now in the normal range. Both potassium and magnesium should be kept within normal limits. (3) Ischemic cardiomyopathy: At least moderate LV dysfunction. Current EF 35 to 40% with prior EF 40 to 45%. These were very limited studies and by my eye it is difficult to determine if there are actually different. Today, he has no evidence of significant volume overload. However he does have chronic kidney disease and a moderate LV dysfunction so he would be prone to volume overload. We do need to be cautious with IV fluids and sodium intake. Regarding medical management, he is on carvedilol which is appropriate for chronic heart failure. Unclear if he could be on ROBBY inhibitor/ARB, or preferably Entresto. He would be a good candidate for SGLT2 inhibitor. Might also be a candidate for spironolactone/eplerenone but this could be problematic since he had hyperkalemia and less than ideal kidney function. (4) Chronic kidney disease (CKD), stage III (moderate): Thus far, his GFR has remained stable despite the catheterization yesterday. Currently 31.7. His baseline runs around the same. We may want to ask Dr. Milan to see the patient to see if there is a way we can increase his heart failure regimen or if the risk to his kidneys is excessive. (5) Hypercholesterolemia: Patient is high risk. High intensity statin therapy is recommended. His recent lipid panel demonstrated triglycerides of 132 mg/dL, total cholesterol 94 mg/dL, LDL 38 mg/dL and HDL 30 mg/dL. The LDL is certainly at target and the HDL is below target but at his baseline. Not much we can do to improve it. He should remain on a atorvastatin 20 mg daily and he also takes fenofibrate for his triglycerides. History of Present Illness Reason for Consultation: Ventricular tachycardia Non-ST elevation KS Attending Physician: Ricardo Juarez MD, PhD History of Present Illness This is a 73-year-old gentleman who has been seen in the past by Dr. Soliman. Previously seen by Dr. Hoskins many years ago. Unfortunately, I do not have available his more remote records. He carries a history of nonspecific IVCD, atrial fibrillation, and cardiomyopathy with EF of 40 to 45% on a previous echo. He tells me that on the day of his admission he had gotten out of the shower and was sitting in his bed bending over to tie his shoes. When he sat up he was very lightheaded and his heart was racing. He became very diaphoretic and then noticed squeezing in his chest. It did not resolve and he began to have some confusion and weakness. EMS was called and from what he can recall and route they kept shaking him to keep him awake. Then, in the emergency department he underwent defibrillation for ventricular tachycardia. After he was defibrillated he was placed on amiodarone and he notes that he did not have any chest tightness. He was then admitted and was to be seen by cardiology. He has a history of HIT and chronic renal insufficiency. He was placed on argatroban for anticoagulation when his troponin was found to be quite elevated. He is EKG performed when he was not in ventricular tachycardia showed the same IVCD with sinus rhythm and first-degree AV block as he has had for many years. Because of his presentation I took him to the cardiac catheterization suite yesterday. We performed diagnostic coronary angiography which was fairly unremarkable except for an occlusion of the distal LAD. Angiographically this appeared potentially chronic and he had collaterals to the distal vessel beyond the occlusion. However I decided to try to cross the lesion multiple times using 2 different wires and was unsuccessful. The lesion was behaving as if it were chronic. Eventually I stopped trying because of his renal function and increasing dose of IVP contrast. I also was a bit worried about perforation given the way the wire was acting. Patient was then returned to the room. He remained on the IV amiodarone and he reports that he is tired but has not had any chest pains heaviness or tightness. He also states he was not having anginal type chest pains prior to his presentation, he only had sharp stabbing chest pains on occ asion under the axilla. He voices no other complaints or concerns at this time. Reviewing available old the records it seems that he has had a long standing history of syncope. In the past he had noted profuse diaphoresis preceding his syncopal episodes. It was presumed that he had vasovagal syncope at that time. It does not appear that the patient is ever had cardiac catheterization prior to yesterday. Regarding his atrial fibrillation this is paroxysmal and was initially diagnosed when he presented after pneumonia and then he coughed up blood. He developed atrial fibrillation and was placed on heparin. He then had significant pulmonary hemorrhage eventually requiring intubation and transfer via air ambulance to [facility] where he was in the intensive care unit for 4 months. Details are unavailable at this time. Unclear if he had any cardiac workup while there. Reviewing his old EKGs his wide-complex QRS has been greater than 126 ms going back as far as 2012. It has progressively widened over time. Echocardiogram 03/16/2024: Mild LV dilatation (no measure reported) Moderate LVH (no measure reported) EF 35 to 40% Apical akinesis Abnormal septal wall motion Moderate left atrial enlargement with (atrial volume index 31.3) Moderate mitral regurgitation Echocardiogram 10/16/2023: Moderate LVH (IVS D-1.5 cm, LVPWd 1.8 cm) L EF 40 to 45% Septal motion consistent with left bundle branch block Diastolic dysfunction grade 1 Mild mitral regurgitation Mild left atrial enlargement Allergies Allergy/AdvReac Type Severity Reaction Status Date / Time heparin Allergy Severe HIT Verified 02/16/24 11:56 Penicillins Allergy Severe HIVES/SOB Verified 02/16/24 11:56 Cephalosporins Allergy Intermediate FROM MED Verified 02/16/24 11:56 MARA GONZALEZ telmisartan Allergy Intermediate FROM Verified 02/16/24 11:56 MULUGETA OFC RECORD Home Medications Medication Instructions Recorded Confirmed Type cyanocobalamin (vitamin B-12) 5,000 mcg sublingual DAILY 10/01/18 03/15/24 History 5,000 mcg sublingual tablet furosemide 80 mg tablet 80 mg PO UD PRN Edema #30 tabs 10/21/18 03/15/24 History acetaminophen 500 mg tablet 500 mg PO Q6H PRN Pain 06/17/19 03/15/24 History (Tylenol Extra Strength) krill oil 500 mg capsule 500 mg PO DAILY 09/24/19 03/15/24 History multivitamin (Daily Multi-Vitamin 1 tab PO DAILY #90 tabs 11/28/20 03/15/24 Rx tablet) CPAP Machine #1 ea 03/20/22 02/16/24 Rx furosemide 40 mg tablet 40 mg PO DAILY #90 tabs 06/24/23 03/15/24 Rx atorvastatin 20 mg tablet 20 mg PO DAILY #90 tabs 09/17/23 03/15/24 Rx amlodipine 10 mg tablet 10 mg PO DAILY #90 tabs 10/17/23 03/15/24 Rx carvedilol 25 mg tablet 25 mg PO BID #180 tabs 11/03/23 03/15/24 Rx clonidine HCl 0.1 mg tablet 0.1 mg PO BID #180 tabs 11/03/23 03/15/24 Rx fenofibrate nanocrystallized 48 mg 96 mg (2 x 48 mg) PO DAILY #180 11/03/23 03/15/24 Rx tablet tabs tamsulosin 0.4 mg capsule 0.4 mg PO HS #90 caps 11/18/23 03/15/24 Rx trazodone 100 mg tablet 100 mg PO HS #90 tabs 11/18/23 03/15/24 Rx levothyroxine 150 mcg tablet 150 mcg PO DAILY #90 tabs 11/25/23 03/15/24 Rx spironolactone 50 mg tablet 50 mg PO DAILY #90 tabs 11/25/23 03/15/24 Rx bupropion HCl 300 mg 24 hr tablet, 300 mg PO DAILY #90 tabs 02/20/24 03/15/24 Rx extended release albuterol sulfate 90 mcg/actuation 2 puff inhalation UD PRN shortness 03/15/24 03/15/24 History aerosol inhaler (Ventolin HFA) of breath or wheezing dulaglutide 4.5 mg/0.5 mL 4.5 mg subcut UD 03/15/24 03/15/24 History subcutaneous pen injector finasteride 5 mg tablet 5 mg PO UD 03/15/24 03/15/24 History glipizide 10 mg tablet 10 mg PO UD 03/15/24 03/15/24 History metformin 500 mg tablet 500 mg PO UD 03/15/24 03/15/24 History montelukast 10 mg tablet 10 mg PO UD 03/15/24 03/15/24 History blood sugar diagnostic (RoombeatsTouch #100 ea 03/17/24 Rx Ultra Test strips) blood-glucose meter (RoombeatsTouch #1 ea 03/17/24 Rx Ultra2 Meter) lancets 33 gauge (OneTouch Delica #100 ea 03/17/24 Rx Plus Lancet) Patient History Medical History Left bundle branch block HTN (hypertension) Diabetes mellitus Chronic diastolic CHF (congestive heart failure) Hypothyroidism Obstructive sleep apnea Paroxysmal atrial fibrillation Dyspnea Adverse effect of COVID-19 vaccine Syncope, vasovagal Resistant hypertension Cor pulmonale Surgical History S/P left knee arthroscopy S/P right knee arthroscopy History of herniorrhaphy umbilical History of uvulopalatopharyngoplasty Family History Sister Breast cancer Uterine cancer Father Myocardial infarction Skin cancer (melanoma) Heart disease Lung cancer Mother Diabetes Denies family history of Prostate cancer Kidney disease Social History Smoking Status: Never smoker Second Hand Exposure: No; Do You Dip or Chew Tobacco: No; Hx Alcohol Use: No Hx Substance Use: No Preferred Language: French Communication Ability: Effective Visual Impairment: No Limitations Hearing Ability: Normal Computer 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 Required: No Beliefs That Will Affect Care: None marital status: Current Living Situation: Alone current occupational status: retired How many Children do You have: 3 Feels Safe at Home: Yes Childhood Exposure to Second-Hand Smoke: Yes Diet: regular Diet Comment: regular caffeine: Yes during the past year weight has: remained stable Dental Care, Regularly: Yes Physical Activity Frequency: Other Physical Activity Frequency Comment: WALKING Seatbelt Use: always Sunscreen Use: Yes Assistive Devices: CPAP and Walker Review of Systems Review of Systems: Negative except as per HPI Physical Exam Constitutional: Chronically ill-appearing morbidly obese elderly male. No acute distress. Eyes: Extraocular muscles intact. Sclera are anicteric. ENMT: Oral mucosa is pink and dry. Neck: Thick. No JVD. Respiratory: Clear to auscultation bilaterally. No wheezing, rhonchi, or rales appreciated. Fair but diminished air movement. Cardiovascular: Regular rate and rhythm. S4 gallop. Soft systolic murmur heard best towards the apex. Trace bilateral lower extremity edema. Neurologic: Cognition is intact. Speech is fluent. Hearing is mildly diminished. No maco mor. No focal motor deficits. Psychiatric: A+Ox3, euthymic affect Results & Data Vital Signs (Past 12 Hours) Vital Signs Temp Pulse Resp BP Pulse Ox Pulse Ox O2 Del Method 03/17/24 12:00 03/17/24 10:12 69 13 93 03/17/24 10:01 125/75 03/17/24 09:54 73 25 H 94 03/17/24 09:00 132/67 03/17/24 09:00 73 21 95 03/17/24 08:03 73 18 95 03/17/24 08:00 125/72 03/17/24 08:00 03/17/24 08:00 Nasal Cannula 03/17/24 07:48 76 18 94 03/17/24 07:42 78 20 94 03/17/24 04:00 69 13 95 03/17/24 04:00 131/76 03/17/24 04:00 131/76 03/17/24 04:00 131/76 03/17/24 04:00 96 03/17/24 03:43 36.7 C O2 Del Method O2 Flow Rate O2 Flow Rate 03/17/24 12:00 Nasal Cannula 2 03/17/24 10:12 03/17/24 10:01 03/17/24 09:54 03/17/24 09:00 03/17/24 09:00 03/17/24 08:03 03/17/24 08:00 03/17/24 08:00 Nasal Cannula 2 03/17/24 08:00 2 03/17/24 07:48 03/17/24 07:42 03/17/24 04:00 03/17/24 04:00 03/17/24 04:00 03/17/24 04:00 03/17/24 04:00 Nasal Cannula 2 03/17/24 03:43 PG Care Time/CCT Total # of Minutes Spent Total Time Spent with Patient: Total time spent is greater than 50% in coordination of care (as documented) at patient's floor/unit and/or counseling patient: I spent 100 minutes of critical care time in the examination of this patient, extensive review of the medical records, discussion with the patient in the ICU nursing staff, formulation and implementation of a plan of care and all associated documentation. Coding Level of Care Code 61077 CRITICAL CARE 1ST 30-74M Diagnoses Coronary artery disease I25.10 Wide-complex tachycardia R00.0 Ischemic cardiomyopathy I25.5 Chronic kidney disease (CKD), stage III (moderate) N18.3 Hypercholesterolemia E78.00 Time Spent (min) 100
--- NOTE | 2024-03-17 19:07 | Nephrology Consultation ---
Date of Consultation March 17, 2024 Assessment & Plan (1) CKD (chronic kidney disease): CKD IV A1-2. CKD attributed to arteriosclerosis. Creatinine ~2.0-2.5 mg/dL. Volume status and BP are acceptable. Electrolytes normal. There is no current indication for BACK SEWER. Medications are appropriate for kidney function. I support the starting of Jardiance (as ordered by Dr. Dugan) to start tomorrow AM. Metabolic profile will be repeated in the AM. Maintain a renal diet. (2) Acute hyperkalemia: Improved with medical management. Low potassium diet. Continue to hold spironolactone. Defer RAASi pending additional monitoring. (3) Ischemic cardiomyopathy: Ultimately, it would be reasonable to start Entresto, however I would wait until kidney function is proven stable and pending additional monitoring of serum potassium. (4) Diabetic kidney disease: (5) Resistant hypertension: Spironolactone held. History of Present Illness Reason for Consultation: CKD 3 and cardiomyopathy. Medication options? Entresto,ACEI,ARB, spironolactone? Requesting Physician: Dwayne Dugan MD, PhD Attending Physician: Ricardo Juarez MD, PhD History of Present Illness Mr. Keshav Wasserman is a 73-year-old male with morbid obesity, coronary artery disease, cor pulmonale, COPD, LINDA on nocturnal BiPAP, adult onset diabetes mellitus, resistant hypertension, bilateral lower extremity lymphedema, paroxysmal atrial fibrillation, HIT, and chronic kidney disease. Kesahv follows with me in the [facility]. He has CKD IV A1-2. Serum creatinine 2.0- 2.5 mg/dL. MACR 25-54 mcg/mg. CKD has been attributed to hypertension and arteriosclerosis. Keshav has never had a kidney biopsy. Urine has been acellular. No concerning lesions have been identified on imaging, most recently abdominal CT from 2020. Keshav was admitted to [facility] on March 15 with following a syncopal episode with documented sustained wide-complex tachycardia (ventricular tachycardia versus A-fib with aberrancy). He was defibrillated for VT and placed on an amiodarone gtt. Cardiac enzymes were notably elevated. Keshav was taken for left heart catheterization yesterday. TTE demonstrating global hypokinesis with LVEF 35-40%. Angiography demonstrated occlusion of the distal LAD. It was felt that the lesion is likely chronic notably with the presence of collaterals beyond the occlusion. Thankfully, kidney function has remained stable; creatinine 2.5-->2.1 mg/dL. Keshav was seen and evaluated in his hospital room this evening. Nephrology consultation requested to assist with medical management. Keshav has not been on ROBBY/ARB therapy due to a history of hyperkalemia and FIDEL. He is maintained on spironolactone which has been an integral part of his antihypertensive regimen. He has not been on SGLT2i therapy in the past. Allergies Allergy/AdvReac Type Severity Reaction Status Date / Time heparin Allergy Severe HIT Verified 02/16/24 11:56 Penicillins Allergy Severe HIVES/SOB Verified 02/16/24 11:56 Cephalosporins Allergy Intermediate FROM MED Verified 02/16/24 11:56 TUCKERDR LISA telmisartan Allergy Intermediate FROM Verified 02/16/24 11:56 MULUGETA OFC RECORD Home Medications Medication Instructions Recorded Confirmed Type cyanocobalamin (vitamin B-12) 5,000 mcg sublingual DAILY 10/01/18 03/15/24 History 5,000 mcg sublingual tablet furosemide 80 mg tablet 80 mg PO UD PRN Edema #30 tabs 10/21/18 03/15/24 History acetaminophen 500 mg tablet 500 mg PO Q6H PRN Pain 06/17/19 03/15/24 History (Tylenol Extra Strength) krill oil 500 mg capsule 500 mg PO DAILY 09/24/19 03/15/24 History multivitamin (Daily Multi-Vitamin 1 tab PO DAILY #90 tabs 11/28/20 03/15/24 Rx tablet) CPAP Machine #1 ea 03/20/22 02/16/24 Rx furosemide 40 mg tablet 40 mg PO DAILY #90 tabs 06/24/23 03/15/24 Rx atorvastatin 20 mg tablet 20 mg PO DAILY #90 tabs 09/17/23 03/15/24 Rx amlodipine 10 mg tablet 10 mg PO DAILY #90 tabs 10/17/23 03/15/24 Rx carvedilol 25 mg tablet 25 mg PO BID #180 tabs 11/03/23 03/15/24 Rx clonidine HCl 0.1 mg tablet 0.1 mg PO BID #180 tabs 11/03/23 03/15/24 Rx fenofibrate nanocrystallized 48 mg 96 mg (2 x 48 mg) PO DAILY #180 11/03/23 03/15/24 Rx tablet tabs tamsulosin 0.4 mg capsule 0.4 mg PO HS #90 caps 11/18/23 03/15/24 Rx trazodone 100 mg tablet 100 mg PO HS #90 tabs 11/18/23 03/15/24 Rx levothyroxine 150 mcg tablet 150 mcg PO DAILY #90 tabs 11/25/23 03/15/24 Rx spironolactone 50 mg tablet 50 mg PO DAILY #90 tabs 11/25/23 03/15/24 Rx bupropion HCl 300 mg 24 hr tablet, 300 mg PO DAILY #90 tabs 02/20/24 03/15/24 Rx extended release albuterol sulfate 90 mcg/actuation 2 puff inhalation UD PRN shortness 03/15/24 03/15/24 History aerosol inhaler (Ventolin HFA) of breath or wheezing dulaglutide 4.5 mg/0.5 mL 4.5 mg subcut UD 03/15/24 03/15/24 History subcutaneous pen injector finasteride 5 mg tablet 5 mg PO UD 03/15/24 03/15/24 History glipizide 10 mg tablet 10 mg PO UD 03/15/24 03/15/24 History metformin 500 mg tablet 500 mg PO UD 03/15/24 03/15/24 History montelukast 10 mg tablet 10 mg PO UD 03/15/24 03/15/24 History blood sugar diagnostic (OneTouch #100 ea 03/17/24 Rx Ultra Test strips) blood-glucose meter (OneTouch #1 ea 03/17/24 Rx Ultra2 Meter) lancets 33 gauge (OneTouch Delica #100 ea 03/17/24 Rx Plus Lancet) Patient History Medical History (Updated 03/17/24 @ 19:24 by Wallace Milan DO) Diabetic kidney disease Left bundle branch block HTN (hypertension) Diabetes mellitus Chronic diastolic CHF (congestive heart failure) Hypothyroidism Obstructive sleep apnea Paroxysmal atrial fibrillation Dyspnea Adverse effect of COVID-19 vaccine Syncope, vasovagal Resistant hypertension Cor pulmonale Surgical History S/P left knee arthroscopy S/P right knee arthroscopy History of herniorrhaphy umbilical History of uvulopalatopharyngoplasty Family History Sister Breast cancer Uterine cancer Father Myocardial infarction Skin cancer (melanoma) Heart disease Lung cancer Mother Diabetes Denies family history of Prostate cancer Kidney disease Social History Smoking Status: Never smoker Second Hand Exposure: No; Do You Dip or Chew Tobacco: No; Hx Alcohol Use: No Hx Substance Use: No Preferred Language: Albanian Communication Ability: Effective Visual Impairment: No Limitations Hearing Ability: Normal Talent Engineer Required: No Beliefs That Will Affect Care: None marital status: Current Living Situation: Alone current occupational status: retired How many Children do You have: 3 Feels Safe at Home: Yes Childhood Exposure to Second-Hand Smoke: Yes Diet: regular Diet Comment: regular caffeine: Yes during the past year weight has: remained stable Dental Care, Regularly: Yes Physical Activity Frequency: Other Physical Activity Frequency Comment: WALKING Seatbelt Use: always Sunscreen Use: Yes Assistive Devices: CPAP and Walker Review of Systems Review of Systems: All systems reviewed & are unremarkable except as noted in HPI & below Physical Exam Constitutional: well developed and + morbidly obese; no acute distress Eyes: no scleral abnormality and no corneal abnormality Neck: normal visual inspection and trachea midline Respiratory: normal respiratory effort Auscultation: lungs clear to auscultation bilaterally Cardiovascular: Rate/Rhythm: regular rate Heart Sounds: normal S1, normal S2 and + murmur Extremities: no edema Musculoskeletal: Extremities: no cyanosis and no clubbing Skin: normal turgor; no lesions Neurologic: Motor/Sensory: no tremor and no asterixis Psychiatric: Orientation: alert and oriented x 3 Results & Data Vital Signs (Past 12 Hours) Vital Signs Pulse Resp BP Pulse Ox O2 Del Method O2 Del Method O2 Flow Rate 03/17/24 18:14 69 17 97 03/17/24 18:00 125/62 03/17/24 17:59 66 16 96 03/17/24 17:18 74 17 92 03/17/24 17:02 127/62 03/17/24 16:51 74 20 97 03/17/24 16:06 70 22 97 03/17/24 16:00 Nasal Cannula 03/17/24 15:21 69 18 97 03/17/24 15:00 135/76 02/05/25 14:39 65 24 96 03/17/24 14:03 63 15 93 03/17/24 14:00 112/66 03/17/24 13:57 63 15 93 03/17/24 13:06 69 22 96 03/17/24 12:03 72 21 96 03/17/24 12:00 120/81 03/17/24 12:00 Nasal Cannula 03/17/24 11:57 69 24 96 03/17/24 11:00 109/67 03/17/24 11:00 67 18 95 03/17/24 10:12 69 13 93 03/17/24 10:01 125/75 03/17/24 09:54 73 25 H 94 03/17/24 09:00 132/67 03/17/24 09:00 73 21 95 03/17/24 08:03 73 18 95 03/17/24 08:00 125/72 03/17/24 08:00 Nasal Cannula 03/17/24 08:00 Nasal Cannula 2 03/17/24 07:48 76 18 94 03/17/24 07:42 78 20 94 O2 Flow Rate 03/17/24 18:14 03/17/24 18:00 03/17/24 17:59 03/17/24 17:18 03/17/24 17:02 03/17/24 16:51 03/17/24 16:06 03/17/24 16:00 2 03/17/24 15:21 03/17/24 15:00 03/17/24 14:39 03/17/24 14:03 03/17/24 14:00 03/17/24 13:57 03/17/24 13:06 03/17/24 12:03 03/17/24 12:00 03/17/24 12:00 2 03/17/24 11:57 03/17/24 11:00 03/17/24 11:00 03/17/24 10:12 03/17/24 10:01 03/17/24 09:54 03/17/24 09:00 03/17/24 09:00 03/17/24 08:03 03/17/24 08:00 03/17/24 08:00 2 03/17/24 08:00 03/17/24 07:48 03/17/24 07:42 Laboratory Results Laboratory Results - last 24 hr 03/16/24 03/16/24 03/17/24 20:37 22:53 04:13 WBC 11.35 H RBC 4.17 L Hgb 12.4 L Hct 37.1 L MCV 89.0 MCH 29.7 MCHC 33.4 RDW Std Deviation 43.9 RDW Coeff of Christina 13.4 Plt Count 213 MPV 11.1 Immature Gran % (Auto) 0.4 Neut % (Auto) 73.0 Lymph % (Auto) 17.3 Travis % (Auto) 7.0 Eos % (Auto) 1.9 Baso % (Auto) 0.4 Neut # (Auto) 8.31 H Lymph # (Auto) 1.96 Travis # (Auto) 0.79 H Eos # (Auto) 0.21 Baso # (Auto) 0.04 Immature Gran # (Auto) 0.04 Sodium 134 L Potassium 4.5 Chloride 102 Carbon Dioxide 27 Anion Gap 5 BUN 37 H Creatinine 2.15 H Est Cr Clr Drug Dosing 43.6 eGFR 31.72 BUN/Creatinine Ratio 17.2 Glucose 135 H POC Glucose 154 H Calcium 8.5 L Magnesium 1.9 Troponin I High Sens 7038.8 H* D 03/17/24 03/17/24 03/17/24 05:56 07:23 11:22 WBC RBC Hgb Hct MCV MCH MCHC RDW Std Deviation RDW Coeff of Christina Plt Count MPV Immature Gran % (Auto) Neut % (Auto) Lymph % (Auto) Travis % (Auto) Eos % (Auto) Baso % (Auto) Neut # (Auto) Lymph # (Auto) Travis # (Auto) Eos # (Auto) Baso # (Auto) Immature Gran # (Auto) Sodium Potassium Chloride Carbon Dioxide Anion Gap BUN Creatinine Est Cr Clr Drug Dosing eGFR BUN/Creatinine Ratio Glucose POC Glucose 146 H 124 H 118 H Calcium Magnesium Troponin I High Sens 03/17/24 16:10 WBC RBC Hgb Hct MCV MCH MCHC RDW Std Deviation RDW Coeff of Christina Plt Count MPV Immature Gran % (Auto) Neut % (Auto) Lymph % (Auto) Travis % (Auto) Eos % (Auto) Baso % (Auto) Neut # (Auto) Lymph # (Auto) Travis # (Auto) Eos # (Auto) Baso # (Auto) Immature Gran # (Auto) Sodium Potassium Chloride Carbon Dioxide Anion Gap BUN Creatinine Est Cr Clr Drug Dosing eGFR BUN/Creatinine Ratio Glucose POC Glucose 148 H Calcium Magnesium Troponin I High Sens PG Care Time/CCT Total # of Minutes Spent Total Time Spent with Patient: Total time spent is greater than 50% in coordination of care (as documented) at patient's floor/unit and/or counseling patient: Coding Level of Care Code 20943 IN/OBS CONSULT LVL 4,60M Diagnoses CKD (chronic kidney disease) N18.9 Acute hyperkalemia E87.5 Ischemic cardiomyopathy I25.5 Diabetic kidney disease E11.21 Resistant hypertension I10
--- NOTE | 2024-03-17 19:27 | Hospitalist Progress Note ---
Date of Service March 17, 2024 Assessment & Plan (1) Ventricular tachycardia: Plan: Assessment: 1. Sustained wide-complex tachycardia. Ventricular tachycardia versus A-fib with aberrancy. Status post IV amiodarone bolus now IV amiodarone with subsequent cardioversion/defibrillation in [facility] ER. RESOLVED off amiodarone drip. Continue telemetry. 2. Hyperkalemia with admission K 5.9 mmol/L (03/15/2024, 4:39pm). RESOLVED s/p treatment with calcium gluconate, insulin, and D50, while holding off home- scheduled spironolactone. cf., repeat K 4.3 mmol/L (03/15/2024, 7:45pm). Observe. 3. Hypertension. Well-controlled with BP 125/62 (03/17/2024, 6:14pm) not on any anti-HTN meds, including home-scheduled spironolactone given admission hyperkalemia. 4. Acute kidney injury with admission creatinine 2.55 (03/15/2024, 4:39pm), superimposed on CKD stage III with baseline creatinine range, 2.17 (05/16/2022, 8:56am) to 2.45 (05/19/2023, 2:26pm). Acute kidney injury has RESOLVED with current creatinine 2.15 (03/17/2024, 4:13am) while holding off home-scheduled spironolactone given admission hyperkalemia. 5. LINDA, CPAP dependent at home and in [facility]. No daytime somnolence reported by patient on 03/17/2024. 6. DM2 with long-term glycemic control modest with HbA1c 7.8% (12/08/2023, 3:45pm). cf., serum glucose 135 mg/dL (03/17/2024, 4:13am). Continue aspart insulin sliding scale qac + qhs and lantus 12 units SQ bid. 7. BPH. Patient maintains brisk urine output with finasteride 5mg PO daily with no stevenson catheter warranted. 8. Hypothyroidism. Patient has no goiter, lid lag, or proptosis on exam. Patient appears to be euthyroid on synthroid 150ug PO daily with normal screening TSH 2.116 uIU/mL (03/15/2024, 4:39pm). 9. Depression/anxiety. Mild, no suicidal ideation, homicidal ideation, or anxiety on 03/17/2024. Observe off anti-depressant(s) and anxiolytics on 03/17/2024. 10. Morbid obesity with BMI 45.0 (height 177.8 cm; weight 142.4 kg). Patient needs to lose at least 63.8 kg in order to attain a BMI 24.9, at which level, the patient would no longer be deemed morbidly obese, obese, or overweight. Admission and Anticipated Discharge Date Admission Date: March 15, 2024 Subjective "I feel ok. No complaints today." Review of Systems Constitutional: Negative for antecedent/coincident fevers, chills, diaphoresis, cough, wheeze, sore throat, hemoptysis, chest pains, palpitations, pleurisy, nausea, vomiting, diarrhea, abdominal pain, pelvic pain, hematemesis, hematochezia, melena, hematuria, dysuria, frequency, urgency, headaches, dizziness, lightheadedness, visual changes, hearing changes, weakness, falls, syncope, trauma, travel history, sick contacts, or food/drug ingestions novel or new. All other review of systems are reported as negative by the patient on 03/17/2024. Physical Exam Constitutional: General: comfortable, coherent, cooperative. Wide awake and alert. Not confused, lethargic, or obtunded. Patient speaks in complete, fluent, and articulate sentences without pause, interruption, cough, or wheeze. HEENT: NC/AT. EOMI, PERRL. No nystagmus, gaze paresis, anisocoria, miosis, mydriasis, hyphema, chemosis, scleral icterus, conjunctivitis, or pterygium. No otorrhea, no rhinorrhea. No pharyngeal discharge or erythema. Neck: Supple, no stridor, bruit, goiter, or hepatojugular reflux. Jugular venous pressure is estimated to be 8 cm above the sternal angle of Britton, which is typically 5 cm above the level of the right atrium. Hence, there is no jugular venous distention noted on discharge exam 03/17/2024. Lymphatics: No pre-post auricular, anterior/posterior cervical, supraclavicular/infraclavicular, axillary, epitrochlear, or inguinal adenopathy. Chest: Symmetric rise and fall with respirations. Non-tender to palpation. Heart: RRR, S1 and S2 noted. No S3 or S4 summation gallop noted. No tripartite friction rub. Grade II/ early systolic murmur @ LLSB without radiation to the carotids, axilla, or back, and which remains invariant in regards to the respiratory cycle. Lungs: Clear to auscultation and percussion. No audible expiratory wheeze, egophony, pectoriloquy, increase in tactile fremitus, or flatness/dullness to percussion at the bases. Abdomen: Soft, non-tender, non-distended. No rebound, guarding, French's sign, or organomegaly. Bowel sounds auscultated in all 4 quadrants. Extremities: No clubbing, cyanosis, or edema. 2+ pedal pulses bilaterally. Skin: No decubitus ulcer, exanthem, or enanthem. No hematoma or ecchymosis at right radial artery catheterization site (03/16/2024, 6:57pm, Interventional [facility] Dr. Dwayne Dugan). Neurology: Alert and oriented in regards to person, place, time, and situation. DTR+ and symmetric. 5/5 motor strength in all 4 extremities, both proximally and distally. No myoclonus, tremors, or tics. Urology: No stevenson catheter. No urethral discharge. Psychiatry: Appropriate affect. Smiles occasionally. No homicidal/suicidal ideation. Results & Data Results & Data Vital Signs (Past 12 Hours) Vital Signs Pulse Resp BP Pulse Ox O2 Del Method O2 Del Method O2 Flow Rate 03/17/24 18:14 69 17 97 03/17/24 18:00 125/62 03/17/24 17:59 66 16 96 03/17/24 17:18 74 17 92 03/17/24 17:02 127/62 03/17/24 16:51 74 20 97 03/17/24 16:06 70 22 97 03/17/24 16:00 Nasal Cannula 03/17/24 15:21 69 18 97 03/17/24 15:00 135/76 03/17/24 14:39 65 24 96 03/17/24 14:03 63 15 93 03/17/24 14:00 112/66 03/17/24 13:57 63 15 93 03/17/24 13:06 69 22 96 03/17/24 12:03 72 21 96 03/17/24 12:00 120/81 03/17/24 12:00 Nasal Cannula 03/17/24 11:57 69 24 96 03/17/24 11:00 109/67 03/17/24 11:00 67 18 95 03/17/24 10:12 69 13 93 03/17/24 10:01 125/75 03/17/24 09:54 73 25 H 94 03/17/24 09:00 132/67 03/17/24 09:00 73 21 95 03/17/24 08:03 73 18 95 03/17/24 08:00 125/72 03/17/24 08:00 Nasal Cannula 03/17/24 08:00 Nasal Cannula 2 03/17/24 07:48 76 18 94 03/17/24 07:42 78 20 94 O2 Flow Rate 03/17/24 18:14 03/17/24 18:00 03/17/24 17:59 03/17/24 17:18 03/17/24 17:02 03/17/24 16:51 03/17/24 16:06 03/17/24 16:00 2 03/17/24 15:21 03/17/24 15:00 03/17/24 14:39 03/17/24 14:03 03/17/24 14:00 03/17/24 13:57 03/17/24 13:06 03/17/24 12:03 03/17/24 12:00 03/17/24 12:00 2 03/17/24 11:57 03/17/24 11:00 03/17/24 11:00 03/17/24 10:12 03/17/24 10:01 03/17/24 09:54 03/17/24 09:00 03/17/24 09:00 03/17/24 08:03 03/17/24 08:00 03/17/24 08:00 2 03/17/24 08:00 03/17/24 07:48 03/17/24 07:42 Diagnostic Findings Coronary Anatomy Dominant: Co-Dominant Left Main (% Stenosis): Normal LAD (% Stenosis): Mid (Mild diffuse) and Distal (100%, calcified. Fills via left to left collateralization) D1 (% Stenosis): Normal D2 (% Stenosis): Normal D3 (% Stenosis): Normal Circumflex (% Stenosis): Normal OM1 (% Stenosis): Normal OM2 (% Stenosis): Normal L PL1 (% Stenosis): Normal L PDA (% Stenosis): Normal RCA (% Stenosis): Normal R PDA (% Stenosis): Normal (as per Interventional [facility] Dr. Dwayne Dugan). PG Care Time/CCT Total # of Minutes Spent Total Time Spent with Patient: Total time spent is greater than 50% in coordination of care (as documented) at patient's floor/unit and/or counseling patient: Coding Level of Care Code 01130 SUB INP/OBS CARE 2/35MIN Diagnoses Ventricular tachycardia I47.20
[2024-03-18 04:49] LABS: Basophils # (auto) 0.05 K/uL (0.00-0.20); Basophils % (auto) 0.5 %; Eosinophils # (auto) 0.31 K/uL (0.00-0.50); Eosinophils % (auto) 3.2 %; Hematocrit (blood only) 37.1 % (42.0-52.0); Hemoglobin 12.6 g/dl (14.0-18.0); Immature Granulocytes # (auto) 0.04 K/uL (0.01-0.20); Immature Granulocytes % (auto) 0.4 %; Lymphocytes # (auto) 2.18 K/uL (1.20-3.40); Lymphocytes % (auto) 22.8 %; Mean Corpuscular Hemoglobin 29.9 pg (25.0-34.0); Mean Corpuscular Volume 87.9 fL (80.0-100.0); Mean Platelet Volume 11.3 fL (9.4-12.4); Monocytes # (auto) 0.75 K/uL (0.11-0.59); Monocytes % (auto) 7.9 %; Neutrophils # (auto) 6.22 K/uL (1.40-6.50); Neutrophils % (auto) 65.2 %; Platelet Count 208 K/uL (130-400); RDW Coefficient of Variation 13.3 % (11.5-14.5); RDW Standard Deviation 43.2 fL (36.4-46.3); Red Blood Count 4.22 M/uL (4.70-6.10); White Blood Count 9.55 K/ul (4.8-10.8)
[2024-03-18 04:58] LABS: BUN Creatinine Ratio 18.9 (10-20); Calcium 8.9 mg/dl (8.6-10.3); Creatinine Clr Calc Pharmacy 43.2 ml/min; Magnesium 1.9 mg/dl (1.7-2.4); Potassium 4.1 mmol/L (3.5-5.1)
[2024-03-18 06:43] LABS: Estimated Average Glucose 157 mg/dl; Hemoglobin A1C 7.1 % (4.5-5.6)
--- NOTE | 2024-03-18 08:23 | Critical Care Progress Note ---
Date of Service March 18, 2024 Assessment & Plan (1) Elevated troponin: (2) Dysrhythmia: (3) FIDEL (acute kidney injury): (4) Acute hyperkalemia: (5) 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 diabetes mellitus: (6) Morbid obesity: (7) BPH w urinary obs/LUTS: (8) Coronary artery disease: Plan Reason Critically Ill: 73 YOM presents to ER with chest pain, wide complex tachycardia symptomatic requiring emergent cardioversion with 200J x1. ICU for hemodynamic and rhythm monitoring. Neuro - No acute needs CAM ICU: NEGATIVE Cardiac - Dysrhythmia requiring emergent cardioversion, Elevated HsCTNI, HX PAF, HFpEF, HTN HLD - DDX-cardiac cath noted with occluded distal LAD. Holding on any further cardiac interventions at this time. Patient with heart failure and reduced ejection fraction. Patient started on Jardiance by the cardiology team. Defer further medications to them. Amiodarone discontinued by cardiology. Respiratory - Hypoxic respiratory failure, LINDA -Continue supplemental oxygen as needed. CPAP at night. GI - NO acute needs - NPO after midnight. No other issues. RENAL/LYTES - FIDEL on CKDIII, Hyperkalemia, -Creatinine slowly improving. Push oral fluids - BPH with LUTS - hold on stevenson catheter at this time - bladder scans as needed ENDO - DMII - Basal bolus insulin- Goal <180mg/DL - TSH 2.116- continue Synthroid HEME - ? 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 Will start Arixtra for DVT prophylaxis. ID - No acute concern for infection at this time - Elevated Leukocytosis probably reactionary to events of today - no respiratory symptoms or opacity on CXR - No urinary symptoms - Trend Fever curve and clinical picture at this time LINES/IV ACCESS - PIV Continue use of these lines DVT PROPHYLAXIS - SCDS, Arixtra DISPO: Patient to transition to med/tele. ICU team to sign off. Admission and Anticipated Discharge Date Admission Date: March 15, 2024 Subjective No significant events overnight. Hemodynamically stable. Denies any complaints. Sitting up in a chair. Review of Systems Review of Systems: All systems reviewed & are unremarkable except as noted in HPI & below Physical Exam Physical Exam: Constitutional: Patient appears to be of their stated age. Patient is in no apparent distress. Morbidly obese. Eyes: Pupils are equal round and reactive to light. Conjunctivae are normal. Anicteric sclera. Ears nose, mouth and throat: Mallampati class 2. Normal posterior oropharynx. Uvula is midline. Neck: Trachea is midline. Visual inspection is normal. Respiratory: Clear to auscultation bilaterally. No use of accessory muscles. No significant clubbing noted. Cardiovascular: Regular rate and rhythm. No murmurs. No edema. Gastrointestinal: Normal bowel sounds, soft, nontender and nondistended. No hepatosplenomegaly noted. Musculoskeletal: No cyanosis. Patient is able to move all extremities. Strength is 5 out of 5 in the upper and lower extremities. Skin: No rashes, warm dry and intact. Neurologic: No obvious focal neurological deficits seen. Psychiatric: Alert and oriented x3 with a euthymic affect. Results & Data Results & Data Vital Signs (Past 12 Hours) Vital Signs Temp Pulse Resp BP Pulse Ox Pulse Ox O2 Del Method 03/18/24 06:00 110/58 L 03/18/24 06:00 110/58 L 03/18/24 06:00 110/58 L 03/18/24 05:54 72 23 91 03/18/24 05:00 129/74 03/18/24 05:00 129/74 03/18/24 05:00 129/74 03/18/24 05:00 81 19 92 03/18/24 04:00 75 15 95 03/18/24 04:00 133/77 03/18/24 04:00 36.6 C 133/77 03/18/24 04:00 92 Nasal Cannula 03/18/24 03:03 69 16 90 03/18/24 03:00 99/72 L 03/18/24 02:51 69 15 90 03/18/24 02:00 70 16 92 03/18/24 02:00 110/60 03/18/24 01:00 70 16 92 03/18/24 01:00 114/60 03/18/24 01:00 114/60 03/18/24 01:00 36.4 C L 03/18/24 00:03 71 17 92 03/18/24 00:00 122/66 03/18/24 00:00 122/66 03/17/24 23:57 72 22 89 L 03/17/24 23:44 92 CPAP 03/17/24 23:44 82 03/17/24 23:00 72 20 96 03/17/24 22:03 76 13 97 03/17/24 22:00 132/71 03/17/24 22:00 132/71 03/17/24 21:51 72 25 H 97 03/17/24 21:06 75 32 H 96 03/17/24 21:01 126/63 03/17/24 21:01 126/63 03/17/24 20:54 77 15 98 O2 Flow Rate 03/18/24 06:00 03/18/24 06:00 03/18/24 06:00 03/18/24 05:54 03/18/24 05:00 03/18/24 05:00 03/18/24 05:00 03/18/24 05:00 03/18/24 04:00 03/18/24 04:00 03/18/24 04:00 03/18/24 04:00 2 03/18/24 03:03 03/18/24 03:00 03/18/24 02:51 03/18/24 02:00 03/18/24 02:00 03/18/24 01:00 03/18/24 01:00 03/18/24 01:00 03/18/24 01:00 03/18/24 00:03 03/18/24 00:00 03/18/24 00:00 03/17/24 23:57 03/17/24 23:44 03/17/24 23:44 03/17/24 23:00 03/17/24 22:03 03/17/24 22:00 03/17/24 22:00 03/17/24 21:51 03/17/24 21:06 03/17/24 21:01 03/17/24 21:01 03/17/24 20:54 Coding Level of Care Code 13843 SUB INP/OBS CARE 2/35MIN Diagnoses Elevated troponin R79.89 Dysrhythmia I49.9 FIDEL (acute kidney injury) N17.9 Acute hyperkalemia E87.5 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 diabetes mellitus E11.42 Morbid obesity E66.01 BPH w urinary obs/LUTS N40.1; N13.8 Coronary artery disease I25.10
[2024-03-18] MEDS: EMPAGLIFLOZIN 10 MG TAB PO SCH (08:35)
--- NOTE | 2024-03-18 11:33 | Nephrology Progress Note ---
Date of Service March 18, 2024 Assessment & Plan (1) CKD (chronic kidney disease): Plan: CKD IV A1-2. CKD attributed to arteriosclerosis. Creatinine ~2.0-2.5 mg/dL. Volume status and BP are acceptable. Electrolytes normal. 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 Medications are appropriate for kidney function. Jardiance 10 mg started this AM. Repeat metabolic profile tomorrow AM. Maintain a renal diet. (2) Acute hyperkalemia: Plan: Improved with medical management. Low potassium diet. Continue to hold spironolactone. Consider starting Entresto tomorrow. (3) Ischemic cardiomyopathy: Plan: Ultimately, it would be reasonable to start Entresto, however I would wait until kidney function is proven stable on labs tomorrow. (4) Diabetic kidney disease: (5) Resistant hypertension: Plan: Spironolactone held. BP acceptable/slightly low. May consider weaning off clonidine will introducing RAASi. Admission and Anticipated Discharge Date Admission Date: March 15, 2024 Subjective No acute events overnight. Resting comfortably in bedside chair this AM. Denies chest pains or palpitations. No shortness of breath. Keshav denies fluid retention or edema. Review of Systems Review of Systems: All systems reviewed & are unremarkable except as noted in HPI & below Physical Exam Constitutional: well developed and + morbidly obese; no acute distress Eyes: no scleral abnormality and no corneal abnormality Neck: normal visual inspection and trachea midline Respiratory: normal respiratory effort Auscultation: lungs clear to auscultation bilaterally Cardiovascular: Rate/Rhythm: regular rate Heart Sounds: normal S1, normal S2 and + murmur Extremities: no edema Musculoskeletal: Extremities: no cyanosis and no clubbing Skin: normal turgor; no lesions Neurologic: Motor/Sensory: no tremor and no asterixis Psychiatric: Orientation: alert and oriented x 3 Results & Data Vital Signs (Past 12 Hours) Vital Signs Temp Pulse Resp BP Pulse Ox Pulse Ox O2 Del Method 03/18/24 09:03 77 19 93 03/18/24 09:00 123/61 03/18/24 08:39 76 16 91 03/18/24 08:00 78 18 93 03/18/24 08:00 03/18/24 08:00 Nasal Cannula 03/18/24 07:06 72 13 89 L 03/18/24 07:00 118/55 L 03/18/24 06:00 110/58 L 03/18/24 06:00 110/58 L 03/18/24 06:00 110/58 L 03/18/24 05:54 72 23 91 03/18/24 05:00 129/74 03/18/24 05:00 129/74 03/18/24 05:00 129/74 03/18/24 05:00 81 19 92 03/18/24 04:00 75 15 95 03/18/24 04:00 133/77 03/18/24 04:00 36.6 C 133/77 03/18/24 04:00 92 03/18/24 03:03 69 16 90 03/18/24 03:00 99/72 L 03/18/24 02:51 69 15 90 03/18/24 02:00 70 16 92 03/18/24 02:00 110/60 03/18/24 01:00 70 16 92 03/18/24 01:00 114/60 03/18/24 01:00 114/60 03/18/24 01:00 36.4 C L 03/18/24 00:03 71 17 92 03/18/24 00:00 122/66 03/18/24 00:00 122/66 03/17/24 23:57 72 22 89 L 03/17/24 23:44 92 03/17/24 23:44 82 O2 Del Method O2 Flow Rate O2 Flow Rate 03/18/24 09:03 03/18/24 09:00 03/18/24 08:39 03/18/24 08:00 03/18/24 08:00 Nasal Cannula 2 03/18/24 08:00 2 03/18/24 07:06 03/18/24 07:00 03/18/24 06:00 03/18/24 06:00 03/18/24 06:00 03/18/24 05:54 03/18/24 05:00 03/18/24 05:00 03/18/24 05:00 03/18/24 05:00 03/18/24 04:00 03/18/24 04:00 03/18/24 04:00 03/18/24 04:00 Nasal Cannula 2 03/18/24 03:03 03/18/24 03:00 03/18/24 02:51 03/18/24 02:00 03/18/24 02:00 03/18/24 01:00 03/18/24 01:00 03/18/24 01:00 03/18/24 01:00 03/18/24 00:03 03/18/24 00:00 03/18/24 00:00 03/17/24 23:57 03/17/24 23:44 CPAP 03/17/24 23:44 Laboratory Results Laboratory Results - last 24 hr 03/16/24 03/17/24 03/17/24 04:54 16:10 20:17 WBC RBC Hgb Hct MCV MCH MCHC RDW Std Deviation RDW Coeff of Christina Plt Count MPV Immature Gran % (Auto) Neut % (Auto) Lymph % (Auto) Armstrong % (Auto) Eos % (Auto) Baso % (Auto) Neut # (Auto) Lymph # (Auto) Armstrong # (Auto) Eos # (Auto) Baso # (Auto) Immature Gran # (Auto) Sodium Potassium Chloride Carbon Dioxide Anion Gap BUN Creatinine Est Cr Clr Drug Dosing eGFR BUN/Creatinine Ratio Glucose POC Glucose 148 H 158 H Estimat Average Glucose 157 Hemoglobin A1c 7.1 H Calcium Magnesium 03/18/24 03/18/24 03/18/24 04:15 07:23 11:15 WBC 9.55 RBC 4.22 L Hgb 12.6 L Hct 37.1 L MCV 87.9 MCH 29.9 MCHC 34.0 RDW Std Deviation 43.2 RDW Coeff of Christina 13.3 Plt Count 208 MPV 11.3 Immature Gran % (Auto) 0.4 Neut % (Auto) 65.2 Lymph % (Auto) 22.8 Armstrong % (Auto) 7.9 Eos % (Auto) 3.2 Baso % (Auto) 0.5 Neut # (Auto) 6.22 Lymph # (Auto) 2.18 Armstrong # (Auto) 0.75 H Eos # (Auto) 0.31 Baso # (Auto) 0.05 Immature Gran # (Auto) 0.04 Sodium 134 L Potassium 4.1 Chloride 101 Carbon Dioxide 26 Anion Gap 7 BUN 41 H Creatinine 2.17 H Est Cr Clr Drug Dosing 43.2 eGFR 31.37 BUN/Creatinine Ratio 18.9 Glucose 119 H POC Glucose 125 H 118 H Estimat Average Glucose Hemoglobin A1c Calcium 8.9 Magnesium 1.9 PG Care Time/CCT Total # of Minutes Spent Total Time Spent with Patient: Total time spent is greater than 50% in coordination of care (as documented) at patient's floor/unit and/or counseling patient: Coding Level of Care Code 67014 SUB INP/OBS CARE 3/50MIN Diagnoses CKD (chronic kidney disease) N18.9 Acute hyperkalemia E87.5 Ischemic cardiomyopathy I25.5 Diabetic kidney disease E11.21 Resistant hypertension I10
[2024-03-18] MEDS: AMIODARONE 200 MG TAB PO SCH (17:10)
--- NOTE | 2024-03-18 17:46 | Cardiology Progress Note ---
Date of Service March 18, 2024 Assessment & Plan (1) Ischemic cardiomyopathy: Plan: Minimal volume overload at this time. Probably explains a good bit of his fatigue. Question viability downstream from the 100% occlusion. That will need to be addressed as an outpatient particularly with regard to anticipated benefit of any revascularization. Will await renal function testing tomorrow to see if he could be initiated on Entresto low-dose. He will continue with carvedilol and Jardiance. Holding spironolactone and has not needed Lasix thus far. Also with borderline EF which may suggest need for LifeVest plus or minus ICD particularly given his wide-complex tachycardia on admission. (2) Wide-complex tachycardia: Plan: A-fib with baseline IVCD versus VTE. Do not have the original monitor strips to review. Rather protracted episode with symptoms beginning at home predominantly diaphoresis and lightheadedness followed by chest tightness. At least 30 to 40 minutes of symptoms at home and sounds as if he was in and out of full consciousness on his ambulance ride in. He was defibrillated in the emergency department for wide-complex tachycardia and had no chest pain after conversion. I have requested a consultation from electrophysiology regarding potential EP study, LifeVest or defibrillator implant, or if the wide-complex tachycardia was felt to be atrial fibrillation. Currently on amiodarone. His initial hyperkalemia has resolved. I will await their recommendations/thoughts. (3) Coronary artery disease: Plan: Occluded distal LAD. Unclear chronicity. Elevated troponin of unknown etiology (ACS versus non-ACS with tachycardia driving the process). He will be on guideline directed medical therapy for secondary prevention including low-dose aspirin, high intensity statin therapy, carvedilol, and if he tolerates the Entresto that will include ARB. Admission and Anticipated Discharge Date Admission Date: March 15, 2024 Subjective Patient doing well today. He will be receiving his amiodarone p.o. tonight. He has had no significant arrhythmias. Seen by nephrology who feels that he could tolerate the eplerenone but that we should wait until tomorrow before we initiate therapy. Spironolactone to be held given his hyperkalemia earlier. Patient is fatigued but otherwise has no complaints. Review of Systems Review of Systems: Negative except as per HPI Physical Exam Constitutional: Chronically ill-appearing morbidly obese elderly male. No acute distress. Eyes: Extraocular muscles intact. Sclera are anicteric. ENMT: Oral mucosa is pink and dry. Neck: Thick. No JVD. Respiratory: Clear to auscultation bilaterally. No wheezing, rhonchi, or rales appreciated. Fair but diminished air movement. Cardiovascular: Regular rate and rhythm. S4 gallop. Soft systolic murmur heard best towards the apex. Trace bilateral lower extremity edema. Neurologic: Cognition is intact. Speech is fluent. Hearing is mildly diminished. No tremor. No focal motor deficits. Psychiatric: A+Ox3, euthymic affect Results & Data Vital Signs (Past 12 Hours) Vital Signs Temp Pulse Pulse Resp BP BP Pulse Ox 03/18/24 16:00 36.8 C 78 24 127/70 93 03/18/24 12:00 70 16 125/69 92 03/18/24 11:48 36.7 C 03/18/24 09:03 77 19 93 03/18/24 09:00 123/61 03/18/24 08:39 76 16 91 03/18/24 08:00 36.7 C 03/18/24 08:00 78 18 93 03/18/24 08:00 03/18/24 08:00 03/18/24 07:06 72 13 89 L 03/18/24 07:00 118/55 L 03/18/24 06:00 110/58 L 03/18/24 06:00 110/58 L 03/18/24 06:00 110/58 L 03/18/24 05:54 72 23 91 O2 Del Method O2 Del Method O2 Flow Rate O2 Flow Rate 03/18/24 16:00 Room Air 03/18/24 12:00 Room Air 03/18/24 11:48 03/18/24 09:03 03/18/24 09:00 03/18/24 08:39 03/18/24 08:00 03/18/24 08:00 03/18/24 08:00 Nasal Cannula 2 03/18/24 08:00 Nasal Cannula 2 03/18/24 07:06 03/18/24 07:00 03/18/24 06:00 03/18/24 06:00 03/18/24 06:00 03/18/24 05:54 PG Care Time/CCT Total # of Minutes Spent Total Time Spent with Patient: Total time spent is greater than 50% in coordination of care (as documented) at patient's floor/unit and/or counseling patient: Coding Level of Care Code 82310 SUB INP/OBS CARE 235MIN Diagnoses Ischemic cardiomyopathy I25.5 Wide-complex tachycardia R00.0 Coronary artery disease I25.10
--- NOTE | 2024-03-18 19:45 | Hospitalist Progress Note ---
Date of Service March 18, 2024 Assessment & Plan (1) Ventricular tachycardia: Plan: Assessment: 1. Chronic systolic CHF with reduced LV EF 35-40% (as noted on 03/16/2024, 6:32am TTE, [facility] Dr. Ruben Roque). Not acute exaerbation. Continue medical management of chronic systolic CHF by adherence to 2 gram Na diet, daily weights, strict I/O, amlodipine 10mg PO daily, carvedilol 25mg PO bid, clonidine 0.1mg PO bid, and sodium-glucose cotransporter 2 inhibitor empagliflozin 10mg PO daily. 2. Chronic hypertension. Well-controlled with BP 125/62 (03/17/2024, 6:14pm) and repeat BP 127/70 (03/18/2024, 4:00pm) on amlodipine 10mg PO daily, carvedilol 25mg PO bid, and clonidine 0.1mg PO bid. 3. CAD with 100% distal LAD stenosis (as reported on 03/16/2024, 10:50am cardiac catheterization, Interventional [facility] Dr. Dwayne Dugan). Continue secondary prophylaxis against CAD utilizing ASA 81mg PO daily, atorvastatin 20mg PO daily, fenofibrate 96mg PO daily. 4. Sustained wide-complex tachycardia. Ventricular tachycardia versus A-fib with aberrancy. Status post IV amiodarone bolus, followed by amiodarone drip with subsequent cardioversion/defibrillation in [facility] ER. RESOLVED off amiodarone drip, on amiodarone 400mg PO bid. Continue telemetry. 4. Acute kidney injury with admission creatinine 2.55 (03/15/2024, 4:39pm), superimposed on CKD stage III with baseline creatinine range, 2.17 (05/16/2022, 8:56am) to 2.45 (05/19/2023, 2:26pm). Acute kidney injury has RESOLVED with current creatinine 2.17, GFR 31.37 (03/18/2024, 4:15am) while holding off home- scheduled spironolactone given admission hyperkalemia. 5. Acute hyperkalemia with admission K 5.9 mmol/L (03/15/2024, 4:39pm). RESOLVED s/p treatment with calcium gluconate, insulin, and D50, while holding off home-scheduled spironolactone. cf., repeat K 4.3 mmol/L (03/15/2024, 7:45pm). Observe.LINDA, CPAP dependent at home and in [facility]. No daytime somnolence reported by patient on 03/17/2024 - 03/18/2024. 6. DM2 with long-term glycemic control modest with HbA1c 7.8% (12/08/2023, 3:45pm). cf., serum glucose 135 mg/dL (03/17/2024, 4:13am), serum glucose 119 mg/dL (03/18/2024, 4:15am). Continue aspart insulin sliding scale qac + qhs and lantus 12 units SQ bid. 7. BPH. Patient maintains brisk urine output with finasteride 5mg PO daily with no stevenson catheter warranted. 8. Hypothyroidism. Patient has no goiter, lid lag, or proptosis on exam. Patient appears to be euthyroid on synthroid 150ug PO daily with normal screening TSH 2.116 uIU/mL (03/15/2024, 4:39pm). 9. Depression/anxiety. Mild, no suicidal ideation, homicidal ideation, or anxiety on 03/17/2024 - 03/18/2024. Observe off anti-depressant(s) and anxiolytics on 03/17/2024. 10.Morbid obesity with BMI 45.0 (height 177.8 cm; weight 142.4 kg). Patient needs to lose at least 63.8 kg in order to attain a BMI 24.9, at which level, the patient would no longer be deemed morbidly obese, obese, or overweight. 11.PMH of HIT. Continue fondaparinux (Arixtra) 2.5mg SQ daily. Admission and Anticipated Discharge Date Admission Date: March 15, 2024 Subjective "I feel fine today. I have no complaints." Review of Systems Constitutional: Negative for antecedent/coincident fevers, chills, diaphoresis, cough, wheeze, sore throat, hemoptysis, chest pains, palpitations, pleurisy, nausea, vomiting, diarrhea, abdominal pain, pelvic pain, hematemesis, hematochezia, melena, hematuria, dysuria, frequency, urgency, headaches, dizziness, lightheadedness, visual changes, hearing changes, weakness, falls, syncope, trauma, travel history, sick contacts, or food/drug ingestions novel or new. All other review of systems are reported as negative by the patient on 03/18/2024. Physical Exam Constitutional: General: comfortable, coherent, cooperative. Wide awake and alert. Not confused, lethargic, or obtunded. Patient speaks in complete, fluent, and articulate sentences without pause, interruption, cough, or wheeze. HEENT: NC/AT. EOMI, PERRL. No nystagmus, gaze paresis, anisocoria, miosis, mydriasis, hyphema, chemosis, scleral icterus, conjunctivitis, or pterygium. No otorrhea, no rhinorrhea. No pharyngeal discharge or erythema. Neck: Supple, no stridor, bruit, goiter, or hepatojugular reflux. Jugular venous pressure is estimated to be 8 cm above the sternal angle of Britton, which is typically 5 cm above the level of the right atrium. Hence, there is no jugular venous distention noted on 03/18/2024. Lymphatics: No pre-post auricular, anterior/posterior cervical, supraclavicular/infraclavicular, axillary, epitrochlear, or inguinal adenopathy. Chest: Symmetric rise and fall with respirations. Non-tender to palpation. Heart: RRR, S1 and S2 noted. No S3 or S4 summation gallop noted. No tripartite friction rub. Grade II/ early systolic murmur @ LLSB without radiation to the carotids, axilla, or back, and which remains invariant in regards to the respiratory cycle. Lungs: Clear to auscultation and percussion. No audible expiratory wheeze, egophony, pectoriloquy, increase in tactile fremitus, or flatness/dullness to percussion at the bases. Abdomen: Soft, non-tender, non-distended. No rebound, guarding, French's sign, or organomegaly. Bowel sounds auscultated in all 4 quadrants. Extremities: No clubbing, cyanosis, or edema. 2+ pedal pulses bilaterally. Skin: No decubitus ulcer, exanthem, or enanthem. No hematoma or ecchymosis at right radial artery catheterization site (03/16/2024, 6:57pm, Interventional [facility] Dr. Dwayne Dugan). Neurology: Alert and oriented in regards to person, place, time, and situation. DTR+ and symmetric. 5/5 motor strength in all 4 extremities, both proximally and distally. No myoclonus, tremors, or tics. Urology: No stevenson catheter. No urethral discharge. Psychiatry: Appropriate affect. Smiles occasionally. No homicidal/suicidal ideation. Results & Data Results & Data Vital Signs (Past 12 Hours) Vital Signs Temp Pulse Pulse Resp BP BP Pulse Ox 03/18/24 16:00 36.8 C 78 24 127/70 93 03/18/24 12:00 70 16 125/69 92 03/18/24 11:48 36.7 C 03/18/24 09:03 77 19 93 03/18/24 09:00 123/61 03/18/24 08:39 76 16 91 03/18/24 08:00 36.7 C 03/18/24 08:00 78 18 93 03/18/24 08:00 03/18/24 08:00 O2 Del Method O2 Del Method O2 Flow Rate O2 Flow Rate 03/18/24 16:00 Room Air 03/18/24 12:00 Room Air 03/18/24 11:48 03/18/24 09:03 03/18/24 09:00 03/18/24 08:39 03/18/24 08:00 03/18/24 08:00 03/18/24 08:00 Nasal Cannula 2 03/18/24 08:00 Nasal Cannula 2 Laboratory Results Na 132, K 5.9, BUN 48, creatinine 2.55, GFR 25.84 (03/15/2024, 4:39pm). Na 135, K 4.3, BUN 45, creatinine 2.44, GFR 27.25 (03/15/2024, 7:45pm). Na 136, K 4.5, BUN 42, creatinine 2.31, GFR 29.10 (03/16/2024, 4:54am). Na 134, K 4.5, BUN 37, creatinine 2.15, GFR 31.72 (03/17/2024, 4:13am). Na 134, K 4.1, BUN 41, creatinine 2.17, GFR 31.37 (03/18/2024, 4:15am). Hb 12.4, MCV 89.0, MCHC 33.4 (03/17/2024, 4:13am). Hb 12.6, MCV 87.9, MCHC 34.0 (03/18/2024, 4:15am). Diagnostic Findings Cardiac catheterization (03/16/2024, 10:50am): Coronary Anatomy Dominant: Co-Dominant Left Main (% Stenosis): Normal LAD (% Stenosis): Mid (Mild diffuse) and Distal (100%, calcified. Fills via left to left collateralization) D1 (% Stenosis): Normal D2 (% Stenosis): Normal D3 (% Stenosis): Normal Circumflex (% Stenosis): Normal OM1 (% Stenosis): Normal OM2 (% Stenosis): Normal L PL1 (% Stenosis): Normal L PDA (% Stenosis): Normal RCA (% Stenosis): Normal R PDA (% Stenosis): Normal (as per Interventional [facility] Dr. Dwayne Dugan). PG Care Time/CCT Total # of Minutes Spent Total Time Spent with Patient: Total time spent is greater than 50% in coordination of care (as documented) at patient's floor/unit and/or counseling patient: Coding Level of Care Code 69303 SUB INP/OBS CARE 2/35MIN Diagnoses Ventricular tachycardia I47.20
[2024-03-19 05:58] LABS: Basophils # (auto) 0.05 K/uL (0.00-0.20); Basophils % (auto) 0.5 %; Eosinophils # (auto) 0.31 K/uL (0.00-0.50); Eosinophils % (auto) 3.3 %; Hematocrit (blood only) 36.2 % (42.0-52.0); Hemoglobin 12.1 g/dl (14.0-18.0); Immature Granulocytes # (auto) 0.05 K/uL (0.01-0.20); Immature Granulocytes % (auto) 0.5 %; Lymphocytes # (auto) 1.91 K/uL (1.20-3.40); Lymphocytes % (auto) 20.5 %; Mean Corpuscular Hemoglobin 29.4 pg (25.0-34.0); Mean Corpuscular Hgb Conc 33.4 g/dL (32.0-36.0); Mean Corpuscular Volume 88.1 fL (80.0-100.0); Mean Platelet Volume 11.3 fL (9.4-12.4); Monocytes # (auto) 0.68 K/uL (0.11-0.59); Monocytes % (auto) 7.3 %; Neutrophils # (auto) 6.31 K/uL (1.40-6.50); Neutrophils % (auto) 67.9 %; Platelet Count 183 K/uL (130-400); RDW Coefficient of Variation 13.5 % (11.5-14.5); RDW Standard Deviation 43.5 fL (36.4-46.3); Red Blood Count 4.11 M/uL (4.70-6.10); White Blood Count 9.31 K/ul (4.8-10.8)
[2024-03-19 06:30] LABS: Calcium 8.6 mg/dl (8.6-10.3); Potassium 4.6 mmol/L (3.5-5.1)
[2024-03-19 06:36] LABS: BUN Creatinine Ratio 18.5 (10-20); Creatinine Clr Calc Pharmacy 44.3 ml/min
--- NOTE | 2024-03-19 13:21 | Electrocardiogram Report ---
Test Reason : Blood Pressure : */* mmHG Vent. Rate : 80 BPM Atrial Rate : 80 BPM P-R Int : 280 ms QRS Dur : 138 ms QT Int : 394 ms P-R-T Axes : 40 -50 97 degrees QTcB Int : 454 ms Sinus rhythm with 1st degree A-V block with with occasional Premature ventricular complexes Left axis deviation Non-specific intra-ventricular conduction block with repolarization abnormality Abnormal ECG When compared with ECG of 15-Mar-2024 16:58, No significant change Confirmed by Ruben Roque ([id number]) on 03/16/2024 9:05:13 AM Also confirmed by Ruben Roque ([id number]), electronic news gathering editor Peterson Holcomb ([id number]) on 03/19/2024 1:20:55 PM Referred By: REFERRED SELF Confirmed By: Ruben Roque
--- NOTE | 2024-03-19 13:29 | Electrocardiogram Report ---
Test Reason : Blood Pressure : */* mmHG Vent. Rate : 167 BPM Atrial Rate : * BPM P-R Int : * ms QRS Dur : 162 ms QT Int : 290 ms P-R-T Axes : * 132 -54 degrees QTcB Int : 483 ms Ventricular tachycardia Abnormal ECG When compared with ECG of 05-May-2020 20:49, Ventricular tachycardia has replaced Sinus rhythm Vent. rate has increased by 71 bpm Confirmed by Ruben Roque ([id number]) on 03/19/2024 1:29:31 PM Referred By: REFERRED SELF Confirmed By: Ruben Roque
--- NOTE | 2024-03-19 14:49 | Cardiology Consultation ---
Date of Consultation March 19, 2024 Assessment & Plan (1) Wide-complex tachycardia: (2) Ventricular tachycardia: (3) Ischemic cardiomyopathy: Plan 1. Wide-complex tachycardia: As noted elsewhere his presenting rhythm is consistent with ventricular tachycardia. 2. Ventricular tachycardia: His presenting rhythm is almost certainly ventricular tachycardia, it is monomorphic and sustained and required cardioversion. Although he was not unconscious he was presyncopal and hypotensive, the rate was fast at about 170 bpm. The morphology of the tachycardia would be consistent with a left ventricular origin in the LAD distribution. I believe this is due to a prior myocardial infarction, not an acute ischemic event, and it appears unlikely that he had an acute occlusion causing this arrhythmia. As a primary arrhythmia he should have an ICD implanted. Symptomatically he may have had prior episodes, we could consider antiarrhythmic therapy but I would probably hold off on that to see whether he has more clinical events. Generally with this type of tachycardia we can program antitachycardia pacing which may be effective. 3. Ischemic cardiomyopathy: He has a moderate cardiomyopathy which in retrospect is likely ischemic. He probably had a remote LAD infarction. Some of the decrease in his ejection fraction currently could be due to stunning, but he should be placed on guideline directed medical therapy for his cardiomyopathy. I discussed ICD implantation with him and he is agreeable. I have talked to Dr. Young who will plan on doing the procedure next week. It would probably be safer to keep him into the hospital until we can place that device. History of Present Illness Reason for Consultation: Wide-complex tachycardia Attending Physician: Ricardo Juarez MD, PhD History of Present Illness This is a 73-year-old male who is followed by Dr. Soliman in our office. He has a long history of atrial fibrillation and syncope where he notes diaphoresis preceding syncopal events. It has been presumed to be vasovagal. I believe his atrial fibrillation was identified around 2012 when he was started on warfarin and had an alveolar hemorrhage which required transfer to [facility] and I believe he spent 4 months there (according to him). He has therefore refused long-term anticoagulation but we have not noted recurrent atrial fibrillation. He also had an episode of syncope around July 2019 which is described as occurring when he went to defecate and had to strain, apparently had an episode of syncope and was described by his son as being "soaking wet". He has not had a specific diagnosis of coronary artery disease but he does have a longstanding left bundle type IVCD and echocardiography has shown mild global left ventricular dysfunction with abnormal septal motion. His presentation this admission occurred after he was getting dressed, he bent over to put on a sock and had sudden onset of lightheadedness followed shortly by chest discomfort and diaphoresis. He felt as though he might pass out but I do not believe he did, he stated at home for a short time but then called 911 and was brought in. He believes his symptoms started at around 2 PM which was about 2 and half hours before he arrived, he believes those times may be correct. In the emergency room he was noted to have a wide-complex tachycardia with a heart rate of about 170 bpm. I do not see low blood pressures documented in the chart however the emergency room note states that he had hypotension and waxing and waning mental status therefore he was cardioverted using a etomidate. I do see the electrocardiogram done on March 15, 2024 at 1638 and this shows a wide-complex tachycardia at 167 bpm with a QRS duration of 162 ms and a inferior and rightward directed tachycardia likely ventricular in origin. After cardioversion the axis on telemetry reversed consistent with this being a ventricular rhythm (he does have a wide-complex rhythm at baseline but a different morphology). He was then taken urgently to the [facility] on arrival and was noted to have LAD disease with a distal LAD occlusion after the third diagonal. Other than luminal irregularities there were no other significant stenoses. It was not clear that this represented an acute occlusion and inte rvention was not performed. Of note his initial high-sensitivity troponin was 67, he had increased to a maximum of 20,066 approximately 12 hours after onset of his symptoms. Echocardiography done the day after presentation showed moderate left ventricular dysfunction with an ejection fraction of 35 to 40% with global hypokinesis. This was felt to be slightly worse than in October 2023. At the time of my evaluation he was feeling well, he denied exertional chest discomfort before or after this event, is quite active and does not have much in the way of heart failure symptoms. He denies orthopnea, PND or edema. Allergies Allergy/AdvReac Type Severity Reaction Status Date / Time heparin Allergy Severe HIT Verified 02/16/24 11:56 Penicillins Allergy Severe HIVES/SOB Verified 02/16/24 11:56 Cephalosporins Allergy Intermediate FROM MED Verified 02/16/24 11:56 MARA GONZALEZ telmisartan Allergy Intermediate FROM DR Verified 02/16/24 11:56 MULUGETA OFC RECORD Home Medications Medication Instructions Recorded Confirmed Type cyanocobalamin (vitamin B-12) 5,000 mcg sublingual DAILY 10/01/18 03/15/24 History 5,000 mcg sublingual tablet furosemide 80 mg tablet 80 mg PO UD PRN Edema #30 tabs 10/21/18 03/15/24 History acetaminophen 500 mg tablet 500 mg PO Q6H PRN Pain 06/17/19 03/15/24 History (Tylenol Extra Strength) krill oil 500 mg capsule 500 mg PO DAILY 09/24/19 03/15/24 History multivitamin (Daily Multi-Vitamin 1 tab PO DAILY #90 tabs 11/28/20 03/15/24 Rx tablet) CPAP Machine #1 ea 03/20/22 02/16/24 Rx furosemide 40 mg tablet 40 mg PO DAILY #90 tabs 06/24/23 03/15/24 Rx atorvastatin 20 mg tablet 20 mg PO DAILY #90 tabs 09/17/23 03/15/24 Rx amlodipine 10 mg tablet 10 mg PO DAILY #90 tabs 10/17/23 03/15/24 Rx carvedilol 25 mg tablet 25 mg PO BID #180 tabs 11/03/23 03/15/24 Rx clonidine HCl 0.1 mg tablet 0.1 mg PO BID #180 tabs 11/03/23 03/15/24 Rx fenofibrate nanocrystallized 48 mg 96 mg (2 x 48 mg) PO DAILY #180 11/03/23 03/15/24 Rx tablet tabs tamsulosin 0.4 mg capsule 0.4 mg PO HS #90 caps 11/18/23 03/15/24 Rx trazodone 100 mg tablet 100 mg PO HS #90 tabs 11/18/23 03/15/24 Rx levothyroxine 150 mcg tablet 150 mcg PO DAILY #90 tabs 11/25/23 03/15/24 Rx spironolactone 50 mg tablet 50 mg PO DAILY #90 tabs 11/25/23 03/15/24 Rx bupropion HCl 300 mg 24 hr tablet, 300 mg PO DAILY #90 tabs 02/20/24 03/15/24 Rx extended release albuterol sulfate 90 mcg/actuation 2 puff inhalation UD PRN shortness 03/15/24 03/15/24 History aerosol inhaler (Ventolin HFA) of breath or wheezing dulaglutide 4.5 mg/0.5 mL 4.5 mg subcut UD 03/15/24 03/15/24 History subcutaneous pen injector finasteride 5 mg tablet 5 mg PO UD 03/15/24 03/15/24 History glipizide 10 mg tablet 10 mg PO UD 03/15/24 03/15/24 History metformin 500 mg tablet 500 mg PO UD 03/15/24 03/15/24 History montelukast 10 mg tablet 10 mg PO UD 03/15/24 03/15/24 History blood sugar diagnostic ([employer] #100 ea 03/17/24 Rx Ultra Test strips) blood-glucose meter ([employer] #1 ea 03/17/24 Rx Ultra2 Meter) lancets 33 gauge ([employer] Delica #100 ea 03/17/24 Rx Plus Lancet) Patient History Medical History Diabetic kidney disease Left bundle branch block HTN (hypertension) Diabetes mellitus Chronic diastolic CHF (congestive heart failure) Hypothyroidism Obstructive sleep apnea Paroxysmal atrial fibrillation Dyspnea Adverse effect of COVID-19 vaccine Syncope, vasovagal Resistant hypertension Cor pulmonale Surgical History S/P left knee arthroscopy S/P right knee arthroscopy History of herniorrhaphy umbilical History of uvulopalatopharyngoplasty Family History Sister Breast cancer Uterine cancer Father Myocardial infarction Skin cancer (melanoma) Heart disease Lung cancer Mother Diabetes Denies family history of Prostate cancer Kidney disease Social History Smoking Status: Never smoker Second Hand Exposure: No; Do You Dip or Chew Tobacco: No; Hx Alcohol Use: No Hx Substance Use: No Preferred Language: Jamaican Communication Ability: Effective Visual Impairment: No Limitations Hearing Ability: Normal Operations Expert Required: No Beliefs That Will Affect Care: None marital status: Current Living Situation: Alone current occupational status: retired How many Children do You have: 3 Feels Safe at Home: Yes Childhood Exposure to Second-Hand Smoke: Yes Diet: regular Diet Comment: regular caffeine: Yes during the past year weight has: remained stable Dental Care, Regularly: Yes Physical Activity Frequency: Other Physical Activity Frequency Comment: WALKING Seatbelt Use: always Sunscreen Use: Yes Assistive Devices: CPAP and Walker Physical Exam Physical Exam: Constitutional: Alert, cooperative and in no distress. He is obese and resting in a chair at his bedside. HEENT: Unremarkable Neck: No jugular venous distention, carotid pulses are normal and equal bilaterally without bruits. Pulmonary: Clear to auscultation bilaterally. Cardiac: Regular rhythm with no murmur, gallop or rub. Abdomen: Soft, nontender with normal bowel sounds. Extremities: No edema. Distal pulses intact. Neurologic: No focal findings. Gait was not tested. Skin: No rash, ecchymoses or petechiae. Results & Data Vital Signs (Past 12 Hours) Vital Signs Temp Pulse Pulse Resp BP Pulse Ox O2 Del Method 03/19/24 08:00 73 03/19/24 07:51 76 18 120/71 91 Room Air 03/19/24 04:12 36.4 C L 69 20 96/74 L 94 Room Air, CPAP Laboratory Results CBC 03/19/24 Range/Units 05:29 WBC 9.31 (4.8-10.8) K/ul RBC 4.11 L (4.70-6.10) M/uL Hgb 12.1 L (14.0-18.0) g/dl Hct 36.2 L (42.0-52.0) % Plt Count 183 (130-400) K/uL Neut # (Auto) 6.31 (1.40-6.50) K/uL Lymph # (Auto) 1.91 (1.20-3.40) K/uL Hoke # (Auto) 0.68 H (0.11-0.59) K/uL Eos # (Auto) 0.31 (0.00-0.50) K/uL Baso # (Auto) 0.05 (0.00-0.20) K/uL Comprehensive Metabolic Panel 03/19/24 Range/Units 05:29 Sodium 134 L (136-145) mmol/L Potassium 4.6 (3.5-5.1) mmol/L Chloride 103 (98-107) mmol/L Carbon Dioxide 22 (21-32) mmol/L BUN 39 H (6-23) mg/dl Creatinine 2.11 H (0.6-1.4) mg/dl Glucose 106 H (70-99(Fasting)) mg/dl Calcium 8.6 (8.6-10.3) mg/dl Intake and Output 03/18/24 03/19/24 03/19/24 22:59 06:59 14:59 Intake Total 240 / 990 1310 / 1310 Output Total 400 / 1650 750 / 1650 Balance -160 / -660 -750 / -660 1309 / 1309 Intake: Oral 240 / 990 1310 / 1310 Output: Urine 400 / 1650 750 / 1650 # Bowel Movements Other: # Unmeasured Voids 1 3 Weight 141.5 kg Weight Measurement Method Standing Scale Diagnostic Findings I was able to obtain and review his presenting electrocardiogram which is consistent with ventricular tachycardia, this would fit in origin and the distribution of the LAD. Following conversion the axis reversed which would be consistent with his current electrocardiogram, which is also wide-complex. PG Care Time/CCT Total # of Minutes Spent Total Time Spent with Patient: Total time spent is greater than 50% in coordination of care (as documented) at patient's floor/unit and/or counseling patient: Coding Level of Care Code 76814 OFFICE CONSULT LVL M Diagnoses Wide-complex tachycardia R00.0 Ventricular tachycardia I47.20 Ischemic cardiomyopathy I25.5
--- NOTE | 2024-03-19 16:30 | Nephrology Progress Note ---
Date of Service March 19, 2024 Assessment & Plan (1) CKD (chronic kidney disease): Plan: CKD IV A1-2. CKD attributed to arteriosclerosis. Creatinine ~2.0-2.5 mg/dL. Volume status and BP are acceptable. Electrolytes normal. There is no current indication for RIVER TESTER. Medications are appropriate for kidney function. Jardiance 10 mg started yesterday. Repeat metabolic profile tomorrow AM. Maintain a renal diet. No additional nephrology recommendations at this time, I will sign-off. Please call with questions or concerns. (2) Acute hyperkalemia: Plan: Improved with medical management. Low potassium diet. Continue to hold spironolactone. It is reasonable to consider a starting dose of Entresto. Maintain dietary potassium restriction and monitor potassium and kidney function daily while inpatient. Check labs and schedule follow up in the nephrology clinic in 1-2 weeks of discharge. (3) Ischemic cardiomyopathy: Plan: From a nephrology standpoint, I think it would be reasonable to start Entresto now that potassium is normal and creatinine stable. Monitor labs closely. (4) Diabetic kidney disease: (5) Resistant hypertension: Plan: Spironolactone held. BP acceptable/slightly low. May consider weaning off clonidine will introducing RAASi. Admission and Anticipated Discharge Date Admission Date: March 15, 2024 Subjective No acute events overnight. No complaints this AM. Keshav was talking to his son when I saw him this afternoon. He had no complaints. He expects to be in the hospital over the weekend for ICD on Friday. Review of Systems Review of Systems: All systems reviewed & are unremarkable except as noted in HPI & below Physical Exam Constitutional: well developed; no acute distress Eyes: no scleral abnormality and no corneal abnormality Neck: normal visual inspection and trachea midline Respiratory: normal respiratory effort Cardiovascular: Rate/Rhythm: regular rate Extremities: no edema Musculoskeletal: Extremities: no cyanosis and no clubbing Neurologic: Motor/Sensory: no tremor and no asterixis Psychiatric: Orientation: alert and oriented x 3 Results & Data Vital Signs (Past 12 Hours) Vital Signs Temp Pulse Pulse Resp BP Pulse Ox O2 Del Method 03/19/24 16:00 71 03/19/24 15:19 36.7 C 75 18 121/67 94 Room Air 03/19/24 08:00 73 03/19/24 07:51 76 18 120/71 91 Room Air Laboratory Results Laboratory Results - last 24 hr 03/18/24 03/19/24 03/19/24 20:25 05:29 07:13 WBC 9.31 RBC 4.11 L Hgb 12.1 L Hct 36.2 L MCV 88.1 MCH 29.4 MCHC 33.4 RDW Std Deviation 43.5 RDW Coeff of Christina 13.5 Plt Count 183 MPV 11.3 Immature Gran % (Auto) 0.5 Neut % (Auto) 67.9 Lymph % (Auto) 20.5 Dawes % (Auto) 7.3 Eos % (Auto) 3.3 Baso % (Auto) 0.5 Neut # (Auto) 6.31 Lymph # (Auto) 1.91 Dawes # (Auto) 0.68 H Eos # (Auto) 0.31 Baso # (Auto) 0.05 Immature Gran # (Auto) 0.05 Sodium 134 L Potassium 4.6 Chloride 103 Carbon Dioxide 22 Anion Gap 9 BUN 39 H Creatinine 2.11 H Est Cr Clr Drug Dosing 44.3 eGFR 32.44 BUN/Creatinine Ratio 18.5 Glucose 106 H POC Glucose 127 H 107 H Calcium 8.6 Magnesium 2.0 03/19/24 03/19/24 11:00 15:58 WBC RBC Hgb Hct MCV MCH MCHC RDW Std Deviation RDW Coeff of Christina Plt Count MPV Immature Gran % (Auto) Neut % (Auto) Lymph % (Auto) Dawes % (Auto) Eos % (Auto) Baso % (Auto) Neut # (Auto) Lymph # (Auto) Dawes # (Auto) Eos # (Auto) Baso # (Auto) Immature Gran # (Auto) Sodium Potassium Chloride Carbon Dioxide Anion Gap BUN Creatinine Est Cr Clr Drug Dosing eGFR BUN/Creatinine Ratio Glucose POC Glucose 123 H 97 Calcium Magnesium PG Care Time/CCT Total # of Minutes Spent Total Time Spent with Patient: Total time spent is greater than 50% in coordination of care (as documented) at patient's floor/unit and/or counseling patient: Coding Level of Care Code 96356 SUB INP/OBS CARE 3/50MIN Diagnoses CKD (chronic kidney disease) N18.9 Acute hyperkalemia E87.5 Ischemic cardiomyopathy I25.5 Diabetic kidney disease E11.21 Resistant hypertension I10
--- NOTE | 2024-03-19 20:13 | Hospitalist Progress Note ---
Date of Service March 19, 2024 Assessment & Plan (1) Ventricular tachycardia: Plan: Assessment: 1. Chronic systolic CHF with reduced LV EF 35-40% (as noted on 03/16/2024, 6:32am TTE, CARDS Dr. Ruben Roque). Not acute exacerbation on 03/17/2024 - 03/19/2024. Continue medical management of chronic systolic CHF by adherence to 2 gram Na diet, daily weights, strict I/O, amlodipine 10mg PO daily, carvedilol 25mg PO bid, clonidine 0.1mg PO bid, and sodium-glucose cotransporter 2 inhibitor empagliflozin 10mg PO daily. 2. Chronic hypertension. Well-controlled with BP 125/62 (03/17/2024, 6:14pm) and repeat BP 127/70 (03/18/2024, 4:00pm), and current BP 115/72 (03/19/2024, 7:12pm) on amlodipine 10mg PO daily, carvedilol 25mg PO bid, and clonidine 0.1mg PO bid. 3. CAD with 100% distal LAD stenosis (as reported on 03/16/2024, 10:50am cardiac catheterization, Interventional CARDS Dr. Dwayne Dugan). Continue secondary prophylaxis against CAD utilizing ASA 81mg PO daily, atorvastatin 20mg PO daily, fenofibrate 96mg PO daily. 4. Sustained wide-complex tachycardia. Ventricular tachycardia versus A-fib with aberrancy. Status post IV amiodarone bolus, followed by amiodarone drip with subsequent cardioversion/defibrillation in [facility] ER. RESOLVED off amiodarone drip, on amiodarone 400mg PO bid. Continue telemetry. 5. Acute kidney injury with admission creatinine 2.55, GFR 25.84 mL/min (03/15/2024, 4:39pm), superimposed on CKD stage III with baseline creatinine range, 2.17 (05/16/2022, 8:56am) to 2.45 (05/19/2023, 2:26pm). Acute kidney injury has RESOLVED with repeat creatinine 2.17, GFR 31.37 mL/min (03/18/2024, 4:15am) and current creatinine 2.11, GFR 32.44 mL/min (03/19/2024, 5:29am), while continuing to hold off patient's home-scheduled spironolactone given admission hyperkalemia. 6. Acute hyperkalemia with admission K 5.9 mmol/L (03/15/2024, 4:39pm). RESOLVED s/p treatment with calcium gluconate, insulin, and D50, while holding off home-scheduled spironolactone. cf., repeat K 4.3 mmol/L (03/15/2024, 7:45pm) and current K 4.6 mmol/L (03/19/2024, 5:29am). Observe. 7. LINDA, CPAP dependent at home and in [facility]. No daytime somnolence reported by patient on 03/17/2024 - 03/19/2024. 8. DM2 with long-term glycemic control modest with HbA1c 7.8% (12/08/2023, 3:45pm). cf., serum glucose 135 mg/dL (03/17/2024, 4:13am), serum glucose 119 mg/dL (03/18/2024, 4:15am), serum glucose 106 mg/dL (03/19/2024, 5:29am). Continue aspart insulin sliding scale qac + qhs and lantus 12 units SQ bid. 9. BPH. Patient maintains brisk urine output with finasteride 5mg PO daily with no stevenson catheter warranted on 03/17/2024 - 03/19/2024. 10.Hypothyroidism. Patient has no goiter, lid lag, or proptosis on exam. Patient appears to be euthyroid on synthroid 150ug PO daily with normal screening TSH 2.116 uIU/mL (03/15/2024, 4:39pm). 11.Depression/anxiety. Mild, no suicidal ideation, homicidal ideation, or anxiety on 03/17/2024 - 03/19/2024. Observe off anti-depressant(s) and anxiolytics on 03/17/2024. 12.Morbid obesity with BMI 45.0 (height 177.8 cm; weight 142.4 kg). Patient needs to lose at least 63.8 kg in order to attain a BMI 24.9, at which level, the patient would no longer be deemed morbidly obese, obese, or overweight. 13.PMH of HIT. Continue fondaparinux (Arixtra) 2.5mg SQ daily. Admission and Anticipated Discharge Date Admission Date: March 15, 2024 Subjective "I feel fine. No complaints. The heart doc said that I will get a defibrillator on Friday (03/22/2024)." Review of Systems Constitutional: Negative for antecedent/coincident fevers, chills, diaphoresis, cough, wheeze, sore throat, hemoptysis, chest pains, palpitations, pleurisy, nausea, vomiting, diarrhea, abdominal pain, pelvic pain, hematemesis, hematochezia, melena, hematuria, dysuria, frequency, urgency, headaches, dizziness, lightheadedness, visual changes, hearing changes, weakness, falls, syncope, trauma, travel history, sick contacts, or food/drug ingestions novel or new. All other review of systems are reported as negative by the patient on 03/19/2024. Physical Exam Constitutional: General: comfortable, coherent, cooperative. Wide awake and alert. Not confused, lethargic, or obtunded. Patient speaks in complete, fluent, and articulate sentences without pause, interruption, cough, or wheeze. HEENT: NC/AT. EOMI, PERRL. No nystagmus, gaze paresis, anisocoria, miosis, mydriasis, hyphema, chemosis, scleral icterus, conjunctivitis, or pterygium. No otorrhea, no rhinorrhea. No pharyngeal discharge or erythema. Neck: Supple, no stridor, bruit, goiter, or hepatojugular reflux. Jugular venous pressure is estimated to be 8 cm above the sternal angle of Britton, which is typically 5 cm above the level of the right atrium. Hence, there is no jugular venous distention noted on 03/19/2024. Lymphatics: No pre-post auricular, anterior/posterior cervical, supraclavicular/infraclavicular, axillary, epitrochlear, or inguinal adenopathy. Chest: Symmetric rise and fall with respirations. Non-tender to palpation. Heart: RRR, S1 and S2 noted. No S3 or S4 summation gallop noted. No tripartite friction rub. Grade II/ early systolic murmur @ LLSB without radiation to the carotids, axilla, or back, and which remains invariant in regards to the respiratory cycle. Lungs: Clear to auscultation and percussion. No audible expiratory wheeze, egophony, pectoriloquy, increase in tactile fremitus, or flatness/dullness to percussion at the bases. Abdomen: Soft, non-tender, non-distended. No rebound, guarding, French's sign, or organomegaly. Bowel sounds auscultated in all 4 quadrants. Extremities: No clubbing, cyanosis, or edema. 2+ pedal pulses bilaterally. Skin: No decubitus ulcer, exanthem, or enanthem. No hematoma or ecchymosis at right radial artery catheterization site (03/16/2024, 6:57pm, Interventional CAR[facility] Dr. Dwayne Dugan). Neurology: Alert and oriented in regards to person, place, time, and situation. DTR+ and symmetric. 5/5 motor strength in all 4 extremities, both proximally a nd distally. No myoclonus, tremors, or tics. Urology: No stevenson catheter. No urethral discharge. Psychiatry: Appropriate affect. Smiles occasionally. No homicidal/suicidal ideation. Results & Data Results & Data Vital Signs (Past 12 Hours) Vital Signs Temp Pulse Pulse Resp BP Pulse Ox O2 Del Method 03/19/24 19:12 77 18 115/72 94 Room Air 03/19/24 16:00 71 03/19/24 15:19 36.7 C 75 18 121/67 94 Room Air PG Care Time/CCT Total # of Minutes Spent Total Time Spent with Patient: Total time spent is greater than 50% in coordination of care (as documented) at patient's floor/unit and/or counseling patient: Coding Level of Care Code 37679 SUB INP/OBS CARE 2/35MIN Diagnoses Ventricular tachycardia I47.20
[2024-03-20] MEDS: ACETAMINOPHEN 325 MG TAB PO PRN (10:13)
--- NOTE | 2024-03-20 13:40 | Cardiology Progress Note ---
Date of Service March 20, 2024 Assessment & Plan (1) Ischemic cardiomyopathy: Plan: Because of his chronic renal insufficiency we have had to slowly adjust his medical regimen. At this time, he will continue with carvedilol 25 mg p.o. twice daily, and Jardiance 10 mg daily. We will also add Entresto 24/26 mg p.o. twice daily. To that end, I am reducing the amlodipine to 2.5 mg daily, the clonidine will be 0.1 mg reduced to only once daily, and then we will reassess his regimen as I worry about hypotension from the Entresto. He may also need a loop diuretic on discharge but we will not know until he has been on the Jardiance for a few days. (2) Coronary artery disease: Plan: Severe coronary disease with chronic total occlusion of the LAD. Today, his heart rate and blood pressure are at target. Continue with aspirin 81 mg daily, carvedilol, a atorvastatin, and he will get angiotensin receptor luanne through the Entresto. Of note, he previously was "allergic" to telmisartan. Allergy not really delineated but most likely was an intolerance secondary to his kidney function (unfortunately patient has poor understanding of his prior medical issues). No mention of angioedema which certainly should have been flagged had that occurred. We will follow him carefully after he begins the Entresto. (3) Ventricular tachycardia: Plan: EP has followed. Agree that A-fib may have existed previously but clearly the wide-complex tachycardia seen on monitor (which Dr. Pineda was able to retrieve) was consistent with VT. Therefore, low likelihood that his event was a PA and much more likely a primary arrhythmia event. He will be getting an ICD. At this point, the potential toxicity of amiodarone with plan for ICD implantation suggests we can stop the amiodarone. Patient has not been on any anticoagulation so I am not sure that he actually ever had paroxysmal atrial fibrillation. Will certainly hot die picker any recurrence of atrial fibrillation on the device once it is implanted. If he has it at that point then anticoagulant would be indicated. Management for that problem will be left to the primary shells inspector. Plan Tentatively scheduled for ICD implant on Friday. Tomorrow he will start his optimize heart failure regimen as indicated above. After discharge he should return to follow-up with Dr. Soliman and he should also be seen in the device clinic. Admission and Anticipated Discharge Date Admission Date: March 15, 2024 Subjective Patient was seen this morning and was doing well. He had some lightheadedness and dizziness earlier but his heart rate, blood pressure, and rhythm were all fine. This occurred after he was washing himself. I have reviewed the electrophysiology note. He is tentatively planned to undergo ICD implant on Friday. He will need to be made n.p.o. after midnight Friday evening. He has no chest pain or shortness of breath at this time. Review of Systems Review of Systems: Negative except as per HPI Physical Exam Constitutional: Chronically ill-appearing morbidly obese elderly male. No acute distress. Eyes: Extraocular muscles intact. Sclera are anicteric. ENMT: Oral mucosa is pink and dry. Neck: Thick. No JVD. Respiratory: Clear to auscultation bilaterally. No wheezing, rhonchi, or rales appreciated. Fair but diminished air movement. Cardiovascular: Regular rate and rhythm. S4 gallop. Soft systolic murmur heard best towards the apex. Trace bilateral lower extremity edema. Neurologic: Cognition is intact. Speech is fluent. Hearing is mildly diminished. No tremor. No focal motor deficits. Psychiatric: A+Ox3, euthymic affect Results & Data Vital Signs (Past 12 Hours) Vital Signs Temp Pulse Pulse Resp BP BP Pulse Ox 03/20/24 11:10 36.8 C 68 19 109/74 95 03/20/24 10:17 131/81 03/20/24 08:00 66 03/20/24 07:09 36.7 C 70 19 111/65 97 03/20/24 03:30 36.4 C L 77 20 135/78 94 O2 Del Method 03/20/24 11:10 Room Air 03/20/24 10:17 03/20/24 08:00 03/20/24 07:09 Room Air 03/20/24 03:30 BiPAP PG Care Time/CCT Total # of Minutes Spent Total Time Spent with Patient: Total time spent is greater than 50% in coordination of care (as documented) at patient's floor/unit and/or counseling patient: Coding Level of Care Code 67253 SUB INP/OBS CARE 2/35MIN Diagnoses Ischemic cardiomyopathy I25.5 Coronary artery disease I25.10 Ventricular tachycardia I47.20
--- NOTE | 2024-03-20 17:51 | Hospitalist Progress Note ---
Date of Service March 20, 2024 Assessment & Plan (1) Ventricular tachycardia: Plan: Assessment: 1. Chronic systolic CHF with reduced LV EF 35-40% (as noted on 03/16/2024, 6:32am TTE, CARDS Dr. Ruben Roque). Not acute exacerbation on 03/17/2024 - 03/19/2024. Continue medical management of chronic systolic CHF by adherence to 2 gram Na diet, daily weights, strict I/O, amlodipine 2.5mg PO daily (start date/time, 03/21/2024, 9:00am), carvedilol 25mg PO bid (start date/time, 03/15/2024, 9:00pm), clonidine 0.1mg PO qam (start date/time, 03/21/2024, 9:00am), and sacubitril 24mg - valsartan 26mg PO bid (start date/time, 03/21/2024, 9:00am), and sodium-glucose cotransporter 2 inhibitor empagliflozin 10mg PO daily as per Interventional CARDS Dr. Dwayne Dugan. 2. Chronic hypertension. Well-controlled with BP 125/62 (03/17/2024, 6:14pm), repeat BP 127/70 (03/18/2024, 4:00pm), repeat BP 115/72 (03/19/2024, 7:12pm), and current BP 116/72 (03/20/2024, 4:38pm) on amlodipine 2.5mg PO daily (start date/time, 03/21/2024, 9:00am), carvedilol 25mg PO bid (start date/time, 03/15/2024, 9:00pm), clonidine 0.1mg PO qam (start date/time, 03/21/2024, 9:00am), and sacubitril 24mg - valsartan 26mg PO bid (start date/time, 03/21/2024, 9:00am) as per Interventional CARDS Dr. Dwayne Dugan. 3. Not acute NSTEMI, but rather, chronic CAD with 100% distal LAD stenosis (as reported on 03/16/2024, 10:50am cardiac catheterization, Interventional CARDS Dr. Dwayne Dugan). Continue secondary prophylaxis against CAD utilizing ASA 81mg PO daily, atorvastatin 20mg PO daily, fenofibrate 96mg PO daily. 4. Sustained wide-complex tachycardia. Due to ventricular tachycardia. Status post IV amiodarone bolus, followed by amiodarone drip with subsequent cardioversion/defibrillation in [facility]. RESOLVED off amiodarone drip, off amiodarone 400mg PO bid (since 03/20/2024, 1:24pm) given risk for potential amiodarone toxicity as per Interventional CARDS Dr. Dwayne Dugan. Continue telemetry as patient awaits AICD insertion with EPS on Friday (03/22/2024). 5. Acute kidney injury with admission creatinine 2.55, GFR 25.84 mL/min (03/15/2024, 4:39pm), superimposed on CKD stage III with baseline creatinine range, 2.17 (05/16/2022, 8:56am) to 2.45 (05/19/2023, 2:26pm). Acute kidney injury has RESOLVED with repeat creatinine 2.17, GFR 31.37 mL/min (03/18/2024, 4:15am) and current creatinine 2.11, GFR 32.44 mL/min (03/19/2024, 5:29am), while continuing to hold off patient's home-scheduled spironolactone given admission hyperkalemia. 6. Acute hyperkalemia with admission K 5.9 mmol/L (03/15/2024, 4:39pm). RESOLVED s/p treatment with calcium gluconate, insulin, and D50, while holding off home-scheduled spironolactone. cf., repeat K 4.3 mmol/L (03/15/2024, 7:45pm) and current K 4.6 mmol/L (03/19/2024, 5:29am). Observe. 7. LINDA, CPAP dependent at home and in [facility]. No daytime somnolence reported by patient on 03/17/2024 - 03/20/2024. 8. DM2 with long-term glycemic control modest with HbA1c 7.8% (12/08/2023, 3:45pm). cf., serum glucose 135 mg/dL (03/17/2024, 4:13am), serum glucose 119 mg/dL (03/18/2024, 4:15am), serum glucose 106 mg/dL (03/19/2024, 5:29am), POC glucose 133 mg/dL (03/20/2024, 4:25pm). Continue aspart insulin sliding scale qac + qhs and lantus 12 units SQ bid. 9. BPH. Patient maintains brisk urine output with finasteride 5mg PO daily with no stevenson catheter warranted on 03/17/2024 - 03/20/2024. 10.Hypothyroidism. Patient has no goiter, lid lag, or proptosis on exam. Patient appears to be euthyroid on synthroid 150ug PO daily with normal sc reening TSH 2.116 uIU/mL (03/15/2024, 4:39pm). 11.Depression/anxiety. Mild, no suicidal ideation, homicidal ideation, or anxiety on 03/17/2024 - 03/20/2024. Observe off anti-depressant(s) and anxio lytics on 03/17/2024 - 03/20/2024. 12.Morbid obesity with BMI 45.0 (height 177.8 cm; weight 142.4 kg). Patient needs to lose at least 63.8 kg in order to attain a BMI 24.9, at which level, the patient would no longer be deemed morbidly obese, obese, or overweight. 13.PMH of HIT. Continue fondaparinux (Arixtra) 2.5mg SQ daily. Admission and Anticipated Discharge Date Admission Date: March 15, 2024 Subjective "I felt a little dizzy this morning, but I am ok now. I have no complaints. Just waiting for the AICD on Friday (03/22/2024)." Review of Systems Constitutional: Negative for antecedent/coincident fevers, chills, diaphoresis, cough, wheeze, sore throat, hemoptysis, chest pains, palpitations, pleurisy, nausea, vomiting, diarrhea, abdominal pain, pelvic pain, hematemesis, hematochezia, melena, hematuria, dysuria, frequency, urgency, headaches, visual changes, hearing changes, weakness, falls, syncope, trauma, travel history, sick contacts, or food/drug ingestions novel or new. All other review of systems are reported as negative by the patient on 03/20/2024. Physical Exam Constitutional: General: comfortable, coherent, cooperative. Wide awake and alert. Not confused, lethargic, or obtunded. Patient speaks in complete, fluent, and articulate sentences without pause, interruption, cough, or wheeze. HEENT: NC/AT. EOMI, PERRL. No nystagmus, gaze paresis, anisocoria, miosis, mydriasis, hyphema, chemosis, scleral icterus, conjunctivitis, or pterygium. No otorrhea, no rhinorrhea. No pharyngeal discharge or erythema. Neck: Supple, no stridor, bruit, goiter, or hepatojugular reflux. Jugular venous pressure is estimated to be 8 cm above the sternal angle of Britton, which is typically 5 cm above the level of the right atrium. Hence, there is no jugular venous distention noted on 03/20/2024. Lymphatics: No pre-post auricular, anterior/posterior cervical, supraclavicular/infraclavicular, axillary, epitrochlear, or inguinal adenopathy. Chest: Symmetric rise and fall with respirations. Non-tender to palpation. Heart: RRR, S1 and S2 noted. No S3 or S4 summation gallop noted. No tripartite friction rub. Grade II/ early systolic murmur @ LLSB without radiation to the carotids, axilla, or back, and which remains invariant in regards to the respiratory cycle. Lungs: Clear to auscultation and percussion. No audible expiratory wheeze, egophony, pectoriloquy, increase in tactile fremitus, or flatness/dullness to percussion at the bases. Abdomen: Soft, non-tender, non-distended. No rebound, guarding, French's sign, or organomegaly. Bowel sounds auscultated in all 4 quadrants. Extremities: No clubbing, cyanosis, or edema. 2+ pedal pulses bilaterally. Skin: No decubitus ulcer, exanthem, or enanthem. No hematoma or ecchymosis at right radial artery catheterization site (03/16/2024, 6:57pm, Interventional CARDS Dr. Dwayne Dugan). Neurology: Alert and oriented in regards to person, place, time, and situation. DTR+ and symmetric. 5/5 motor strength in all 4 extremities, both proximally and distally. No myoclonus, tremors, or tics. Urology: No stevenson catheter. No urethral discharge. Psychiatry: Appropriate affect. Smiles occasionally. No homicidal/suicidal ideation. Results & Data Results & Data Vital Signs (Past 12 Hours) Vital Signs Temp Pulse Pulse Resp BP BP Pulse Ox 03/20/24 16:38 36.9 C 67 18 116/72 97 03/20/24 11:10 36.8 C 68 19 109/74 95 03/20/24 10:17 131/81 03/20/24 08:00 66 03/20/24 07:09 36.7 C 70 19 111/65 97 O2 Del Method 03/20/24 16:38 Room Air 03/20/24 11:10 Room Air 03/20/24 10:17 03/20/24 08:00 03/20/24 07:09 Room Air PG Care Time/CCT Total # of Minutes Spent Total Time Spent with Patient: Total time spent is greater than 50% in coordination of care (as documented) at patient's floor/unit and/or counseling patient: Coding Level of Care Code 56672 SUB INP/OBS CARE 2/35MIN Diagnoses Ventricular tachycardia I47.20
[2024-03-20 18:52] LABS: BUN Creatinine Ratio 17.8 (10-20); Calcium 8.4 mg/dl (8.6-10.3); Creatinine Clr Calc Pharmacy 42.8 ml/min; Potassium 4.5 mmol/L (3.5-5.1)
[2024-03-21 06:57] LABS: BUN Creatinine Ratio 17.6 (10-20); Calcium 8.7 mg/dl (8.6-10.3); Potassium 4.1 mmol/L (3.5-5.1)
[2024-03-21] MEDS: cloNIDine HCL 0.1 MG TAB PO SCH (08:29)
[2024-03-21] MEDS: amLODIPine BESYLATE 5 MG TAB PO SCH (08:31)
[2024-03-21] MEDS: VALSARTAN/SACUBITRIL 26/24MG TAB PO SCH (08:41)
--- NOTE | 2024-03-21 13:18 | Hospitalist Progress Note ---
Date of Service March 21, 2024 Assessment & Plan (1) Ventricular tachycardia: Plan: 73 years old male with PMH of FULL CODE @ home, morbid obesity with BMI 44.9 (height 177.8 cm; weight 141.9 kg), LINDA on nocturnal CPAP @ home and @ [facility], major depression, anxiety, BPH, hypothyroidism, insulin-dependent DM2 with HbA1c 7.8% (12/08/2023, 3:45pm), HIT (now on fondaparinux (Arixtra) 2.5mg SQ daily), HTN, CAD, and chronic systolic CHF with reduced LV EF 35-40% (as noted on 03/16/2024, 6:32am TTE, CARDS Dr. Ruben Roque, who was admitted to the inpatient hospitalist service @ [facility] on 03/15/2024 with sustained wide-complex tachycardia, presumably due to ventricular tachycardia, s/p amiodarone IV bolus, followed by amiodarone drip with subsequent cardioversion/defibrillation in [facility] ER. RESOLVED off amiodarone drip, off am iodarone 400mg PO bid (since 03/20/2024, 1:24pm) given risk for potential amiodarone toxicity as per Interventional CARDS Dr. Dwayne Dugan. Continue telemetry as patient awaits AICD insertion with EPS on Friday (03/22/2024). The following medical issues have also been addressed: 1. Chronic systolic CHF with reduced LV EF 35-40% (as noted on 03/16/2024, 6:32am TTE, CARDS Dr. Ruben Roque). Not acute exacerbation on 03/17/2024 - 03/19/2024. Continue medical management of chronic systolic CHF by adherence to 2 gram Na diet, daily weights, strict I/O, amlodipine 2.5mg PO daily (start date/time, 03/21/2024, 9:00am), carvedilol 25mg PO bid (start date/time, 03/15/2024, 9:00pm), clonidine 0.1mg PO qam (start date/time, 03/21/2024, 9:00am), and sacubitril 24mg - valsartan 26mg PO bid (start date/time, 03/21/2024, 9:00am), and sodium-glucose cotransporter 2 inhibitor empagliflozin 10mg PO daily as per Interventional CARDS Dr. Dwayne Dugan. 2. Chronic hypertension. Well-controlled with BP 125/62 (03/17/2024, 6:14pm), repeat BP 127/70 (03/18/2024, 4:00pm), repeat BP 115/72 (03/19/2024, 7:12pm), and current BP 116/72 (03/20/2024, 4:38pm) on amlodipine 2.5mg PO daily (start date/time, 03/21/2024, 9:00am), carvedilol 25mg PO bid (start date/time, 03/15/2024, 9:00pm), clonidine 0.1mg PO qam (start date/time, 03/21/2024, 9:00am), and sacubitril 24mg - valsartan 26mg PO bid (start date/time, 03/21/2024, 9:00am) as per Interventional CARDS Dr. Dwayne Dugan. 3. Not acute NSTEMI, but rather, chronic CAD with 100% distal LAD stenosis (as reported on 03/16/2024, 10:50am cardiac catheterization, Interventional CARDS Dr. Dwayne Dugan). Continue secondary prophylaxis against CAD utilizing ASA 81mg PO daily, atorvastatin 20mg PO daily, fenofibrate 96mg PO daily. 4. Acute kidney injury with admission creatinine 2.55, GFR 25.84 mL/min (03/15/2024, 4:39pm), superimposed on CKD stage III with baseline creatinine range, 2.17 (05/16/2022, 8:56am) to 2.45 (05/19/2023, 2:26pm). Acute kidney injury has RESOLVED with repeat creatinine 2.17, GFR 31.37 mL/min (03/18/2024, 4:15am) and current creatinine 2.11, GFR 32.44 mL/min (03/19/2024, 5:29am), while continuing to hold off patient's home-scheduled spironolactone given admission hyperkalemia. 5. Acute hyperkalemia with admission K 5.9 mmol/L (03/15/2024, 4:39pm). RESOLVED s/p treatment with calcium gluconate, insulin, and D50, while holding off home-scheduled spironolactone. cf., repeat K 4.3 mmol/L (03/15/2024, 7:45pm) and current K 4.6 mmol/L (03/19/2024, 5:29am). Observe. 6. LINDA, CPAP dependent at home and in [facility]. No daytime somnolence reported by patient on 03/17/2024 - 03/20/2024. 7. DM2 with long-term glycemic control modest with HbA1c 7.8% (12/08/2023, 3:45pm). cf., serum glucose 135 mg/dL (03/17/2024, 4:13am), serum glucose 119 mg/dL (03/18/2024, 4:15am), serum glucose 106 mg/dL (03/19/2024, 5:29am), POC glucose 133 mg/dL (03/20/2024, 4:25pm). Continue aspart insulin sliding scale qac + qhs and lantus 12 units SQ bid. 8. BPH. Patient maintains brisk urine output with finasteride 5mg PO daily with no stevenson catheter warranted on 03/17/2024 - 03/20/2024. 9. Hypothyroidism. Patient has no goiter, lid lag, or proptosis on exam. Patient appears to be euthyroid on synthroid 150ug PO daily with normal s creening TSH 2.116 uIU/mL (03/15/2024, 4:39pm). 10.Depression/anxiety. Mild, no suicidal ideation, homicidal ideation, or anxiety on 03/17/2024 - 03/20/2024. Observe off anti-depressant(s) and anxi olytics on 03/17/2024 - 03/20/2024. 11.Morbid obesity with BMI 45.0 (height 177.8 cm; weight 142.4 kg). Patient needs to lose at least 63.8 kg in order to attain a BMI 24.9, at which level, the patient would no longer be deemed morbidly obese, obese, or overweight. 12.PMH of HIT. Continue fondaparinux (Arixtra) 2.5mg SQ daily while patient remains in [facility]. Admission and Anticipated Discharge Date Admission Date: March 15, 2024 Subjective "I am ok. I have no complaints. Just waiting for the AICD on Friday (03/22/2024)." Review of Systems Constitutional: Negative for antecedent/coincident fevers, chills, diaphoresis, cough, wheeze, sore throat, hemoptysis, chest pains, palpitations, pleurisy, nausea, vomiting, diarrhea, abdominal pain, pelvic pain, hematemesis, hematochezia, melena, hematuria, dysuria, frequency, urgency, headaches, dizziness, lightheadedness, visual changes, hearing changes, weakness, falls, syncope, trauma, travel history, sick contacts, or food/drug ingestions novel or new. All other review of systems are reported as negative by the patient on 03/21/2024. Physical Exam Constitutional: General: comfortable, coherent, cooperative. Wide awake and alert. Not confused, lethargic, or obtunded. Patient speaks in complete, fluent, and artic ulate sentences without pause, interruption, cough, or wheeze. HEENT: NC/AT. EOMI, PERRL. No nystagmus, gaze paresis, anisocoria, miosis, mydriasis, hyphema, chemosis, scleral icterus, conjunctivitis, or pterygium. No otorrhea, no rhinorrhea. No pharyngeal discharge or erythema. Neck: Supple, no stridor, bruit, goiter, or hepatojugular reflux. Jugular venous pressure is estimated to be 8 cm above the sternal angle of Britton, which is typically 5 cm above the level of the right atrium. Hence, there is no jugular venous distention noted on 03/21/2024. Lymphatics: No pre-post auricular, anterior/posterior cervical, supraclavicular/infraclavicular, axillary, epitrochlear, or inguinal adenopathy. Chest: Symmetric rise and fall with respirations. Non-tender to palpation. Heart: RRR, S1 and S2 noted. No S3 or S4 summation gallop noted. No tripartite friction rub. Grade II/ early systolic murmur @ LLSB without radiation to the carotids, axilla, or back, and which remains invariant in regards to the respiratory cycle. Lungs: Clear to auscultation and percussion. No audible expiratory wheeze, egophony, pectoriloquy, increase in tactile fremitus, or flatness/dullness to percussion at the bases. Abdomen: Soft, non-tender, non-distended. No rebound, guarding, French's sign, or organomegaly. Bowel sounds auscultated in all 4 quadrants. Extremities: No clubbing, cyanosis, or edema. 2+ pedal pulses bilaterally. Skin: No decubitus ulcer, exanthem, or enanthem. No hematoma or ecchymosis at right radial artery catheterization site (03/16/2024, 6:57pm, Interventional C ARDS Dr. Dwayne Dugan). Neurology: Alert and oriented in regards to person, place, time, and situation. DTR+ and symmetric. 5/5 motor strength in all 4 extremities, both proximally and distally. No myoclonus, tremors, or tics. Urology: No stevenson catheter. No urethral discharge. Psychiatry: Appropriate affect. Smiles occasionally. No homicidal/suicidal ideation. Results & Data Results & Data Vital Signs (Past 12 Hours) Vital Signs Temp Pulse Pulse Resp BP BP Pulse Ox 03/21/24 08:20 03/21/24 08:00 67 03/21/24 07:25 36.7 C 75 19 136/76 94 03/21/24 03:04 36.6 C 72 20 139/75 92 O2 Del Method 03/21/24 08:20 Room Air 03/21/24 08:00 03/21/24 07:25 Room Air 03/21/24 03:04 Room Air PG Care Time/CCT Total # of Minutes Spent Total Time Spent with Patient: Total time spent is greater than 50% in coordination of care (as documented) at patient's floor/unit and/or counseling patient: Coding Level of Care Code 73019 SUB INP/OBS CARE 2/35MIN Diagnoses Ventricular tachycardia I47.20
[2024-03-22] MEDS ORDERED: Nursing to Pharmacy Communication SCH ×2 (06:15→17:30)
[2024-03-22] MEDS: INSULIN ASPART PER UNIT CHARGE SC SCH ×2 (06:39→20:05)
[2024-03-22 09:18] LABS: BUN Creatinine Ratio 16.4 (10-20); Calcium 8.6 mg/dl (8.6-10.3); Creatinine Clr Calc Pharmacy 43.6 ml/min; Potassium 4.1 mmol/L (3.5-5.1)
--- NOTE | 2024-03-22 15:06 | Pre Anesthesia Assessment ---
Date of Service March 22, 2024 Pre Sedation Assessment Vital Signs Temp Pulse Pulse Resp BP BP Pulse Ox 03/22/24 14:26 36.5 C 70 18 129/82 97 03/22/24 12:00 36.7 C 68 20 116/68 94 03/22/24 08:00 70 03/22/24 07:43 36.9 C 73 19 133/78 96 03/22/24 02:55 36.6 C 76 16 143/84 H 94 03/21/24 23:17 36.9 C 70 16 119/64 94 03/21/24 22:22 71 03/21/24 19:47 36.7 C 75 18 118/75 95 O2 Del Method 03/22/24 14:26 Room Air 03/22/24 12:00 Room Air 03/22/24 08:00 03/22/24 07:43 Room Air 03/22/24 02:55 Room Air 03/21/24 23:17 Room Air 03/21/24 22:22 03/21/24 19:47 Room Air Cardiovascular + regular rate Respiratory + respiratory effort normal Pre-Sedation Airway Assessment Smoking Status: Never smoker Hx Sleep Apnea: Yes Hx Difficult Intubation: No Short, Thick Neck: No Thyromental Distance: > or= 3.5 Finger Breadths Oral Cavity: + WNL Mallampati Class: III ASA: ASA3 NPO Status Date of Last Intake of Fluids: 03/22/24 Time of Last Intake of Fluids: 07:00 Date of Last Intake of Solid Food: 03/21/24 Time of Last Intake of Solid Foods: 19:00 Procedure Planning Contraindications for Sedation: none Current Medications Reviewed: Yes Notes The planned sedation has been discussed with the patient. Informed Consent was obtained. I have identified the patient, determined the appropriateness of sedation and have assessed the patient immediately prior to the procedure. All medicine(s) and interventions are by my order.
[2024-03-22] MEDS: CLINDAMYCIN 900 MG/D5W 50 ML BAG IV ONE (15:13)
[2024-03-22] MEDS: BUPIVACAINE 0.25% PF 30 ML VIAL ONE (15:18)
[2024-03-22] MEDS: LIDOCAINE 1% LOCAL 20 ML VIAL ONE (15:18)
[2024-03-22] MEDS: WATER, STERILE FOR INJ 10 ML VIAL ONE (15:19)
[2024-03-22] MEDS: VANCOMYCIN HCL 1000MG/20ML VIAL ONE (15:19)
--- NOTE | 2024-03-22 15:42 | Hospitalist Progress Note ---
Date of Service March 22, 2024 Assessment & Plan (1) Ventricular tachycardia: Plan: 1 Non sustained wide complex tachycardia Cardiology consulted Plan is for AICD placement today 1. Chronic systolic CHF with reduced LV EF 35-40% Not acute exacerbation Continue medical management of chronic systolic CHF by adherence to 2 gram Na diet, daily weights, strict I/O, amlodipine 2.5mg PO daily, acrvediliol, sacubitril valsartan, Invokana 2. Chronic hypertension. Well-controlled with Continue home meds 3. Not acute NSTEMI, but rather, chronic CAD with 100% distal LAD stenosis Continue secondary prophylaxis against CAD utilizing ASA 81mg PO daily, atorva statin 20mg PO daily, fenofibrate 96mg PO daily. 4. Acute kidney injury with admission creatinine 2.55, GFR 25.84 mL/min Now resolved 5. Acute hyperkalemia Now resolved 6. LINDA, CPAP dependent at home and in [facility]. 7. DM2 with long-term glycemic control modest with HbA1c 7.8% Continue aspart insulin sliding scale qac + qhs and lantus 12 units SQ bid. 8. BPH. Patient maintains brisk urine output with finasteride 5mg PO daily with no stevenson catheter warranted on 03/17/2024 - 03/20/2024. 9. Hypothyroidism. Patient has no goiter, lid lag, or proptosis on exam. Patient appears to be euthyroid on synthroid 150ug PO daily with normal screening TSH 2.116 uIU/mL (03/15/2024, 4:39pm). 10.Depression/anxiety. Mild, no suicidal ideation, homicidal ideation, or anxiety on 03/17/2024 - 03/20/2024. Observe off anti-depressant(s) and anxiolytics on 03/17/2024 - 03/20/2024. 11.Morbid obesity with BMI 45.0 (height 177.8 cm; weight 142.4 kg). Patient needs to lose at least 63.8 kg in order to attain a BMI 24.9, at which level, the patient would no longer be deemed morbidly obese, obese, or overweight. 12.PMH of HIT. Continue fondaparinux (Arixtra) 2.5mg SQ daily while patient remains in [facility]. Hopefully discharge pending SCDs placed Admission and Anticipated Discharge Date Admission Date: March 15, 2024 Subjective Patient seen and examined today, no new complaints, awaiting AICD placement Review of Systems Review of Systems: All systems reviewed are negative, apart from the ones contained in the history. Physical Exam Physical Exam: The patient is awake, alert and oriented 3, well developed and well nourished, normocephalic and atraumatic, lying in bed and in no acute distress. HEENT--PERRL, EOMI, mucous membranes and oropharynx mildly dry Neck--supple. No JVD. No bruits. Thyroid normal, trachea midline, no adenopathy. Heart--normal S1 and S2. No murmurs, rubs or gallops. Lungs--clear bilaterally, no respiratory distress, no accessory muscle use. Abdomen--normal bowel sounds and soft. Extremities--no cyanosis or clubbing. No edema. Dermatologic--normal skin turgor, normal color, no abnormal lymph nodes, no rash. Neurologic--cranial nerves II through XII grossly intact. Rheumatologic--normal range of motion. Psychiatric--normal affect. Results & Data Results & Data Vital Signs (Past 12 Hours) Vital Signs Temp Pulse Pulse Resp BP Pulse Ox O2 Del Method 03/22/24 14:26 97.7 F 70 18 129/82 97 Room Air 03/22/24 12:00 98.1 F 68 20 116/68 94 Room Air 03/22/24 08:00 70 03/22/24 07:43 98.4 F 73 19 133/78 96 Room Air PG Care Time/CCT Total # of Minutes Spent Total Time Spent with Patient: Total time spent is greater than 50% in coordination of care (as documented) at patient's floor/unit and/or counseling patient: Coding Level of Care Code 07432 SUB INP/OBS CARE 2/35MIN Diagnoses Ventricular tachycardia I47.20 Time Spent (min) 35
[2024-03-22] MEDS: fentaNYL citrate PF 100 MCG/2 ML VIAL ONE (16:04)
[2024-03-22] MEDS: MIDAZOLAM HCL 5 MG/ML 1 ML VIAL ONE (16:04)
--- NOTE | 2024-03-22 16:15 | Post Anesthesia Assessment ---
Date of Service March 22, 2024 Post Sedation Assessment Vital Signs Temp Pulse Pulse Resp BP BP Pulse Ox 03/22/24 14:26 36.5 C 70 18 129/82 97 03/22/24 12:00 36.7 C 68 20 116/68 94 03/22/24 08:00 70 03/22/24 07:43 36.9 C 73 19 133/78 96 03/22/24 02:55 36.6 C 76 16 143/84 H 94 03/21/24 23:17 36.9 C 70 16 119/64 94 03/21/24 22:22 71 03/21/24 19:47 36.7 C 75 18 118/75 95 O2 Del Method 03/22/24 14:26 Room Air 03/22/24 12:00 Room Air 03/22/24 08:00 03/22/24 07:43 Room Air 03/22/24 02:55 Room Air 03/21/24 23:17 Room Air 03/21/24 22:22 03/21/24 19:47 Room Air Recovery Score Activity: Moves 4 extremities Respiration: Deep Breath/Cough Circulation: +/-20% PreAnes Value Consciousness: Arouseable (by name) Oxygen Saturation: O2 needed for >90% Post Anesthesia Score: 10 Discharge Sedation Level of Care: Fast Track Phase II Post Sedation Plan On clinical assessment, the patient appears to have tolerated the sedation without complications. Patient is recovering as anticipated. Patient will continue to be monitored by nursing and may be discharged when sedation discharge criteria are met per below protocol. Upon Completions of procedure up to 15 minutes continue every 5 minute vital signs and the P.A.R. score; then discharge to a Phase I or Fast Track to Phase I I per the following guidelines: * Discharge Patient to appropriate Phase II area if PAR is 8 or greater or return to pre- procedure baseline. The post - procedure orders will be as directed. * If PAR score is less than 8 or not return to pre-procedure baseline then patient will follow Phase I monitoring till PAR is reached for Phase II. The Phase I may be done in procedure room or may call to secure a Phase I area. * If naloxone or flumazenil are used for reversal, hold in Phase I for continued monitoring from when last reversal dose was given for a minimum of 60 minutes or longer pending the nurse and/or physician discretion of patient condition before discharge to Phase II. Please call the Sedation Physician to re-evaluate and complete post-note for discharge to Phase II area. Do NOT discharge from procedure sedation or Phase 1 until post- sedation evaluation note is complete by procedure /sedation MD Sedation Discharge Instructions to be given to the patient at discharge to home.
--- NOTE | 2024-03-22 16:21 | Electrophysiology Report ---
Date of Service March 22, 2024 Electrophysiology Procedure Electrophysiology Procedure Report Procedure performed: Implantation of dual-chamber ICD Staff technical buyer: Rick Young MD Indication: The patient is a 73-year-old gentleman presents to the hospital with an episode of sustained ventricular tachycardia. He did require cardioversion. Based on the nature of his arrhythmia in the absence of a reversible cause he was vies undergo implantation of a defibrillator for secondary prevention. Procedure in detail: The patient was informed Lisa benefits and alternatives to the intended procedure. He understood and wished to proceed. He was taken to the electrophysiology suite in a fasting state. A preoperative antibiotic was administered. The patient was monitored electrocardiography throughout today's procedure and conscious sedation was administered per protocol. The left upper pectoral area was prepped and draped in usual sterile fashion. This area was anesthetizing subcutaneous ministration of a lidocaine and Marcaine solution. An incision was made at the site and carried down the prepectoralis fascia using sharp dissection. Electrocautery was also employed for dissection as well as for hemostasis. The device pocket was fashioned and the tissues above the pectoralis muscle. The left axillary vein was subsequently accessed using modified center technique and sheath were placed over guidewires at this site. Issues were used facilitate passage of the leads to the respective chambers and fluoroscopic guidance. This included right ventricular and right atrial leads. Adequate sensing and threshold parameters were obtained prior to active fixation of the lead to the endocardial surface. The leads were then attached to the device. The pocket was irrigated with an antibiotic solution. The leads and device were then placed inside an antibiotic impregnated envelope and placed in the pocket. The pocket was subsequent closed with 3 layers of absorbable suture. Steri-Strips and sterile dressing were applied. The patient tolerated the procedure well. There were no immediate complications. Equipment used: New pulse generator: [employer]. Model number AEXI2N0 serial number [id number] Right atrial lead: [employer]. Model #5076 serial number [id number] Right ventricular lead: [employer]. Model number 6935M serial number [id number] Measured data Right atrial lead: P waves measured 3.4 mV. Pacing threshold was 1.5 V at 0.4 ms with a pacing penis of 532 ohms Right ventricular lead: R waves measured 9.5 mV. Pacing threshold was 0.5 V at 0.4 ms with a pacing penis of 532 ohms Impression: Successful implantation of dual-chamber ICD MNPG Electrophysiology codes ICD Procedure 1: ICD: 98065 Insert single or dual ICD system PG Moderate Sedation Codes Moderate Sedation Codes Procedure 1: Sedation/Anesthesia: 93103 Mod Sedation by the same physician;Init15 Min Child Age 5 & Up Procedure 2: Sedation/Anesthesia: 26969 Mod Sedation by the same physician; Ea [id number] Minutes
[2024-03-22] MEDS: traMADol HCL 50 MG TABLET PO PRN (21:44)
[2024-03-23 06:47] LABS: BUN Creatinine Ratio 16.4 (10-20); Calcium 8.3 mg/dl (8.6-10.3); Creatinine Clr Calc Pharmacy 42.4 ml/min; Potassium 4.4 mmol/L (3.5-5.1)
[2024-03-23 08:09] VITALS: PULSE 86; RESP 22; TEMP 98.2; O2SAT 95
--- NOTE | 2024-03-23 09:34 | XRay Report ---
XR chest 2V PA/lateral CLINICAL HISTORY: Pacemaker insertion. COMPARISON STUDY: Chest radiograph March 15, 2024. FINDINGS: There is no pneumothorax following placement of a dual-lead left subclavian pacer. Cardiome ramona is again noted. There is no evidence for pulmonary edema. There is a trace left pleural effusion . Minimal left basilar opacity favors atelectasis. IMPRESSION: 1. No pneumothorax following placement of a left subclavian pacer. 2. Trace left pleural effusion. ACT 112: Negative or not required by law. Electronically signed by: Kyle Granda M.D. 03/23/2024 9:33 AM
--- NOTE | 2024-03-23 09:50 | Cardiology Progress Note ---
Date of Service March 23, 2024 Assessment & Plan (1) Ischemic cardiomyopathy: Plan: He seems to be doing well on medical therapy. Currently on carvedilol, Jardiance and Entresto. Renal function appears stable. Blood pressure adequate. I think he would be discharged on this regimen with titration in the outpatient setting. (2) Coronary artery disease: Plan: Severe coronary disease with chronic total occlusion of the LAD. Continue aggressive secondary prevention with aspirin and atorvastatin. (3) Ventricular tachycardia: Plan: Status post implantation of dual-chamber ICD yesterday. Normal function of the device. Continue carvedilol. Plan stable for discharge from cardiology standpoint. No vigorous use of the right wrist for 2 more days. No lifting of the left arm above the shoulder behind the neck for 6 weeks. Keep the wound dry and Steri-Strips intact until follow up in our clinic which I will arrange. He should also follow up with his primary salesperson automobiles Dr. Soliman in [place]. We will make a referral to the heart failure clinic as well. Admission and Anticipated Discharge Date Admission Date: March 15, 2024 Subjective this morning the patient claims to be feeling well. Only minor discomfort at the device implant site. No dizziness or lightheadedness. No sense of palpitation. No chest pain. No breathing difficulty at rest. Review of Systems Review of Systems: Per HPI Physical Exam Physical Exam: The patient is alert and oriented. Mood and affect appeared normal. He answered all questions appropriately. HEENT: Pupils are equal and reactive to light and accommodation. Extraocular movements are intact. The sclerae are anicteric. Neuro: Cranial nerves intact Lungs: normal respiratory effort Chest: Some bleeding at the incision site which appears to have stopped. No hematoma. No tenderness to palpation. Cardiac: Heart demonstrates a regular rate and rhythm With occasional ectopy Pulses: The patient has palpable radial pulses bilaterally that are equal in intensity Extremities: There was no evidence of hypoperfusion. There is no cyanosis or clubbing. Skin: I did not appreciate any rashes on examination today. Results & Data Vital Signs (Past 12 Hours) Vital Signs Temp Pulse Pulse Resp BP Pulse Ox O2 Del Method 03/23/24 08:00 36.8 C 86 22 115/96 95 Room Air 03/23/24 07:00 72 03/23/24 02:50 36.5 C 70 18 117/72 94 Room Air 03/22/24 22:31 36.5 C 75 18 103/65 94 CPAP 03/22/24 22:00 75 Laboratory Results chest x-ray obtained today revealed stable lead position without pneumothorax I performed a complete device interrogation which revealed normal function of both the atrial and ventricular leads.
--- NOTE | 2024-03-23 13:06 | Discharge Summary ---
Date of Service March 23, 2024 Admission HPI Per Admitting Provider This is 73-year-old male who was at home shaving his head he went to sit down on his bed and he bent over to pick something off the floor he got a sudden onset of lightheadedness and palpitations and chest pressure. Some mild shortness of breath associated with this. His symptoms waxed and waned he called his family they called 911 he presented to the ER for further evaluation and treatment. When paramedics arrived the patient was in a wide-complex tachycardia he received a bolus of IV amiodarone. He is brought to the ER in a sustained wide- complex tachycardia at which time he was sedated and defibrillated/cardioverted. Initial troponin was unremarkable. Emergent EKG was unremarkable. Consultation was obtained with interventional cardiology on-call Dr. Pruitt- the patient was maintained on amiodarone IV protocol. 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 I discussed with patient and family at the bedside including his son and his daughter and their perspective spouses the patient had pulmonary hemorrhage which was life-threatening and was told never to take heparin again while in [place] according to the family. Therefore given the possibility of HIT to heparin's been discontinued. He has already received his bolus and the drip was already initiated but it was locked immediately at the bedside. We did speak personally with cardiology on-call on this issue. In addition we spoke with critical care on-call MARTÍNEZ, Dov. They will see the patient on consultation as well. Do serial troponins and echocardiogram. Monitor the patient in the ICU and continue amiodarone. Admission Exam (Per Admitting) Constitutional The patient is awake, alert and oriented 3, well developed and well nourished, normocephalic and atraumatic, lying in bed and in no acute distress. HEENT--PERRL, EOMI, mucous membranes and oropharynx mildly dry Neck--supple. No JVD. No bruits. Thyroid normal, trachea midline, no adenopathy. Heart--normal S1 and S2. No murmurs, rubs or gallops. Lungs--clear bilaterally, no respiratory distress, no accessory muscle use. Abdomen--normal bowel sounds and soft. Extremities--no cyanosis or clubbing. No edema. Dermatologic--normal skin turgor, normal color, no abnormal lymph nodes, no rash. Neurologic--cranial nerves II through XII grossly intact. Rheumatologic--normal range of motion. Psychiatric--normal affect. Discharge Data Consultations 03/15/24 18:07 ED Decision to Admit Stat 03/15/24 18:56 Consult Cardiology Routine 03/15/24 18:58 Consult Rail Car Repairer Routine 03/15/24 21:07 Consult Hematology Routine 03/17/24 17:08 Consult Cardiac Electrophysiology Routine 03/17/24 17:11 Consult Nephrology Routine Procedures Performed Operation Date: 03/22/24 15:00 Actual Procedures p ICD Insertion Single or Dual - Rick Young MD Hospital Course (1) Ventricular tachycardia: 1 Non sustained wide complex tachycardia Cardiology consulted Now s/p AICD placement stable post placement, interrogated 1. Chronic systolic CHF with reduced LV EF 35-40% Not acute exacerbation Continue medical management of chronic systolic CHF by adherence to 2 gram Na diet, daily weights, strict I/O, amlodipine 2.5mg PO daily, carvediliol, sacubitril valsartan, Invokana 2. Chronic hypertension. Well-controlled with Continue home meds 3. Not acute NSTEMI, but rather, chronic CAD with 100% distal LAD stenosis Continue secondary prophylaxis against CAD utilizing ASA 81mg PO daily, atorvastatin 20mg PO daily, fenofibrate 96mg PO daily. 4. Acute kidney injury with admission creatinine 2.55, GFR 25.84 mL/min Now resolved 5. Acute hyperkalemia Now resolved 6. LINDA, CPAP dependent at home and in [facility]. 7. DM2 with long-term glycemic control modest with HbA1c 7.8% Continue aspart insulin sliding scale qac + qhs and lantus 12 units SQ bid. 8. BPH. Patient maintains brisk urine output with finasteride 5mg PO daily with no stevenson catheter warranted on 03/17/2024 - 03/20/2024. 9. Hypothyroidism. Patient has no goiter, lid lag, or proptosis on exam. Patient appears to be euthyroid on synthroid 150ug PO daily with normal screening TSH 2.116 uIU/mL (03/15/2024, 4:39pm). 10.Depression/anxiety. Mild, no suicidal ideation, homicidal ideation, or anxiety on 03/17/2024 - 03/20/2024. Observe off anti-depressant(s) and anxiolytics on 03/17/2024 - 03/20/2024. 11.Morbid obesity with BMI 45.0 (height 177.8 cm; weight 142.4 kg). Patient needs to lose at least 63.8 kg in order to attain a BMI 24.9, at which level, the patient would no longer be deemed morbidly obese, obese, or overweight. 12.PMH of HIT. Continue fondaparinux (Arixtra) 2.5mg SQ daily while patient remains in [facility]. d/c home Coding Level of Care Code 88947 INP/OBS DISCH >30 MIN Diagnoses Ventricular tachycardia I47.20 Time Spent (min) 35
[2024-03-23 13:46] VITALS: BP 143/84
--- NOTE | 2024-03-24 05:45 | Electrocardiogram Report ---
Test Reason : Blood Pressure : */* mmHG Vent. Rate : 69 BPM Atrial Rate : 69 BPM P-R Int : 166 ms QRS Dur : 172 ms QT Int : 488 ms P-R-T Axes : -1 -82 91 degrees QTcB Int : 523 ms Atrial-sensed ventricular-paced rhythm Abnormal ECG When compared with ECG of 16-Mar-2024 05:04, Ventricular pacing is now present Confirmed by Jesus Alberto Pruitt ([id number]) on 03/24/2024 5:44:31 AM Referred By: REFERRED SELF Confirmed By: Jesus Alberto Pruitt
== END 2024-03-23 14:15 | disposition home or self-care (01) | DRG 242 ==
LOC: ED 16:32 → SUATTDRO 18:57 → 1E 18:57 → 2E 03-19 01:31
PROC: CLB.CCO (2024-03-16 09:30)
PROC: EPB.ICD (2024-03-22 15:00)

== ENCOUNTER 2024-04-04 10:48 | Inpatient (IN) ==
--- NOTE | 2024-04-04 11:05 | Emergency Department Note ---
Impression & Plan Ventricular tachycardia, CKD (chronic kidney disease), AICD present, double chamber, Elevated troponin, Syncope, cardiogenic ED Provider Note NAME: LANA MCKNIGHT AGE: 73 SEX: M : 1950 ARRIVES VIA: Ambulance INFORMANT: Patient, nursing report ED PROVIDER(S): Urbano Mcginnis MD CHIEF COMPLAINT: Syncope MEDICAL DECISION MAKING: Patient presents due to concern for syncope. IV was established and blood work was obtained. Pads were placed and the patient did have his AICD interrogated. BSG for EMS was in the 200s. I did receive the patient's interrogation report which showed the patient did have 27 episodes of VT all this morning. 26 were paced terminated episodes no shocks. I did speak with the [employer] rep Baljit who stated that likely 1 of these episodes terminated on its own without the device being required. Patient with a normal white count hemoglobin 12.4 with a normal platelet count. I did speak the on-call cardiology service Dr. Soliman who recommended amiodarone bolus and drip. Patient's kidney function was good at 2.35. This is around the patient's baseline. BSG at 126. Troponin of 35. TSH normal. Patient CT head without evidence of obvious ICH. I did speak with the on-call hospital service after informing the patient the patient's family at bedside. Patient was admitted by Dr. Culp. Critical Care: I have personally spent 55 minutes of critical care time in direct management of this patient. This includes bedside care, interpretation of diagnostic studies, and testing, discussion with consultants, patient, and family members, and other require inpatient management activities. This 55 minutes is in excess of all separately billable procedures. Discussion w/ other healthcare providers: Baljit Soliman cardiology service Dr. Culp inpatient medicine service Prior /Outside records reviewed: I reviewed part of a heart failure visit from 2 days prior which in [place]. Known history of heart failure with reduced ejection fraction AICD in place LINDA A-fib CKD ischemic cardiomyopathy V. tach and CAD. Patient currently on quadruple therapy Jardiance carvedilol Entresto and Aldactone. Plan was to take with the patient's amlodipine and clonidine reduced to once daily due to concerns for lower blood pressure. Patient did have a recent admission for V. tach on March 15 and acute hyperkalemia and FIDEL. Treated with amiodarone and cardioversion defibrillation in the emergency department. Differential diagnosis: Vasovagal event, dehydration, infection, hypoglycemia, electrolyte abnormalities, arrhythmia, pulmonary embolism, seizure among others were considered. Diagnostics, as interpreted by me: ECG: Sinus with first-degree AV block, prolonged IL, wide QRS, left bundle branch block pattern. Left axis deviation. No obvious STEMI. Cardiac monitoring: An order was placed for continuous cardiac monitoring. The monitor shows a rate of 75 with sinus rhythm. Patient was placed on pulse oximetry Medical decision rules: Mongolian head CT rule Imaging studies: I informally interpreted the patient's chest x-ray does not show obvious pneumonia or pneumothorax with formal report to follow. HPI: Patient presents due to concern for syncope which occurred this morning. Patient states that he got up typically takes his Synthroid first thing and then went to scramble some eggs and had some fruit that was leftover. After eating some of the fruit which is some watermelon states that he got very lightheaded and dizzy. Patient reports that he took his normal medications. The patient believes that he may have missed his Jardiance but believes that he did take his Entresto and amlodipine. Patient denies any active chest pains or shortness of breath. The patient does not believe he was out for a prolonged period of time. Patient reports no feeling as though he was shocked. Patient denies any vomiting or diarrhea. Patient believes that he may have struck the left side of his head as he does have mild headache. Patient does follow with heart failure service as well as with Irwin Lindsay and Dr. Soliman. Patient also does follow with Dr. Kemp. PAST MEDICAL HISTORY: See Below PAST SURGICAL HISTORY: See Below SOCIAL HISTORY: See Below HOME MEDICATIONS: See Below ALLERGIES: See Below VITALS: See Below PHYSICAL EXAMINATION: GENERAL: NAD, non-toxic. EYE EXAM: Normal conjunctiva. PERRL, no anisocoria and EOM's grossly intact w/o pain. Head: Mild TTP to the left side of the head no obvious deformity or bruising. OROPHARYNX: Moist mucus membranes, grossly normal dentition. NECK: Trachea midline, no stridor. Supple, no nuchal rigidity, no adenopathy, non-tender. No signs of meningismus. FROM of the neck with good chin to chest and neck extension. No midline C-spine TTP. Chest: Well-healed incisional sites over the left chest, bruising noted over the lower chest area. LUNGS: Clear to auscultation. Normal chest wall mechanics. HEART: NSR, no MRG. ABDOMEN: Abdomen soft, non-tender, no masses, no rebound or guarding. BACK: No CVA TTP. SKIN: Bruising is noted to the chest. UPPER EXTREMITIES: Upper extremities are grossly normal. LOWER EXTREMITIES: Grossly normal, no edema. NEURO EXAM: A&O x3, cranial nerves II-XII grossly intact, normal speech, moves all 4 extremities. Past Med/Surg History Problem List (Updated 04/04/24 @ 12:10 by Urbano Mcginnis MD) Syncope, cardiogenic (Acute) Elevated troponin (Acute) AICD present, double chamber (Acute) CKD (chronic kidney disease) (Acute) Ventricular tachycardia (Acute) Heart failure with reduced ejection fraction (HFrEF, <= 40%) S/P implantation of automatic cardioverter/defibrillator (AICD) (03/2024) Obstructive sleep apnea Hypothyroidism HTN (hypertension) Diabetes mellitus Cor pulmonale Paroxysmal atrial fibrillation CKD (chronic kidney disease) Ischemic cardiomyopathy Wide-complex tachycardia Coronary artery disease Ventricular tachycardia (Acute) Environmental allergies Hypercholesterolemia 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 diabetes mellitus Morbid obesity Depression BPH w urinary obs/LUTS Nocturnal hypoxia Asthma Gout (Acute) Medical History Dysrhythmia Elevated troponin FIDEL (acute kidney injury) Acute hyperkalemia Diabetic kidney disease Left bundle branch block Chronic diastolic CHF (congestive heart failure) Dyspnea Adverse effect of COVID-19 vaccine Syncope, vasovagal Resistant hypertension Surgical History S/P left knee arthroscopy S/P right knee arthroscopy History of herniorrhaphy umbilical History of uvulopalatopharyngoplasty Family History Sister Breast cancer Uterine cancer Father Myocardial infarction Skin cancer (melanoma) Heart disease Lung cancer Mother Diabetes Denies family history of Prostate cancer Kidney disease Social History Smoking Status: Never smoker Second Hand Exposure: No; Do You Dip or Chew Tobacco: No; Hx Alcohol Use: No Hx Substance Use: No Preferred Language: Kyrgyz Communication Ability: Effective Visual Impairment: No Limitations Hearing Ability: Normal Safety Clothing And Equipment Developer Required: No Beliefs That Will Affect Care: None marital status: Current Living Situation: Alone current occupational status: retired How many Children do You have: 3 Feels Safe at Home: Yes Childhood Exposure to Second-Hand Smoke: Yes Diet: regular Diet Comment: regular caffeine: Yes during the past year weight has: remained stable Dental Care, Regularly: Yes Physical Activity Frequency: Other Physical Activity Frequency Comment: WALKING Seatbelt Use: always Sunscreen Use: Yes Assistive Devices: CPAP and Walker Allergies Allergies Allergy/AdvReac Type Severity Reaction Status Date / Time heparin Allergy Severe HIT Verified 04/02/24 10:32 Penicillins Allergy Severe HIVES/SOB Verified 04/02/24 10:32 Cephalosporins Allergy Intermediate FROM MED Verified 04/02/24 10:32 MARA GONZALEZ telmisartan Allergy Intermediate FROM Verified 04/02/24 10:32 MULUGETA OFC RECORD Home Meds Home Medications Medication Instructions Recorded Confirmed cyanocobalamin (vitamin B-12) 5,000 mcg sublingual DAILY 10/01/18 04/04/24 5,000 mcg sublingual tablet acetaminophen 500 mg tablet 500 mg PO Q6H PRN Pain 06/17/19 04/04/24 (Tylenol Extra Strength) dulaglutide 4.5 mg/0.5 mL 4.5 mg subcut UD 03/15/24 04/04/24 subcutaneous pen injector finasteride 5 mg tablet 5 mg PO QAM 03/15/24 04/04/24 glipizide 10 mg tablet 10 mg PO BID 03/24/24 04/04/24 krill oil 500 mg capsule 500 mg PO DAILY 03/24/24 04/04/24 metformin 500 mg tablet 500 mg PO BID 03/24/24 04/04/24 montelukast 10 mg tablet 10 mg PO HS 03/24/24 04/04/24 clonidine HCl 0.1 mg tablet 0.1 mg PO HS 04/02/24 04/04/24 cholecalciferol (vitamin D3) 100 1,000 unit PO DAILY 04/04/24 04/04/24 mcg (4,000 unit) capsule empagliflozin 10 mg tablet 10 mg PO QAM 04/04/24 04/04/24 (Jardiance) Previous Rx's Medication Instructions Recorded multivitamin (Daily Multi-Vitamin 1 tab PO DAILY #90 tabs 11/28/20 tablet) CPAP Machine #1 ea 03/20/22 furosemide 40 mg tablet 40 mg PO DAILY #90 tabs 06/24/23 atorvastatin 20 mg tablet 20 mg PO DAILY #90 tabs 09/17/23 carvedilol 25 mg tablet 25 mg PO BID #180 tabs 11/03/23 fenofibrate nanocrystallized 48 mg 96 mg (2 x 48 mg) PO DAILY #180 11/03/23 tablet tabs tamsulosin 0.4 mg capsule 0.4 mg PO HS #90 caps 11/18/23 trazodone 100 mg tablet 100 mg PO HS #90 tabs 11/18/23 levothyroxine 150 mcg tablet 150 mcg PO DAILY #90 tabs 11/25/23 spironolactone 50 mg tablet 50 mg PO DAILY #90 tabs 11/25/23 bupropion HCl 300 mg 24 hr tablet, 300 mg PO DAILY #90 tabs 02/20/24 extended release blood sugar diagnostic ([employer] GroupTouch #100 ea 03/17/24 Ultra Test strips) blood-glucose meter ([employer] GroupTouch #1 ea 03/17/24 Ultra2 Meter) lancets 33 gauge (OneTouch Delica #100 ea 03/17/24 Plus Lancet) aspirin 81 mg tablet,delayed 81 mg PO QAM 30 days #30 tabs 03/23/24 release sacubitril 24 mg-valsartan 26 mg 1 tab PO BID #60 tabs 03/23/24 tablet (Entresto) Results & Data (ED) Vital Signs Vital Signs - 24 hr 04/04/24 10:29 04/04/24 10:58 04/04/24 11:12 Temperature 36.9 C Temperature Source Oral Pulse Rate 79 78 80 Pulse Rate [Apical] Pulse Rhythm [Apical] Pulse Strength [Apical] Respiratory Rate 20 Respiratory Effort / Characteristics Respiratory Depth Respiratory Pattern Blood Pressure 125/77 Blood Pressure [Right Arm] Blood Pressure Mean 93 Blood Pressure Mean [Right Arm] Blood Pressure Position [Right Arm] Pulse Oximetry 99 98 Oxygen Delivery Method Room Air Room Air Sepsis Recent Fever Within 48 Hours No Sepsis New/Unexplained Change in Mental Status No Sepsis Action Taken by Nursing No Action Required 04/04/24 12:06 04/04/24 12:08 04/04/24 15:02 Temperature Temperature Source Pulse Rate 80 Pulse Rate [Apical] 71 Pulse Rhythm [Apical] Regular Pulse Strength [Apical] Normal Respiratory Rate 23 18 Respiratory Effort / Characteristics Non-Labored Spontaneous Respiratory Depth Normal Respiratory Pattern Regular Blood Pressure 143/80 H Blood Pressure [Right Arm] 141/69 H Blood Pressure Mean 92 Blood Pressure Mean [Right Arm] 93 Blood Pressure Position [Right Arm] Lying Pulse Oximetry 98 Oxygen Delivery Method Room Air Sepsis Recent Fever Within 48 Hours Sepsis New/Unexplained Change in Mental Status Sepsis Action Taken by Nursing 04/04/24 16:14 04/04/24 17:02 Temperature Temperature Source Pulse Rate 70 Pulse Rate [Apical] 69 Pulse Rhythm [Apical] Regular Pulse Strength [Apical] Normal Respiratory Rate 20 Respiratory Effort / Characteristics Non-Labored Spontaneous Respiratory Depth Normal Respiratory Pattern Regular Blood Pressure Blood Pressure [Right Arm] 132/78 Blood Pressure Mean Blood Pressure Mean [Right Arm] 96 Blood Pressure Position [Right Arm] Lying Pulse Oximetry Oxygen Delivery Method Sepsis Recent Fever Within 48 Hours Sepsis New/Unexplained Change in Mental Status Sepsis Action Taken by Group Home Medications Current Medication List: was personally reviewed by me Laboratory Data Attestation: I reviewed the patient's lab results. 04/04/24 11:04 04/04/24 11:04 Lab Results 04/04/24 04/04/24 Range/Units 11:04 14:36 WBC 9.03 (4.8-10.8) K/ul RBC 4.20 L (4.70-6.10) M/uL Hgb 12.4 L (14.0-18.0) g/dl Hct 37.4 L (42.0-52.0) % MCV 89.0 (80.0-100.0) fL MCH 29.5 (25.0-34.0) pg MCHC 33.2 (32.0-36.0) g/dL RDW Std Deviation 44.0 (36.4-46.3) fL RDW Coeff of Christina 13.6 (11.5-14.5) % Plt Count 251 (130-400) K/uL MPV 10.4 (9.4-12.4) fL Immature Gran % (Auto) 0.7 % Neut % (Auto) 73.5 % Lymph % (Auto) 17.8 % Page % (Auto) 6.0 % Eos % (Auto) 1.4 % Baso % (Auto) 0.6 % Neut # (Auto) 6.64 H (1.40-6.50) K/uL Lymph # (Auto) 1.61 (1.20-3.40) K/uL Page # (Auto) 0.54 (0.11-0.59) K/uL Eos # (Auto) 0.13 (0.00-0.50) K/uL Baso # (Auto) 0.05 (0.00-0.20) K/uL Immature Gran # (Auto) 0.06 (0.01-0.20) K/uL PT 10.9 (9.0-12.0) Seconds INR 1.0 (0.9-1.1) APTT 25 (21-31) Seconds PTT Ratio 0.9 Sodium 133 L (136-145) mmol/L Potassium 4.6 (3.5-5.1) mmol/L Chloride 103 (98-107) mmol/L Carbon Dioxide 24 (21-32) mmol/L Anion Gap 6 (3-11) BUN 46 H (6-23) mg/dl Creatinine 2.35 H D (0.6-1.4) mg/dl Est Cr Clr Drug Dosing 40.6 ml/min eGFR 28.51 BUN/Creatinine Ratio 19.6 (10-20) Glucose 126 H (70-99(Fasting)) mg/dl Calcium 9.2 (8.6-10.3) mg/dl Magnesium 2.2 (1.7-2.4) mg/dl Total Bilirubin 0.4 (0.2-1.0) mg/dl AST 18 (13-39) U/L ALT 14 (7-52) U/L Alkaline Phosphatase 36 (34-104) U/L Troponin I High Sens 35.0 H 54.9 H* D (0-20) pg/ml Total Protein 6.6 (6.0-8.3) gm/dl Albumin 3.8 (3.4-5.0) gm/dl Globulin 2.8 (2.5-4.0) gm/dl Albumin/Globulin Ratio 1.4 (0.9-2) TSH 0.690 (0.300-4.500) uIu/ml Administered Medications Amiodarone HCl/Dextrose (Nexterone / D5w) 360 mg in 200 mls @ 33.333 mls/hr IV ONE ONE Stop: 04/04/24 17:37 Last Admin: 04/04/24 12:15 Dose: 1 mg/min, 33.3 mls/hr Documented By: SARI Co-signed By: GRETA Discontinued Medications Acetaminophen (Acetaminophen 500 Mg Tab) 1,000 mg PO NOW STA Stop: 04/04/24 11:53 Last Admin: 04/04/24 11:59 Dose: 1,000 mg Documented By: NIKKI Amiodarone HCl (Amiodarone Iv Bolus & Drip) 1 each IV NOW STA; Protocol Stop: 04/04/24 11:29 Last Admin: 04/04/24 11:59 Dose: 1 each Documented By: NIKKI Amiodarone HCl/Dextrose (Nexterone / D5w) 150 mg in 100 mls @ 600 mls/hr IV NOW STA Stop: 04/04/24 11:37 Last Infusion: 04/04/24 12:10 Dose: Infused Documented By: NIKKI Co-signed By: SARI Admin: 04/04/24 11:59 Dose: 600 mls/hr Documented By: NIKKI Co-signed By: SARI Miscellaneous (Stat Iv Infusion Titration Per Protocol) 1 each N/A NOW STA Stop: 04/04/24 11:29 Last Admin: 04/04/24 11:59 Dose: 1 each Documented By: NIKKI Imaging Data Radiologist's Impression: Chest X-Ray 04/04/24 11:12 EXAM: Radiograph of the Chest 1 View INDICATION: Syncope TECHNIQUE: Frontal view of the chest. COMPARISON: 03/23/2024 FINDINGS: Lungs and pleural spaces: Stable mild scarring in the left lung base. No consolidation or pulmonary edema. No pleural effusion or pneumothorax. Heart: Stable enlargement and pacing device. Mediastinum: Normal contour. Bones/joints: No fracture, erosion or dislocation. Soft tissues: No abnormality noted. No radiopaque foreign body noted. Upper abdomen: No abnormality noted. IMPRESSION: Stable chronic changes. No acute disease. ACT 112: Negative or not required by law. Electronically signed by Anni Alfaro 04-04-2024 13:[address] 04/04/24 11:12 EXAM: CT Head Without Intravenous Contrast INDICATION: Trauma TECHNIQUE: Axial computed tomography images of the head/brain without intravenous contrast. Sagittal and/or coronal reformats are provided. Sagittal and coronal reformatted images were created and reviewed. This CT exam was performed using one or more of the following dose reduction techniques: automated exposure control, adjustment of the mA and/or kV according to patient size, and/or use of iterative reconstruction technique. COMPARISON: No relevant prior studies available. FINDINGS: Limitations: None. Brain and extra-axial spaces: There is age appropriate cortical atrophy and chronic ischemic periventricular white matter hypodensity. No acute infarct, hemorrhage or mass noted. Bones/joints: No acute changes. Soft tissues: No significant abnormality noted. Vasculature: Intracranial atherosclerosis noted. Sinuses: No layering fluid in the visualized portions of the paranasal sinuses. Mastoid air cells: No mastoid effusion. Orbits: No significant abnormality noted. IMPRESSION: Cerebral atrophy. No acute changes. ACT 112: Negative or not required by law. Electronically signed by Anni Alfaro 04-04-2024 11:59 AM Discharge Plan Visit Data Chief Complaint: Syncope ED Provider: Urbano Mcginnis Discharge Problem: Ventricular tachycardia, CKD (chronic kidney disease), AICD present, double chamber, Elevated troponin, Syncope, cardiogenic Forms Stand Alone Forms: My [facility] [place] [employer] Prescriptions Prescriptions: No Action multivitamin [Daily Multi-Vitamin] Tablet 1 tab PO DAILY Qty: 90 6RF furosemide 40 mg tablet 40 mg PO DAILY Qty: 90 3RF Hold Instructions: fidel atorvastatin 20 mg tablet 20 mg PO DAILY Qty: 90 2RF carvedilol 25 mg tablet 25 mg PO BID Qty: 180 1RF fenofibrate nanocrystallized 48 mg tablet 96 mg PO DAILY Qty: 180 1RF trazodone 100 mg tablet 100 mg PO HS Qty: 90 1RF tamsulosin 0.4 mg capsule 0.4 mg PO HS Qty: 90 1RF levothyroxine 150 mcg tablet 150 mcg PO DAILY Qty: 90 1RF spironolactone 50 mg tablet 50 mg PO DAILY Qty: 90 3RF Hold Instructions: fidel bupropion HCl 300 mg tablet extended release 24 hr 300 mg PO DAILY Qty: 90 1RF (DME) blood-glucose meter [[employer] Ultra2 Meter] Misc See Rx Instructions .Route Qty: 1 0RF Rx Instructions: Check blood sugar once a day (DME) OneTouch Ultra Test Strip See Rx Instructions .Route Qty: 100 5RF Rx Instructions: testing 1 x per day (DME) lancets [OneTouch Delica Plus Lancet] 33 gauge misc See Rx Instructions .Route Qty: 100 1RF Rx Instructions: testing 1 x per day glipizide 10 mg tablet 10 mg PO BID Hold Instructions: hypoglycemia krill oil 500 mg capsule 500 mg PO DAILY metformin 500 mg tablet 500 mg PO BID Rx Instructions: 500 mg po bid. last filled 11/25/23 90 day supply montelukast 10 mg tablet 10 mg PO HS cyanocobalamin (vitamin B-12) 5,000 mcg tablet, sublingual 5,000 mcg SL DAILY (DME) CPAP Machine [facility] [place] .Route Qty: 1 0RF Rx Instructions: Change to CPAP at 9 cm of water, Spanish Home patient acetaminophen [Tylenol Extra Strength] 500 mg tablet 500 mg PO Q6H PRN (Reason: Pain) clonidine HCl 0.1 mg tablet 0.1 mg PO HS finasteride 5 mg tablet 5 mg PO QAM dulaglutide 4.5 mg/0.5 mL pen injector 4.5 mg subcut UD Rx Instructions: 4.5 mg wk. No fill history available sacubitril-valsartan [Entresto] 24-26 mg Tablet 1 tab PO BID Qty: 60 0RF Hold Instructions: fidel aspirin 81 mg Tablet,Delayed Release (Dr/Ec) 81 mg PO QAM 30 Days Qty: 30 0RF Vitamin D3 100 mcg (4,000 unit) Capsule 1,000 unit PO DAILY Jardiance 10 mg tablet 10 mg PO QAM Referrals Referrals: Amber Kemp DO [Primary Care Provider] - Discharge Problem: CKD (chronic kidney disease) Qualifiers: Chronic kidney disease stage: stage 3 (moderate) Chronic kidney disease stage 3 subtype: stage 3b (GFR 30-44) Qualified Code(s): N18.32 - Chronic kidney disease, stage 3b
[2024-04-04 11:21] LABS: Basophils # (auto) 0.05 K/uL (0.00-0.20); Basophils % (auto) 0.6 %; Eosinophils # (auto) 0.13 K/uL (0.00-0.50); Eosinophils % (auto) 1.4 %; Hematocrit (blood only) 37.4 % (42.0-52.0); Hemoglobin 12.4 g/dl (14.0-18.0); Immature Granulocytes # (auto) 0.06 K/uL (0.01-0.20); Immature Granulocytes % (auto) 0.7 %; Lymphocytes # (auto) 1.61 K/uL (1.20-3.40); Lymphocytes % (auto) 17.8 %; Mean Corpuscular Hemoglobin 29.5 pg (25.0-34.0); Mean Corpuscular Hgb Conc 33.2 g/dL (32.0-36.0); Mean Platelet Volume 10.4 fL (9.4-12.4); Monocytes # (auto) 0.54 K/uL (0.11-0.59); Neutrophils # (auto) 6.64 K/uL (1.40-6.50); Neutrophils % (auto) 73.5 %; Platelet Count 251 K/uL (130-400); RDW Coefficient of Variation 13.6 % (11.5-14.5); White Blood Count 9.03 K/ul (4.8-10.8)
[2024-04-04] MEDS ORDERED: 0.2 MICRON FILTER SET 1 EACH IV STA (11:28)
[2024-04-04 11:49] LABS: Albumin Globulin Ratio 1.4 (0.9-2); Albumin Level 3.8 gm/dl (3.4-5.0); BUN Creatinine Ratio 19.6 (10-20); Bilirubin,Total 0.4 mg/dl (0.2-1.0); Calcium 9.2 mg/dl (8.6-10.3); Creatinine Clr Calc Pharmacy 40.6 ml/min; Globulin 2.8 gm/dl (2.5-4.0); Magnesium 2.2 mg/dl (1.7-2.4); Potassium 4.6 mmol/L (3.5-5.1); Total Protein 6.6 gm/dl (6.0-8.3)
--- NOTE | 2024-04-04 11:54 | History & Physical Report ---
Date of Service April 04, 2024 Assessment & Plan (1) Syncope, cardiogenic: Plan: Suspect secondary to ventricular tachycardia (although not clear from pacemaker report he was definitely in this rhythm a the time of syncope) with not taking the right medications (most likely some orthostasis with clonidine) Continue off amlodipine. Stop clonidine. Can restart Entresto at lowest dose as Cr has improved. (2) Ventricular tachycardia: Plan: 26 paced terminated episodes since insertion. Started on IV amiodarone per cardiology recommendations Mg > 2, K > 4 Consult cardiology (3) Heart failure with reduced ejection fraction (HFrEF, <= 40%): Plan: Chronic. Currently euvolemic. Likely to need to restart furosemide at some point but will continue off this currently. Restart and up titrate Entresto as able (4) Ischemic cardiomyopathy: Plan: Metoprolol + Entresto (5) Obstructive sleep apnea: Plan: CPAP HS Plan VTE Prophylaxis - HIT to heparin and renal function precludes Lovenox, SCDs Diet - heart healthy, T2DM, Low Na Disposition - admit to PCU Admission and Anticipated Discharge Date Admission Date: April 052024 History of Present Illness Chief Complaint: Syncope Primary Care Provider: Amber Kemp DO Keshav Wasserman is a 73-year-old male who presents to the ER with a syncopal event. He was recently admitted for ventricular tachycardia and placed on IV amiodarone with subsequent ICD placement. He was doing well with no chest pain, shortness of breath, palpitations or presyncope up until this morning. He felt a little dizzy/lightheaded then took his morning medications and as soon as he reached up for the cupboard he suddenly felt worse and lost consciousness. No injuries from the fall. He is currently feeling back to his baseline in the ER. He thinks he did not take the right medications this morning as multiple recent changes and he started a new week pill packet this morning and hadn't sorted out the changes yet. He thinks he took out the Entresto, spironolactone and furosemide as previously advised but thinks he accidently took the clonidine and glipizide. Multiple medication changes recently. On discharge from last admission he was started on Entresto, aspirin and Jardiance. Notably the Jardiance was very expensive and not sure if he can continue on this but he is currently taking it. His furosemide was continued at 40mg PO and clonidine 0.1mg PO BID. Amlodipine was switched from 10mg to 2.5mg PO daily. Spironolactone was discontinued. On follow up with his PCP his glipizide was discontinued as he was getting hypoglycemic episodes (however as noted above he probably accidently took this today). At his appointment with Madelyn Mota he was hypotensive and subsequent Cr was increasing therefore his Entresto and furosemide was held. He took his Trulicity as usual on . He denies any worsening heart failure symptoms such as shortness of breath, weight gain or leg swelling. Pacemaker check in the ER shows 26 paced terminated VT/VF episodes since insertion. Allergies Allergy/AdvReac Type Severity Reaction Status Date / Time heparin Allergy Severe HIT Verified 04/02/24 10:32 Penicillins Allergy Severe HIVES/SOB Verified 04/02/24 10:32 Cephalosporins Allergy Intermediate FROM MED Verified 04/02/24 10:32 MARA GONZALEZ telmisartan Allergy Intermediate FROM Verified 04/02/24 10:32 MULUGETA OFC RECORD Home Medications Medication Instructions Recorded Confirmed Type cyanocobalamin (vitamin B-12) 5,000 mcg sublingual DAILY 10/01/18 04/04/24 History 5,000 mcg sublingual tablet acetaminophen 500 mg tablet 500 mg PO Q6H PRN Pain 06/17/19 04/04/24 History (Tylenol Extra Strength) multivitamin (Daily Multi-Vitamin 1 tab PO DAILY #90 tabs 11/28/20 04/04/24 Rx tablet) CPAP Machine #1 ea 03/20/22 04/02/24 Rx furosemide 40 mg tablet 40 mg PO DAILY #90 tabs 06/24/23 04/04/24 Rx atorvastatin 20 mg tablet 20 mg PO DAILY #90 tabs 09/17/23 04/04/24 Rx carvedilol 25 mg tablet 25 mg PO BID #180 tabs 11/03/23 04/04/24 Rx fenofibrate nanocrystallized 48 mg 96 mg (2 x 48 mg) PO DAILY #180 11/03/23 04/04/24 Rx tablet tabs tamsulosin 0.4 mg capsule 0.4 mg PO HS #90 caps 11/18/23 04/04/24 Rx trazodone 100 mg tablet 100 mg PO HS #90 tabs 11/18/23 04/04/24 Rx levothyroxine 150 mcg tablet 150 mcg PO DAILY #90 tabs 11/25/23 04/04/24 Rx spironolactone 50 mg tablet 50 mg PO DAILY #90 tabs 11/25/23 04/04/24 Rx bupropion HCl 300 mg 24 hr tablet, 300 mg PO DAILY #90 tabs 02/20/24 04/04/24 Rx extended release dulaglutide 4.5 mg/0.5 mL 4.5 mg subcut UD 03/15/24 04/04/24 History subcutaneous pen injector finasteride 5 mg tablet 5 mg PO QAM 03/15/24 04/04/24 History blood sugar diagnostic (OneTouch #100 ea 03/17/24 04/02/24 Rx Ultra Test strips) blood-glucose meter (OneTouch #1 ea 03/17/24 04/02/24 Rx Ultra2 Meter) lancets 33 gauge (OneTouch Delica #100 ea 03/17/24 04/02/24 Rx Plus Lancet) aspirin 81 mg tablet,delayed 81 mg PO QAM 30 days #30 tabs 03/23/24 04/04/24 Rx release sacubitril 24 mg-valsartan 26 mg 1 tab PO BID #60 tabs 03/23/24 04/04/24 Rx tablet (Entresto) glipizide 10 mg tablet 10 mg PO BID 03/24/24 04/04/24 History krill oil 500 mg capsule 500 mg PO DAILY 03/24/24 04/04/24 History metformin 500 mg tablet 500 mg PO BID 03/24/24 04/04/24 History montelukast 10 mg tablet 10 mg PO HS 03/24/24 04/04/24 History clonidine HCl 0.1 mg tablet 0.1 mg PO HS 04/02/24 04/04/24 History cholecalciferol (vitamin D3) 100 1,000 unit PO DAILY 04/04/24 04/04/24 History mcg (4,000 unit) capsule empagliflozin 10 mg tablet 10 mg PO QAM 04/04/24 04/04/24 History (Jardiance) Past Med/Surg History Problem List (Updated 04/04/24 @ 12:10 by Urbano Mcginnis MD) Syncope, cardiogenic (Acute) Elevated troponin (Acute) AICD present, double chamber (Acute) CKD (chronic kidney disease) (Acute) Ventricular tachycardia (Acute) Heart failure with reduced ejection fraction (HFrEF, <= 40%) S/P implantation of automatic cardioverter/defibrillator (AICD) (03/2024) Obstructive sleep apnea Hypothyroidism HTN (hypertension) Diabetes mellitus Cor pulmonale Paroxysmal atrial fibrillation CKD (chronic kidney disease) Ischemic cardiomyopathy Wide-complex tachycardia Coronary artery disease Ventricular tachycardia (Acute) Environmental allergies Hypercholesterolemia 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 diabetes mellitus Morbid obesity Depression BPH w urinary obs/LUTS Nocturnal hypoxia Asthma Gout (Acute) Medical History Dysrhythmia Elevated troponin FIDEL (acute kidney injury) Acute hyperkalemia Diabetic kidney disease Left bundle branch block Chronic diastolic CHF (congestive heart failure) Dyspnea Adverse effect of COVID-19 vaccine Syncope, vasovagal Resistant hypertension Surgical History S/P left knee arthroscopy S/P right knee arthroscopy History of herniorrhaphy umbilical History of uvulopalatopharyngoplasty Family History Sister Breast cancer Uterine cancer Father Myocardial infarction Skin cancer (melanoma) Heart disease Lung cancer Mother Diabetes Denies family history of Prostate cancer Kidney disease Social History Smoking Status: Never smoker Second Hand Exposure: No; Do You Dip or Chew Tobacco: No; Hx Alcohol Use: No Hx Substance Use: No Preferred Language: Estonian Communication Ability: Effective Visual Impairment: No Limitations Hearing Ability: Normal Check Airman Required: No Beliefs That Will Affect Care: None marital status: Current Living Situation: Alone current occupational status: retired How many Children do You have: 3 Feels Safe at Home: Yes Safety Concerns: Feels Safe At This Time Childhood Exposure to Second-Hand Smoke: Yes Diet: regular Diet Comment: regular caffeine: Yes during the past year weight has: remained stable Dental Care, Regularly: Yes Physical Activity Frequency: Other Physical Activity Frequency Comment: WALKING Seatbelt Use: always Sunscreen Use: Yes Assistive Devices: CPAP, Glasses and Walker Review of Systems Review of Systems: All systems reviewed & are unremarkable except as noted in HPI & below Physical Exam Constitutional: WD/WN, vitals as above Respiratory: normal respiratory effort, lungs clear to auscultation Cardiovascular: Rate/Rhythm: regular rate and regular rhythm Heart Sounds: no murmur Extremities: normal capillary refill and + pedal edema (1+ b/l equal pedal edema); no calf tenderness Gastrointestinal (Abdomen): normal bowel sounds, soft, nontender, no hepatosplenomegaly Skin: no rashes, warm and dry Neurologic: moves all extremities and awake; not confused Psychiatric: A+Ox3, euthymic affect Results & Data Results & Data Vital Signs (Past 12 Hours) Vital Signs Temp Pulse Resp BP Pulse Ox O2 Del Method 04/04/24 10:58 78 04/04/24 10:29 36.9 C 79 20 125/77 99 Room Air Laboratory Results Abnormal lab results 04/04/24 Range/Units 11:04 RBC 4.20 L (4.70-6.10) M/uL Hgb 12.4 L (14.0-18.0) g/dl Hct 37.4 L (42.0-52.0) % Neut # (Auto) 6.64 H (1.40-6.50) K/uL Sodium 133 L (136-145) mmol/L BUN 46 H (6-23) mg/dl Creatinine 2.35 H D (0.6-1.4) mg/dl Glucose 126 H (70-99(Fasting)) mg/dl Troponin I High Sens 35.0 H (0-20) pg/ml Diagnostic Findings CT Head Without Intravenous Contrast INDICATION: Trauma TECHNIQUE: Axial computed tomography images of the head/brain without intravenous contrast. Sagittal and/or coronal reformats are provided. Sagittal and coronal reformatted images were created and reviewed. This CT exam was performed using one or more of the following dose reduction techniques: automated exposure control, adjustment of the mA and/or kV according to patient size, and/or use of iterative reconstruction technique. COMPARISON: No relevant prior studies available. FINDINGS: Limitations: None. Brain and extra-axial spaces: There is age appropriate cortical atrophy and chronic ischemic periventricular white matter hypodensity. No acute infarct, hemorrhage or mass noted. Bones/joints: No acute changes. Soft tissues: No significant abnormality noted. Vasculature: Intracranial atherosclerosis noted. Sinuses: No layering fluid in the visualized portions of the paranasal sinuses. Mastoid air cells: No mastoid effusion. Orbits: No significant abnormality noted. IMPRESSION: Cerebral atrophy. No acute changes. Radiograph of the Chest 1 View INDICATION: Syncope TECHNIQUE: Frontal view of the chest. COMPARISON: 03/23/2024 FINDINGS: Lungs and pleural spaces: Stable mild scarring in the left lung base. No consolidation or pulmonary edema. No pleural effusion or pneumothorax. Heart: Stable enlargement and pacing device. Mediastinum: Normal contour. Bones/joints: No fracture, erosion or dislocation. Soft tissues: No abnormality noted. No radiopaque foreign body noted. Upper abdomen: No abnormality noted. IMPRESSION: Stable chronic changes. No acute disease. Medications Administered ER medications given: IV amiodarone 150 mg bolus and drip Acetaminophen 1000 mg PO ECG Rate (beats per minute): 77 Rhythm: normal sinus Findings: + LBBB Comparison ECG Date: from (Mar 22, 2024) Change: the following changes noted (sinus rhythm replaced electronic pacemaker) Code Status & VTE Plan Code Status Full VTE Prophylaxis Plan VTE Prophylaxis will be ordered: Yes PG Care Time/CCT Total # of Minutes Spent Total Time Spent with Patient: Total time spent is greater than 50% in coordination of care (as documented) at patient's floor/unit and/or counseling patient: Coding Level of Care Code 42102 INT INP/OBS CARE 3/75MIN Diagnoses Syncope, cardiogenic R55 Ventricular tachycardia I47.20 Heart failure with reduced ejection fraction (HFrEF, <= 40%) I50.20 Ischemic cardiomyopathy I25.5 Obstructive sleep apnea G47.33
[2024-04-04 11:55] LABS: Partial Thromboplastin Ratio 0.9; Partial Thromboplastin Time 25 Seconds (21-31); Prothrombin Time 10.9 Seconds (9.0-12.0)
[2024-04-04] MEDS: ACETAMINOPHEN 500 MG TAB PO STA (11:59)
[2024-04-04] MEDS: AMIODARONE IV BOLUS & DRIP IV STA (11:59)
[2024-04-04] MEDS: STAT IV Infusion **Titration per Protocol STA (11:59)
[2024-04-04] MEDS: AMIODARONE / D5W 150 MG/100 ML BAG IV STA (11:59)
--- NOTE | 2024-04-04 11:59 | CT Scan Report ---
EXAM: CT Head Without Intravenous Contrast INDICATION: Trauma TECHNIQUE: Axial computed tomography images of the head/brain without intravenous contrast. Sagittal and/or coronal reformats are provided. Sagittal and coronal reformatted images were created and reviewed. This CT exam was performed using one or more of the following dose reduction techniques: automated exposure control, adjustment of the mA and/or kV according to patient size, and/or use of iterative reconstruction technique. COMPARISON: No relevant prior studies available. FINDINGS: Limitations: None. Brain and extra-axial spaces: There is age appropriate cortical atrophy and chronic ischemic periventricular white matter hypodensity. No acute infarct, hemorrhage or mass noted. Bones/joints: No acute changes. Soft tissues: No significant abnormality noted. Vasculature: Intracranial atherosclerosis noted. Sinuses: No layering fluid in the visualized portions of the paranasal sinuses. Mastoid air cells: No mastoid effusion. Orbits: No significant abnormality noted. IMPRESSION: Cerebral atrophy. No acute changes. ACT 112: Negative or not required by law. Electronically signed by Anni Alfaro 04-04-2024 11:59 AM
[2024-04-04 12:05] LABS: Thyroid Stimulating Hormone 0.69 uIu/ml (0.300-4.500)
[2024-04-04] MEDS: AMIODARONE / D5W 360 MG/200 ML BAG IV ONE (12:15)
--- NOTE | 2024-04-04 13:00 | XRay Report ---
EXAM: Radiograph of the Chest 1 View INDICATION: Syncope TECHNIQUE: Frontal view of the chest. COMPARISON: 03/23/2024 FINDINGS: Lungs and pleural spaces: Stable mild scarring in the left lung base. No consolidation or pulmonary edema. No pleural effusion or pneumothorax. Heart: Stable enlargement and pacing device. Mediastinum: Normal contour. Bones/joints: No fracture, erosion or dislocation. Soft tissues: No abnormality noted. No radiopaque foreign body noted. Upper abdomen: No abnormality noted. IMPRESSION: Stable chronic changes. No acute disease. ACT 112: Negative or not required by law. Electronically signed by Anni Alfaro 04-04-2024 13:00 PM
[2024-04-04] MEDS ORDERED: DEXTROSE 50% 50 ML SYRINGE IV PRN (17:41)
[2024-04-04] MEDS ORDERED: GLUCAGON FOR INJ 1 MG VIAL SQ PRN (17:41)
[2024-04-04] MEDS ORDERED: GLUCOSE 40% GEL 15 GM TUBE PO PRN (17:41)
[2024-04-04] MEDS ORDERED: GLUCOSE 10 TAB/TUBE PO PRN (17:41)
[2024-04-04] MEDS ORDERED: CARBOHYDRATES FOR HYPOGLYCEMIA PO PRN (17:41)
[2024-04-04] MEDS: AMIODARONE / D5W 360 MG/200 ML BAG IV SCH (17:45)
[2024-04-04] MEDS: carvediloL 25 MG TAB PO SCH (19:24)
[2024-04-04] MEDS: metFORMIN HCL 500 MG TAB PO SCH (19:24)
[2024-04-04] MEDS: VALSARTAN/SACUBITRIL 26/24MG TAB PO SCH (20:17)
[2024-04-04] MEDS: MONTELUKAST SODIUM 10 MG TABLET PO SCH (20:18)
[2024-04-04] MEDS: traZODone HCL 100 MG TAB PO SCH (20:18)
[2024-04-04] MEDS: TAMSULOSIN HCL 0.4 MG CAP PO SCH (20:18)
[2024-04-05] MEDS: LEVOTHYROXINE SODIUM 150 MCG TABLET PO SCH (05:16)
[2024-04-05] MEDS: buPROPion XL 300 MG TABCR PO SCH (08:36)
[2024-04-05] MEDS: ATORVASTATIN 20 MG TAB PO SCH (08:36)
[2024-04-05] MEDS: ASPIRIN 81 MG ECTAB PO SCH (08:37)
[2024-04-05] MEDS: FINASTERIDE 5 MG TAB PO SCH (08:37)
[2024-04-05 08:41] LABS: Calcium 8.7 mg/dl (8.6-10.3); Creatinine Clr Calc Pharmacy 33.6 ml/min; Magnesium 2.1 mg/dl (1.7-2.4); Potassium 4.4 mmol/L (3.5-5.1)
[2024-04-05] MEDS: EMPAGLIFLOZIN 10 MG TAB PO SCH (09:24)
--- NOTE | 2024-04-05 10:54 | Hospitalist Progress Note ---
Date of Service April 05, 2024 Assessment & Plan (1) Syncope, cardiogenic: Plan: Suspect secondary to ventricular tachycardia (although not clear from pacemaker report he was definitely in this rhythm a the time of syncope) with not taking the right medications (most likely some orthostasis with clonidine) Continue off amlodipine. Stop clonidine. Initially restarted Entresto last night however with his orthostasis this morning and his low blood pressure overnight will place this on hold again - informed Dr. Soliman (2) Ventricular tachycardia: Plan: 26 paced terminated episodes since insertion. Started on IV amiodarone per cardiology recommendations Mg > 2, K > 4 Appreciate cardiology recommendations awaiting electrophysiology recommendations (3) Heart failure with reduced ejection fraction (HFrEF, <= 40%): Plan: Chronic. Currently euvolemic. Likely to need to restart furosemide at some point but will continue off this currently. Trial of restarting Entresto led to orthostasis today with slight increase creatinine bump therefore we will continue off this (4) Ischemic cardiomyopathy: Plan: Carvedilol (5) Obstructive sleep apnea: Plan: CPAP HS Plan VTE Prophylaxis - HIT to heparin and renal function precludes Lovenox/fondaparinux, SCDs, encourage mobilization Diet - heart healthy, T2DM, Low Na Disposition - continue admission to PCU Admission and Anticipated Discharge Date Admission Date: April 04, 2024 Subjective Patient has some orthostasis this morning when washing his face. Some hypotension overnight with a 1 of blood pressure of 95/53 around midnight, remains low normal today but with systolic greater than 100. Physical Exam Constitutional: WD/WN, vitals as above Respiratory: normal respiratory effort, lungs clear to auscultation Cardiovascular: Rate/Rhythm: regular rate and regular rhythm Heart Sounds: no murmur Extremities: normal capillary refill and + pedal edema (1+ b/l equal pedal edema); no calf tenderness Gastrointestinal (Abdomen): normal bowel sounds, soft, nontender, no hepatosplenomegaly Skin: no rashes, warm and dry Neurologic: moves all extremities and awake; not confused Psychiatric: A+Ox3, euthymic affect Results & Data Results & Data Vital Signs (Past 12 Hours) Vital Signs Temp Pulse Pulse Resp BP Pulse Ox O2 Del Method 04/05/24 10:44 36.4 C L 75 19 118/73 94 Room Air 04/05/24 07:53 37.1 C 78 19 118/63 95 Room Air 04/05/24 07:16 66 04/05/24 03:37 36.9 C 69 20 101/65 94 Room Air 04/05/24 00:21 36.4 C L 71 18 95/53 L 95 CPAP 04/04/24 23:30 68 16 95 PG Care Time/CCT Total # of Minutes Spent Total Time Spent with Patient: Total time spent is greater than 50% in coordination of care (as documented) at patient's floor/unit and/or counseling patient: Coding Level of Care Code 37561 SUB INP/OBS CARE 350MIN Diagnoses Syncope, cardiogenic R55 Ventricular tachycardia I47.20 Heart failure with reduced ejection fraction (HFrEF, <= 40%) I50.20 Ischemic cardiomyopathy I25.5 Obstructive sleep apnea G47.33
[2024-04-05 11:45] LABS: Troponin I High Sensitivity 46.8 pg/ml (0-20)
--- NOTE | 2024-04-05 14:03 | Cardiology Progress Note ---
Date of Service April 05, 2024 Assessment & Plan (1) Syncope and collapse: Plan: -May have been secondary to ventricular tachycardia. -26 V. tach episodes were successfully overdrive paced yesterday. -He was started on intravenous amiodarone while in the emergency room yesterday. -With her ventricular tachycardia. -Have asked Dr. Young to review the case. (2) Ventricular tachycardia: Plan: -As above. (3) Coronary artery disease: Plan: -Totally occluded distal LAD with good collateralization. -Continue medical management. (4) Ischemic cardiomyopathy: Plan: -LVEF = 35-40%. (5) Heart failure with reduced ejection fraction (HFrEF, <= 40%): Plan: -Entresto placed on hold due to increasing creatinine. -Continue carvedilol, spironolactone, and Jardiance. (6) AICD present, double chamber: Plan: -Proper function on most recent interrogation. Admission and Anticipated Discharge Date Admission Date: April 04, 2024 Subjective The patient is resting comfortably in bed without complaints of chest pain or dyspnea. We have discussed the syncopal event which prompted his hospital admission. Physical Exam Physical Exam: In general this is an obese white male in no acute distress. HEENT exam is negative. Neck is supple with full carotid upstrokes. There are no carotid bruits. No JVD. There is no thyromegaly. Cardiovascular exam reveals a regular rhythm with a normal S1 and S2. Heart sounds are distant. No obvious murmurs. Lungs are clear without rales, rhonchi, or wheezes. Chest reveals a palpable device in the left subclavicular region. Abdomen is obese and nontender without bruits. Extremities reveal intact radial artery and posterior tibial pulses bilaterally. There is 1+ nonpitting edema. Results & Data Vital Signs (Past 12 Hours) Vital Signs Temp Pulse Pulse Resp BP Pulse Ox O2 Del Method 04/05/24 11:51 Room Air 04/05/24 10:44 36.4 C L 75 19 118/73 94 Room Air 04/05/24 07:53 37.1 C 78 19 118/63 95 Room Air 04/05/24 07:16 66 04/05/24 03:37 36.9 C 69 20 101/65 94 Room Air Laboratory Results monitor car operator notes no further ventricular tachycardia since starting amiodarone. PG Care Time/CCT Total # of Minutes Spent Total Time Spent with Patient: Total time spent is greater than 50% in coordination of care (as documented) at patient's floor/unit and/or counseling patient: Coding Level of Care Code 37023 SUB INP/OBS CARE 3/50MIN Diagnoses Syncope and collapse R55 Ventricular tachycardia I47.20 Coronary artery disease I25.10 Ischemic cardiomyopathy I25.5 Heart failure with reduced ejection fraction (HFrEF, <= 40%) I50.20 AICD present, double chamber Z95.810
[2024-04-05] MEDS: ACETAMINOPHEN 500 MG TAB PO PRN (14:39)
--- NOTE | 2024-04-05 15:37 | Electrocardiogram Report ---
Test Reason : Blood Pressure : */* mmHG Vent. Rate : 77 BPM Atrial Rate : 77 BPM P-R Int : 276 ms QRS Dur : 146 ms QT Int : 394 ms P-R-T Axes : 73 -62 94 degrees QTcB Int : 445 ms Sinus rhythm with 1st degree A-V block with Premature atrial complexes with Aberrant conduction Left axis deviation Non-specific intra-ventricular conduction block Minimal voltage criteria for LVH, may be normal variant Abnormal ECG When compared with ECG of 22-Mar-2024 16:33, Sinus rhythm has replaced Electronic ventricular pacemaker Confirmed by Bill Soliman ([id number]) on 04/05/2024 3:36:52 PM Referred By: Confirmed By: Bill Soliman
[2024-04-05] MEDS: carvediloL 25 MG TAB PO ONE (21:53)
[2024-04-05] MEDS: BISMUTH SUBSALICYLATE 262 MG CHEW PO PRN (22:09)
[2024-04-06 07:15] LABS: BUN Creatinine Ratio 17.4 (10-20); Calcium 7.8 mg/dl (8.6-10.3); Creatinine Clr Calc Pharmacy 36.5 ml/min
--- NOTE | 2024-04-06 09:47 | Hospitalist Progress Note ---
Date of Service April 06, 2024 Assessment & Plan (1) Syncope, cardiogenic: Plan: Suspect secondary to ventricular tachycardia (although not clear from pacemaker report he was definitely in this rhythm a the time of syncope) with not taking the right medications (most likely some orthostasis with clonidine) Continue off amlodipine. Stop clonidine. Initially restarted Entresto however creatinine increased and patient had further orthostasis therefore this was discontinued Appears to be more stable today with mild dizziness when he first stands up but no significant presyncope (2) Ventricular tachycardia: Plan: 26 paced terminated episodes since insertion. Started on IV amiodarone per cardiology recommendations Mg > 2, K > 4 Appreciate cardiology recommendations awaiting electrophysiology recommendations (3) Heart failure with reduced ejection fraction (HFrEF, <= 40%): Plan: Chronic. Currently euvolemic. Likely to need to restart furosemide at some point but will continue off this currently. Trial of restarting Entresto led to orthostasis today with slight increase creatinine bump therefore we will continue off this (4) Ischemic cardiomyopathy: Plan: Carvedilol (5) Obstructive sleep apnea: Plan: CPAP HS Plan VTE Prophylaxis - HIT to heparin and renal function precludes Lovenox/fondaparinux, SCDs, encourage mobilization Diet - heart healthy, T2DM, Low Na Disposition - continue admission to PCU Admission and Anticipated Discharge Date Admission Date: April 04, 2024 Subjective No complaints from patient. Mild dizziness when he first stands but otherwise no presyncope. Physical Exam Constitutional: WD/WN, vitals as above Respiratory: normal respiratory effort, lungs clear to auscultation Cardiovascular: Rate/Rhythm: regular rate and regular rhythm Heart Sounds: no murmur Results & Data Results & Data Vital Signs (Past 12 Hours) Vital Signs Temp Pulse Pulse Resp BP BP Pulse Ox 04/06/24 07:48 36.7 C 63 19 123/67 97 04/06/24 03:47 69 04/06/24 03:01 36.8 C 78 18 108/66 96 04/05/24 22:45 36.7 C 71 17 126/63 95 04/05/24 21:50 79 117/61 O2 Del Method 04/06/24 07:48 Room Air 04/06/24 03:47 04/06/24 03:01 Room Air 04/05/24 22:45 Room Air 04/05/24 21:50 PG Care Time/CCT Total # of Minutes Spent Total Time Spent with Patient: Total time spent is greater than 50% in coordination of care (as documented) at patient's floor/unit and/or counseling patient: Coding Level of Care Code 97821 SUB INP/OBS CARE 2/35MIN Diagnoses Syncope, cardiogenic R55 Ventricular tachycardia I47.20 Heart failure with reduced ejection fraction (HFrEF, <= 40%) I50.20 Ischemic cardiomyopathy I25.5 Obstructive sleep apnea G47.33
--- NOTE | 2024-04-06 12:06 | Cardiology Progress Note ---
Date of Service April 06, 2024 Assessment & Plan (1) Syncope and collapse: Plan: -May have been secondary to ventricular tachycardia. -26 V. tach episodes were successfully overdrive paced. -amiodarone has suppressed the ventricular tachycardia. -Could convert amiodarone to oral dosing. -Dr. Young to review the case. (2) Ventricular tachycardia: Plan: -As above. (3) Coronary artery disease: Plan: -Totally occluded distal LAD with good collateralization. -Continue medical management. (4) Ischemic cardiomyopathy: Plan: -LVEF = 35-40%. (5) Heart failure with reduced ejection fraction (HFrEF, <= 40%): Plan: -Entresto placed on hold due to increasing creatinine. -Continue carvedilol, spironolactone, and Jardiance. (6) AICD present, double chamber: Plan: -Proper function on most recent interrogation. Admission and Anticipated Discharge Date Admission Date: April 04, 2024 Subjective The patient is resting comfortably in bed without complaints of chest pain, dyspnea, palpitations, or syncope. Physical Exam Physical Exam: In general this is an obese white male in no acute distress. HEENT exam is negative. Neck is supple with full carotid upstrokes. There are no carotid bruits. No JVD. There is no thyromegaly. Cardiovascular exam reveals a regular rhythm with a normal S1 and S2. Heart sounds are distant. No obvious murmurs. Lungs are clear without rales, rhonchi, or wheezes. Chest reveals a palpable device in the left subclavicular region. Abdomen is obese and nontender without bruits. Extremities reveal intact radial artery and posterior tibial pulses bilaterally. There is 1+ nonpitting edema. Results & Data Vital Signs (Past 12 Hours) Vital Signs Temp Pulse Pulse Resp BP BP Pulse Ox 04/06/24 10:52 36.5 C 78 18 96/61 L 95 04/06/24 09:43 68 04/06/24 07:48 36.7 C 63 19 123/67 97 04/06/24 03:47 69 04/06/24 03:01 36.8 C 78 18 108/66 96 O2 Del Method 04/06/24 10:52 Room Air 04/06/24 09:43 04/06/24 07:48 Room Air 04/06/24 03:47 04/06/24 03:01 Room Air Diagnostic Findings monitoring specialist is benign. No further ventricular tachycardia. PG Care Time/CCT Total # of Minutes Spent Total Time Spent with Patient: Total time spent is greater than 50% in coordination of care (as documented) at patient's floor/unit and/or counseling patient: Coding Level of Care Code 64144 SUB INP/OBS CARE 3/50MIN Diagnoses Syncope and collapse R55 Ventricular tachycardia I47.20 Coronary artery disease I25.10 Ischemic cardiomyopathy I25.5 Heart failure with reduced ejection fraction (HFrEF, <= 40%) I50.20 AICD present, double chamber Z95.810
[2024-04-06] MEDS: AMIODARONE 200 MG TAB PO SCH (18:25)
[2024-04-07 02:58] VITALS: RESP 18
[2024-04-07 07:32] VITALS: O2SAT 95
--- NOTE | 2024-04-07 08:25 | Discharge Summary ---
Discharge Summary Date of Service April 07, 2024 Principal Dx & Hospital Course #1 = Principal Diagnosis (1) Syncope, cardiogenic: Keshav is a 73-year-old male with a past medical history of CKD, HFrEF EF 40%, hypothyroidism, cor pulmonale, CKD, paroxysmal A-fib, type II DM, BPH with LUTS with a recent hospital admission for V. tach placed on IV amiodarone of subsequent ICD placement who was admitted after an episode of recurrent syncope. During admission interrogation of ICD showed 26 V. tach episodes successfully overdrive paced. Subsequently on monitoring had adequate suppression with amiodarone. Entresto was held due to renal dysfunction which was improving at time of discharge. Baseline creatinine function was around 2.12.5. Creatinine had improved from a peak of 2.75 down to within baseline at approximately 2.3. Entresto was initially restarted however patient had further orthostasis and was therefore discontinued. No further syncopal episodes during admission Carvedilol, spironolactone, Jardiance were continued Amlodipine was discontinued, clonidine was discontinued during admission Physical therapy/Occupational Therapy consulted, patient did well was recommended for return home Continue amiodarone 200 mg p.o. twice daily with meals, follow-up with cardiology has been scheduled. EKG day of discharge was sinus first-degree AV block, first-degree block is chronic (2) Ventricular tachycardia: (3) Heart failure with reduced ejection fraction (HFrEF, <= 40%): (4) Ischemic cardiomyopathy: (5) Obstructive sleep apnea: CPAP HS Admission HPI Per Admitting Provider Keshav Wasserman is a 73-year-old male who presents to the ER with a syncopal event. He was recently admitted for ventricular tachycardia and placed on IV amiodarone with subsequent ICD placement. He was doing well with no chest pain, shortness of breath, palpitations or presyncope up until this morning. He felt a little dizzy/lightheaded then took his morning medications and as soon as he reached up for the cupboard he suddenly felt worse and lost consciousness. No injuries from the fall. He is currently feeling back to his baseline in the ER. He thinks he did not take the right medications this morning as multiple recent changes and he started a new week pill packet this morning and hadn't sorted out the changes yet. He thinks he took out the Entresto, spironolactone and furosemide as previously advised but thinks he accidently took the clonidine and glipizide. Multiple medication changes recently. On discharge from last admission he was started on Entresto, aspirin and Jardiance. Notably the Jardiance was very expensive and not sure if he can continue on this but he is currently taking it. His furosemide was continued at 40mg PO and clonidine 0.1mg PO BID. Amlodipine was switched from 10mg to 2.5mg PO daily. Spironolactone was discontinued. On follow up with his PCP his glipizide was discontinued as he was getting hypoglycemic episodes (however as noted above he probably accidently took this today). At his appointment with Madelyn Mota he was hypotensive and subsequent Cr was increasing therefore his Entresto and furosemide was held. He took his Trulicity as usual on . He denies any worsening heart failure symptoms such as shortness of breath, weight gain or leg swelling. Had minimal ankle edema at time of discharge Pacemaker check in the ER shows 26 paced terminated VT/VF episodes since insertion. Discharge Exam General: A&Ox3. NAD. Cooperative. HEENT: Atraumatic, normocephalic. Vision/hearing grossly intact Pulm: CTAB A&P. -wheezes, -rales, -rhonchi. Symmetrical chest rise. No increased work of breathing. No respiratory distress. Cardiac: RRR, -mrg. Radial pulses intact and symmetrical. Abdominal: Nontender, nondistended, soft. BS present. Ext: warm, dry. Minimal ankle edema Discharge Plan Discharge Items Patient Disposition: Home - Self-Care Reason For Visit: SYNCOPE,VENTRICULAR TACHYCARDIA Discharge Diagnosis: Syncope Activity: Resume your previous activity Non-emergency contact: Primary Care Provider and [employer] Facility Operator Call non-emergency contact if: you have any medication questions, your symptoms worsen and your pain is not controlled Follow-up/Referrals: Bill Soliman MD [Physician] - Amber Kemp DO [Primary Care Provider] - Diet: Heart Healthy Addtl Attending Provider Instructions: You were seen in the hospital for syncope and were found to have suspected ventricular tachycardia which was successfully overdrive paced. You had suppression of this ventricular tachycardia with the initiation of amiodarone. You have been prescribed oral amiodarone as noted below. Due to persistent lightheadedness/dizziness and slight elevation of your renal function your Entresto has been placed on hold. You may discuss this further with cardiology on outpatient follow-up. You have a cardiology appointment scheduled for next week, please keep this appointment. If you develop any new or worsening symptoms including fever, chills, sweats, chest pain, chest pressure, difficulty breathing, uncontrolled nausea/vomiting, rash, wheezing, passing out or nearly passing out, bleeding, black/bloody bowel movements, or other new or concerning symptoms please call your primary care physician, or call 911 for re-evaluation in the emergency department if you are very concerned. Pending Studies at Discharge: No Stand-Alone Forms: My [facility], Smoking Cessation Medications and DC Order Prescriptions: New amiodarone 200 mg Tablet 200 mg PO BIDM Qty: 60 0RF Continued multivitamin [Daily Multi-Vitamin] Tablet 1 tab PO DAILY Qty: 90 6RF furosemide 40 mg tablet 40 mg PO DAILY Qty: 90 3RF Hold Instructions: rui atorvastatin 20 mg tablet 20 mg PO DAILY Qty: 90 2RF carvedilol 25 mg tablet 25 mg PO BID Qty: 180 1RF fenofibrate nanocrystallized 48 mg tablet 96 mg PO DAILY Qty: 180 1RF trazodone 100 mg tablet 100 mg PO HS Qty: 90 1RF tamsulosin 0.4 mg capsule 0.4 mg PO HS Qty: 90 1RF levothyroxine 150 mcg tablet 150 mcg PO DAILY Qty: 90 1RF spironolactone 50 mg tablet 50 mg PO DAILY Qty: 90 3RF Hold Instructions: rui bupropion HCl 300 mg tablet extended release 24 hr 300 mg PO DAILY Qty: 90 1RF (DME) blood-glucose meter [OneTouch Ultra2 Meter] Misc See Rx Instructions .Route Qty: 1 0RF Rx Instructions: Check blood sugar once a day (DME) OneTouch Ultra Test Strip See Rx Instructions .Route Qty: 100 5RF Rx Instructions: testing 1 x per day (DME) lancets [OneTouch Delica Plus Lancet] 33 gauge misc See Rx Instructions .Route Qty: 100 1RF Rx Instructions: testing 1 x per day glipizide 10 mg tablet 10 mg PO BID Hold Instructions: hypoglycemia krill oil 500 mg capsule 500 mg PO DAILY metformin 500 mg tablet 500 mg PO BID Rx Instructions: 500 mg po bid. last filled 11/25/23 90 day supply montelukast 10 mg tablet 10 mg PO HS cyanocobalamin (vitamin B-12) 5,000 mcg tablet, sublingual 5,000 mcg SL DAILY (DME) CPAP Machine Misc .Route Qty: 1 0RF Rx Instructions: Change to CPAP at 9 cm of water, [place] [facility] patient acetaminophen [Tylenol Extra Strength] 500 mg tablet 500 mg PO Q6H PRN (Reason: Pain) finasteride 5 mg tablet 5 mg PO QAM dulaglutide 4.5 mg/0.5 mL pen injector 4.5 mg subcut UD Rx Instructions: 4.5 mg wk. No fill history available aspirin 81 mg Tablet,Delayed Release (Dr/Ec) 81 mg PO QAM 30 Days Qty: 30 0RF Vitamin D3 100 mcg (4,000 unit) Capsule 1,000 unit PO DAILY Jardiance 10 mg tablet 10 mg PO QAM Held sacubitril-valsartan [Entresto] 24-26 mg Tablet 1 tab PO BID Qty: 60 0RF Hold Instructions: Resume on 05/12/24. Discontinued clonidine HCl 0.1 mg tablet 0.1 mg PO HS Discharge Orders: Discharge Order (Routine); Ordered 04/07/24 Ordered By: Rohit Mas Admission Data Admit Date/Time: 04/04/24 12:42 Attending Provider: Rohit Mas Admit Provider: Jordin Culp Primary Care Provider: Amber Kemp Other Providers: Jordin Culp; Bill Soliman Hospital Stay Data Consultations 04/04/24 12:00 ED Decision to Admit Stat 04/04/24 17:41 Consult Cardiology Routine Diagnostic Imagining Performed 04/04/24 11:12 CT head/brain wo con Stat Discharge Instructions Given to Patient (Per Discharging Provider) You were seen in the hospital for syncope and were found to have suspected ventricular tachycardia which was successfully overdrive paced. You had suppression of this ventricular tachycardia with the initiation of amiodarone. You have been prescribed oral amiodarone as noted below. Due to persistent lightheadedness/dizziness and slight elevation of your renal function your Entresto has been placed on hold. You may discuss this further with cardiology on outpatient follow-up. You have a cardiology appointment scheduled for next week, please keep this appointment. If you develop any new or worsening symptoms including fever, chills, sweats, chest pain, chest pressure, difficulty breathing, uncontrolled nausea/vomiting, rash, wheezing, passing out or nearly passing out, bleeding, black/bloody bowel movements, or other new or concerning symptoms please call your primary care physician, or call 911 for re-evaluation in the emergency department if you are very concerned. Total Time Total Time Spent Total Time Spent (In Minutes): Time spend day of discharge 40 minutes including direct patient care, documentation, review of labs and images, and coordination of care. Coding Level of Care Code 15210 INP/OBS DISCH >30 MIN Diagnoses Syncope, cardiogenic R55 Ventricular tachycardia I47.20 Heart failure with reduced ejection fraction (HFrEF, <= 40%) I50.20 Ischemic cardiomyopathy I25.5 Obstructive sleep apnea G47.33
[2024-04-07 11:23] VITALS: BP 103/64; TEMP 97.7
[2024-04-07 13:43] VITALS: PULSE 70
== END 2024-04-07 14:40 | disposition home or self-care (01) | DRG 309 ==
LOC: ED 10:48 → 2S 12:42 → SUATTDRO 12:42 → 2S 17:20

== ENCOUNTER 2025-01-22 07:25 | Inpatient (IN) ==
[2025-01-22 08:02] LABS: Hematocrit (blood only) 41.1 % (42.0-52.0); Hemoglobin 13.4 g/dL (14.0-18.0); Immature Granulocytes # (auto) 0.15 K/uL (0.01-0.20); Immature Granulocytes % (auto) 1.1 %; Mean Corpuscular Hemoglobin 29.3 pg (25.0-34.0); Mean Corpuscular Volume 89.9 fL (80.0-100.0); Platelet Count 267 K/uL (130-400); RDW Standard Deviation 53.6 fL (36.4-46.3); Red Blood Count 4.57 M/uL (4.70-6.10); White Blood Count 14.14 K/ul (4.8-10.8)
[2025-01-22 08:21] LABS: Alanine Aminotransferase 25.0 U/L (7-52); Albumin Globulin Ratio 1.3 (0.9-2); Albumin Level 4.0 gm/dl (3.4-5.0); Alkaline Phosphatase 40.0 U/L (34-104); Anion Gap 11.0 (3-11); Bilirubin,Total 0.5 mg/dl (0.2-1.0); Blood Urea Nitrogen 44.0 mg/dl (6-23); Calcium 8.9 mg/dl (8.6-10.3); Carbon Dioxide 23.0 mmol/L (21-32); Chloride 101.0 mmol/L (98-107); Creatinine Clr Calc Pharmacy 35.1 ml/min; Globulin 3.0 gm/dl (2.5-4.0); Glucose 182.0 mg/dl (70-99(Fasting)); Potassium 5.0 mmol/L (3.5-5.1); Sodium 135.0 mmol/L (136-145); Total Protein 7.0 gm/dl (6.0-8.3)
[2025-01-22 08:35] LABS: INR 1.1 (0.9-1.1); Partial Thromboplastin Time 26 Seconds (21-31); Prothrombin Time 11.8 Seconds (9.0-12.0)
--- NOTE | 2025-01-22 08:45 | XRay Report ---
Clinical History: Cough Technique: PA and lateral views of the chest were obtained Comparison is made to the prior examination dated 04/04/2024 Findings: There is prominence of the right hilum. The heart is mildly enlarged. There is a left chest wall pacemaker device. No pleural effusion or pneumothorax is seen. There is suspected mild pulmonary edema No fracture is noted. No foreign body is seen Impression: 1. Cardiomegaly and mild pulmonary edema 2. Prominence of the right hilum that could be due to prominent central vasculature such as from pulmonary arterial hypertension. Hilar adenopathy or perihilar mass cannot be excluded ACT 112: Positive. There are findings on this exam that require communication between the performing entity and the patient following Patient Test Result Information Act ([place] ACT 112) guidelines. Electronically signed by Wayne Rodriguez 01-22-2025 08:45 AM
[2025-01-22 08:49] LABS: Magnesium 2.1 mg/dl (1.7-2.4)
[2025-01-22 08:58] LABS: Chlamydia pneumoniae PCR Not Detected (NotDetected); Coronavirus 229E PCR Not Detected (NotDetected); Coronavirus CoV-2 (COVID19)PCR Not Detected (NotDetected); Coronavirus HKU1 PCR Not Detected (NotDetected); Coronavirus NL63 PCR Not Detected (NotDetected); Coronavirus OC43PCR Not Detected (NotDetected); Human Metapneumovirus PCR Not Detected (NotDetected); Parainfluenza Virus 1 PCR Not Detected (NotDetected); Parainfluenza Virus 2 PCR Not Detected (NotDetected); Parainfluenza Virus 3 PCR Not Detected (NotDetected); Parainfluenza Virus 4 PCR Not Detected (NotDetected); Respiratory Syncytial VirusPCR Not Detected (NotDetected); Rhinovirus/Enterovirus PCR Not Detected (NotDetected)
--- NOTE | 2025-01-22 09:03 | Emergency Department Note ---
ED Visit Note I was consulted by the Advanced Practice Provider. I personally made/approved the management plan and take responsibility for the patient management. This includes the aspects of: -History/Physical -MDM .
--- NOTE | 2025-01-22 09:09 | XRay Report ---
Clinical History: Pain after fall 2 views of the left hip are submitted for review. Findings: No fracture or dislocation is seen. There is mild left hip osteoarthritis. No other osseous abnormality is identified. There are no radiopaque foreign bodies. Impression: Mild left hip osteoarthritis Electronically signed by Wayne Rodriguez 01-22-2025 09:09 AM
--- NOTE | 2025-01-22 09:18 | CT Scan Report ---
Technique: Axial computed tomography images were obtained of the brain from the vertex to the skull base without intravenous contrast. Comparison is made to the prior CT dated 04/04/2024 Findings: There is no sign of intracranial hemorrhage. There is normal stock-white matter differentiation with no sign of acute or old infarction. No midline shift or other form of herniation is identified. There is no hydrocephalus. There is unchanged cerebral atrophy No obvious mass lesion is seen on this noncontrast examination. The visualized portions of the orbits and paranasal sinuses appear unremarkable. The mastoid air cells appear clear Impression: Unremarkable noncontrast CT of the brain Electronically signed by Wayne Rodriguez 01-22-2025 09:17 AM
--- NOTE | 2025-01-22 09:23 | CT Scan Report ---
Technique: Axial computed tomography images were obtained of the cervical spine without intravenous contrast. Sagittal and coronal reconstructions were obtained Findings: No fracture is identified. No listhesis is seen. No focal osseous lesion is evident. There is atlantoaxial osteoarthritis At C2-3, there is a mild disc bulge. There is no spinal stenosis. The neural foramen are patent At C3-4, there is mild spinal stenosis with suspected mild spinal cord deformity due to a disc bulge and a central protrusion. There is mild left neural foramen narrowing At C4-5, there is mild spinal stenosis due to a disc bulge. The neural foramen are patent At C5-6, there is spinal stenosis due to a disc bulge and a right paracentral disc protrusion. The neural foramen are patent At C6-7, there is spinal stenosis due to a disc bulge and a left paracentral disc herniation. There is left neural foramen narrowing that may affect the left C7 nerve root At C7-T1, there is a mild disc bulge. There is no spinal stenosis. The neural foramen are patent The lung apices appear clear. There is a suspected nodule in the right thyroid lobe. No foreign body is seen Impression: 1. No definite cervical spine fracture 2. Spinal stenosis at C5-6 and C6-7 and to a lesser extent at C3-4 and C4-5 3. Left C6-7 neural foramen narrowing that may affect the left C7 nerve root ACT 112: Positive. There are findings on this exam that require communication between the performing entity and the patient following Patient Test Result Information Act ([place] ACT 112) guidelines. Electronically signed by Wayne Rodriguez 01-22-2025 09:22 AM
[2025-01-22 10:07] LABS: Appearance Urine Clear (Clear); Bacteria Urine Automated None Seen (None Seen); Cast Urine Automated 0-2 /lpf (0-2); Epithelial Cell Urine Auto 0-2 /hpf (0-2); Glucose Urine UA 3+ (Negative); RBC Urine Automated 0-2 /hpf (0-2); WBC Urine Automated 0-5 /hpf (0-5)
--- NOTE | 2025-01-22 12:07 | Emergency Department Note ---
Impression & Plan Rhinorrhea, Acute on chronic combined systolic (congestive) and diastolic (congestive) heart failure ED Provider Note CHIEF COMPLAINT: Weakness, flu-like symptoms HISTORY OF PRESENTING ILLNESS: Patient is 74-year-old male who presents to the emergency department today for complaints of weakness and flulike symptoms. He reports that overnight around 2 AM he had a coughing fit. He reports that he woke up on the floor around 4 AM. He does not believe that he had a syncopal episode as he was sitting there and believes he may have fallen asleep. Denies known head strike or blood thinner use. He reports worsening cough, fevers, nasal congestion and feeling foggy since Thanksgiving. He does have a pacemaker that is placed due to having runs of [employer]. He reports having no complications with the pacemaker. He denies any other falls or trauma. He denies lightheadedness, dizziness, syncope, headache, blurred vision, nausea, vomiting. Patient denies chest pain, sob, breathing difficulties, abdominal pain, headache, fevers/chills, blood in stool or urine, any recent illness, or any recent travel. REVIEW OF SYSTEMS: See HPI for pertinent positives and pertinent negatives. ALLERGIES: See below MEDICATIONS: See below PAST MEDICAL HISTORY: See below PHYSICAL EXAM: VITALS: Vitals are noted on the nurse's note and reviewed by myself. GENERAL: Non toxic, in no acute distress, non-diaphoretic. SKIN: Bilateral lower extremity +1 pitting edema noted. Capillary refill <2 sec. EYES: PERRLA. EOMI. Conjunctivae without injection, sclerae without icterus. NOSE: Patent with clear nasal discharge. Denies yellow-green drainage. MOUTH: Pharynx without erythema. Mucous membranes moist. Uvula midline. Airway patent. NECK: Tenderness to palpation but reports chronic neck pain. HEART: Regular rate and rhythm without murmurs gallops or rubs. LUNGS: Clear to auscultation bilaterally without wheezes, rales or rhonchi. No retractions or accessory muscle use. ABDOMEN: Positive bowel sounds x 4. Soft, nontender to palpation. MUSCULOSKELETAL: Weakness to extremities. ROM intact. Strength +5/5 upper extremities. +4/5 in lower extremities. NEURO: Sensation is intact. Bilateral radial pulses +2/4, bilateral pedal pulses +2/4. Patient was alert and oriented. No focal neurological deficits. DIFFERENTIAL DIAGNOSIS: Differential diagnosis includes: Viral infections, bacterial infections, group A strep- strep throat/pharyngitis, otitis media, sinusitis, epiglottitis, pertussis, allergic rhinitis, vasomotor rhinitis, GERD, mono, foreign body aspiration, among others. ED COURSE AND MEDICAL DECISION MAKING: HISTORY FROM INDEPENDENT HISTORIAN: History was provided by the patient. MONITOR: Continuous clinical research monitor: Order was placed for continuous clinical research monitor. Patient was placed on the clinical research monitor and continuous pulse ox. Patient was noted to be in normal sinus rhythm at an initial rate of 72 bpm per my interpretation. EKG: EKG was interpreted by myself as atrial paced with prolonged AV conduction at a rate of 79 bpm. INTERPRETATION OF LABS: I interpreted the labs with full lab results as below in the lab section of this note. Laboratory results pertinent to the emergent complaint are discussed in the MDM section below. The patient was advised to follow up with their PCP and/or specialist(s) for further outpatient monitoring and management of any abnormal results. INTERPRETATION OF IMAGING: Imaging studies were interpreted by myself and read by radiology as per the imaging section of this note. The patient was advised to follow up with their PCP and/or specialist(s) for further outpatient management of any non-emergent abnormal findings. CHRONIC MEDICAL/SOCIAL CONDITIONS AFFECTING CARE: No social concerns were identified as barriers to patients care. EXTERNAL RECORDS REVIEWED: Nephrology visit from 12/08/2024, primary care from 11/09/2024 related to the patient's visit today. ESCALATION OF CARE CONSIDERED: I considered admission on this patient due to leukocytosis, congestive heart failure with significantly elevated BNP, and weakness. CONSULTATIONS: I had a meaningful discussion about this patient with Dr. Cristobal who agrees with my assessment and the treatment plan. I also consulted with Laine Willis hospitalist for admission. SUMMARY: I examined the patient for complaints of flulike symptoms and weakness. A physical exam and history were performed. Nursing notes, EMR, and medication list were personally reviewed. On evaluation the patient's symptoms are most consistent with a URI. No concerns for bacterial upper respiratory infection. Chest x-ray shows cardiomegaly with mild pulmonary edema. There is prominence of the right hilum that could be due to central vasculature from pulmonary arterial hypertension. On evaluation, the patient did also complain of left hip pain and with a fall I ordered an x-ray of the left hip and head and neck CT. Left hip x-ray revealed no acute findings but mild left hip osteoarthritis. CT of the neck revealed no cervical spine fracture but spinal stenosis at C5-6 and C6-7 and with lesser extent at C3-4 and C4-5. There is a left C6-7 neural ac narrowing that may affect the left C7 nerve root. Head CT showed an unremarkable noncontrast scan of the brain. Patient did declined any pain medications or antiemetics here in the emergency department today. CBC did show a leukocytosis with white blood cell count of 14.14. Hemoglobin was 13.4 but better than his typical baseline. No thrombocytopenia. CMP showed no emergent findings. Creatinine and BUN were elevated but slightly above baseline. Troponin was noted to be 52.9 and repeat was 52.2, looking at the patient's previous that is about baseline. CRP was 1.17 Pro-Franck was negative. BNP was 1657. I discussed all these findings with the patient who verbalized understanding. At this time we agree that hospitalization will be best due an elevated BNP with weakness. Will likely need further cardiac workup. I consulted with Dr. Willis who accepts the patient for admission. Discharge and return to the emergency department instructions were provided and verbalized understanding. Patient was discharged home in good condition with no further questions or concerns. The patient is to have close outpatient follow-up with a recheck of their symptoms. To return to the ER sooner for any significantly changing or worsening symptoms. The patient was educated on the treatment plan and the discharge instructions. The patient was discharged home in stable condition and verbalized understanding of all discharge instructions and treatment plan. DIAGNOSIS: CHF, weakness, sinus congestion TREATMENT PLAN/DISCHARGE INSTRUCTIONS: Admit to hospitalist services. The chart was completed utilizing [employer] Speech voice recognition software.Grammatical errors, random word insertions, pronoun errors, and incomplete sentences are an occasional consequence of this system due to software limitations, ambient noise, and hardware issues.Any formal questions or concerns about the content, text, or information contained within the body of this dictation should be directly addressed to the physician for clarification. Past Med/Surg History Problem List (Updated 01/23/25 @ 16:03 by ANKIT Mora) Rhinorrhea (Acute) Orthostatic hypotension Leg weakness, bilateral Acute on chronic combined systolic (congestive) and diastolic (congestive) heart failure (Acute) Chronic kidney disease (CKD), stage III (moderate) S/P implantation of automatic cardioverter/defibrillator (AICD) (03/2024) Paroxysmal ventricular tachycardia AICD present, double chamber Ventricular tachycardia (Acute) Heart failure with reduced ejection fraction (HFrEF, <= 40%) Obstructive sleep apnea Hypothyroidism HTN (hypertension) Diabetes mellitus Cor pulmonale Paroxysmal atrial fibrillation Ischemic cardiomyopathy Wide-complex tachycardia Coronary artery disease Environmental allergies Hypercholesterolemia 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 diabetes mellitus Morbid obesity Depression BPH w urinary obs/LUTS Nocturnal hypoxia Asthma Gout (Acute) Medical History Syncope and collapse Syncope, cardiogenic Dysrhythmia Elevated troponin FIDEL (acute kidney injury) Acute hyperkalemia Diabetic kidney disease Left bundle branch block Chronic diastolic CHF (congestive heart failure) Dyspnea Adverse effect of COVID-19 vaccine Syncope, vasovagal Resistant hypertension Surgical History S/P left knee arthroscopy S/P right knee arthroscopy History of herniorrhaphy umbilical History of uvulopalatopharyngoplasty Family History Sister Breast cancer Uterine cancer Father Myocardial infarction Skin cancer (melanoma) Heart disease Lung cancer Mother Diabetes Denies family history of Prostate cancer Kidney disease Social History Smoking Status: Never smoker Second Hand Exposure: No; Do You Dip or Chew Tobacco: No; Hx Alcohol Use: No Hx Substance Use: No Preferred Language: [place] Communication Ability: Effective Visual Impairment: No Limitations Hearing Ability: Normal Remote Coders Required: No Beliefs That Will Affect Care: None marital status: Current Living Situation: Alone current occupational status: retired How many Children do You have: 3 Feels Safe at Home: Yes Safety Concerns: Feels Safe At This Time Childhood Exposure to Second-Hand Smoke: Yes Diet: regular Diet Comment: regular caffeine: Yes during the past year weight has: remained stable Dental Care, Regularly: Yes Physical Activity Frequency: Other Physical Activity Frequency Comment: WALKING Seatbelt Use: always Sunscreen Use: Yes Assistive Devices: CPAP and Walker Allergies Allergies Allergy/AdvReac Type Severity Reaction Status Date / Time heparin Allergy Severe HIT Verified 12/08/24 12:58 Penicillins Allergy Severe HIVES/SOB Verified 12/08/24 12:58 Cephalosporins Allergy Intermediate FROM MED Verified 12/08/24 12:58 TUCKERDR LISA telmisartan Allergy Intermediate FROM DR Verified 12/08/24 12:58 MULUGETA OFC RECORD Home Meds Home Medications Medication Instructions Recorded Confirmed cyanocobalamin (vitamin B-12) 5,000 mcg sublingual DAILY 10/01/18 01/22/25 5,000 mcg sublingual tablet acetaminophen 500 mg tablet 500 mg PO Q6H PRN Pain 06/17/19 01/22/25 (Tylenol Extra Strength) dulaglutide 4.5 mg/0.5 mL 4.5 mg subcut UD 03/15/24 01/22/25 subcutaneous pen injector krill oil 500 mg capsule 500 mg PO DAILY 03/24/24 01/22/25 cholecalciferol (vitamin D3) 100 4,000 unit PO DAILY 06/17/24 01/22/25 mcg (4,000 unit) capsule docusate sodium 100 mg capsule 100 mg PO TID PRN Constipation 06/17/24 01/22/25 (Colace) Previous Rx's Medication Instructions Recorded multivitamin (Daily Multi-Vitamin 1 tab PO DAILY #90 tabs 11/28/20 tablet) CPAP Machine #1 ea 03/20/22 blood-glucose meter (Campaign Monitor #1 ea 03/17/24 Ultra2 Meter) aspirin 81 mg tablet,delayed 81 mg PO DAILY #100 tabs 04/28/24 release (Roderick Low Dose Aspirin) empagliflozin 10 mg tablet 10 mg PO QAM #90 tabs 04/28/24 (Jardiance) amiodarone 200 mg tablet 200 mg PO BIDM #180 tabs 05/07/24 lancets 33 gauge (C-narioTouch Delica #100 ea 09/21/24 Plus Lancet) carvedilol 12.5 mg tablet 12.5 mg PO BID #180 tabs 10/13/24 montelukast 10 mg tablet 10 mg PO HS #90 tabs 10/19/24 finasteride 5 mg tablet 5 mg PO QAM #90 tabs 11/03/24 metformin 500 mg tablet 500 mg PO BID #180 tabs 11/18/24 trazodone 100 mg tablet 100 mg PO HS #90 tabs 11/30/24 fenofibrate nanocrystallized 48 mg 96 mg (2 x 48 mg) PO DAILY #180 12/07/24 tablet tabs levothyroxine 150 mcg tablet 150 mcg PO DAILY #90 tabs 12/07/24 furosemide 20 mg tablet 20 mg PO DAILY PRN edema #90 tabs 12/08/24 blood sugar diagnostic (OneTouch #100 ea 01/18/25 Ultra Test strips) atorvastatin 20 mg tablet 20 mg PO DAILY #90 tabs 01/21/25 bupropion HCl 300 mg 24 hr tablet, 300 mg PO DAILY #90 tabs 01/21/25 extended release Results & Data (ED) Vital Signs Vital Signs - 24 hr 01/22/25 07:37 01/22/25 07:37 01/22/25 07:48 Temperature 36.8 C Temperature Source Oral Pulse Rate 68 Pulse Rate [Apical] 67 Respiratory Rate 20 Respiratory Effort / Characteristics Respiratory Depth Normal Normal Respiratory Pattern Blood Pressure 154/101 H Blood Pressure [Right Arm] 135/89 Blood Pressure Mean 118 Blood Pressure Mean [Right Arm] 104 Blood Pressure Position [Right Arm] Pulse Oximetry 95 Oxygen Delivery Method Room Air Oxygen Flow Rate Sepsis Recent Fever Within 48 Hours Yes Sepsis New/Unexplained Change in Mental Status No Sepsis Action Taken by Nursing No Action Required Oxygen Flow Rate - Titration Pulse Oximetry Post Tiitration 01/22/25 08:07 01/22/25 09:23 01/22/25 09:36 Temperature Temperature Source Pulse Rate 65 Pulse Rate [Apical] 82 Respiratory Rate 18 Respiratory Effort / Characteristics Respiratory Depth Normal Respiratory Pattern Blood Pressure Blood Pressure [Right Arm] 138/90 Blood Pressure Mean Blood Pressure Mean [Right Arm] 106 Blood Pressure Position [Right Arm] Pulse Oximetry 90 86 L Oxygen Delivery Method Room Air Room Air Oxygen Flow Rate Sepsis Recent Fever Within 48 Hours Sepsis New/Unexplained Change in Mental Status Sepsis Action Taken by Nursing Oxygen Flow Rate - Titration 2 Pulse Oximetry Post Tiitration 95 01/22/25 10:00 01/22/25 10:21 01/22/25 11:00 Temperature 36.5 C Temperature Source Oral Pulse Rate Pulse Rate [Apical] 68 81 68 Respiratory Rate 22 22 21 Respiratory Effort / Characteristics Non-Labored Spontaneous Respiratory Depth Normal Respiratory Pattern Regular Blood Pressure Blood Pressure [Right Arm] 142/90 H 142/90 H 141/92 H Blood Pressure Mean Blood Pressure Mean [Right Arm] 107 107 108 Blood Pressure Position [Right Arm] Semi-fowlers Pulse Oximetry 90 96 97 Oxygen Delivery Method Room Air Nasal Cannula Nasal Cannula Oxygen Flow Rate 2 2 Sepsis Recent Fever Within 48 Hours Sepsis New/Unexplained Change in Mental Status Sepsis Action Taken by Nursing Oxygen Flow Rate - Titration Pulse Oximetry Post Tiitration Laboratory Data 01/22/25 07:32 01/23/25 05:41 Lab Results 01/22/25 01/22/25 01/22/25 Range/Units 07:32 09:45 09:46 WBC 14.14 H (4.8-10.8) K/ul RBC 4.57 L (4.70-6.10) M/uL Hgb 13.4 L (14.0-18.0) g/dL Hct 41.1 L (42.0-52.0) % MCV 89.9 (80.0-100.0) fL MCH 29.3 (25.0-34.0) pg MCHC 32.6 (32.0-36.0) g/dL RDW Std Deviation 53.6 H (36.4-46.3) fL RDW Coeff of Christina 16.4 H (11.5-14.5) % Plt Count 267 (130-400) K/uL MPV 10.6 (9.4-12.4) fL Immature Gran % (Auto) 1.1 % Neut % (Auto) 80.9 % Lymph % (Auto) 12.0 % Wetzel % (Auto) 5.2 % Eos % (Auto) 0.4 % Baso % (Auto) 0.4 % Neut # (Auto) 11.47 H (1.40-6.50) K/uL Lymph # (Auto) 1.69 (1.20-3.40) K/uL Wetzel # (Auto) 0.73 H (0.11-0.59) K/uL Eos # (Auto) 0.05 (0.00-0.50) K/uL Baso # (Auto) 0.05 (0.00-0.20) K/uL Immature Gran # (Auto) 0.15 (0.01-0.20) K/uL ESR 37 H (0-20) mm/hr PT 11.8 (9.0-12.0) Seconds INR 1.1 (0.9-1.1) APTT 26 (21-31) Seconds PTT Ratio 1.0 Sodium 135 L (136-145) mmol/L Potassium 5.0 (3.5-5.1) mmol/L Chloride 101 (98-107) mmol/L Carbon Dioxide 23 (21-32) mmol/L Anion Gap 11 (3-11) BUN 44 H (6-23) mg/dl Creatinine 2.63 H (0.6-1.4) mg/dl Est Cr Clr Drug Dosing 35.1 ml/min eGFR 24.75 BUN/Creatinine Ratio 16.7 (10-20) Glucose 182 H (70-99(Fasting)) mg/dl Calcium 8.9 (8.6-10.3) mg/dl Magnesium 2.1 (1.7-2.4) mg/dl Total Bilirubin 0.5 (0.2-1.0) mg/dl AST 29 (13-39) U/L ALT 25 (7-52) U/L Alkaline Phosphatase 40 (34-104) U/L Total Creatine Kinase 223 (30-223) U/L Troponin I High Sens 52.9 H* 52.2 H* (0-20) pg/ml C-Reactive Protein 1.17 H (0-0.5) mg/dl B-Natriuretic Peptide 1657 H (0-100) pg/ml Total Protein 7.0 (6.0-8.3) gm/dl Albumin 4.0 (3.4-5.0) gm/dl Globulin 3.0 (2.5-4.0) gm/dl Albumin/Globulin Ratio 1.3 (0.9-2) Procalcitonin 0.03 (0-0.5) ng/ml Urine Color Yellow Urine Appearance Clear (Clear) Urine pH 5.0 (4.5-7.5) Ur Specific [place] 1.022 (1.000-1.030) Urine Protein Trace H (Negative) Urine Glucose (UA) 3+ H (Negative) Urine Ketones Trace H (Negative) Urine Blood Negative (Negative) Urine Nitrite Negative (Negative) Urine Bilirubin Negative (Negative) Urine Urobilinogen Negative (Negative) Ur Leukocyte Esterase Negative (Negative) Urine WBC (Auto) 0-5 (0-5) /hpf Urine RBC (Auto) 0-2 (0-2) /hpf U Hyaline Cast (Auto) 0-2 (0-2) /lpf U Epithel Cells (Auto) 0-2 (0-2) /hpf Urine Bacteria (Auto) None Seen (None Seen) Urine Comment Adenovirus (PCR) Not Detected (NotDetected) B. pertussis DNA (PCR) Not Detected (NotDetected) B.parapertussis DNA PCR Not Detected (NotDetected) C. pneumoniae DNA (PCR) Not Detected (NotDetected) Coronavirus OC43 (PCR) Not Detected (NotDetected) Coronavirus HKU1 (PCR) Not Detected (NotDetected) Coronavirus 229E (PCR) Not Detected (NotDetected) SARS-CoV-2 (PCR) Not Detected (NotDetected) Coronavirus NL63 (PCR) Not Detected (NotDetected) Human Metapneumovir PCR Not Detected (NotDetected) Influenza Type A (PCR) Not Detected (NotDetected) Influenza Type B (PCR) Not Detected (NotDetected) M. pneumoniae (PCR) Not Detected (NotDetected) Parainfluenza 1 (PCR) Not Detected (NotDetected) Parainfluenza 2 (PCR) Not Detected (NotDetected) Parainfluenza 3 (PCR) Not Detected (NotDetected) Parainfluenza 4 (PCR) Not Detected (NotDetected) RSV (PCR) Not Detected (NotDetected) Entero/Rhino (PCR) Not Detected (NotDetected) Administered Medications Amiodarone HCl (Amiodarone 200 Mg Tab) 200 mg PO BIDM [facility] Stop: 02/21/25 16:59 Last Admin: 01/23/25 07:58 Dose: 200 mg Documented By: dll Admin: 01/22/25 17:04 Dose: 200 mg Documented By: cristian Apixaban (Apixaban 2.5 Mg Tab) 2.5 mg PO BID [facility] Stop: 02/21/25 20:59 Last Admin: 01/23/25 07:58 Dose: 2.5 mg Documented By: cristian Admin: 01/22/25 20:14 Dose: 2.5 mg Documented By: YOLANDA Aspirin (Aspirin 81 Mg Ectab) 81 mg PO DAILY [facility] Stop: 02/22/25 08:59 Last Admin: 01/23/25 07:58 Dose: 81 mg Documented By: cristian Atorvastatin Calcium (Atorvastatin 20 Mg Tab) 20 mg PO DAILY [facility] Stop: 02/22/25 08:59 Last Admin: 01/23/25 07:57 Dose: 20 mg Documented By: cristian Bupropion HCl (Bupropion Xl 300 Mg Tabcr) 300 mg PO DAILY [facility] Stop: 02/22/25 08:59 Last Admin: 01/23/25 07:58 Dose: 300 mg Documented By: cristian Empagliflozin (Empagliflo[facility] 10 Mg Tab) [facility] [place]: 02/22/25 08:59 Last Admin: 01/23/25 07:58 Dose: 10 mg Documented By: cristian Finasteride (Finasteride 5 Mg Tab) 5 mg PO QAM [facility] Stop: 02/22/25 08:59 Last Admin: 01/23/25 07:58 Dose: 5 mg Documented By: cristian Ipratropium Seale (Ipratropium Seale Nasal Fossil 0.06% 15ml) 2 sprays JOSE Q6 [facility] Stop: 02/23/25 23:55 Last Admin: 01/23/25 12:31 Dose: 2 sprays Documented By: cristian Admin: 01/23/25 06:31 Dose: Not Given Documented By: Admin: 01/23/25 05:30 Dose: Not Given Documented By: Admin: 01/22/25 17:04 Dose: 2 sprays Documented By: cristian Levothyroxine Sodium (Levothyroxine Sodium 150 Mcg Tablet) 150 mcg PO DAILYBB [facility] Stop: 02/22/25 06:29 Last Admin: 01/23/25 06:28 Dose: 150 mcg Documented By: YOLANDA Montelukast Sodium (Montelukast Sodium 10 Mg Tablet) 10 mg PO HS [facility] Stop: 02/21/25 20:59 Last Admin: 01/22/25 20:15 Dose: 10 mg Documented By: YOLANDA Polyethylene Glycol (Polyethylene (Miralax) 17 Gm Pack) 17 gm PO DAILY [facility] Stop: 02/21/25 15:22 Last Admin: 01/23/25 07:57 Dose: 17 gm Documented By: cristian Admin: 01/22/25 17:04 Dose: 17 gm Documented By: cristian Discontinued Medications Furosemide (Furosemide 40 Mg/4 Ml Vial) 40 mg IV ONE ONE Stop: 01/22/25 13:42 Last Admin: 01/22/25 14:46 Dose: 40 mg Documented By: DIDI Furosemide (Furosemide 40 Mg/4 Ml Vial) 40 mg IV ONE ONE Stop: 01/23/25 08:41 Last Admin: 01/23/25 09:31 Dose: 40 mg Documented By: cristian Influenza Virus Vacc Triv Types A&B (Influenza Vacc [id number](65y+)/Pf (Iiv3) 0.5ml Syr) 0.5 ml IM .ONCE ONE Stop: 01/22/25 17:01 Last Admin: 01/23/25 12:32 Dose: 0.5 ml Documented By: cristian Quetiapine Fumarate (Quetiapine Fumarate 25 Mg Tablet) 25 mg PO HS [facility] Stop: 02/21/25 20:59 Last Admin: 01/22/25 20:16 Dose: 25 mg Documented By: YOLANDA Imaging Data Radiologist's Impression: Chest X-Ray 01/22/25 07:50 Clinical History: Cough Technique: PA and lateral views of the chest were obtained Comparison is made to the prior examination dated 04/04/2024 Findings: There is prominence of the right hilum. The heart is mildly enlarged. There is a left chest wall pacemaker device. No pleural effusion or pneumothorax is seen. There is suspected mild pulmonary edema No fracture is noted. No foreign body is seen Impression: 1. Cardiomegaly and mild pulmonary edema 2. Prominence of the right hilum that could be due to prominent central vasculature such as from pulmonary arterial hypertension. Hilar adenopathy or perihilar mass cannot be excluded ACT 112: Positive. There are findings on this exam that require communication between the performing entity and the patient following Patient Test Result Information Act ([place] ACT 112) guidelines. Electronically signed by Wayne Rodriguez 01-22-2025 08:45 AM Hip X-Ray 01/22/25 08:24 Clinical History: Pain after fall 2 views of the left hip are submitted for review. Findings: No fracture or dislocation is seen. There is mild left hip osteoarthritis. No other osseous abnormality is identified. There are no radiopaque foreign bodies. Impression: Mild left hip osteoarthritis Electronically signed by Wayne Rodriguez 01-22-2025 09:[address] 01/22/25 08:25 Technique: Axial computed tomography images were obtained of the cervical spine without intravenous contrast. Sagittal and coronal reconstructions were obtained Findings: No fracture is identified. No listhesis is seen. No focal osseous lesion is evident. There is atlantoaxial osteoarthritis At C2-3, there is a mild disc bulge. There is no spinal stenosis. The neural foramen are patent At C3-4, there is mild spinal stenosis with suspected mild spinal cord deformity due to a disc bulge and a central protrusion. There is mild left neural foramen narrowing At C4-5, there is mild spinal stenosis due to a disc bulge. The neural foramen are patent At C5-6, there is spinal stenosis due to a disc bulge and a right paracentral disc protrusion. The neural foramen are patent At C6-7, there is spinal stenosis due to a disc bulge and a left paracentral disc herniation. There is left neural foramen narrowing that may affect the left C7 nerve root At C7-T1, there is a mild disc bulge. There is no spinal stenosis. The neural foramen are patent The lung apices appear clear. There is a suspected nodule in the right thyroid lobe. No foreign body is seen Impression: 1. No definite cervical spine fracture 2. Spinal stenosis at C5-6 and C6-7 and to a lesser extent at C3-4 and C4-5 3. Left C6-7 neural foramen narrowing that may affect the left C7 nerve root ACT 112: Positive. There are findings on this exam that require communication between the performing entity and the patient following Patient Test Result Information Act ([place] ACT 112) guidelines. Electronically signed by Wayne Rodriguez 01-22-2025 09:[address] 01/22/25 08:25 Technique: Axial computed tomography images were obtained of the brain from the vertex to the skull base without intravenous contrast. Comparison is made to the prior CT dated 04/04/2024 Findings: There is no sign of intracranial hemorrhage. There is normal stock-white matter differentiation with no sign of acute or old infarction. No midline shift or other form of herniation is identified. There is no hydrocephalus. There is unchanged cerebral atrophy No obvious mass lesion is seen on this noncontrast examination. The visualized portions of the orbits and paranasal sinuses appear unremarkable. The mastoid air cells appear clear Impression: Unremarkable noncontrast CT of the brain Electronically signed by Wayne Rodriguez 01-22-2025 09:17 AM Discharge Plan Visit Data Chief Complaint: Illness Stated Complaint: illness ED Provider: Diony Cristobal ED Midlevel Provider: Padmini Coy Discharge Problem: Rhinorrhea, Acute on chronic combined systolic (congestive) and diastolic (congestive) heart failure Patient Disposition: Admitted As Inpatient Condition: Good Discharge Instructions Interventions: ED Discharge Assessment Last Done: 01/22/25 14:54
[2025-01-22 14:08] LABS: Creatine Kinase 223.0 U/L (30-223)
[2025-01-22] MEDS: FUROSEMIDE 40 MG/4 ML VIAL IV ONE (14:46)
--- NOTE | 2025-01-22 14:58 | Ultrasound Report ---
Clinical history: Lump in right posterior neck Technique: Directed sonography was performed of the neck at the site of concern Findings: There is a 2.9 x 2.6 x 1.3 cm mildly heterogeneous mildly hyperechoic mass in the superficial soft tissues of the right posterior neck at the site of concern. This is indeterminate in nature but likely a benign lipoma. No other soft tissue mass or fluid collection is identified. No foreign body is evident Impression: 2.9 cm mass in the right posterior neck at the site of concern, likely a lipoma Electronically signed by Wayne Rodriguez 01-22-2025 2:57 PM
[2025-01-22] MEDS ORDERED: MAGNESIUM HYDROXIDE SUSP 30 ML UDC PO PRN (15:23)
[2025-01-22] MEDS ORDERED: ONDANSETRON INJ 2 MG/ML 2 ML VIAL IV PRN (15:23)
[2025-01-22] MEDS ORDERED: MELATONIN 3 MG TAB PO PRN (15:23)
[2025-01-22] MEDS ORDERED: ALUMINUM/MAGNESIUM SUSP 30 ML UDC PO PRN (15:23)
[2025-01-22] MEDS ORDERED: ACETAMINOPHEN 500 MG TAB PO PRN (15:23)
[2025-01-22] MEDS: IPRATROPIUM BROMIDE NASAL SPRAY 0.06% 15ML NAE SCH (17:04)
[2025-01-22] MEDS: POLYETHYLENE (MIRALAX) 17 GM PACK PO SCH (17:04)
[2025-01-22] MEDS: AMIODARONE 200 MG TAB PO SCH (17:04)
--- NOTE | 2025-01-22 18:24 | History & Physical Report ---
Date of Service January 22, 2025 Assessment & Plan (1) Acute on chronic combined systolic (congestive) and diastolic (congestive) heart failure: (2) Leg weakness, bilateral: (3) Rhinorrhea: (4) Orthostatic hypotension: (5) Diabetes mellitus: (6) Paroxysmal atrial fibrillation: Plan 74 year-old man with many chronic medical problems including chronic systolic and diastolic heart failure, history of episodes of VT - AICD in place, coronary artery disease, atrial fibrillation, cor pulmonale, obstructive sleep apnea, chronic kidney disease, diabetes type 2. he presents just generally feeling poorly with malaise he is having a significant amount of lower extremity weakness and episodes of numbness that has impaired his ambulation to the point that he feels like he cannot make it at home anymore, he has had significant problems with orthostatic hypotension recently that has caused alteration of his medication regimen and has impaired his mobility. I have a few concerns - including that he appears to be in decompensated heart failure with pulmonary edema, cold extremities and BNP elevation to the 1600s which he has never had before (usually 250s) this is in the absence of gross volume overload and makes me worried that he has had a change in his cardiac function. Regarding the bilateral leg weakness it is significant on physical exam and I am worried that he is having issues with spinal stenosis potentially myelopathy, because of the rhinorrhea and a CSF leak is on the differential diagnosis. # acute on chronic systolic and diastolic heart failure he had an echo August of this year with EF improved to 40% moderate LVH and moderate MR - dyspnea, mild hypoxia, Pulmonary edema on chest x-ray, crackles on lung exam, severely elevated BNP, cold lower extremities - Administer Lasix 40 mg IV, repeat echocardiogram - reduce carvedilol dose, continue SGLT2 - daily a.m. BMP and magnesium # Progressive bilateral leg weakness, recent onset of urinary incontinence. craning of neck seems to aggravate symptoms, cervical spinal stenosis on CT neck with no fractures seen. Possible spinal myelopathy - Obtain noncontrast MRI C-spine, check sed rate, CRP, total CK ( was 223 not elevated ruling out rhabdomyolysis) - Differential: PMR, statin-induced myopathy, peripheral neuropathy. Patellar reflexes brisk so unlikely GBS. Not consistent with MG. # Rhinorrhea Probably rhinitis rule out CSF leak (dizziness, lightheadedness, headache, vert igo-like symptoms). - Trial ipratropium nasal spray. if the drainage stops with the nasal spray, CSF leak is ruled out - he does not have symptoms of acute bacterial sinusitis # leukocytosis - he has a leukocytosis which is left shifted. I do not have an explanation for this currently he has no apparent infection monitor for signs and symptoms of infection or inflammation. CRP only 1.5 # CKD stage 3 Managed by colt Garrison. # Coronary artery disease - medically managed Stable. continue aspirin statin and beta-luanne # Ventricular tachycardia history AICD, atrial paced, stable. # Paroxysmal atrial fibrillation Stable. he is not on anticoagulation because of history of pulmonary hemorrhage and according to his preference, continue beta-luanne aspirin and amiodarone # Obstructive sleep apnea Continue CPAP at bedtime. # Type 2 diabetes mellitus Continue SGLT2 inhibitor, hold dulaglutide and metformin last A1c was in the fives, continue diabetic diet and every morning Accu-Cheks add as needed insulin if these are elevated greater than 180 # Benign prostatic hyperplasia (BPH) Continue finasteride. # Orthostatic hypotension - discontinue trazodone. alternative agent for sleep - try seroquel 25 mg - TSH 1.6 in october, B12 recently normal, check AM cortisol - monitor orthostatic vital signs, ordered PT and OT evaluations # hypothyroidism -continue levothyroxine. There is a possible thyroid nodule seen incidentally on his neck CT - follow-up with primary care # DVT Prophylaxis: SCDs, low-dose apixaban because he has a history of HIT Medical Complexity: Medical decision making was complex, high risk for clinical deterioration morbidity, or mortality for this encounter. Admission and Anticipated Discharge Date Admission Date: January 22, 2025 History of Present Illness Chief Complaint: leg weakness, lightheadedness, malaise Primary Care Provider: Amber Kemp DO 74-year-old male with systolic and diastolic heart failure, CKD stage 3, VT with AICD, obstructive sleep apnea, coronary artery disease, paroxysmal atrial fibrillation, and diabetes. Presents with generalized malaise and lower extremity weakness. Reports difficulty rising from bed and ambulating, worsening over 3 weeks, mostly confined to a chair. Experiences lightheadedness upon standing, legs get numb and give out especially when looking up or raising left arm, causing numbness and instability in legs. 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 Developed urinary incontinence and constipation over several months, no loss of sensation in lower extremities or perineal area. Leg edema well-managed, feet cold and blue for last couple of months. Fell yesterday, previous fall in August or September 2024. Headaches, no tinnitus or hearing loss. Poor sense of smell, no changes. Suspects sinusitis because of ongoing rhinorrhea since URI just before [place], no facial pain or pressure. rhinorrhea is disrupting sleep due to nasal drainage causing choking sensation especially when lying on left side or back. he has to blow his nose a lot and then sometimes it drips down onto his shirt. It is clear and thin. No fever, chills, abdominal pain, nausea, vomiting, diarrhea, dysuria, skin rashes, or wounds. Severe orthostatic hypotension has been an issue this year, requiring medication adjustments, including reduced carvedilol dose and reduction of Lasix regimen to 20 mg daily with additional doses as needed. Increased shortness of breath compared to baseline. Cold symptoms since late November 2024 or December 2024, Occasional clear nasal discharge. Allergies Allergy/AdvReac Type Severity Reaction Status Date / Time heparin Allergy Severe HIT Verified 12/08/24 12:58 Penicillins Allergy Severe HIVES/SOB Verified 12/08/24 12:58 Cephalosporins Allergy Intermediate FROM MED Verified 12/08/24 12:58 RECORDDR LISA telmisartan Allergy Intermediate FROM Verified 12/08/24 12:58 MULUGETA OFC RECORD Home Medications Medication Instructions Recorded Confirmed Type cyanocobalamin (vitamin B-12) 5,000 mcg sublingual DAILY 10/01/18 01/22/25 History 5,000 mcg sublingual tablet acetaminophen 500 mg tablet 500 mg PO Q6H PRN Pain 06/17/19 01/22/25 History (Tylenol Extra Strength) multivitamin (Daily Multi-Vitamin 1 tab PO DAILY #90 tabs 11/28/20 01/22/25 Rx tablet) CPAP Machine #1 ea 03/20/22 12/08/24 Rx dulaglutide 4.5 mg/0.5 mL 4.5 mg subcut UD 03/15/24 01/22/25 History subcutaneous pen injector blood-glucose meter (OneTouch #1 ea 03/17/24 12/08/24 Rx Ultra2 Meter) krill oil 500 mg capsule 500 mg PO DAILY 03/24/24 01/22/25 History aspirin 81 mg tablet,delayed 81 mg PO DAILY #100 tabs 04/28/24 01/22/25 Rx release (Roderick Low Dose Aspirin) empagliflozin 10 mg tablet 10 mg PO QAM #90 tabs 04/28/24 01/22/25 Rx (Jardiance) amiodarone 200 mg tablet 200 mg PO BIDM #180 tabs 05/07/24 01/22/25 Rx cholecalciferol (vitamin D3) 100 4,000 unit PO DAILY 06/17/24 01/22/25 History mcg (4,000 unit) capsule docusate sodium 100 mg capsule 100 mg PO TID PRN Constipation 06/17/24 01/22/25 History (Colace) lancets 33 gauge (OneTouch Snow #100 ea 09/21/24 12/08/24 Rx Plus Lancet) carvedilol 12.5 mg tablet 12.5 mg PO BID #180 tabs 10/13/24 01/22/25 Rx montelukast 10 mg tablet 10 mg PO HS #90 tabs 10/19/24 01/22/25 Rx finasteride 5 mg tablet 5 mg PO QAM #90 tabs 11/03/24 01/22/25 Rx metformin 500 mg tablet 500 mg PO BID #180 tabs 11/18/24 01/22/25 Rx trazodone 100 mg tablet 100 mg PO HS #90 tabs 11/30/24 01/22/25 Rx fenofibrate nanocrystallized 48 mg 96 mg (2 x 48 mg) PO DAILY #180 12/07/24 01/22/25 Rx tablet tabs levothyroxine 150 mcg tablet 150 mcg PO DAILY #90 tabs 12/07/24 01/22/25 Rx furosemide 20 mg tablet 20 mg PO DAILY PRN edema #90 tabs 12/08/24 01/22/25 Rx blood sugar diagnostic (OneTouch #100 ea 01/18/25 Rx Ultra Test strips) atorvastatin 20 mg tablet 20 mg PO DAILY #90 tabs 01/21/25 01/22/25 Rx bupropion HCl 300 mg 24 hr tablet, 300 mg PO DAILY #90 tabs 01/21/25 01/22/25 Rx extended release Past Med/Surg History Problem List (Updated 01/22/25 @ 18:43 by Laine Willis MD) Rhinorrhea Orthostatic hypotension Leg weakness, bilateral Acute on chronic combined systolic (congestive) and diastolic (congestive) heart failure Chronic kidney disease (CKD), stage III (moderate) S/P implantation of automatic cardioverter/defibrillator (AICD) (03/2024) Paroxysmal ventricular tachycardia AICD present, double chamber Ventricular tachycardia (Acute) Heart failure with reduced ejection fraction (HFrEF, <= 40%) Obstructive sleep apnea Hypothyroidism HTN (hypertension) Diabetes mellitus Cor pulmonale Paroxysmal atrial fibrillation Ischemic cardiomyopathy Wide-complex tachycardia Coronary artery disease Environmental allergies Hypercholesterolemia 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 diabetes mellitus Morbid obesity Depression BPH w urinary obs/LUTS Nocturnal hypoxia Asthma Gout (Acute) Medical History Syncope and collapse Syncope, cardiogenic Dysrhythmia Elevated troponin FIDEL (acute kidney injury) Acute hyperkalemia Diabetic kidney disease Left bundle branch block Chronic diastolic CHF (congestive heart failure) Dyspnea Adverse effect of COVID-19 vaccine Syncope, vasovagal Resistant hypertension Surgical History S/P left knee arthroscopy S/P right knee arthroscopy History of herniorrhaphy umbilical History of uvulopalatopharyngoplasty Family History Sister Breast cancer Uterine cancer Father Myocardial infarction Skin cancer (melanoma) Heart disease Lung cancer Mother Diabetes Denies family history of Prostate cancer Kidney disease Social History Smoking Status: Never smoker Second Hand Exposure: No; Do You Dip or Chew Tobacco: No; Hx Alcohol Use: No Hx Substance Use: No Preferred Language: Guinean Communication Ability: Effective Visual Impairment: No Limitations Hearing Ability: Normal Bankruptcy Manager Required: No Beliefs That Will Affect Care: None marital status: Current Living Situation: Alone current occupational status: retired How many Children do You have: 3 Feels Safe at Home: Yes Safety Concerns: Feels Safe At This Time Childhood Exposure to Second-Hand Smoke: Yes Diet: regular Diet Comment: regular caffeine: Yes during the past year weight has: remained stable Dental Care, Regularly: Yes Physical Activity Frequency: Other Physical Activity Frequency Comment: WALKING Seatbelt Use: always Sunscreen Use: Yes Assistive Devices: CPAP and Walker Review of Systems Review of Systems: All systems reviewed & are unremarkable except as noted in HPI & below Physical Exam Physical Exam: General Appearance: Pleasant, awake, alert, oriented x4. Vital signs: Reviewed past 24h vital signs in EMR, unremarkable. HEENT: No nasal drainage. Rhinophyma Respiratory: Lungs clear to auscultation anteriorly and posteriorly there are bibasilar crackles one third of the way up. Cardiovascular: Regular rhythm, systolic murmur at left sternal border. Neck veins not visible because of large neck. Gastrointestinal: Protuberant, soft, nontender, nondistended. Back, Musculoskeletal: Strength 5/5 in bilateral upper extremities. Lower extremities: 3+ right hip flexors, 3- left hip flexor, 3 both knee extensors, 5 dorsiflexion and plantar flexion. Skin: Lower extremities cool, feet and ankles cold and cyanotic without wounds. Upper extremities and hands warm. Neurological: Strength 5/5 in bilateral upper extremities. Lower extremities: 3+ right hip flexors, 3- left hip flexor, 3 both knee extensors, 5 dorsiflexion and plantar flexion. Patellar reflexes intact without spread. Babinski's reflex not obtained. No ankle clonus. Sensation intact to light touch bilaterally. Psychiatric: Normal. Other observations: Large fat pad in posterior right neck, freely mobile nontender nonfluctuant mass within it. No tenderness over C-spine. Full range of motion at the neck without pain. Results & Data Results & Data Vital Signs (Past 12 Hours) Vital Signs Temp Pulse Pulse Resp BP BP Pulse Ox 01/22/25 15:56 01/22/25 15:39 36.6 C 81 18 119/69 95 01/22/25 15:23 82 01/22/25 14:45 36.7 C 64 18 126/77 95 01/22/25 14:00 72 26 H 01/22/25 13:30 80 22 01/22/25 13:00 155/97 H 01/22/25 13:00 155/97 H 01/22/25 13:00 68 20 97 01/22/25 12:31 67 20 138/94 97 01/22/25 12:30 77 17 97 01/22/25 12:30 138/94 01/22/25 12:23 62 01/22/25 12:00 65 14 96 01/22/25 12:00 135/96 01/22/25 11:30 141/99 H 01/22/25 11:30 64 18 96 01/22/25 11:02 141/92 H 01/22/25 11:00 79 22 96 01/22/25 11:00 36.5 C 68 21 141/92 H 97 01/22/25 10:21 81 22 142/90 H 96 01/22/25 10:00 68 22 142/90 H 90 01/22/25 09:36 86 L 01/22/25 09:23 82 18 138/90 90 01/22/25 08:07 65 01/22/25 07:48 67 135/89 01/22/25 07:37 36.8 C 68 20 154/101 H 95 O2 Del Method O2 Flow Rate 01/22/25 15:56 Nasal Cannula 2 01/22/25 15:39 Nasal Cannula 3 01/22/25 15:23 01/22/25 14:45 Nasal Cannula 2 01/22/25 14:00 01/22/25 13:30 01/22/25 13:00 01/22/25 13:00 01/22/25 13:00 01/22/25 12:31 Nasal Cannula 2 01/22/25 12:30 01/22/25 12:30 01/22/25 12:23 01/22/25 12:00 01/22/25 12:00 01/22/25 11:30 01/22/25 11:30 01/22/25 11:02 01/22/25 11:00 01/22/25 11:00 Nasal Cannula 2 01/22/25 10:21 Nasal Cannula 2 01/22/25 10:00 Room Air 01/22/25 09:36 Room Air 01/22/25 09:23 Room Air 01/22/25 08:07 01/22/25 07:48 01/22/25 07:37 Room Air Diagnostic Findings - Labs: - Sodium: 135 - Potassium: 5.0 - Creatinine: 2.63 - White blood count: 14 - Hemoglobin: 13.4 - High sensitivity troponin: 53 then 52 - Procalcitonin: 0.03 - Urinalysis: Protein and ketones, no pyuria - Respiratory bio fire screen: Negative - BNP: 1657 - Imaging: - I personally reviewed and interpreted the Chest x-ray film: Cardiomegaly, pulmonary edema, right hilar prominence - Head CT: Negative for acute changes - CT C-spine: No fractures, cervical spinal stenosis at C5/6/7, foraminal stenosis at C6-7 affecting C7 nerve root, possible right thyroid nodule - Left hip x-ray: Negative for fracture - Diagnostic Testing: - I personally interpreted the EKG: A-paced rhythm, intra-ventricular conduction delay, possible LVH Code Status & VTE Plan VTE Prophylaxis Plan VTE Prophylaxis will be ordered: Yes PG Care Time/CCT Total # of Minutes Spent Total Time Spent with Patient: Total time spent is greater than 50% in coordination of care (as documented) at patient's floor/unit and/or counseling patient: Coding Level of Care Code 69447 INT INP/OBS CARE 3/75MIN Diagnoses Acute on chronic combined systolic (congestive) and diastolic (congestive) heart failure I50.43 Leg weakness, bilateral R29.898 Rhinorrhea J34.89 Orthostatic hypotension I95.1 Diabetes mellitus E11.9 Paroxysmal atrial fibrillation I48.0
[2025-01-22] MEDS: APIXABAN 2.5 MG TAB PO SCH (20:14)
[2025-01-22] MEDS: MONTELUKAST SODIUM 10 MG TABLET PO SCH (20:15)
[2025-01-23] MEDS: LEVOTHYROXINE SODIUM 150 MCG TABLET PO SCH (06:28)
[2025-01-23] MEDS: ATORVASTATIN 20 MG TAB PO SCH (07:57)
[2025-01-23] MEDS: EMPAGLIFLOZIN 10 MG TAB PO SCH (07:58)
[2025-01-23] MEDS: ASPIRIN 81 MG ECTAB PO SCH (07:58)
[2025-01-23] MEDS: FINASTERIDE 5 MG TAB PO SCH (07:58)
[2025-01-23 09:24] LABS: Anion Gap 11.0 (3-11); Blood Urea Nitrogen 42.0 mg/dl (6-23); Calcium 8.6 mg/dl (8.6-10.3); Carbon Dioxide 26.0 mmol/L (21-32); Chloride 101.0 mmol/L (98-107); Creatinine Clr Calc Pharmacy 37.4 ml/min; Glucose 98.0 mg/dl (70-99(Fasting)); Magnesium 2.0 mg/dl (1.7-2.4); Potassium 4.4 mmol/L (3.5-5.1); Sodium 138.0 mmol/L (136-145)
[2025-01-23] MEDS: FUROSEMIDE 40 MG/4 ML VIAL IV ONE (09:31)
[2025-01-23] MEDS: INFLUENZA VACC TS2025-26(65y+)/PF (IIV3) 0.5mL Syr IM ONE (12:32)
--- NOTE | 2025-01-23 14:12 | XCELERA ---
[id number]
--- NOTE | 2025-01-23 14:35 | Hospitalist Progress Note ---
Date of Service January 23, 2025 Assessment & Plan (1) Acute on chronic combined systolic (congestive) and diastolic (congestive) heart failure: (2) Leg weakness, bilateral: (3) Rhinorrhea: (4) Orthostatic hypotension: (5) Diabetes mellitus: (6) Paroxysmal atrial fibrillation: Plan 74 year-old man with many chronic medical problems including chronic systolic and diastolic heart failure, history of episodes of VT - AICD in place, coronary artery disease, atrial fibrillation, cor pulmonale, obstructive sleep apnea, chronic kidney disease, diabetes type 2. he presents just generally feeling poorly with malaise he is having a significant amount of lower extremity weakness and episodes of numbness that has impaired his ambulation to the point that he feels like he cannot make it at home anymore, he has had significant problems with orthostatic hypotension recently that has caused alteration of his medication regimen and has impaired his mobility. I have a few concerns - including that he appears to be in decompensated heart failure with pulmonary edema, cold extremities and BNP elevation to the 1600s which he has never had before (usually 250s) this is in the absence of gross volume overload and makes me worried that he has had a change in his cardiac function. Regarding the bilateral leg weakness it is significant on physical exam and I am worried that he is having issues with spinal stenosis potentially myelopathy, because of the rhinorrhea and a CSF leak is on the differential diagnosis. #Acute on chronic combined systolic and diastolic heart failure Improvement in overall condition with diuresis, significant improvement in shortness of breath, cyanosis of lower legs/feet has resolved they are now warm and well-perfused - Weight decreased from 136.6 kg to 131.7 kg - Net -2800 mL - Telemetry shows atrial paced - Echocardiogram with moderately severe reduction in LV systolic function, akinetic at apex, severe LVH, moderate MR with eccentric jet, biatrial dilatation, severe pulmonary hypertension, reduced collapsibility of IVC -Continue diuresis with Lasix 40 mg IV this morning, assess for further dosing tomorrow morning - reduced carvedilol dose, continue SGLT2 - daily a.m. BMP and magnesium # Progressive bilateral leg weakness, recent onset of urinary incontinence. craning of neck seems to aggravate symptoms, cervical spinal stenosis on CT neck with no fractures seen. Possible spinal myelopathy - Obtain noncontrast MRI C-spine cannot be done until tomorrow because of his AICD, check sed rate, CRP ( 1.5), total CK ( was 223 not elevated ruling out rhabdomyolysis) - Differential: PMR, statin-induced myopathy, peripheral neuropathy. Patellar reflexes brisk so unlikely GBS. Not consistent with MG. # Rhinorrhea this resolved with ipratropium nasal spray therefore is rhinitis and CSF leak is ruled out # leukocytosis - he has a leukocytosis which is left shifted. I do not have an explanation for this currently he has no apparent infection monitor for signs and symptoms of infection or inflammation. CRP only 1.5 # CKD stage [address] [place], stable. # Coronary artery disease - medically managed Stable. continue aspirin statin and beta-luanne # Ventricular tachycardia history AICD, atrial paced, stable. # Paroxysmal atrial fibrillation Stable. he is not on anticoagulation because of history of pulmonary hemorrhage and according to his preference, continue beta-luanne aspirin and amiodarone # Obstructive sleep apnea Continue CPAP at bedtime. # Type 2 diabetes mellitus Continue SGLT2 inhibitor, hold dulaglutide and metformin last A1c was in the fives, continue diabetic diet and every morning Accu-Cheks add as needed insulin if these are elevated greater than 180 - glucose was 98 on today's chemistry panel # Benign prostatic hyperplasia (BPH) Continue finasteride. # Orthostatic hypotension - discontinue trazodone. alternative agent for sleep - try seroquel increase to 50 mg - TSH 1.6 in october, B12 recently normal, a.m. cortisol was robust at 15 - monitor orthostatic vital signs, ordered PT and OT evaluations - seems to have had improvement today # hypothyroidism -continue levothyroxine. There is a possible thyroid nodule seen incidentally on his neck CT - follow-up with primary care # DVT Prophylaxis: SCDs, low-dose apixaban because he has a history of HIT Medical Complexity: Medical decision making was complex, high risk for clinical deterioration morbidity, or mortality for this encounter. Admission and Anticipated Discharge Date Admission Date: January 22, 2025 Subjective 74-year-old male presents for evaluation of chronic combined systolic and diastolic heart failure. Reports improvement in overall condition, weight decreased from 136.6 kg to 131.7 kg. Oxygen saturation 90-93% on room air, BP within normal range, afebrile, morning cortisol 15, net -2800 mL. Telemetry shows atrial paced. Echocardiogram results pending. Experienced mild lightheadedness upon standing, resolved quickly. Shortness of breath improved, slight wheezing this morning. No chest pain. Difficulty sleeping due to uncomfortable bed, fell asleep within 10 minutes. Woke up with upper lung/airway congestion, resolved after coughing. Nasal drainage resolved with ipratropium nose spray. Right posterior neck mass evaluated with soft tissue ultrasound, consistent with lipoma. Physical Exam Physical Exam: General Appearance: Awake, alert, sitting up in chair. Improved appearance and color. Vital signs: Reviewed past 24h vital signs in EMR, unremarkable. HEENT: Within normal limits. Respiratory: Lungs clear to auscultation anteriorly and posteriorly. Minimal bibasilar crackles. No wheezing. Normal respiratory effort. Cardiovascular: Regular heart sounds, distant. No murmurs, rubs, or gallops. Gastrointestinal: Abdomen soft NT/ND, normal active bowel tones. Extremities: Lower extremities warm, well perfused. Cyanosis resolved. No edema. Skin: Warm and dry, no rash. Neurological: AOx4, normal speech and mentation, pryor x 4. Psychiatric: Normal. Results & Data Results & Data Vital Signs (Past 12 Hours) Vital Signs Temp Pulse Pulse Resp BP BP Pulse Ox 01/23/25 13:47 67 01/23/25 11:24 36.7 C 89 18 117/73 92 01/23/25 08:00 01/23/25 07:17 36.7 C 77 18 134/84 93 01/23/25 07:06 64 01/23/25 02:48 36.6 C 73 17 124/73 90 O2 Del Method 01/23/25 13:47 01/23/25 11:24 Room Air 01/23/25 08:00 Room Air 01/23/25 07:17 Room Air 01/23/25 07:06 01/23/25 02:48 Room Air Laboratory Results - Laboratory Studies: - A.M. cortisol: 15 sodium 138 potassium 4.4 BUN 42 creatinine 2.4 magnesium 2.0 - Imaging: - Soft tissue ultrasound of right posterior neck mass: Consistent with lipoma PG Care Time/CCT Total # of Minutes Spent Total Time Spent with Patient: Total time spent is greater than 50% in coordination of care (as documented) at patient's floor/unit and/or counseling patient: Coding Level of Care Code 66062 SUB INP/OBS CARE 3/50MIN Diagnoses Acute on chronic combined systolic (congestive) and diastolic (congestive) heart failure I50.43 Leg weakness, bilateral R29.898 Rhinorrhea J34.89 Orthostatic hypotension I95.1 Diabetes mellitus E11.9 Paroxysmal atrial fibrillation I48.0
[2025-01-24 06:28] LABS: Anion Gap 6.0 (3-11); Blood Urea Nitrogen 39.0 mg/dl (6-23); Calcium 8.4 mg/dl (8.6-10.3); Carbon Dioxide 33.0 mmol/L (21-32); Chloride 100.0 mmol/L (98-107); Creatinine Clr Calc Pharmacy 39.2 ml/min; Glucose 91.0 mg/dl (70-99(Fasting)); Magnesium 2.1 mg/dl (1.7-2.4); Potassium 4.0 mmol/L (3.5-5.1); Sodium 139.0 mmol/L (136-145)
--- NOTE | 2025-01-24 14:40 | Magnetic Resonance Report ---
MRI OF THE CERVICAL SPINE WITHOUT IV CONTRAST CLINICAL HISTORY: Lower extremity weakness. Syncope. COMPARISON STUDY: Cervical spine CT dated 01/22/2025. TECHNIQUE: MRI of the cervical spine was performed utilizing various T1 and T2-weighted sequences in the axial and sagittal planes. IV contrast was not administered for this examination. The examination is degraded by motion artifact. FINDINGS: Cervical spine: Vertebral body height and alignment is maintained throughout the cervical spine. Ther e is straightening of the cervical lordosis. Anterior osteophytes are seen throughout. The atlantoden astrid articulation is maintained noting productive degenerative change. The spinous processes appear in tact. No destructive bony lesion is seen. There is no significant degenerative endplate change. Intervertebral discs: Disc desiccation and mild loss of height is seen throughout the cervical spine. Loss of height is greatest at C5-C6 and C6-C7. Spinal cord: The cervical cord is normal in morphology and signal intensity. C2-C3: The central canal is clear. Mild facet arthropathy is of no consequence. The neural foramina a re patent. C3-C4: A posterior disc osteophyte complex minimally effaces the ventral subarachnoid space. Uncovert ebral and facet arthropathy cause moderate left and mild right neural foraminal stenosis. C4-C5: A posterior disc osteophyte complex abuts the ventral cord. Uncovertebral and facet arthropath y cause moderate left greater than right neural foraminal stenosis. C5-C6: A posterior disc osteophyte complex abuts the ventral cord. Uncovertebral and facet arthropath y cause mild bilateral neural foraminal stenosis. C6-C7: A posterior disc osteophyte complex eccentric to the left efface the ventral subarachnoid spac e. There is a left lateral disc bulge. In conjunction with facet arthropathy there is moderate to sev ere left neural foraminal stenosis. There is only minimal neural foraminal narrowing on the right. C7-T1: Unremarkable. Soft tissues: The prevertebral and paraspinous soft tissues are within normal limits. Brain parenchyma: The imaged brain parenchyma the skull base is normal as visualized. IMPRESSION: 1. Multilevel cervical spondylosis as above noting moderate to severe left neural foraminal stenosis at C6-C7. See discussion for detailed level by level analysis. 2. The cervical cord is normal in morphology and signal intensity. 3. No destructive bony process is seen. Electronically signed by: Jun Arredondo M.D. 01/24/2025 2:37 PM
--- NOTE | 2025-01-24 20:36 | Hospitalist Progress Note ---
Date of Service January 24, 2025 Assessment & Plan (1) Acute on chronic combined systolic (congestive) and diastolic (congestive) heart failure: (2) Leg weakness, bilateral: (3) Rhinorrhea: (4) Orthostatic hypotension: (5) Diabetes mellitus: (6) Paroxysmal atrial fibrillation: Plan 74 year-old man with many chronic medical problems including chronic systolic and diastolic heart failure, history of episodes of VT - AICD in place, coronary artery disease, atrial fibrillation, cor pulmonale, obstructive sleep apnea, chronic kidney disease, diabetes type 2. he presents just generally feeling poorly with malaise he is having a significant amount of lower extremity weakness and episodes of numbness that has impaired his ambulation to the point that he feels like he cannot make it at home anymore, he has had significant problems with orthostatic hypotension recently that has caused alteration of his medication regimen and has impaired his mobility. Diuresed easily, appears euvolemic. C-spine MRI without evidence of severe CSS or myelopathy. Weakness may be related to deconditioning (secondary to prolonged time with significant orthostatic symptoms), PT recommends acute rehab #Acute on chronic combined systolic and diastolic heart failure - Diuresed with IV lasix now euvolemic - Weight decreased from 136.6 kg to 129 kg - Echocardiogram with moderately severe reduction in LV systolic function, akinetic at apex, severe LVH, moderate MR with eccentric jet, biatrial dilatation, severe pulmonary hypertension, reduced collapsibility of IVC - reduced carvedilol dose to 6.25 bid, continue SGLT2 - resume oral lasix 40 mg alt with 20 mg - daily a.m. BMP and magnesium # Progressive bilateral leg weakness, recent onset of urinary incontinence. craning of neck seems to aggravate symptoms, cervical spinal stenosis on CT neck with no fractures seen. Possible spinal myelopathy - noncontrast MRI C-spine with severe C6-7 foraminal stenosis which is asx, no cord abnormality or severe CSS - ESR 37, CRP ( 1.5), total CK ( was 223 not elevated ruling out rhabdomyolysis) - Differential: deconditioning, statin-induced myopathy, peripheral neuropathy. Patellar reflexes brisk so unlikely GBS. Not consistent with MG. Consider T and L spine imaging # Rhinorrhea this resolved with ipratropium nasal spray therefore is rhinitis and CSF leak is ruled out -decrease to bid # leukocytosis - he has a leukocytosis which is left shifted. I do not have an explanation for this currently he has no apparent infection monitor for signs and symptoms of infection or inflammation. CRP only 1.5 - AM CBC # voice change and symptoms of choking/heaviness when turning head to right/left or flexing neck - related to previous palate surgery for LINDA? Consider ENT referral # CKD stage [address] Milan, [place]. # Coronary artery disease - medically managed Stable. continue aspirin statin and beta-luanne Consider changing atorva to rosuvastatin because of muscle symptoms # Ventricular tachycardia history AICD, atrial paced, stable. # Paroxysmal atrial fibrillation Stable. he is not on anticoagulation because of history of pulmonary hemorrhage and according to his preference, continue beta-luanne aspirin and amiodarone # Obstructive sleep apnea Continue CPAP at bedtime. # Type 2 diabetes mellitus Continue SGLT2 inhibitor, hold dulaglutide and metformin last A1c was in the fives, continue diabetic diet and every morning Accu-Cheks add as needed insulin if these are elevated greater than 180 - glucose was 91 on today's chemistry panel # Benign prostatic hyperplasia (BPH) Continue finasteride. # Orthostatic hypotension - discontinued trazodone. alternative agent for sleep - try seroquel increased to 50 mg - TSH 1.6 in october, B12 recently normal, a.m. cortisol was robust at 15 - monitor orthostatic vital signs, ordered PT and OT evaluations - seems to have had improvement - felt lightheaded with PT but did not drop his BP when standing # hypothyroidism -continue levothyroxine. There is a possible thyroid nodule seen incidentally on his neck CT - follow-up with primary care # DVT Prophylaxis: SCDs, low-dose apixaban because he has a history of HIT referral to [facility] for acute rehab Admission and Anticipated Discharge Date Admission Date: January 22, 2025 Subjective Patient presents with acute on chronic combined systolic and diastolic heart failure. Ins and outs are -3200 mL. Overnight weight decreased to 129 kg, indicating good diuresis. Atrial paced on telemetry review. Vital signs normal. He continues to have leg weakness, got fatigued and shaky after about 8 steps with PT, recommending acute rehab. Not short of breath at this time. Has upper chest pressure/choking feeling when turning head to right or left and when flexing head. Voice has changed in past year. 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 Vital signs: Reviewed past 24h vital signs in EMR, unremarkable. HEENT: Within normal limits. No stridor or wheezing. No palpable masses in anterior neck Respiratory: bibasilar crackles. No wheezing. Normal respiratory effort. Cardiovascular: Regular heart sounds, distant. No murmurs, rubs, or gallops. Gastrointestinal: Abdomen protruberant ND Extremities: Lower extremities - no edema, cool feet/ankles Skin: Warm and dry, no rash. Neurological: AOx4, normal speech and mentation, pryor x 4. Bilateral LE weakness Psychiatric: Normal. Results & Data Results & Data Vital Signs (Past 12 Hours) Vital Signs Temp Pulse Pulse Resp BP BP Pulse Ox 01/24/25 19:55 36.9 C 62 18 129/78 93 01/24/25 16:32 70 01/24/25 16:00 01/24/25 15:00 36.6 C 67 18 121/75 95 01/24/25 10:21 Pulse Ox O2 Del Method O2 Del Method 01/24/25 19:55 Room Air 01/24/25 16:32 01/24/25 16:00 92 Room Air 01/24/25 15:00 Room Air 01/24/25 10:21 Room Air Laboratory Results - Laboratory Studies: - Sodium: 139 - Potassium: 4.0 - BUN: 39 - Creatinine: 2.27 Diagnostic Findings Cervical Spine MRI 01/24/25 00:00 MRI OF THE CERVICAL SPINE WITHOUT IV CONTRAST CLINICAL HISTORY: Lower extremity weakness. Syncope. COMPARISON STUDY: Cervical spine CT dated 01/22/2025. TECHNIQUE: MRI of the cervical spine was performed utilizing various T1 and T2- weighted sequences in the axial and sagittal planes. IV contrast was not administered for this examination. The examination is degraded by motion artifact. FINDINGS: Cervical spine: Vertebral body height and alignment is maintained throughout the cervical spine. There is straightening of the cervical lordosis. Anterior osteophytes are seen throughout. The atlantodental articulation is maintained noting productive degenerative change. The spinous processes appear intact. No destructive bony lesion is seen. There is no significant degenerative endplate change. Intervertebral discs: Disc desiccation and mild loss of height is seen throughout the cervical spine. Loss of height is greatest at C5-C6 and C6-C7. Spinal cord: The cervical cord is normal in morphology and signal intensity. C2-C3: The central canal is clear. Mild facet arthropathy is of no consequence. The neural foramina are patent. C3-C4: A posterior disc osteophyte complex minimally effaces the ventral subarachnoid space. Uncovertebral and facet arthropathy cause moderate left and mild right neural foraminal stenosis. C4-C5: A posterior disc osteophyte complex abuts the ventral cord. Uncovertebral and facet arthropathy cause moderate left greater than right neural foraminal stenosis. C5-C6: A posterior disc osteophyte complex abuts the ventral cord. Uncovertebral and facet arthropathy cause mild bilateral neural foraminal stenosis. C6-C7: A posterior disc osteophyte complex eccentric to the left efface the ventral subarachnoid space. There is a left lateral disc bulge. In conjunction with facet arthropathy there is moderate to severe left neural foraminal stenosis. There is only minimal neural foraminal narrowing on the right. C7-T1: Unremarkable. Soft tissues: The prevertebral and paraspinous soft tissues are within normal limits. Brain parenchyma: The imaged brain parenchyma the skull base is normal as visualized. IMPRESSION: 1. Multilevel cervical spondylosis as above noting moderate to severe left neural foraminal stenosis at C6-C7. See discussion for detailed level by level analysis. 2. The cervical cord is normal in morphology and signal intensity. 3. No destructive bony process is seen. Electronically signed by: Jun Arredondo M.D. 01/24/2025 2:37 PM PG Care Time/CCT Total # of Minutes Spent Total Time Spent with Patient: Total time spent is greater than 50% in coordination of care (as documented) at patient's floor/unit and/or counseling patient: Coding Level of Care Code 04218 SUB INP/OBS CARE 3/50MIN Diagnoses Acute on chronic combined systolic (congestive) and diastolic (congestive) heart failure I50.43 Leg weakness, bilateral R29.898 Rhinorrhea J34.89 Orthostatic hypotension I95.1 Diabetes mellitus E11.9 Paroxysmal atrial fibrillation I48.0
[2025-01-25 03:07] VITALS: RESP 18
[2025-01-25] MEDS: IPRATROPIUM BROMIDE NASAL SPRAY 0.06% 15ML NAE SCH (06:01)
[2025-01-25 07:31] LABS: Anion Gap 8.0 (3-11); Blood Urea Nitrogen 36.0 mg/dl (6-23); Calcium 8.4 mg/dl (8.6-10.3); Carbon Dioxide 28.0 mmol/L (21-32); Chloride 102.0 mmol/L (98-107); Creatinine Clr Calc Pharmacy 43.0 ml/min; Glucose 93.0 mg/dl (70-99(Fasting)); Magnesium 2.1 mg/dl (1.7-2.4); Potassium 4.1 mmol/L (3.5-5.1); Sodium 138.0 mmol/L (136-145)
[2025-01-25] MEDS: FUROSEMIDE 40 MG TAB PO SCH (08:14)
[2025-01-25 11:25] VITALS: PULSE 86; TEMP 97.5; O2SAT 95
--- NOTE | 2025-01-25 13:27 | Discharge Summary ---
Discharge Summary Date of Service January 25, 2025 Principal Dx & Hospital Course #1 = Principal Diagnosis (1) Acute on chronic combined systolic (congestive) and diastolic (congestive) heart failure: (2) Leg weakness, bilateral: (3) Rhinorrhea: (4) Orthostatic hypotension: (5) Diabetes mellitus: (6) Paroxysmal atrial fibrillation: Plan 74 year-old man with many chronic medical problems including chronic systolic and diastolic heart failure, history of episodes of VT - AICD in place, coronary artery disease, atrial fibrillation, cor pulmonale, obstructive sleep apnea, chronic kidney disease, diabetes type 2. he presents just generally feeling poorly with malaise he is having a significant amount of lower extremity weakness and episodes of numbness that has impaired his ambulation to the point that he feels like he cannot make it at home anymore, he has had significant problems with orthostatic hypotension recently that has caused alteration of his medication regimen and has impaired his mobility. Diuresed easily but massive amount, now appears euvolemic. C-spine MRI without evidence of severe CSS or myelopathy. Weakness may be related to deconditioning (secondary to prolonged time with significant orthostatic symptoms), PT recommends acute rehab #Acute on chronic combined systolic and diastolic heart failure, ischemic cardiomyopathy - Diuresed with IV lasix now euvolemic - Weight decreased from 136.6 kg to 124.5 kg - Echocardiogram with moderately severe reduction in LV systolic function 35- 40%, akinetic at apex, severe LVH, moderate MR with eccentric jet, biatrial dilatation, severe pulmonary hypertension, reduced collapsibility of IVC - this echo is relatively unchanged - previous echo in August noted EF 40% global LV hypokinesis, some findings above may have been related to volume overload - reduced carvedilol dose to 6.25 bid because of orthostasis and weakness - symptoms improved, continue SGLT2 - resumed oral lasix 40 mg alt with 20 mg which is a slight increase - check chemistry panel and magnesium in about a week - schedule follow-up with [facility] after he is home from rehab - made referral to CHF clinic - note that he holds the edema in his trunk and only had very mild/trace leg edema even when significantly volume overloaded # Progressive bilateral leg weakness, recent onset of urinary incontinence. craning of neck seems to aggravate symptoms, cervical spinal stenosis on CT neck with no fractures seen. - noncontrast MRI C-spine with severe C6-7 foraminal stenosis which is asx, no cord abnormality or severe CSS - ESR 37, CRP ( 1.5), total CK ( was 223 not elevated ruling out rhabdomyolysis) - Differential: deconditioning, statin-induced myopathy, peripheral neuropathy. Patellar reflexes brisk so unlikely GBS. Not consistent with MG. I think this is deconditioning which was provoked by the prolonged amount of time that he was having highly symptomatic orthostatic hypotension as an outpatient, during that time he stopped moving around and has been basically sitting in his recliner chair. Discharged to [facility] for acute rehab. if weakness persist despite rehab would recommend consider neurology referral and imaging his T and L-spine with MRI # Rhinorrhea this resolved with ipratropium nasal spray therefore is rhinitis and CSF leak is ruled out -decrease to daily and as needed # leukocytosis - he has a leukocytosis which is left shifted. I do not have an explanation for this currently he has no apparent infection monitor for signs and symptoms of infection or inflammation. CRP only 1.5 - AM CBC # CKD stage [address] Milan, colt. # Coronary artery disease - medically managed, he has a chronic occlusion Stable. continue aspirin statin and beta-luanne Consider changing atorva to rosuvastatin because of muscle symptoms # Ventricular tachycardia history AICD, atrial paced, stable. # Paroxysmal atrial fibrillation Stable. he is not on anticoagulation because of history of pulmonary hemorrhage and according to his preference, continue beta-luanne aspirin and amiodarone # Obstructive sleep apnea he has a feeling of a choking or obstructed sensation when he lays down and t urns his head to the left or the right or goes chin to chest, I think this may be related to his remote prior palate surgery which was for sleep apnea, follow-up with pulmonary because he felt like this did not occur in the past when he used to be on BiPAP, he also feels like his voice has become more hoarse in the past year - also consider ENT referral Continue CPAP at bedtime. # Type 2 diabetes mellitus Continue SGLT2 inhibitor, dulaglutide and metformin last A1c was in the fives # Benign prostatic hyperplasia (BPH) Continue finasteride. # Orthostatic hypotension - discontinued trazodone. alternative agent for sleep - try seroquel increased to 50 mg, seems to be effective so far - TSH 1.6 in October, B12 recently normal, a.m. cortisol was robust at 15 - monitor orthostatic vital signs, ordered PT and OT evaluations - seems to have had improvement - felt lightheaded with PT but did not drop his BP when standing # hypothyroidism -continue levothyroxine. There is a possible thyroid nodule seen incidentally on his neck CT - follow-up with primary care # DVT Prophylaxis: SCDs, low-dose apixaban because he has a history of HIT - Laboratory Studies: 01/25 - Sodium: 138 - Potassium: 4.1 - BUN: 36 - Creatinine: 2.03 - Testing: - Telemetry shows a paced rhythm referral to [facility] for acute rehab Notes For Next Care Provider Acute on chronic systolic and diastolic heart failure, deconditioning, recent severe orthostatic hypotension reduced carvedilol to 6.25 mg bid small increase in lasix to 20 mg alternating with 40 mg - may need to increase a little more - volume overloaded at presentation without leg edema (was in trunk) replaced trazodone with seroquel because of orthostatic hypotension Admission HPI Per Admitting Provider 74-year-old male with systolic and diastolic heart failure, CKD stage 3, VT with AICD, obstructive sleep apnea, coronary artery disease, paroxysmal atrial fibrillation, and diabetes. Presents with generalized malaise and lower extremity weakness. Reports difficulty rising from bed and ambulating, worsening over 3 weeks, mostly confined to a chair. Experiences lightheadedness upon standing, legs get numb and give out especially when looking up or raising left arm, causing numbness and instability in legs. 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 Developed urinary incontinence and constipation over several months, no loss of sensation in lower extremities or perineal area. Leg edema well-managed, feet cold and blue for last couple of months. Fell yesterday, previous fall in August or September 2024. Headaches, no tinnitus or hearing loss. Poor sense of smell, no changes. Suspects sinusitis because of ongoing rhinorrhea since URI just before , no facial pain or pressure. rhinorrhea is disrupting sleep due to nasal drainage causing choking sensation especially when lying on left side or back. he has to blow his nose a lot and then sometimes it drips down onto his shirt. It is clear and thin. No fever, chills, abdominal pain, nausea, vomiting, diarrhea, dysuria, skin rashes, or wounds. Severe orthostatic hypotension has been an issue this year, requiring medication adjustments, including reduced carvedilol dose and reduction of Lasix regimen to 20 mg daily with additional doses as needed. Increased shortness of breath compared to baseline. Cold symptoms since late November 2024 or December 2024, Occasional clear nasal discharge. Discharge Exam General Appearance: Normal. Vital signs: Reviewed past 24h vital signs in EMR, notable for: Weight decreased from 138 kg to 124.9 kg. Oxygen saturation is 91 to 93% on room air. HEENT: Within normal limits. Respiratory: Respirations nonlabored, no rhonchi rales or wheezes. Cardiovascular: Telemetry shows a paced rhythm. Gastrointestinal: Abdomen soft NT/ND, normal active bowel tones. Extremities: warm and well perfused, no LE edema. Skin: Warm and dry, no rash. Neurological: AOx4, normal speech and mentation, pryor x 4. Psychiatric: Normal. Discharge Plan Discharge Items Patient Disposition: Transfer Inpatient Rehab Fac Reason For Visit: HEART FAILURE Discharge Diagnosis: Acute on chronic combined systolic and diastolic heart failure, right heart failure, leg weakness Condition on Discharge: Good Activity: Resume your previous activity Weightbearing: Full weightbearing Non-emergency contact: Primary Care Provider and Data Analyst Call non-emergency contact if: you have any medication questions and your symptoms worsen Follow-up/Referrals: Amber Kemp DO [Primary Care Provider] - Sophie Mota PA-C [Physician Loss Prevention Analyst] - 02/01/25 9:30 am Diet: Carb Consistent or DM2 and Low Sodium (2gm) Addtl Attending Provider Instructions: You were treated for acute on chronic heart failure - improved with diuresis. You don't get a lot of edema so you're probably holding some edema in your abdomen/trunk. Discharge weight 125 kg (275.5 pounds) Rhinitis resolved with ipratropium nasal spray - once or twice a day to control runny nose MRI cspine didn't show a cause for leg weakness. Consider MRI T and L spine if weakness not improved with rehab. Seems most likely deconditioning at this point since you have normal reflexes PT and OT evaluate and treat daily orthostatic blood pressures - has had significant problems with orthostatic hypotension B12 level was >1500, recommend empiric B1 supplementation follow daily weight, adjust diuretics schedule follow up with PCP, [facility] cardiology Dr. Soliman or Irwin Lindsay - I also made referral to CHF clinic - schedule follow up once home from [facility], Pulmonary Dr. Varela - to see whether going back to [facility] would help with your positional airway symptoms, consider seeing ENT for this. possible right thyroid nodule incidentally seen on imaging of the C-spine, follow-up as an outpatient with primary care continue CPAP at [facility] on 01/27 meds/diuretics adjusted It was a pleasure taking care of you in the hospital, Laine Willis MD Pending Studies at Discharge: No Stand-Alone Forms: My [facility] Skilled Items Patient informed of condition?: Yes DNR: No Discharge Level of Care: Acute rehab Communicable Disease: No Discharge Prognosis: Improving Lines: None Urinary Catheter: No Medications and DC Order Prescriptions: New quetiapine 25 mg Tablet 50 mg PO HS Qty: 0 0RF furosemide 40 mg Tablet 40 mg PO Q48H Qty: 0 0RF carvedilol 6.25 mg Tablet 6.25 mg PO BIDM Qty: 0 0RF polyethylene glycol 3350 [Miralax] 17 gram Powder In Packet 17 g PO DAILY Qty: 0 0RF melatonin 3 mg Tablet 3 mg PO HS PRNQty: 0 0RF furosemide 20 mg Tablet 20 mg PO Q48H Qty: 0 0RF ipratropium bromide 42 mcg (0.06 %) [place],Non-Aerosol 2 spray JOSE DAILY Qty: 0 0RF thiamine HCl (vitamin B1) 100 mg tablet 200 mg PO DAILY Qty: 60 0RF Continued multivitamin [Daily Multi-Vitamin] Tablet 1 tab PO DAILY Qty: 90 6RF (DME) blood-glucose meter [ithinksportTouch Ultra2 Meter] Misc See Rx Instructions .Route Qty: 1 0RF Rx Instructions: Check blood sugar once a day krill oil 500 mg capsule 500 mg PO DAILY amiodarone 200 mg tablet 200 mg PO BIDM Qty: 180 3RF (DME) lancets [OneTouch Delica Plus Lancet] 33 gauge misc See Rx Instructions .Route Qty: 100 1RF Rx Instructions: testing 1 x per day montelukast 10 mg tablet 10 mg PO HS Qty: 90 1RF finasteride 5 mg tablet 5 mg PO QAM Qty: 90 1RF metformin 500 mg tablet 500 mg PO BID Qty: 180 2RF levothyroxine 150 mcg tablet 150 mcg PO DAILY Qty: 90 1RF fenofibrate nanocrystallized 48 mg tablet 96 mg PO DAILY Qty: 180 1RF (DME) OneTouch Ultra Test Strip See Rx Instructions .Route Qty: 100 5RF Rx Instructions: testing 1 x per day atorvastatin 20 mg tablet 20 mg PO DAILY Qty: 90 2RF bupropion HCl 300 mg tablet extended release 24 hr 300 mg PO DAILY Qty: 90 1RF cyanocobalamin (vitamin B-12) 5,000 mcg tablet, sublingual 5,000 mcg SL DAILY (DME) CPAP Machine Misc .Route Qty: 1 0RF Rx Instructions: Change to CPAP at 9 cm of water, [facility] acetaminophen [Tylenol Extra Strength] 500 mg tablet 500 mg PO Q6H PRN (Reason: Pain) Jardiance 10 mg tablet 10 mg PO QAM Qty: 90 3RF aspirin [Roderick Low Dose Aspirin] 81 mg tablet,delayed release (DR/EC) 81 mg PO DAILY Qty: 100 3RF dulaglutide 4.5 mg/0.5 mL pen injector 4.5 mg subcut UD Rx Instructions: 4.5 mg wk. No fill history available cholecalciferol (vitamin D3) 100 mcg (4,000 unit) capsule 4,000 unit PO DAILY Discontinued carvedilol 12.5 mg tablet 12.5 mg PO BID Qty: 180 1RF trazodone 100 mg tablet 100 mg PO HS Qty: 90 1RF furosemide 20 mg tablet 20 mg PO DAILY PRN (Reason: edema) Qty: 90 3RF Hold Instructions: Home Medication placed on hold at Doctor's office Rx Instructions: take an additional 20 mg daily as needed for weight gain/fluid retention docusate sodium [Colace] 100 mg capsule 100 mg PO TID PRN (Reason: Constipation) Discharge Orders: Discharge Order- CHF (Routine); Ordered 01/25/25 Ordered By: Laine Willis Admission Data Admit Date/Time: 01/22/25 12:25 Attending Provider: Laine Willis Admit Provider: Laine Willis Primary Care Provider: Amebr Kemp Other Providers: Laine Willis; [facility]; Sophie Mota Other Interventions: Discharge Summary Assessment (RN) Last Done: 01/25/25 15:10 Hospital Stay Data Consultations 01/22/25 11:16 ED Decision to Admit Stat Diagnostic Imagining Performed 01/22/25 08:25 CT head/brain wo con Stat CT neck [CT cervical spine wo con] Stat 01/22/25 13:46 US soft tissue head and neck Routine 01/24/25 00:00 MR cervical spine wo con Routine Pending Results Patient Have Any Pending Studies at Discharge: No Discharge Instructions Given to Patient (Per Discharging Provider) You were treated for acute on chronic heart failure - improved with diuresis. You don't get a lot of edema so you're probably holding some edema in your abdomen/trunk. Discharge weight 125 kg (275.5 pounds) Rhinitis resolved with ipratropium nasal spray - once or twice a day to control runny nose MRI cspine didn't show a cause for leg weakness. Consider MRI T and L spine if weakness not improved with rehab. Seems most likely deconditioning at this point since you have normal reflexes PT and OT evaluate and treat daily orthostatic blood pressures - has had significant problems with orthostatic hypotension B12 level was >1500, recommend empiric B1 supplementation follow daily weight, adjust diuretics schedule follow up with PCP, [facility] cardiology Dr. Soliman or Irwin Lindsay - I also made referral to CHF clinic - schedule follow up once home from [facility], Pulmonary Dr. Varela - to see whether going back to Bipap would help with your positional airway symptoms, consider seeing ENT for this. possible right thyroid nodule incidentally seen on imaging of the C-spine, follow-up as an outpatient with primary care continue CPAP at [facility] on 01/27 meds/diuretics adjusted It was a pleasure taking care of you in the hospital, Laine Willis MD Total Time Total Time Spent Total Time Spent (In Minutes): I personally spent: 40 minutes today on clinical care activities including: reviewing chart notes and vital signs reviewing labs reviewing studies discussion with rn long term care examining and counseling the patient writing orders writing prescriptions, discharge instructions documentation Coding Level of Care Code 20995 INP/OBS DISCH >30 MIN Diagnoses Acute on chronic combined systolic (congestive) and diastolic (congestive) heart failure I50.43 Leg weakness, bilateral R29.898 Rhinorrhea J34.89 Orthostatic hypotension I95.1 Diabetes mellitus E11.9 Paroxysmal atrial fibrillation I48.0
[2025-01-25 15:35] VITALS: BP 121/75
--- NOTE | 2025-01-26 06:34 | Electrocardiogram Report ---
Test Reason : Blood Pressure : */* mmHG Vent. Rate : 79 BPM Atrial Rate : 79 BPM P-R Int : 396 ms QRS Dur : 162 ms QT Int : 422 ms P-R-T Axes : * -59 108 degrees QTcB Int : 483 ms Atrial-paced rhythm with prolonged AV conduction Left axis deviation Left bundle branch block Minimal voltage criteria for LVH, may be normal variant ( [place] product ) Abnormal ECG When compared with ECG of 07-Apr-2024 05:41, Electronic atrial pacemaker has replaced Sinus rhythm Confirmed by Jesus Alberto Pruitt ([id number]) on 01/26/2025 6:34:19 AM Referred By: REFERRED SELF Confirmed By: Jesus Alberto Pruitt
[2025-01-26] MEDS ORDERED: FUROSEMIDE 20 MG TAB PO SCH (09:00)
== END 2025-01-25 16:55 | DRG 291 ==
LOC: ED 07:25 → 2S 12:25